=== PATIENT | female | born 1945 | race Caucasian/White ===

== ENCOUNTER → 2017-02-16 | Outpatient (CLI) | payer OTHER ==
[~2017-02-16] MED LIST: ATV5X PO; CHOL100010 PO; LEVO1TAB PO; MULT-506 PO; NAPR1TAB9 PO
[2017-02-16 12:44] LABS: ALT/SGPT 21 U/L (12-78); AST/SGOT 15 U/L (15-37); BLOOD UREA NITROGEN 9 mg/dl (7-18); BUN/CREATININE RATIO 12.8 (10-20); CALCIUM 9.3 mg/dl (8.5-10.1); CARBON DIOXIDE 29 mmol/L (21-32); CHLORIDE 106 mmol/L (98-107); CREATININE 0.67 mg/dl (0.60-1.20); GLUCOSE 114 mg/dl (70-99); POTASSIUM 4.3 mmol/L (3.5-5.1); SODIUM 139 mmol/L (136-145)
[2017-02-16 12:46] LABS: ALB/GLOB RATIO 0.9 (0.9-2); ALKALINE PHOSPHATASE 115 U/L (45-117)
== END | disposition home or self-care (01) ==
LOC: C.LABPVFM 10:17
PROVIDERS: ATTEND Family Medicine
DX: E55.9 Vitamin D deficiency, unspecified (principal); J44.9 Chronic obstructive pulmonary disease, unspecified

== ENCOUNTER → 2017-06-29 | Outpatient (CLI) | payer OTHER ==
[2017-06-29 18:17] LABS: ALT/SGPT 26 U/L (12-78); AST/SGOT 22 U/L (15-37); BLOOD UREA NITROGEN 11 mg/dl (7-18); BUN/CREATININE RATIO 14.3 (10-20); CALCIUM 9.1 mg/dl (8.5-10.1); CARBON DIOXIDE 25 mmol/L (21-32); CHLORIDE 103 mmol/L (98-107); CREATININE 0.76 mg/dl (0.60-1.20); GLUCOSE 90 mg/dl (70-99); POTASSIUM 4.2 mmol/L (3.5-5.1); SODIUM 134 mmol/L (136-145)
[2017-06-29 18:28] LABS: ALB/GLOB RATIO 0.8 (0.9-2); ALKALINE PHOSPHATASE 112 U/L (45-117); THYROID STIMULATING HORMONE 0.543 uIu/ml (0.300-4.500)
== END | disposition home or self-care (01) ==
LOC: C.LABPVFM 10:53
PROVIDERS: ATTEND Family Medicine
DX: Z00.00 Encounter for general adult medical examination without abnormal findings (principal); E03.9 Hypothyroidism, unspecified; I48.92 Unspecified atrial flutter; C85.10 Unspecified B-cell lymphoma, unspecified site; E55.9 Vitamin D deficiency, unspecified; Z11.59 Encounter for screening for other viral diseases

== ENCOUNTER → 2017-08-23 | Outpatient (CLI) | payer OTHER ==
[2017-08-23 19:18] LABS: LYME DISEASE AB IGG POS (NEG); LYME DISEASE AB IGM EQUIVOCAL (NEG)
== END | disposition home or self-care (01) ==
LOC: C.LABPVFM 13:33
PROVIDERS: ATTEND Family Medicine
DX: E03.9 Hypothyroidism, unspecified (principal); S30.861A Insect bite (nonvenomous) of abdominal wall, initial encounter; W57.XXXA Bitten or stung by nonvenomous insect and other nonvenomous arthropods, initial encounter

== ENCOUNTER 2018-03-05 12:05 | Inpatient (IN) | payer OTHER ==
[2018-03-05] VITALS (11 sets, daily range): BP systolic 91–117; BP diastolic 62–84; PULSE 133–137; TEMP 36.4–36.5; O2SAT 93–96; Ht 162.6 cm; Wt 68.1 kg
[~2018-03-05] VITALS: Ht 162.6 cm; Wt 68.1 kg
[~2018-03-05 12:05] MED LIST changes: -CHOL20007 PO; -LEVO100T7 PO; -OPTIRAY 320 IV PRN
[2018-03-05 13:08] LABS: BASO % 0.3 %; BASO ABS # 0.02 K/uL (0-0.2); EOS % 1.8 %; EOS ABS # 0.13 K/uL (0-0.5); HEMATOCRIT 33.8 % (37-47); HEMOGLOBIN 11.1 g/dL (12.0-16.0); IG# 0.03 K/uL (0.00-0.02); LYMPH % 10.5 %; LYMPH ABS # 0.76 K/uL (1.2-3.4); MEAN CELL VOLUME 87.6 fL (80-100); MEAN CORPUSCULAR HEMOGLOBIN 28.8 pg (25-34); MEAN CORPUSCULAR HGB CONC 32.8 g/dl (32-36); MEAN PLATELET VOLUME 9.1 fL (7.4-10.4); MONO % 2.3 %; MONO ABS # 0.17 K/uL (0.11-0.59); NEUT % 84.7 %; NEUT ABS # 6.16 K/uL (1.4-6.5); PLATELET COUNT 198 K/uL (130-400); RED CELL DISTRIBUTION WIDTH CV 20.5 % (11.5-14.5); RED CELL DISTRIBUTION WIDTH SD 65.5 fL (36.4-46.3); WHITE BLOOD COUNT 7.27 K/uL (4.8-10.8)
[2018-03-05] MEDS ORDERED: CHOL20007 PO (13:11)
[2018-03-05] MEDS ORDERED: LEVO100T7 PO (13:11)
[2018-03-05 13:24] LABS: INR 1.1 (0.9-1.1); PTT PATIENT 37.5 SECONDS (21.0-31.0)
--- NOTE | 2018-03-05 13:33 | DIAGNOSTIC IMAGING REPORT ---
CHEST ONE VIEW PORTABLE HISTORY: Tachycardia. Atypical CHEST PAIN COMPARISON: Chest 07/02/2014. FINDINGS: No pneumothorax. No pleural effusions. Right subclavian Port-A-Cath terminus in the SVC. The heart remains enlarged. Diffuse interstitial thickening has progressed. There are few patchy airspace opacities within the right midlung zone. IMPRESSION: Slight progression of the diffuse interstitial thickening. There are few patchy airspace opacities within the right midlung zone. The heart remains enlarged. This could represent pulmonary edema or an atypical pneumonitis. Electronically signed by: Thaddeus Miller M.D. 03/05/2018 1:32 PM Dictated Date/Time: 03/05/2018 1:28 PM
[2018-03-05 13:34] LABS: CREATININE 0.55 mg/dl (0.60-1.20)
[2018-03-05 13:35] LABS: ALBUMIN 2.2 gm/dl (3.4-5.0); CALCIUM 8.5 mg/dl (8.5-10.1); POTASSIUM 3.8 mmol/L (3.5-5.1)
[2018-03-05 13:38] LABS: CKMB 12.9 ng/ml (0.5-3.6); TOTAL PROTEIN 8.5 gm/dl (6.4-8.2)
[2018-03-05] MEDS ORDERED: METOPROLOL TARTRATE 1 MG/ML VIAL IV STA (14:21)
--- NOTE | 2018-03-05 14:58 | EMERGENCY ROOM VISIT NOTE ---
History Report prepared by Nimesh: Danilo Vidal Under the Supervision of: Dr. Osbaldo Olivas M.D. First contact with patient: 12:25 Chief Complaint: TACHYCARDIA Stated Complaint: TACHYCARDIA,THERMAL BURN TO LEFT, SWELLING,SOB, History of Present Illness The patient is a 72 year old female who presents to the Emergency Room with complaints of worsening bilateral leg swelling beginning this week. Her swelling is the worst in her knees. The patient also complains of shortness of breath, mild productive cough, and generalized weakness. She states that she has felt very anxious recently. She denies fevers, or abdominal pain. The patient was diagnosed with lymphoma four years ago and went through six series of chemotherapy (most recent treatment was four years ago). She has a history of rheumatoid arthritis. She was seen at the cancer center today for a routine follow-up CT and was referred to the ED for tachycardia. The patient has been taking all of her medications as normal. She has been drinking a lot of water. Source of History: patient Onset: This week Position: leg (bilateral) Quality: other (swelling) Timing: worsening Associated Symptoms: + cough (mild productive), + SOB, + weakness ( generalized), No fevers, No abdominal pain Review of Systems See HPI for pertinent positives & negatives. A total of 10 systems reviewed and were otherwise negative. Past Medical & Surgical Medical Problems: (1) Acute diastolic (congestive) heart failure (2) Anxiety (3) Atrial fibrillation (4) Atrial Flutter with RVR (5) COPD (chronic obstructive pulmonary disease) (6) Depressed (7) DJD (degenerative joint disease) (8) Hypothyroid Old medical records were reviewed. Nurse's notes were reviewed and I agree with. Family History No pertinent family history stated. Social History Smoking Status: Former Smoker Alcohol Use: none Drug Use: none Marital Status: Housing Status: lives with roommate Occupation Status: retired Current/Historical Medications Scheduled Cholecalciferol (Vitamin D3), 2,000-4,000 UNITS PO DAILY Levothyroxine Sodium (Levothyroxine Sodium), 100 MCG PO DAILY Multivitamin (Multivitamin), 1 TAB PO DAILY Scheduled PRN Lorazepam (Lorazepam), 0.5 MG PO BID PRN for Anxiety Naproxen (Aleve), 440 MG PO BID PRN for Pain Allergies Coded Allergies: Rofecoxib (Unverified Allergy, Unknown, CHEST PAIN, 03/05/18) Erythromycin (Verified Adverse Reaction, Unknown, SORE MOUTH, 03/05/18) Physical Exam Vital Signs Date Time Temp Pulse Resp B/P (MAP) Pulse Ox O2 Delivery O2 Flow Rate FiO2 03/05/18 14:49 132 03/05/18 14:20 135 16 139/94 97 Room Air 03/05/18 13:04 137 16 131/100 94 Room Air 03/05/18 13:00 138 03/05/18 12:30 98 Room Air 03/05/18 12:29 98 Room Air 03/05/18 12:08 36.3 137 20 122/82 94 Room Air Physical Exam General: Chronically-ill appearing older female in no acute distress. Answers questions appropriately, but poor historian. HEENT: Normal cephalic atraumatic. Pupils are equal round and reactive to light. Extraocular movements are intact. Oropharynx is pink with dry mucous membranes. No swelling of the mouth lips or tongue. Neck: Supple with a midline trachea. No meningeal signs or stiffness, no JVD or bruits. No Stridor. Chest: Crackles at the lung bases bilaterally. No increased work of breathing. Heart: Tachycardic rate with a regular rhythm. Abdomen: Soft nontender, nondistended without rebound guarding or rigidity. Extremities: No cyanosis or clubbing. No calf tenderness or assymetry. Pitting 1 + pedal edema bilaterally. Spine/Back. Non tender to palpation. No CVA tenderness Skin: Good turgor without rashes. Neurologic exam: Cranial nerves two through 12 are intact. Motor and sensation are intact and symmetrical throughout. Medical Decision & Procedures ER Provider Diagnostic Interpretation: Radiology results as stated below per my review and radiologist interpretation: CHEST ONE VIEW PORTABLE FINDINGS: No pneumothorax. No pleural effusions. Right subclavian Port-A-Cath terminus in the SVC. The heart remains enlarged. Diffuse interstitial thickening has progressed. There are few patchy airspace opacities within the right midlung zone. IMPRESSION: Slight progression of the diffuse interstitial thickening. There are few patchy airspace opacities within the right midlung zone. The heart remains enlarged. This could represent pulmonary edema or an atypical pneumonitis. Electronically signed by: Thaddeus Miller M.D. 03/05/2018 1:32 PM Laboratory Results 03/05/18 12:55 Red Blood Count 3.86, Mean Corpuscular Volume 87.6, Mean Corpuscular Hemoglobin 28.8, Mean Corpuscular Hemoglobin Concent 32.8, Mean Platelet Volume 9.1, Neutrophils (%) (Auto) 84.7, Lymphocytes (%) (Auto) 10.5, Monocytes (%) (Auto) 2.3, Eosinophils (%) (Auto) 1.8, Basophils (%) (Auto) 0.3, Neutrophils # (Auto) 6.16, Lymphocytes # (Auto) 0.76, Monocytes # (Auto) 0.17, Eosinophils # (Auto) 0.13, Basophils # (Auto) 0.02 03/05/18 12:55 Test 03/05/18 12:55 03/05/18 13:03 White Blood Count 7.27 K/uL (4.8-10.8) Red Blood Count 3.86 M/uL (4.2-5.4) Hemoglobin 11.1 g/dL (12.0-16.0) Hematocrit 33.8 % (37-47) Mean Corpuscular Volume 87.6 fL (80-100) Mean Corpuscular Hemoglobin 28.8 pg (25-34) Mean Corpuscular Hemoglobin Concent 32.8 g/dl (32-36) Platelet Count 198 K/uL (130-400) Mean Platelet Volume 9.1 fL (7.4-10.4) Neutrophils (%) (Auto) 84.7 % Lymphocytes (%) (Auto) 10.5 % Monocytes (%) (Auto) 2.3 % Eosinophils (%) (Auto) 1.8 % Basophils (%) (Auto) 0.3 % Neutrophils # (Auto) 6.16 K/uL (1.4-6.5) Lymphocytes # (Auto) 0.76 K/uL (1.2-3.4) Monocytes # (Auto) 0.17 K/uL (0.11-0.59) Eosinophils # (Auto) 0.13 K/uL (0-0.5) Basophils # (Auto) 0.02 K/uL (0-0.2) RDW Standard Deviation 65.5 fL (36.4-46.3) RDW Coefficient of Variation 20.5 % (11.5-14.5) Immature Granulocyte % (Auto) 0.4 % Immature Granulocyte # (Auto) 0.03 K/uL (0.00-0.02) Anisocytosis PRESENT Prothrombin Time 12.0 SECONDS (9.0-12.0) Prothromb Time International Ratio 1.1 (0.9-1.1) Activated Partial Thromboplast Time 37.5 SECONDS (21.0-31.0) Partial Thromboplastin Ratio 1.4 Anion Gap 1.0 mmol/L (3-11) Est Creatinine Clear Calc Drug Dose 99.8 ml/min Estimated GFR () 110.1 Estimated GFR (Non- 95.0 BUN/Creatinine Ratio 37.0 (10-20) Calcium Level 8.5 mg/dl (8.5-10.1) Total Bilirubin 0.5 mg/dl (0.2-1) Direct Bilirubin 0.2 mg/dl (0-0.2) Aspartate Amino Transf (AST/SGOT) 59 U/L (15-37) Alanine Aminotransferase (ALT/SGPT) 41 U/L (12-78) Alkaline Phosphatase 112 U/L (45-117) Total Creatine Kinase 196 U/L (26-192) Creatine Kinase MB 12.9 ng/ml (0.5-3.6) Creatine Kinase MB Ratio 6.6 (0-3.0) Pro-B-Type Natriuretic Peptide 9281 pg/ml (0-900) Total Protein 8.5 gm/dl (6.4-8.2) Albumin 2.2 gm/dl (3.4-5.0) Lipase 120 U/L (73-393) Thyroid Stimulating Hormone (TSH) 24.800 uIu/ml (0.300-4.500) Free Thyroxine 1.06 ng/dl (0.80-1.60) Bedside Troponin I 0.040 ng/ml (0-0.045) Laboratory studies as stated above per my review. Medications Administered Medications (Trade) Dose Ordered Sig/Bryanna Route Start Time Stop Time Status Last Admin Dose Admin Metoprolol Tartrate (Lopressor Iv) 2.5 mg NOW STAT IV 03/05/18 14:21 03/05/18 14:22 DC 03/05/18 14:49 2.5 MG ECG Per My Interpretation Indication: tachycardia Rate (beats per minute): 138 Rhythm: sinus tachycardia Findings: RBBB, other (Non-specific T-wave abnormalities. ) Comparison ECG Date: 04/15/2018 Change: Rate has increased, QRS has widened. Repeat ECG shows a sinus tachycardia with a rate of 136 bpm. Right Bundle Branch Block pattern noted. No significant changes from ECG 1. ED Course 1227: Past medical records reviewed. The patient was evaluated in room A3, and a complete history and physical examination were performed. 1355: Upon reevaluation, the patient is resting comfortably. I discussed the results and treatment plan with the patient. She verbalized agreement of the treatment plan. The patient will be evaluated for further management. 1421: Ordered Lopressor IV 2.5 mg IV. Medical Decision Differentials include, but are not limited to; arrhythmia, CHF, ACS, cancer complication , PE and electrolyte or metabolic abnormality.. This patient comes in as described above. She was sent over from the cancer center after being found to be fluid overloaded and tachycardic. She had a CAT scan today of her chest and abdomen prior to the ER visit which showed changes of fluid overload with some CHF small pericardial effusion and ascites. She also has pathological lymph nodes worrisome for recurrence of her lymphoma. She does tend to be very anxious. Her heart rate is in 130s. On the monitor there may be a P-wave. She is normotensive with this. Her A-Port was accessed. Chest x-ray was obtained as well as multiple blood testing. She was found to have an elevated BNP significantly. Her CK-MB is also elevated. Her TSH is also elevated some this could be hypothyroid related. She was given Lopressor 2.5 mg IV to help slow her heart rate down. It did not budge much. She does have a history of A. fib or flutter and it is possible she has 2-1 block rather than sinus tachycardia. I think is likely to slow for PSVT and there is some sort of P-wave motion. The [facility] hospitalist is in the room as the dose was given and will follow up any further medications and I do think the patient will need diuresis and further cardiac workup in the hospital. The patient and her were agree with the plan. Medication Reconcilliation Current Medication List: was personally reviewed by me Blood Pressure Screening Patient's blood pressure: Normal blood pressure Blood pressure disposition: Did not require urgent referral Consults Time Called: [id number] Consulting Physician: Dr. Dwight Mena Hospitalist Returned Call: [phone] Discussed the patient's case. The patient will be evaluated for further management. Impression Primary Impression: CHF (congestive heart failure) Additional Impressions: Tachycardia Lymphoma Scribe Attestation The scribe's documentation has been prepared under my direction and personally reviewed by me in its entirety. I confirm that the note above accurately reflects all work, treatment, procedures, and medical decision making performed by me. Departure Information Dispostion Being Evaluated By Hospitalist Referrals Ebony Palacio M.D. (PCP) Patient Instructions My [facility] Problem Qualifiers
[2018-03-05] MEDS ORDERED: FUROSEMIDE INJ 40 MG in SYRINGE 0 ML IV STA (14:59)
[2018-03-05] MEDS ORDERED: FUROSEMIDE 40 MG/4 ML VIAL IV SCH (14:59)
[2018-03-05] MEDS ORDERED: ALUMINUM/MAGNESIUM/SIMETH (MAALOX MAX) 30 ML UDC PO PRN (15:00)
[2018-03-05] MEDS ORDERED: ONDANSETRON INJ 2 MG/ML 2 ML VIAL IV PRN (15:00)
[2018-03-05] MEDS ORDERED: NAPROXEN PO PRN (15:00)
[2018-03-05] MEDS ORDERED: MAGNESIUM HYDROXIDE SUSP 30 ML UDC PO PRN (15:00)
[2018-03-05] MEDS ORDERED: POLYETHYLENE (MIRALAX) 17 GM PACK PO PRN (15:00)
--- NOTE | 2018-03-05 15:17 | History and Physical ---
History & Physical Date & Time of Service: Mar 05, 2018 at 15:09 Chief Complaint: Tachycardia,Thermal Burn To Left, Swelling,Sob, Primary Care Physician: Ebony Palacio M.D. History of Present Illness Source: patient, spouse Ms. Johns is a 72 y/o female with PMHx of B Cell Lymphoma with Parotid Neoplasm (2013), Hypothyroidism, RA, Paroxysmal Atrial Flutter, COPD, and Anxiety who presents to the ED c/o progressive edema and racing heart rate. Patient was seen on 02/28 by her PCP for this complaint and was recommended to come to the ED however patient states she didn't feel bad enough to come. She was getting F/U scans for her lymphoma and decided she couldn't take the swelling and fast heart rate any longer. She is somewhat of a limited historian and appears to have some slowing of verbal response. She states she has had progressive lower extremity edema beginning in October. She is unsure how much weight she has gained but reports that the swelling is so bad that she has difficulty walking due to pain. She states she likes to stay warm and will keep her legs and arms near a heater which produces redness and dryness to her extremities. She kept referring that she thermally burned her skin however no evidence of such. Legs have been weeping over the past couple days. She states she can tell her HR is fast but does not feel any different. She has a H/O Paroxysmal Atrial Fibrillation and was on Toprol XL and Xarelto but was D/Cd due to low BPs and "multiple pharmacists said I shouldn't be on Xarelto". She states she is okay with just a daily ASA and Naprosyn as her anticoagulation and tried to discuss the mechanism of this vs AC. This will need reinforced and she focuses on the commercials for lawsuit actions due to these drugs. She also reports some intermittent SOB with rest and activity but not constant. She has had a mild productive cough as well. She also reports ongoing anxiety and attempted to stop Ativan but had a lot of rebound effects and currently takes this BID. She follows with Dr. Garcia for her lymphoma and underwent chemotherapy x 4 years ago and was getting maintenance scanning today. In the ED, patient was tachycardic in 130-140s and reports sometimes its higher then this. She is appropriately saturating on RA but did drop to 77% with rolling in bed but unsure if this was more just poor reading vs true hypoxia. Initial EKG with significant changes however with repeat it did read as SVT but visible P waves present. Metoprolol 2.5 mg IV x 1 dose given in ED without much improvement. Will give Lasix 40 mg IV x 1 dose and assess response prior to giving more BB therapy. Once the rate improves may have better reading on underlying rhythm which could be a 2:1 flutter with some atrial ectopy. Will hold on AC given patient's reluctance at this time but will readdress and re- educate. Past Medical/Surgical History Medical Problems: (1) Acute diastolic (congestive) heart failure (2) Anxiety (3) Atrial fibrillation (4) Atrial Flutter with RVR (5) COPD (chronic obstructive pulmonary disease) (6) Depressed (7) DJD (degenerative joint disease) (8) Hypothyroid (9) Lymphoma malignant, large cell Family History COPD Diabetes mellitus Heart Disease Social History Smoking Status: Former Smoker Smokeless Tobacco Use: No Alcohol Use: none Drug Use: none Marital Status: Housing status: lives with family Occupational Status: retired Immunizations History of Influenza Vaccine: Unknown History of Tetanus Vaccine?: utd History of Pneumococcal: Unknown History of Hepatitis B Vaccine: Yes Allergies Coded Allergies: Rofecoxib (Unverified Allergy, Unknown, CHEST PAIN, 03/05/18) Erythromycin (Verified Adverse Reaction, Unknown, SORE MOUTH, 03/05/18) Home Medications Scheduled Cholecalciferol (Vitamin D3), 2,000-4,000 UNITS PO DAILY Levothyroxine Sodium (Levothyroxine Sodium), 100 MCG PO DAILY Multivitamin (Multivitamin), 1 TAB PO DAILY Scheduled PRN Lorazepam (Lorazepam), 0.5 MG PO BID PRN for Anxiety Naproxen (Aleve), 440 MG PO BID PRN for Pain Review of Systems Constitutional: + fatigue, No fever, No chills ENT: No nasal symptoms, No sore throat Respiratory: + dyspnea on exertion, + dyspnea at rest, No cough Cardiovascular: No chest pain, No palpitations Abdomen: + constipation (intermittent requiring disimpaction), No pain, No nausea, No vomiting, No diarrhea, No GI bleeding Musculoskeletal: + swelling (b/l lower extremities) Genitourinary - Female: No dysuria, No urinary frequency Psychiatric: + anxiety Hematologic / Lymphatic: No abnormal bleeding/bruising Integumentary: + problem reported (weeping b/l lower extremities; intermittent redness) Physical Exam Vital Signs Date Time Temp Pulse Resp B/P (MAP) Pulse Ox O2 Delivery O2 Flow Rate FiO2 03/05/18 14:49 132 03/05/18 14:20 135 16 139/94 97 Room Air 03/05/18 13:04 137 16 131/100 94 Room Air 03/05/18 13:00 138 03/05/18 12:30 98 Room Air 03/05/18 12:29 98 Room Air 03/05/18 12:08 36.3 137 20 122/82 94 Room Air General Appearance: WD/WN, no apparent distress, + pertinent finding (slow to respond to questioning; almost hypervigilent gaze) Head: normocephalic, atraumatic Eyes: sclerae normal ENT: hearing grossly normal Neck: supple, no JVD, trachea midline Respiratory/Chest: no respiratory distress, no accessory muscle use, + crackles (diffuse), + wheezing (expiratory) Cardiovascular: + tachycardia Abdomen/GI: normal bowel sounds, non tender, soft Extremities/Musculoskelatal: + swelling (2-3+ pitting edema b/l lower extremities with intermittent areas of clear fluid weeping; good pulses and cap refill) Neurologic/Psych: alert, oriented x 3 Skin: normal color, warm/dry Diagnostics Laboratory Results Results Past 24 Hours Test 03/05/18 12:55 03/05/18 13:03 03/05/18 15:04 Range/Units White Blood Count 7.27 4.8-10.8 K/uL Red Blood Count 3.86 4.2-5.4 M/uL Hemoglobin 11.1 12.0-16.0 g/dL Hematocrit 33.8 37-47 % Mean Corpuscular Volume 87.6 80-100 fL Mean Corpuscular Hemoglobin 28.8 25-34 pg Mean Corpuscular Hemoglobin Concent 32.8 32-36 g/dl Platelet Count 198 130-400 K/uL Mean Platelet Volume 9.1 7.4-10.4 fL Neutrophils (%) (Auto) 84.7 % Lymphocytes (%) (Auto) 10.5 % Monocytes (%) (Auto) 2.3 % Eosinophils (%) (Auto) 1.8 % Basophils (%) (Auto) 0.3 % Neutrophils # (Auto) 6.16 1.4-6.5 K/uL Lymphocytes # (Auto) 0.76 1.2-3.4 K/uL Monocytes # (Auto) 0.17 0.11-0.59 K/uL Eosinophils # (Auto) 0.13 0-0.5 K/uL Basophils # (Auto) 0.02 0-0.2 K/uL RDW Standard Deviation 65.5 36.4-46.3 fL RDW Coefficient of Variation 20.5 11.5-14.5 % Immature Granulocyte % (Auto) 0.4 % Immature Granulocyte # (Auto) 0.03 0.00-0.02 K/uL Anisocytosis PRESENT Prothrombin Time 12.0 9.0-12.0 SECONDS Prothromb Time International Ratio 1.1 0.9-1.1 Activated Partial Thromboplast Time 37.5 21.0-31.0 SECONDS Partial Thromboplastin Ratio 1.4 Sodium Level 132 136-145 mmol/L Potassium Level 3.8 3.5-5.1 mmol/L Chloride Level 100 98-107 mmol/L Carbon Dioxide Level 31 21-32 mmol/L Anion Gap 1.0 3-11 mmol/L Blood Urea Nitrogen 20 7-18 mg/dl Creatinine 0.55 0.60-1.20 mg/dl Est Creatinine Clear Calc Drug Dose 99.8 ml/min Estimated GFR () 110.1 Estimated GFR (Non- 95.0 BUN/Creatinine Ratio 37.0 10-20 Random Glucose 94 70-99 mg/dl Calcium Level 8.5 8.5-10.1 mg/dl Total Bilirubin 0.5 0.2-1 mg/dl Direct Bilirubin 0.2 0-0.2 mg/dl Aspartate Amino Transf (AST/SGOT) 59 15-37 U/L Alanine Aminotransferase (ALT/SGPT) 41 12-78 U/L Alkaline Phosphatase 112 45-117 U/L Total Creatine Kinase 196 26-192 U/L Creatine Kinase MB 12.9 0.5-3.6 ng/ml Creatine Kinase MB Ratio 6.6 0-3.0 Pro-B-Type Natriuretic Peptide 9281 0-900 pg/ml Total Protein 8.5 6.4-8.2 gm/dl Albumin 2.2 3.4-5.0 gm/dl Lipase 120 73-393 U/L Thyroid Stimulating Hormone (TSH) 24.800 0.300-4.500 uIu/ml Bedside Troponin I 0.040 0-0.045 ng/ml Diagnostic Radiology CHEST ONE VIEW PORTABLE FINDINGS: No pneumothorax. No pleural effusions. Right subclavian Port-A-Cath terminus in the SVC. The heart remains enlarged. Diffuse interstitial thickening has progressed. There are few patchy airspace opacities within the right midlung zone. IMPRESSION: Slight progression of the diffuse interstitial thickening. There are few patchy airspace opacities within the right midlung zone. The heart remains enlarged. This could represent pulmonary edema or an atypical pneumonitis. EKG Poor data quality, interpretation may be adversely affected Sinus tachycardia RSR' or QR pattern in V1 suggests right ventricular conduction delay Septal infarct , age undetermined Lateral infarct , possibly acute Inferior infarct , age undetermined ACUTE CO / STEMI Abnormal ECG When compared with ECG of 15-APR-2014 11:33, Significant changes have occurred Supraventricular tachycardia Incomplete right bundle branch block Possible Right ventricular hypertrophy Possible Lateral infarct (cited on or before 05-MAR-2018) Abnormal ECG When compared with ECG of 05-MAR-2018 12:40, (unconfirmed) Criteria for Septal infarct are no longer Present Criteria for Inferior infarct are no longer Present Serial changes of Lateral infarct Present Impression Assessment and Plan Ms. Johns is a 72 y/o female with PMHx of B Cell Lymphoma with Parotid Neoplasm (2013), Hypothyroidism, RA, Paroxysmal Atrial Flutter, COPD, and Anxiety who presents to the ED c/o progressive edema and racing heart rate. Tachycardia Possible Atrial Flutter with RVR: - Reviewed previous EKG which suggested atrial flutter vs atrial tach but not a clear cut example; Repeat EKG in ED suggesting SVT but there are visible P waves and if rate control obtained can repeat EKG for better analysis - She was previously on Toprol XL and Xarelto but has since been taken off of this - CK elevated but trops normal so far but will trend cardiac enzymes - no presentation of CP and likely would suspect some demand ischemia given rapid HR - Lopressor 2.5 mg Iv x 1 dose given in ED without response; Will give Lasix and assess tolerance before implementing further BB therapy or could consider CBB given her intolerance to Toprol previously -- Reports this was not tolerated due to blood pressure but can assess further Acute CHF: Possible Diastolic - Only echo was from 2013 with EF 60-65% and mild-moderate pulmonary HTN of 47- 52 - Will repeat echo - Daily weights and I&Os - Lasix 40 mg IV now which may help with rate control given volume overload may be the underlying etiology of the tachycardia Heme+ Stool: - This was incidentally found in ED - Reports no melena/hematochezia but states she does have hemorrhoids and intermittent constipation requiring self-disimpaction - Will trend H&H and hold Naprosyn but at this time will continue ASA Hypothyroidism: TSH 24 - Assess free T4 - this could be an inflammatory response - Unlikely to contribute to tachycardia given this suggests undertreated hypothyroidism COPD without Exacerbation: - There is exp. wheeze on examination which may be more the fluid congestion but will monitor - No indication for steroids at this time Anxiety: - This could be playing a factor in presentation and she reports long standing anxiety; she does reporting stopping this in the past which caused rebound effects - Lorazepam 0.5 mg BID PRN B Cell Lymphoma: Follows with Dr. Garcia - Had F/U imaging which possibly suggests progression of lymphoma however given the pulmonary congestion it may be hard to fully assess - did not discuss with patient the possible progression and may need F/U imaging once fluid status improved RA: - Hold Naprosyn and cover with Tylenol for now DVT Prophylaxis: SCDs Disposition: - Continue to diurese and obtain rate control Resuscitation Status VTE Prophylaxis Will order VTE Prophylaxis: Yes Reviewed: Pt Seen/Exam by Me History Pt had no appetite but did tolerate what she ate. She is very anxious about her ongoing health issues and feels this may have something to do with her HR. She does not feel palpitations. Denies chest pain, SOB. Agree with HPI/ROS as noted by PA. General Appearance: WD/WN, mild distress (somewhat anxious appearing) Eye Exam: bilateral eye normal inspection, bilateral eye other (nml sclerae) Respiratory: normal breath sounds, no respiratory distress Cardiovascular: normal peripheral pulses, irregularly irregular Gastrointestinal: non tender, soft Extremities: non-tender, swelling (b/l LE) Neurologic/Psychiatric: alert, oriented x 3, other (appears anxious however affect is flat) Skin Characteristics: normal color, warm/dry Assessment/Plan Agree with plan as outlined above Afib/flutter not responsive to multiple metoprolol doses or lasix dosing Will start cardizem drip and monitor ?? PNA vs edema on CXR No s/sx of infection, monitor off abx for now given less likely WBC WNL, afebrile Hx of lymphoma with new lymph node enlargement noted
[2018-03-05] MEDS ORDERED: METOPROLOL TARTRATE 1 MG/ML VIAL IV ONE (18:15)
[2018-03-05] MEDS ORDERED: METOPROLOL TARTRATE 1 MG/ML VIAL ONE (18:18)
[2018-03-05] MEDS ORDERED: METOPROLOL TARTRATE 1 MG/ML VIAL IV PRN (18:40)
[2018-03-05 19:06] LABS: HEMATOCRIT 35.9 % (37-47)
[2018-03-05] MEDS ORDERED: DILTIAZEM BOLUS / DRIP IV STA (20:02)
[2018-03-05] MEDS ORDERED: DILTIAZEM HCL INJ 125 MG in DEXTROSE 5% 100ML IV PRN (20:15)
[2018-03-05] MEDS ORDERED: DILTIAZEM HCL 5 MG/ML 5 ML VIAL BOLUS/OMNI IV SCH (20:15)
[2018-03-05] MEDS ORDERED: HEPARIN SOD 5000 UNIT/0.5 ML CARP SQ SCH (21:00)
[2018-03-06] VITALS (16 sets, daily range): BP systolic 82–119; BP diastolic 51–83; PULSE 97–145; TEMP 36.4–36.6; O2SAT 91–95
[2018-03-06 00:02] LABS: POTASSIUM 3.7 mmol/L (3.5-5.1)
[2018-03-06 00:04] LABS: PHOSPHORUS 2.3 mg/dl (2.5-4.9)
[2018-03-06] MEDS ORDERED: SODIUM PHOSPHATE 3 MMOL/1 ML INFUSION IV STA (00:20)
[2018-03-06] MEDS ORDERED: SODIUM PHOSPHATE INJ 15 MMOL in SODIUM CHLORIDE 0.9% 250ML 250 ML IV ONE (00:30)
[2018-03-06 00:58] LABS: HEMATOCRIT 34.4 % (37-47); HEMOGLOBIN 11.2 g/dL (12.0-16.0)
[2018-03-06] MEDS ORDERED: POTASSIUM CHLORIDE 20 MEQ TABCR PO STA (01:16)
[2018-03-06] MEDS ORDERED: METOPROLOL TARTRATE 1 MG/ML VIAL IV STA ×2 (01:18→01:42)
[2018-03-06] MEDS ORDERED: NURSING VERBAL MED ORDER ONE ×4 (02:00→11:30)
[2018-03-06] MEDS ORDERED: SODIUM CHLORIDE 0.9% 250ML 250 ML IV STA (02:04)
[2018-03-06] MEDS ORDERED: DIGOXIN IV 250 MCG in SYRINGE 9 ML IV SCH (02:30)
[2018-03-06] MEDS ORDERED: AMIODARONE IV BOLUS / DRIP IV STA (04:30)
[2018-03-06] MEDS ORDERED: 0.2 MICRON FILTER SET 1 EA IV SCH (04:45)
[2018-03-06] MEDS ORDERED: AMIODARONE / D5W 100 ML PHARMACY PREPARED IV SCH ×2 (04:45)
--- NOTE | 2018-03-06 04:57 | Progress Note ---
Progress Note Date of Service Mar 06, 2018. Progress Note I was called upon by the nurse to examine this patient due to continued elevated heart rate. She had been on a max dose of a cardizem drip which was not effecting her heart rate. I checked her K, Mag and Phos and supplemented these appropriately. We tried two 2.5mg of lopressor on two separate occasions but neither of these helped. We then gave 250mcg of digoxin IV which did not help with her heart rate either. I spoke to Dr. Walls and it was decided to start the patient on an Amiodarone drip in order to help control her rates. hroughout the night the patient complained of minimal shortness of breath. She did not have any murmurs on exam however she did have crackles in her lung temple, most prominent in the lower lobes. I decided to give her 20mg of lasix IV
[2018-03-06 04:59] LABS: CALCIUM 8.2 mg/dl (8.5-10.1); CREATININE 0.62 mg/dl (0.60-1.20); POTASSIUM 3.8 mmol/L (3.5-5.1)
[2018-03-06] MEDS ORDERED: AMIODARONE / D5W 200 ML IV SCH ×2 (05:00→11:00)
[2018-03-06] MEDS ORDERED: FUROSEMIDE INJ 20 MG in SYRINGE 0 ML IV ONE (05:00)
[2018-03-06] MEDS: LEVOTHYROXINE 100 MCG TAB PO SCH (05:06)
[2018-03-06] MEDS: FUROSEMIDE INJ 20 MG in SYRINGE 0 ML IV SCH ×2 (07:44→17:06)
[2018-03-06] MEDS: ASPIRIN 81 MG ECTAB PO SCH (07:44)
--- NOTE | 2018-03-06 08:17 | Clinical Documentation Query ---
CLINICAL DOCUMENTATION QUERY 72 year old female who presents to the Emergency Room with complaints of worsening bilateral leg swelling In your clinical opinion is this patient being managed for: ( x ) Demand ischemia in setting of Afib/flutter with RVR treated with multiple IV rate control medications. ( ) Not Agree ( ) Other explanation of clinical findings (Please Explain) ( ) Unable to determine (Please Define) ( ) Need to Discuss The medical record reflects the following clinical findings, treatment, and risk factors. Clinical Indicators: HR 120-140, Troponin's 0.070, 0.067, Treatment: telemetry, serial ECG 's, IV Lasix, IV Lopressor, IV Cardizem gtt, IV Digoxin, IV Amiodarone gtt, Risk Factors: Age, tachycardia, Please clarify and document your clinical opinion in the progress notes and discharge summary. Terms such as "probable", "suspected", "likely", "questionable", "possible", or "still to be ruled out" are acceptable. IF IN AGREEMENT, YOU MUST DOCUMENT ABOVE DIAGNOSTIC STATEMENT IN DAILY PROGRESS NOTES AND DISCHARGE SUMMARY. This document is not part of the patient's record. Thank You, Chavez Perez, RN [phone]
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
[2018-03-06] MEDS ORDERED: EUCERIN CR 120 GM JAR EXT PRN (11:30)
[2018-03-06] MEDS ORDERED: METOPROLOL TARTRATE 25 MG TAB PO ONE (11:58)
--- NOTE | 2018-03-06 12:02 | ECHOCARDIOGRAM REPORT ---
*NOTICE TO RECEIVING [employer] This information is strictly Confidential and protected under [place] law. [place] law prohibits you from making any further disclosure of this information unless further disclosure is expressly permitted by the written consent of the person to whom it pertains or is authorized by law. A general authorization for the release of medical or other information is not sufficient for this purpose. Hospital accepts no responsibility if the information is made available to any other person, INCLUDING THE PATIENT. Interpretation Summary * Name: SHIRLEY SPARROW Study Date: 03/06/2018 06:59 AM BP: 107/54 mmHg * Patient Location: [facility] HR: 115 * : 1945 (M/d/yyyy) Gender: Female Height: 64 in * Age: 72 yrs Ethnicity: [place] Weight: 185 lb * Ordering Physician: Velvet Perez * Referring Physician: Self, Referred * Performed By: Bertha Gonzalez RCS * * Reason For Study: CHF * BSA: 1.9 m2 * -- Conclusions -- * 1. Normal left ventricular size and systolic function. EF 55-60%. Basal inferior wall segment appears hypokinetic to akinetic. Septal flattening during diastole suggestive of right ventricular volume overload. No left ventricular hypertrophy. * 2. The right ventricle is moderately dilated with moderately reduced systolic function. * 3. The left atrium is moderately dilated. * 4. The right atrium is severely dilated. * 5. There is mild to moderate mitral regurgitation. * 6. There is moderate tricuspid regurgitation. * 7. Small pericardial effusion without echocardiographic evidence of tamponade physiology. * 8. Moderately elevated right ventricular systolic pressure; 51mmHg. * 9. No prior study available for comparison. Procedure Details * A complete two-dimensional transthoracic echocardiogram was performed (2D, M-mode, Doppler and color flow Doppler). Left Ventricle * Normal left ventricular size and systolic function. EF 55-60%. Basal inferior wall segment appears hypokinetic to akinetic. Septal flattening during diastole suggestive of right ventricular volume overload. No left ventricular hypertrophy. Right Ventricle * The right ventricle is moderately dilated. * The right ventricular systolic function is reduced as assessed by tricuspid annular plane systolic excursion (TAPSE) (TAPSE <1.6 cm). Atria * The left atrium is moderately dilated. * The right atrium is severely dilated. * There is no evidence of atrial septal defect, but resolution does not allow assessment for a patent foramen ovale. Mitral Valve * There is mild to moderate mitral annular calcification. * There is no mitral valve stenosis. * There is mild to moderate mitral regurgitation. Tricuspid Valve * The tricuspid valve is not well visualized, but is grossly normal. * There is no tricuspid stenosis. * There is moderate tricuspid regurgitation. Aortic Valve * The aortic valve is trileaflet. * No hemodynamically significant valvular aortic stenosis. * Trace aortic regurgitation. Pulmonic Valve * The pulmonary valve is inadequately visualized, but the Doppler data is adequate for interpretation. * There is no pulmonic valvular stenosis. * Mild pulmonic valvular regurgitation. Great Vessels * The aortic root is normal size. Pericardium/Pleural * Small pericardial effusion without echocardiographic evidence of tamponade physiology. Great Vessels * Dilated IVC with normal inspiratory collapse. MMode 2D Measurements and Calculations IVSd 1.1 cm IVSs 1.2 cm LVIDd 3.8 cm LVIDs 2.9 cm LVPWd 1.1 cm LVPWs 1.3 cm IVS/LVPW 1.1 FS 22.5 % EDV(Teich) 60.7 ml ESV(Teich) 32.8 ml EF(Teich) 46.1 % EDV(cubed) 53.5 ml ESV(cubed) 24.9 ml EF(cubed) 53.5 % % IVS thick 10.8 % % LVPW thick 19.2 % LV mass(C)d 129.6 grams LV mass(C)dI 68.5 grams/m\S\2 LV mass(C)s 111.2 grams LV mass(C)sI 58.8 grams/m\S\2 CO(Teich) 2.5 l/min CI(Teich) 1.3 l/min/m\S\2 SV(Teich) 28.0 ml SI(Teich) 14.8 ml/m\S\2 CO(cubed) 2.6 l/min CI(cubed) 1.4 l/min/m\S\2 SV(cubed) 28.6 ml SI(cubed) 15.1 ml/m\S\2 Ao root diam 3.4 cm Ao root area 9.1 cm\S\2 ACS 1.3 cm LA dimension 5.1 cm asc Aorta Diam 3.5 cm LA/Ao 1.5 LVAd ap4 22.2 cm\S\2 LVLd ap4 6.7 cm EDV(MOD-sp4) 63.5 ml EDV(sp4-el) 48.5 ml LVAs ap4 12.9 cm\S\2 LVLs ap4 5.5 cm ESV(MOD-sp4) 25.6 ml ESV(sp4-el) 17.3 ml EF(MOD-sp4) 59.7 % EF(sp4-el) 64.2 % LVAd ap2 18.7 cm\S\2 LVLd ap2 6.0 cm EDV(MOD-sp2) 48.5 ml LVAs ap2 11.7 cm\S\2 LVLs ap2 5.3 cm ESV(MOD-sp2) 23.0 ml EF(MOD-sp2) 52.6 % CO(MOD-sp4) 3.4 l/min CI(MOD-sp4) 1.8 l/min/m\S\2 SV(MOD-sp4) 37.9 ml SI(MOD-sp4) 20.0 ml/m\S\2 CO(MOD-sp2) 2.3 l/min CI(MOD-sp2) 1.2 l/min/m\S\2 SV(MOD-sp2) 25.5 ml SI(MOD-sp2) 13.5 ml/m\S\2 CO(sp4-el) 2.8 l/min CI(sp4-el) 1.5 l/min/m\S\2 SV(sp4-el) 31.1 ml SI(sp4-el) 16.4 ml/m\S\2 Doppler Measurements and Calculations MV E max marilu 93.0 cm/sec MV dec time 0.15 sec Ao V2 max 117.4 cm/sec Ao max PG 5.5 mmHg Ao max PG (full) 3.7 mmHg AI max marilu 368.9 cm/sec AI max PG 55.0 mmHg AI dec slope 341.7 cm/sec\S\2 AI P1/2t 316.2 msec LV V1 max PG 1.8 mmHg LV V1 max 67.7 cm/sec PA V2 max 76.1 cm/sec PA max PG 2.3 mmHg PI max marilu 220.1 cm/sec PI max PG 19.4 mmHg PI dec slope 251.5 cm/sec\S\2 PI P1/2t 256.3 msec TR max marilu 327.2 cm/sec RVSP(TR) 50.9 mmHg RAP systole 8.0 mmHg
[2018-03-06] MEDS ORDERED: OPTIRAY 320 IV PRN (12:15)
[2018-03-06] MEDS: DIGOXIN IV 125 MCG in SYRINGE 9.5 ML IV SCH ×2 (12:27→17:10)
--- NOTE | 2018-03-06 13:16 | CARDIOLOGY CONSULTATION ---
DATE OF CONSULTATION: 03/06/2018 TIME: 12:10 p.m. CONSULTING PHYSICIAN: Dr. Mejia. REASON FOR CONSULTATION: Atrial fibrillation/flutter. HISTORY OF PRESENT ILLNESS: Ms. 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 She has been experiencing shortness of breath, both at rest and upon exertion and a feeling of being wiped out for the past several days. An actual time frame was unable to be completely understood of how long she has not been feeling well, but she admits that she has noted swelling in her legs for several months dating back to 10/2017. She has been standing by a register at home to warm herself up and developed clark on her legs and she was attributing her swelling to the "thermal clark." She denies orthopnea or paroxysmal nocturnal dyspnea, but can feel short of breath at rest while sitting. She denies chest discomfort. She denies palpitations but was aware that her heart has been racing as she was told in her primary care office several days ago and was recommended that she come to the Emergency Department, but she declined at that time. Despite being told that her heart was racing, she did not feel palpitations. In the past, she apparently was taking metoprolol, but had hypotension according to records and it was therefore discontinued. She was on Xarelto and discontinued that secondary to concerns of bleeding and commercials seen on TV for law suits. She has been maintained on aspirin and naproxen which she refers to as her anticoagulation for her paroxysmal atrial fibrillation/flutter. She denies recent fevers, chills, melena, hematochezia, hematuria, abdominal pain, syncope, or near syncope. Her last chemotherapy was approximately 4 years ago. She continues to follow up with Dr. Garcia for surveillance purposes. While hospitalized, she was found to have tachyarrhythmia which initially was felt to be potentially atrial flutter or SVT. She now is in atrial fibrillation with rapid ventricular response. Overnight, she was placed on a diltiazem drip by the admitting service. She was also given intermittent doses of intravenous metoprolol. Her heart rate did not significantly improve. She was given 1 dose of digoxin 250 mcg IV at 3:14 a.m. When her heart rate continued to be elevated, she was placed on an amiodarone drip at 4:47 a.m. While on amiodarone, her heart rate has improved but remains tachycardic. She was also placed on intravenous diuretics in the form of Lasix 20 mg IV b.i.d. She was given 1 dose of 40 mg IV Lasix yesterday afternoon. She diuresed yesterday, but according to nursing staff is not diuresing significantly thus far today on the lower dose of Lasix. REVIEW OF SYSTEMS: As above review of systems is otherwise negative/unremarkable. PAST MEDICAL HISTORY: 1. Paroxysmal atrial flutter/fibrillation, not on anticoagulation therapy due to patient's choice. 2. B-cell lymphoma with parotid neoplasm 2013, status post chemotherapy. 3. Hypothyroidism. 4. Depression/anxiety. 5. COPD. 6. Degenerative joint disease. 7. Rheumatoid arthritis. HOME MEDICATIONS: Include levothyroxine 100 mcg daily, vitamin D3 and multivitamin. HOSPITAL MEDICATIONS: Include Lasix 20 mg IV b.i.d., amiodarone drip, levothyroxine 100 mcg daily. ALLERGIES: INCLUDE ERYTHROMYCIN AND ROFECOXIB. SOCIAL HISTORY: Quit smoking in 05/27/2017. No alcohol. No drugs. Lives with her friend, Kyle. She has been x2. She has a daughter which she describes as being not "close" and also being "incompatible." She does speak with her daughter; however. She is currently unaccompanied in her hospital room. FAMILY HISTORY: She was raised by her grandparents. Her mother when she was only 5 months old with diabetes. PHYSICAL EXAMINATION: VITAL SIGNS: Temperature 36.4 degrees, heart rate 119 beats per minute, respiration rate 20, blood pressure 105/70 mmHg, oxygen saturation 95% on room air. Weight 79.2 kg. GENERAL: No acute distress. She is alert and oriented. HEENT: Anicteric sclerae. NECK: Elevated JVD and hepatojugular reflux was noted. No bruits. Normal carotid upstrokes bilaterally. CARDIAC EXAMINATION: PMI was nonpalpable. There was no ventricular heave, irregularly irregular and tachycardic. Normal S1 and S2. There were no audible murmurs, rubs or gallops. LUNGS: Rales bilaterally base to mid lung temple. ABDOMEN: Soft, nontender, nondistended. Normoactive bowel sounds, no bruits noted. EXTREMITIES: 3+ pitting edema distal lower extremities to the knees bilaterally with weeping. There was 2+ pitting edema, bilateral lower extremity edema from the knees to the hips. No cyanosis. 2+ radial pulses bilaterally. 2+ dorsalis pedis pulses bilaterally. PSYCHIATRIC: Affect appears appropriate. ECG. 03/06/2018 at 6:30 a.m. personally reviewed. Atrial fibrillation at 112 beats per minute. Right bundle branch block. Cannot rule out anterior infarct. ECG upon presentation demonstrated possible atrial flutter versus SVT at 138 beats per minute. Right bundle-branch block. Possible septal infarct. Possible inferior infarct. Telemetry personally reviewed. Atrial fibrillation. Echocardiogram personally reviewed from this morning normal LV size and systolic function. EF 55%-60%. Basal inferior wall segment appears hypokinetic to akinetic. Septal flattening during diastole suggestive of right ventricular volume overload. No LVH. RV is moderately dilated with moderately reduced systolic function. Biatrial dilation. Mild to moderate MR. Moderate TR. Small pericardial effusion. RVSP 51 mmHg. LABORATORY DATA: White blood cell count 7.27, hemoglobin 11.1, platelets 198. Sodium 133, potassium 3.8, BUN 21, creatinine 0.62. Peak troponin was 0.07. LDL 31, HDL 33, triglycerides 89. ProBNP 9281. TSH 24.8, AST 59, ALT 41. INR 1.1. D-dimer 3780. CT of the chest for 03/05/2018 with contrast: Interval development of mediastinal lymphadenopathy per radiology. Small pericardial effusion. Small bilateral pleural effusions. Interlobular septal thickening with scattered bilateral airspace opacities most pronounced at the lung bases favoring pulmonary edema per radiology. ASSESSMENT AND PLAN: 1. Acute diastolic congestive heart failure: She is hypervolemic. She is not diuresing significantly this morning. Increase Lasix to 40 mg IV t.i.d. If she does not diurese adequately with a goal of 1-2 L negative today, would consider giving a dose of Diuril intravenously. Low sodium diet recommended. Daily weights. Strict I's and O's while hospitalized. We did discuss the importance of daily weights at home. Atrial fibrillation may be contributing to her CHF as she has been tachycardic. 2. Atrial fibrillation with rapid ventricular response: We discussed the diagnosis in detail as well as treatment strategies. She is adamantly against stroke risk reduction with anticoagulation therapy. Rationale for anticoagulation therapy was discussed with her in detail including several of the anticoagulant options. She adamantly declines and was made aware that she has increased stroke risk. Because anticoagulation is declined, would recommend that a rhythm control strategy is not employed at this time, so that we do not convert her. Amiodarone therapy will be discontinued and we will attempt the rate control strategy. Metoprolol tartrate 25 mg twice daily initiated and digoxin 125 mcg IV q. 6 hours x2 doses as she has already received 250 mcg overnight. It will take likely several hours to see if this has an adequate effect. Can titrate beta blockers if blood pressure allows. Ultimately, if heart rate cannot be adequately controlled, may have to consider amiodarone despite increased stroke risk. We discussed anticoagulation therapy even while hospitalized and she once again declines even while hospitalized such as heparin. 3. Mitral and tricuspid regurgitation: Nonsevere. These insufficiencies may improve with improvement in her volume status as she is significantly hypervolemic. 4. Pulmonary hypertension: Elevated RVSP on echo. This also could be due to her current hypervolemic state. Can consider repeating an echo at some point in the future, likely as an outpatient once she is adequately diuresed. 5. Pericardial effusion. No echocardiographic evidence of tamponade physiology. Recommend diuresis as above. The pericardial effusion is small and at this time, a pericardiocentesis is not recommended given its small size. Other etiology could include her malignancy. This could be monitored over time. 6. Disposition: Cardiology will continue to follow. The patient's care has been discussed with Dr. Mejia, the primary hospitalist. Highly complex medical issues. Thank you for allowing me to participate in the care of Ms. Johns. . JOYA
[2018-03-06] MEDS: FUROSEMIDE INJ 40 MG in SYRINGE 0 ML IV SCH ×2 (14:46→21:03)
--- NOTE | 2018-03-06 15:17 | DIAGNOSTIC IMAGING REPORT ---
CT ANGIOGRAM OF THE CHEST CLINICAL HISTORY: Acute diastolic heart failure COMPARISON STUDY: 03/05/2018 TECHNIQUE: Following the IV administration of 85 mL of Optiray-320, CT angiogram of the thorax was performed from the thoracic inlet to the lung bases utilizing the pulmonary embolus protocol. Images are reviewed in the axial, sagittal, and coronal planes. IV contrast was administered without complication. MIP imaging was performed. A dose lowering technique was utilized adhering to the principles of ALARA. CT DOSE: 535.50 mGy.cm FINDINGS: There are borderline enlarged supraclavicular lymph nodes. There is an large 33 mm right paratracheal lymph node. There is subcarinal lymphadenopathy. There is no pathologic axillary lymphadenopathy. There is no pathologic hilar lymphadenopathy. There is mild ectasia of the ascending thoracic aorta which measures 37 mm There were no pulmonary artery filling defects to indicate acute pulmonary embolism. There are small bilateral pleural effusions There are patchy bilateral groundglass opacities. There is septal thickening. Bony edema is suspected. A bilateral infectious/inflammatory process could potentially appear similar. There is a right-sided A-Port catheter present. The heart is enlarged. There are coronary artery calcifications. There is a trace pleural effusion. There is reflux of contrast into the hepatic veins consistent with a dilated right heart pressures. There is trace pneumobilia. IMPRESSION: 1. No evidence of pulmonary embolism 2. Mediastinal lymphadenopathy 3. Persistent interlobular septal thickening in bilateral airspace opacities, likely are presenting pulmonary edema. An infectious/inflammatory process could appear similar but is felt to be statistically less likely 4. Cardiomegaly, small pericardial effusion, and coronary artery calcifications 5. Reflux of contrast into the hepatic veins a finding indicating elevated right heart pressures Electronically signed by: Raul Alexandra M.D. 03/06/2018 3:16 PM Dictated Date/Time: 03/06/2018 3:08 PM
[2018-03-06] MEDS: LORAZEPAM 0.5 MG TAB PO PRN (17:10)
[2018-03-06] MEDS: METOPROLOL TARTRATE 25 MG TAB PO SCH (21:03)
[2018-03-07 03:22] VITALS: BP 90/62; PULSE 102; TEMP 36.4; O2SAT 92
[2018-03-07] MEDS: LEVOTHYROXINE 100 MCG TAB PO SCH (05:34)
[2018-03-07 06:51] LABS: CALCIUM 8.5 mg/dl (8.5-10.1); CREATININE 0.66 mg/dl (0.60-1.20); POTASSIUM 3.7 mmol/L (3.5-5.1)
[2018-03-07] MEDS: FUROSEMIDE INJ 40 MG in SYRINGE 0 ML IV SCH ×3 (07:30→20:09)
[2018-03-07] MEDS: ASPIRIN 81 MG ECTAB PO SCH (07:30)
[2018-03-07] MEDS: METOPROLOL TARTRATE 25 MG TAB PO SCH ×2 (07:31→20:11)
[2018-03-07 07:47] VITALS: BP 97/68; PULSE 113; TEMP 36.5; O2SAT 95
--- NOTE | 2018-03-07 08:27 | Hospitalist Progress Note ---
Hospitalist Progress Note Date of Service Mar 07, 2018. (Merissa Ochoa PA-C) Subjective Pt evaluation today including: conversation w/ patient, physical exam, chart review, lab review, review of studies PO Intake: Good Voiding: no voiding problems The patient was seen and examined this morning. Pt reports doing better today. She reports her breathing is improved. She is also not feeling short of breath with minimal exertional activities such as walking to the bathroom. Patient denies any chest pain, tightness, palpitations or flutter, dizziness or lightheadedness. Patient remembers being seen by Dr. Gaona earlier this morning. She is very adamant that she does not want anticoagulation so we will attempt to get adequate rate control. Patient was counseled on stopping naproxen as she has been using this for chronic pain for many years, she is a different agent for her for pain relief. 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 Patient remains in A. fib overnight on telemetry Additional Comments: Constitutional: No fever, sweats or chills Eyes: No diplopia, no worsening or blurred vision ENT: normal hearing, no trouble swallowing Respiratory: No cough, sputum, + dyspnea on exertion -slightly improved Cardiovascular: No chest pain, tightness or palpitations Abdomen: No pain, nausea, vomiting, diarrhea or constipation Musculoskeletal: No joint pain, calf pain, + swelling in BLE, no redness Neurologic: Generalized weakness slightly improved, no numbness/tingling, or balance problems Skin: No rash or itch, see HPI (Merissa Ochoa, EDIE) Objective Vital Signs Date Time Temp Pulse Resp B/P (MAP) Pulse Ox O2 Delivery O2 Flow Rate FiO2 03/07/18 07:47 36.5 113 22 97/68 (78) 95 Room Air 03/07/18 04:00 Room Air 03/07/18 03:22 36.4 102 17 90/62 (71) 92 Room Air 03/06/18 23:59 Room Air 03/06/18 23:47 36.6 113 17 106/68 (81) 95 Room Air 03/06/18 20:00 Room Air 03/06/18 19:40 36.5 97 20 112/71 (85) 92 Room Air 03/06/18 17:10 90 03/06/18 16:01 36.4 112 20 119/83 (95) 92 Room Air 03/06/18 16:00 Room Air 03/06/18 12:27 110 03/06/18 12:00 Room Air 03/06/18 11:33 36.6 119 18 110/71 (84) 94 Room Air (Merissa Ochoa PA-C) Physical Exam Notes: General Appearance: WD/WN, no apparent distress, + pertinent finding (Slow speaking) Eyes: PERRL, EOMI ENT: hearing grossly normal, pharynx normal, + pertinent finding (MM slightly dry) Respiratory/Chest: no respiratory distress, no accessory muscle use, + pertinent finding (On room air, + bibasilar crackles, no wheeze or rales) Cardiovascular: no JVD, + pertinent finding (irregularly irregular, heart rate 100s-110s, ) Abdomen: normal bowel sounds, non tender, soft Extremities: non-tender, no calf tenderness, + pedal edema (2+ pitting up to knees BLE-slightly improved) Neurologic/Psychiatric: alert, normal mood/affect, oriented x 3, + pertinent finding (Slow speaking) Skin: normal color, warm/dry, + pertinent finding (+ dry skin over BLE, 1 small fluid blister on RLE draining) (Merissa Ochoa PA-C) Laboratory Results Last 24 Hours Test 03/06/18 11:09 03/07/18 05:15 D-Dimer 3780 ug/L FEU Sodium Level 136 mmol/L Potassium Level 3.7 mmol/L Chloride Level 99 mmol/L Carbon Dioxide Level 33 mmol/L Anion Gap 4.0 mmol/L Blood Urea Nitrogen 21 mg/dl Creatinine 0.66 mg/dl Est Creatinine Clear Calc Drug Dose 80.0 ml/min Estimated GFR () 103.7 Estimated GFR (Non- 89.5 BUN/Creatinine Ratio 31.5 Random Glucose 63 mg/dl Calcium Level 8.5 mg/dl (Merissa Ochoa PA-C) Assessment and Plan 72 y/o female with PMHx of B Cell Lymphoma with Parotid Neoplasm (2013), Hypothyroidism, RA, Paroxysmal Atrial Flutter, COPD, and Anxiety who presents to the ED c/o progressive edema and racing heart rate. Atrial Fib with RVR: - Overnight events on tele: Atrial fib w/ HR in 110s-120s overnight. - Not on anticoagulation -patient is very hesitant regarding anticoagulation- continue on aspirin. - Cards on board: cont digoxin 125 mcg p.o. daily. increase metoprolol tartrate cautiously to 37.5 mg BID with borderline low BP - Troponins trended due to elevated HR - 0.07 -->0.067, no presentation of CP- secondary to demand ischemia given rapid HR - Cont diuresis - d-dimer elevated, CTPE was negative on 03/06 Acute diastolic CHF - Echo 03/06 showing LVEF = 55-60%, R ventricular volume overload, small pericardial effusion. -Likely will improve with diuresis - Continue IV diuresis which is now increased to Lasix 40 IV tid. - Daily weights and I&Os-- neg 2.5L - Will need f/u with Cards upon discharge Heme+ Stool: - This was incidentally found in ED - Reports no melena/hematochezia but states she does have hemorrhoids and intermittent constipation requiring self-disimpaction - trend H&H -remained stable with hgb=11.2. - cont ASA Hypothyroidism: TSH 24 - free T4 =1.06 - Unlikely to contribute to tachycardia given this suggests undertreated hypothyroidism COPD without Exacerbation: - No expiratory wheeze heard on examination today, likely improved with diuresis. - No indication for steroids at this time Anxiety: - Likely playing factor in presentation: CT for lymphoma follow-up reviewed with her at bedside and she reports feeling much less anxious after this discussion. - Lorazepam 0.5 mg BID PRN B Cell Lymphoma: Follows with Dr. Garcia - F/U imaging done 03/05: discussed with patient regarding need for follow up and that chest CT difficult to determine if progression of lymphadenopathy with fluid; will continue to diuresis and need follow up scans to evaluate. - CT chest: interval development of the mediastinal lymphadenopathy ( difficult to determine if part of this is fluid congestion), Cardiomegaly, small pericardial effusion, and small bilateral pleural effusions. Pulmonary edema vs atypical pneumonitis. - CT abdomen: Numerous subcentimeter retroperitoneal and bilateral common and external iliac lymph nodes are new since 2015. These are not pathologically enlarged. Gallbladder wall thickening and trace pericholecystic fluid. No definitive evidence of cholecystitis. This could be secondary to the presence of anasarca and presumed volume overload. New small bilateral pleural effusions and small pericardial effusion. RA: - Hold Naprosyn and cover with Tylenol for now - Pain not well controlled at this time- start gabapentin 100 mg BID for neuropathic pain and titrate up as tolerated DVT Prophylaxis: SCDs, pt refusing anticoagulation, ppx held due to +heme stools. Disposition: From home, lives alone, PT/OT evals, CM to assist with dc planning. Continue diuresis, possible dc in 1-2 days. (Merissa Ochoa, EDIE) PA Physician Supervision Note: I interviewed and examined the patient. Discussed with Merissa Ochoa PAC and agree with findings and plan as documented in the note. Any exceptions or clarifications are listed here: None Patient is being diuresed from her acute diastolic heart failure secondary to atrial fibrillation rapid ventricular response with some improvement in ventricular rate control cardiology is avoiding at the coagulation as patient adamantly refuses that we are escalating beta-debbie doses of metoprolol 37.5 twice daily with digoxin 0.125 daily continuing diuresis with Lasix 40 she has achieved in almost 2 kg weight loss by our scales will slowly continue to have this moved toward symptom control continue to educate her regarding the need for long-term anti-coagulation Documented By: Deepak Mejia (Deepak Mejia M.D.)
[2018-03-07 10:30] VITALS: BP 107/68; PULSE 96; TEMP 36.7; O2SAT 95
--- NOTE | 2018-03-07 10:47 | CARDIOLOGY PROGRESS NOTE ---
DATE: 03/07/2018 TIME: 9:48 a.m. SUBJECTIVE: She states that she feels slightly better. She denies chest pain. Her breathing has improved slightly. She denies palpitations, syncope, near syncope. She has not noted any significant change in her edema, but admits that she does not necessarily evaluate her legs. She did inquire about taking naproxen for her rheumatoid arthritis. She was advised that she should avoid NSAIDs going forward given her heart failure diagnosis. OBJECTIVE: VITAL SIGNS: Temperature 36.5 degrees, heart rate 113 beats per minute, respiration rate 22, blood pressure 97/68 mmHg, oxygen saturation 95% on room air. I's and O's negative 1.2 liters yesterday. Weight is 77.6 kilogram. GENERAL: In no acute distress. She is alert. NECK: Elevated JVD and hepatojugular reflux. CARDIAC EXAM: No ventricular heave, irregularly irregular, normal S1, S2. There were no audible murmurs, rubs or gallops. LUNGS: Rales base to mid lung temple bilaterally. ABDOMEN: Soft, nontender, nondistended. Normoactive bowel sounds. EXTREMITIES: 2+ bilateral lower extremity edema to the knees, right worse than left. 1+ edema from the knees to the hips bilaterally. No cyanosis. PSYCHIATRIC: Affect appears appropriate. MEDICATIONS: Include aspirin 81 mg daily, Lasix 40 mg IV t.i.d., metoprolol 25 mg twice daily. Telemetry personally reviewed. Atrial fibrillation with improved heart rate. DATA: Sodium 136, potassium 3.7, BUN 26, creatinine 0.66. ECG: Performed this morning personally reviewed demonstrating atrial fibrillation with rapid ventricular response at 114 beats per minute. Right bundle branch block. ASSESSMENT AND PLAN: 1. Acute diastolic congestive heart failure: Continues to be hypervolemic, but appears mildly improved from yesterday. She is diuresing nicely. Continue Lasix 40 mg IV t.i.d. as long as blood pressure allows. Continue low sodium diet. Continue daily weights and strict I's and O's. Avoid NSAIDs. Atrial fibrillation, likely contributing to her CHF. Hopefully, we can achieve reasonable rate control. 2. Atrial fibrillation with rapid ventricular response: Heart rate overall has improved. Continue digoxin and will start 125 mcg p.o. daily. We will increase metoprolol tartrate cautiously to 37.5 mg twice daily, as she has been intermittently and mildly hypotensive, but asymptomatic. Rate control strategy has been chosen due to her reluctance on taking anticoagulation therapy. She declines anticoagulation therapy for stroke risk reduction. 3. Mitral and tricuspid regurgitation: Nonsevere. These may actually improve with improvement of her congestive heart failure. 4. Pulmonary hypertension: Once again, this may also improve with diuresis. An echo will be repeated in the future. 5. Pericardial effusion: May be secondary to her congestive heart failure. She also has had malignancy in the past. This will be reevaluated in the future. Continue diuresis. No echocardiographic evidence of tamponade physiology. 6. Disposition: Cardiology will continue to follow. She will likely require several days of diuresis.
[2018-03-07 15:19] VITALS: BP 110/78; PULSE 109; TEMP 36.6; O2SAT 93
[2018-03-07] MEDS ORDERED: DIGOXIN 0.125 MG TAB PO SCH (16:00)
[2018-03-07 19:00] VITALS: BP 102/70; PULSE 136; TEMP 36.6; O2SAT 93
[2018-03-07] MEDS: GABAPENTIN 100 MG CAP PO SCH (20:09)
[2018-03-07] MEDS: LORAZEPAM 0.5 MG TAB PO PRN (20:18)
[2018-03-08] VITALS (10 sets, daily range): BP systolic 83–111; BP diastolic 52–76; PULSE 86–134; TEMP 36.4–36.8; O2SAT 64–96
[2018-03-08 05:31] LABS: CALCIUM 8.5 mg/dl (8.5-10.1); CREATININE 0.64 mg/dl (0.60-1.20); POTASSIUM 3.2 mmol/L (3.5-5.1)
[2018-03-08] MEDS: LEVOTHYROXINE 100 MCG TAB PO SCH (06:34)
[2018-03-08] MEDS: FUROSEMIDE INJ 40 MG in SYRINGE 0 ML IV SCH (08:23)
[2018-03-08] MEDS: ASPIRIN 81 MG ECTAB PO SCH (08:24)
[2018-03-08] MEDS: METOPROLOL TARTRATE 25 MG TAB PO SCH ×2 (08:24→20:58)
[2018-03-08] MEDS: GABAPENTIN 100 MG CAP PO SCH ×3 (08:24→20:58)
--- NOTE | 2018-03-08 08:29 | Progress Note ---
Subjective Date of Service: Mar 08, 2018. Subjective pt feels improved but admits that she has a long room to go. she has no chest pain but overall feels that she is breathing easier Problem List Medical Problems: (1) CHF (congestive heart failure) Status: Acute (2) Lymphoma Status: Acute (3) Tachycardia Status: Acute Review of Systems Constitutional: + weakness, No fever, No chills, No fatigue Respiratory: + shortness of breath, + dyspnea on exertion, No cough Cardiac: + edema, No chest pain Abdomen: No pain, No nausea, No vomiting, No diarrhea Female : + urinary frequency, No dysuria Objective Vital Signs Date Time Temp Pulse Resp B/P (MAP) Pulse Ox O2 Delivery O2 Flow Rate FiO2 03/08/18 04:00 92 Room Air 03/08/18 03:08 36.6 110 18 91/61 (71) 92 Room Air 03/08/18 00:00 94 Room Air 03/08/18 00:00 36.8 113 18 83/52 (62) 94 Room Air 111/76 (88) 03/07/18 20:00 Room Air 03/07/18 19:00 36.6 136 20 102/70 (81) 93 Room Air 03/07/18 16:07 116 03/07/18 16:00 Room Air 03/07/18 15:19 36.6 109 20 110/78 (89) 93 Room Air 03/07/18 12:00 Room Air 03/07/18 10:30 36.7 96 20 107/68 (81) 95 Room Air Physical Exam General Appearance: WD/WN, + mild distress Neck: supple, no JVD Respiratory/Chest: chest non-tender, lungs clear, no accessory muscle use Cardiovascular: regular rate, rhythm, no murmur Abdomen: normal bowel sounds, non tender, soft Extremities: + pedal edema, + swelling Neurologic/Psychiatric: alert, oriented x 3 Laboratory Results Last 24 Hours Test 03/08/18 04:45 Sodium Level 136 mmol/L Potassium Level 3.2 mmol/L Chloride Level 100 mmol/L Carbon Dioxide Level 36 mmol/L Anion Gap 0.0 mmol/L Blood Urea Nitrogen 22 mg/dl Creatinine 0.64 mg/dl Est Creatinine Clear Calc Drug Dose 82.5 ml/min Estimated GFR () 104.8 Estimated GFR (Non- 90.4 BUN/Creatinine Ratio 34.0 Random Glucose 64 mg/dl Calcium Level 8.5 mg/dl Assessment and Plan 72 y/o female presents with acute diastolic heart failure, atrial fibrillation with RVR, responding well to diuresis, PMHx of B Cell Lymphoma with Parotid Neoplasm (2013), Hypothyroidism, RA, Paroxysmal Atrial Flutter, COPD, and Anxiety Atrial Fib with RVR:reamains with improving rate control, asa, digoxin 125 mcg pending level, . increased metoprolol tartrate cautiously to 37.5 mg BID - d-dimer elevated, CTPE was negative on 03/06, pt adamantly refused anticoagulation Acute diastolic CHF - Echo 03/06 showing LVEF = 55-60%, R ventricular volume overload, Lasix 40 IV tid. good diuresis with no renal distress Heme+ Stool from ER, no melena/hematochezia but states she does have hemorrhoids and intermittent constipation requiring self-disimpaction H&H stable with hgb=11.2. Hypothyroidism: TSH 24, free T4 =1.06 seems compensated COPD without Exacerbation: Anxiety:CT for lymphoma follow-up reviewed, Lorazepam 0.5 mg BID PRN B Cell Lymphoma: Follows with Dr. Garcia - F/U imaging done 03/05: - CT chest: interval development of the mediastinal lymphadenopathy (difficult to determine if part of this is fluid congestion), - CT abdomen: Numerous subcentimeter retroperitoneal and bilateral common and external iliac lymph nodes are new since 2014. not pathologically enlarged. RA:- Hold Naprosyn and using Tylenol , started gabapentin 100 mg BID for neuropathic pain DVT Prophylaxis: SCDs, pt refusing anticoagulation, ppx held due to +heme stools.
[2018-03-08] MEDS ORDERED: POTASSIUM CHLORIDE 20 MEQ TABCR PO ONE (10:00)
--- NOTE | 2018-03-08 10:01 | CARDIOLOGY PROGRESS NOTE ---
DATE: 03/08/2018 TIME: 9:27 a.m. SUBJECTIVE: She denies shortness of breath, syncope, near syncope, palpitations, chest pain or worsening edema. She states that she feels well and is able to tolerate ambulation to the bathroom. OBJECTIVE: VITAL SIGNS: Temperature 36.6 degrees, heart rate 110 beats per minute, respiration rate 18, blood pressure 91/61 mmHg. Her blood pressure has been [id number] hypotensive at times. Oxygen saturation 92% on room air. I's and O's negative 1.7 liters yesterday. Weight is 75.3 kilograms, down from 77.6 yesterday. GENERAL: No acute distress. She is alert. NECK: Mild JVD and hepatojugular reflux. CARDIAC: No ventricular heave. Irregularly irregular and tachycardic. Normal S1, S2, no audible murmurs, rubs or gallops. LUNGS: Rales base to mid lung temple bilaterally. ABDOMEN: Soft, nontender, nondistended. Normoactive bowel sounds. EXTREMITIES: 2 to 3+ bilateral lower extremity edema to the knees and 2+ pitting edema from the knees to the hips bilaterally. No cyanosis. PSYCH: Affect appears appropriate. MEDICATIONS: Include aspirin 81 mg daily, digoxin 125 mcg daily, Lasix 40 mg IV t.i.d., metoprolol 37.5 mg p.o. b.i.d. TELEMETRY: Personally reviewed. Atrial fibrillation. LABS: Sodium 136, potassium 3.2, BUN 22, creatinine 0.64. ASSESSMENT AND PLAN: 1. Acute diastolic congestive heart failure: She is improving daily, but still hypervolemic. We will increase Lasix to 60 mg t.i.d. If she becomes hypotensive with more aggressive diuresis, would resume 40 mg t.i.d. Low sodium diet. Avoid nonsteroidal anti-inflammatory drugs. Strict I's and O's and daily weights recommended. Yesterday, she met with Dinora Pearce, physician human services assistant, so that they are familiar with each other upon heart failure followup. 2. Atrial fibrillation with rapid ventricular response: She has adamantly refused anticoagulation therapy. For this reason, a rate control strategy has been employed. We will increase digoxin to 250 mcg daily. Digoxin level ordered in three days. May attempt to increase beta debbie in the future if necessary and if blood pressure allows. We once again discussed the fact that anticoagulation therapy is recommended. If we cannot achieve reasonable rate control, would be concerned that her atrial fibrillation will worsen her heart failure as an outpatient with increased morbidity and potential mortality as she would be at risk for tachycardia-induced cardiomyopathy. We discussed the fact that we may employ amiodarone for rate control strategy if necessary, which would increase her stroke risk if she converts. She will think about this option. It was once again, however, recommended that she take anticoagulation for stroke risk reduction. 3. Mitral and tricuspid regurgitation: These valvular insufficiencies may improve with further diuresis. 4. Pulmonary hypertension: This will likely improve with diuresis. We will repeat echo in the future. 5. Pericardial effusion: We will repeat echo in the future. Hopefully, this improves with diuresis as well. 6. Disposition: Cardiology will continue to follow.
[2018-03-08] MEDS: FUROSEMIDE INJ 60 MG in SYRINGE 0 ML IV SCH ×2 (14:55→20:56)
[2018-03-08] MEDS: DIGOXIN 0.125 MG TAB PO SCH (17:09)
[2018-03-08] MEDS: LORAZEPAM 0.5 MG TAB PO PRN (19:30)
[2018-03-08] MEDS: POTASSIUM CHLORIDE 20 MEQ TABCR PO SCH (20:57)
[2018-03-09] VITALS (9 sets, daily range): BP systolic 93–113; BP diastolic 55–76; PULSE 89–134; TEMP 36.3–36.7; O2SAT 92–96
[2018-03-09] MEDS: LEVOTHYROXINE 100 MCG TAB PO SCH (06:24)
[2018-03-09] MEDS: FUROSEMIDE INJ 60 MG in SYRINGE 0 ML IV SCH ×3 (07:53→21:07)
[2018-03-09] MEDS: ASPIRIN 81 MG ECTAB PO SCH (07:56)
[2018-03-09] MEDS: METOPROLOL TARTRATE 25 MG TAB PO SCH ×2 (07:56→21:08)
[2018-03-09] MEDS: GABAPENTIN 100 MG CAP PO SCH ×2 (07:57→21:09)
[2018-03-09] MEDS: POTASSIUM CHLORIDE 20 MEQ TABCR PO SCH ×2 (07:58→21:11)
--- NOTE | 2018-03-09 12:16 | CARDIOLOGY PROGRESS NOTE ---
DATE: 03/09/2018 TIME: 11:32 a.m. SUBJECTIVE: She denies shortness of breath, palpitations, syncope, near syncope or chest pain. OBJECTIVE: VITAL SIGNS: Temperature 36.6 degrees, heart rate 89 beats per minute, respiration rate 20, blood pressure 113/76 mmHg, oxygen saturation 96% on room air. I's and O's negative 700 mL yesterday. Her net fluid balance for this hospitalization is negative 4.8 liters. Weight is 74.6 kg. GENERAL: In no acute distress. She is alert. NECK: Positive hepatojugular reflux. CARDIAC EXAM: No ventricular heave. Irregularly irregular. Normal S1, S2. There were no audible murmurs, rubs or gallops. LUNGS: Rales base to mid lung temple bilaterally. ABDOMEN: Soft, nontender, nondistended. Normoactive bowel sounds. EXTREMITIES: 2+ bilateral lower extremity edema to the knees. Trace to 1+ lower extremity edema from the knees to the hips bilaterally. No cyanosis. PSYCHIATRIC: Affect appears appropriate. MEDICATIONS: Include aspirin 81 mg daily, digoxin 250 mcg daily, Lasix 60 mg IV t.i.d., gabapentin 100 mg b.i.d., metoprolol 37.5 mg b.i.d., potassium chloride 20 mEq p.o. b.i.d. Telemetry personally reviewed. She remained tachycardic for most of yesterday; however, heart rate has improved more recently. LABORATORY DATA: Digoxin level yesterday was 0.7. ASSESSMENT AND PLAN: 1. Acute diastolic congestive heart failure: She is diuresing, but still significantly hypervolemic. We will give a dose of Diuril 250 mg IV x1 today. Monitor urine output/strict I's and O's. Daily weights. Continue low-sodium diet. She understands to avoid nonsteroidal anti-inflammatory medications. She denies any symptoms of shortness of breath at this time. 2. Atrial fibrillation with rapid ventricular response: Her heart rate has improved this morning and has been more consistently in the 80s-90s. Continue digoxin 250 mcg daily with current dose of beta debbie. She has declined anticoagulation for stroke risk reduction. 3. Mitral and tricuspid regurgitation: These findings may actually improve after diuresis. We will be followed over time. 4. Pulmonary hypertension: This will also likely improve with adequate diuresis. Echo could be repeated in the future. 5. Pericardial effusion: She is clinically not exhibiting tamponade physiology. It was a small pericardial effusion. This also may improve with diuresis. Follow over time. 6. Hypokalemia: Repeat basic metabolic panel. Potassium supplementation was initiated yesterday. Follow closely as we continue intravenous diuretics. Labs ordered. 7. Disposition: Cardiology will continue to follow. The patient's care has been communicated with Dr. Mejia and nursing staff.
[2018-03-09] MEDS ORDERED: CHLOROTHIAZIDE INJ 250 MG in DEXTROSE 5% 50ML 50 ML IV SCH (13:30)
--- NOTE | 2018-03-09 15:17 | Progress Note ---
Subjective Date of Service: Mar 09, 2018. Subjective this pt has no complaints she is having slow diuresis but daily weight reduction , no further shortness of breath or chest pain Problem List Medical Problems: (1) CHF (congestive heart failure) Status: Acute (2) Lymphoma Status: Acute (3) Tachycardia Status: Acute Review of Systems Constitutional: + weakness, + fatigue, No fever, No chills Respiratory: + dyspnea on exertion, No cough, No shortness of breath Cardiac: + edema, No chest pain, No PND Abdomen: No pain, No nausea, No vomiting Female : + urinary frequency, No dysuria, No hematuria Psychiatric: + anxiety, No depression symptoms Objective Vital Signs Date Time Temp Pulse Resp B/P (MAP) Pulse Ox O2 Delivery O2 Flow Rate FiO2 03/09/18 11:39 Room Air 03/09/18 10:35 36.6 89 20 113/76 (88) 96 Room Air 03/09/18 08:00 Room Air 03/09/18 07:25 36.6 122 20 97/65 (76) 93 Room Air 03/09/18 04:00 36.3 109 18 93/55 (68) 93 Room Air 03/09/18 04:00 Room Air 03/09/18 00:00 95 Room Air 03/08/18 23:16 36.4 98 18 93/63 (73) 92 Room Air 03/08/18 20:48 134 103/67 (79) 03/08/18 20:00 95 Room Air 03/08/18 19:03 36.8 109 18 102/62 (75) 95 Room Air 03/08/18 17:09 89 03/08/18 16:00 Room Air Physical Exam General Appearance: WD/WN, + mild distress Neck: supple, no JVD Respiratory/Chest: chest non-tender, no respiratory distress, + decreased breath sounds Cardiovascular: no murmur, + tachycardia, + irregularly irregular Abdomen: normal bowel sounds, non tender, soft Extremities: + pedal edema, + swelling (to upper thighs) Assessment and Plan 72 y/o female presents with acute diastolic heart failure, atrial fibrillation with RVR, responding well to diuresis, PMHx of B Cell Lymphoma with Parotid Neoplasm (2013), Hypothyroidism, RA, Paroxysmal Atrial Flutter, COPD, and Anxiety Atrial Fib with RVR:remains with improving rate control, asa, digoxin increased by cardiology to 25o mcg pending level, . increased metoprolol tartrate cautiously - d-dimer elevated, CTPE was negative on 03/06, pt adamantly refused anticoagulation Acute diastolic CHF peripheral edema persists, cardiology increasing dosage of diuretics - Echo 03/06 showing LVEF = 55-60%, R ventricular volume overload, Lasix 40 IV tid. good diuresis with no renal distress Heme+ Stool from ER, no melena/hematochezia but states she does have hemorrhoids and intermittent constipation requiring self-disimpaction H&H stable with hgb=11.2. Hypothyroidism: TSH 24, free T4 =1.06 seems compensated COPD without Exacerbation:remains stable Anxiety: resolved, Lorazepam 0.5 mg BID PRN B Cell Lymphoma: Follows with Dr. Garcia - F/U imaging done 03/05: - CT chest: interval development of the mediastinal lymphadenopathy (difficult to determine if part of this is fluid congestion), - CT abdomen: Numerous subcentimeter retroperitoneal and bilateral common and external iliac lymph nodes are new since 2014. not pathologically enlarged. RA:- Holding Naprosyn and using Tylenol , started gabapentin 100 mg BID for neuropathic pain DVT Prophylaxis: SCDs, pt refusing anticoagulation, ppx held due to +heme stools.
[2018-03-09] MEDS: DIGOXIN 0.125 MG TAB PO SCH (16:44)
[2018-03-09 18:30] LABS: CALCIUM 8.5 mg/dl (8.5-10.1); CREATININE 0.74 mg/dl (0.60-1.20); POTASSIUM 3.3 mmol/L (3.5-5.1)
[2018-03-09] MEDS: LORAZEPAM 0.5 MG TAB PO PRN (21:07)
[2018-03-10] VITALS (8 sets, daily range): BP systolic 94–106; BP diastolic 61–70; PULSE 69–128; TEMP 36.6–36.8; O2SAT 91–93
[2018-03-10] MEDS: LEVOTHYROXINE 100 MCG TAB PO SCH (06:21)
[2018-03-10] MEDS: LORAZEPAM 0.5 MG TAB PO PRN ×2 (07:50→17:50)
[2018-03-10] MEDS: POTASSIUM CHLORIDE 20 MEQ TABCR PO SCH ×2 (07:51→21:17)
[2018-03-10] MEDS: ASPIRIN 81 MG ECTAB PO SCH (07:52)
[2018-03-10] MEDS: METOPROLOL TARTRATE 25 MG TAB PO SCH (07:52)
[2018-03-10] MEDS: GABAPENTIN 100 MG CAP PO SCH ×2 (07:52→21:17)
[2018-03-10] MEDS: FUROSEMIDE INJ 60 MG in SYRINGE 0 ML IV SCH ×3 (07:54→21:18)
[2018-03-10] MEDS ORDERED: METOPROLOL TARTRATE 25 MG TAB PO STA (08:24)
[2018-03-10 08:59] LABS: HEMATOCRIT 35.8 % (37-47); HEMOGLOBIN 11.3 g/dL (12.0-16.0); MEAN CELL VOLUME 89.3 fL (80-100); MEAN CORPUSCULAR HEMOGLOBIN 28.2 pg (25-34); PLATELET COUNT 254 K/uL (130-400); RED CELL DISTRIBUTION WIDTH CV 20.1 % (11.5-14.5); RED CELL DISTRIBUTION WIDTH SD 65.4 fL (36.4-46.3); WHITE BLOOD COUNT 8.09 K/uL (4.8-10.8)
[2018-03-10 09:08] LABS: CALCIUM 8.8 mg/dl (8.5-10.1); CREATININE 0.77 mg/dl (0.60-1.20); POTASSIUM 3.8 mmol/L (3.5-5.1)
[2018-03-10 09:08] LABS: INR 1.1 (0.9-1.1); PTT PATIENT 26.6 SECONDS (21.0-31.0)
[2018-03-10 09:32] LABS: MEAN CORPUSCULAR HGB CONC 31.6 g/dl (32-36)
[2018-03-10] MEDS: HEPARIN 25,000 UNIT/500ML D5W 500 ML IV SCH (09:43)
--- NOTE | 2018-03-10 10:21 | CARDIOLOGY PROGRESS NOTE ---
DATE: 03/10/2018 TIME: 9:24 a.m. SUBJECTIVE: Ms. Johns denies chest pain, shortness of breath, palpitations, syncope, near syncope. She requested another dose of Diuril with the aggressive diuresis. She tolerated it well. She also states that she has had a change of heart. She is willing to be initiated on anticoagulation therapy. She requests that heparin be started; however, without a bolus which would help alleviate some of her fears of being more aggressive. She is also agreeable to long-term anticoagulation therapy upon discharge. She still declines transesophageal echo which has been discussed if we were going to pursue cardioversion. OBJECTIVE: VITAL SIGNS: Temperature 36.6 degrees, heart rate 116 beats per minute, respiration rate 20, blood pressure 103/66 mmHg, oxygen saturation 93% on room air. I's and O's negative 3.95 L yesterday. Her weight is 71.4 kg. Her cumulative fluid balance for the hospitalization thus far is negative 9.3 L. GENERAL: No acute distress. She is alert and oriented. NECK: Hepatojugular reflux noted. CARDIAC EXAM: No ventricular heave, irregularly irregular. Normal S1 and S2. No audible murmurs, rubs or gallops. LUNGS: Improved rales but still has rales in the base to mid lung temple bilaterally. ABDOMEN: Soft, nontender, nondistended. Normoactive bowel sounds. EXTREMITIES: Trace to 1+ pitting edema in the proximal lower extremities to the hips. 1+ to 2+ bilateral lower extremity below the knees. Her edema has improved since yesterday. No cyanosis. PSYCHIATRIC: Affect appears appropriate. MEDICATIONS: Include aspirin 81 mg daily, digoxin 0.25 mg daily, Lasix 60 mg IV t.i.d., levofloxacin 100 mcg daily, metoprolol tartrate 37.5 mg twice daily, potassium chloride 20 mEq twice daily. LABORATORY DATA: Sodium 136, potassium 3.8, BUN 21, creatinine 0.77. WBC 8.09, hemoglobin 11.3, platelets 254. Telemetry personally reviewed. Although she was better heart rate controlled yesterday for several hours, her heart rate has once again become more tachycardic. She remains in atrial fibrillation. Chart reviewed. ASSESSMENT AND PLAN: 1. Acute diastolic congestive heart failure: She continues to be significantly hypervolemic, but is improving with diuresis. We will give another dose of Diuril 250 mg IV x1 today. Continue I's and O's, strict daily weights and low sodium diet. We have discussed discontinuation of NSAIDs on discharge as she has been using it chronically. 2. Atrial fibrillation with rapid ventricular response: Her blood pressure has improved and therefore will titrate metoprolol to 50 mg twice daily with an additional 25 mg now. Continue digoxin. Digoxin level tomorrow. If we get to a point where we cannot further titrate beta debbie due to blood pressure, would then consider amiodarone; however, that would increase her stroke risk if she converts to sinus. She is not agreeable; however, to anticoagulation. Heparin drip initiated. Please have care coordinators check with insurance company to see which novel agent is covered on discharge. If heart rate can be reasonably controlled, could always start amiodarone as an outpatient after she is anticoagulated for 4 weeks. Would potentially start amiodarone sooner if no other reasonable options are available and her heart rate is not adequately controlled. Continue with current rate control strategy for now. 3. Pulmonary hypertension: This will be reevaluated in the future and hopefully will improve after diuresis. 4. Mitral and tricuspid regurgitation: Repeat echo in the future and this will be coordinated through the cardiology office. This should improve as well with diuresis. 5. Pericardial effusion: This will be monitored in the future as well, likely as an outpatient. 6. Hypokalemia: Continue supplementation, especially while aggressively diuresing. Potassium level this morning is normal. 7. Disposition: Plan of care has been communicated with Dr. Mejia, the primary hospitalist service. Cardiology will continue to follow.
[2018-03-10] MEDS ORDERED: CHLOROTHIAZIDE INJ 250 MG in DEXTROSE 5% 50ML 50 ML IV SCH (13:30)
[2018-03-10 14:08] LABS: PTT PATIENT 58.6 SECONDS (21.0-31.0)
--- NOTE | 2018-03-10 14:40 | Progress Note ---
Subjective Date of Service: Mar 10, 2018. Subjective this pt has not had issues with diuresis but continues to provide good diuresis , she has now agreed to use anticoagulation and this opens the door to amiodarone if she would convert with its us. Cardiology is continuing to monitor for rate control and we will need case management to help define cost of outpt anticoagulation Problem List Medical Problems: (1) CHF (congestive heart failure) Status: Acute (2) Lymphoma Status: Acute (3) Tachycardia Status: Acute Review of Systems Constitutional: No fever, No chills, No weakness Respiratory: No cough, No shortness of breath Cardiac: + edema, No chest pain Abdomen: No pain, No nausea, No vomiting, No diarrhea Female : No dysuria, No urinary frequency, No hematuria Neurologic: No memory loss, No paralysis Psychiatric: No depression symptoms, No anhedonism, No anxiety Objective Vital Signs Date Time Temp Pulse Resp B/P (MAP) Pulse Ox O2 Delivery O2 Flow Rate FiO2 03/10/18 12:00 Room Air 03/10/18 11:53 36.8 82 18 96/61 (73) 92 Room Air 03/10/18 08:00 Room Air 03/10/18 07:05 36.6 116 20 103/66 (78) 93 Room Air 03/10/18 04:00 Room Air 03/10/18 03:28 36.6 110 20 106/70 (82) 91 Room Air 03/10/18 00:00 92 Room Air 03/09/18 22:28 36.4 117 20 101/58 (72) 92 Room Air 03/09/18 21:03 134 103/69 (80) 03/09/18 20:00 94 Room Air 03/09/18 19:09 36.7 117 20 94/62 (73) 94 Room Air 03/09/18 16:44 76 03/09/18 15:45 Room Air 03/09/18 15:39 36.4 117 16 110/67 (81) 93 Room Air Physical Exam General Appearance: WD/WN, + mild distress Eyes: normal inspection, sclerae normal Neck: supple, thyroid normal Respiratory/Chest: chest non-tender, lungs clear, + decreased breath sounds, + rales (bases) Cardiovascular: + tachycardia, + irregularly irregular Abdomen: normal bowel sounds, non tender, soft Extremities: + pedal edema, + swelling Neurologic/Psychiatric: alert, oriented x 3 Laboratory Results Last 24 Hours Test 03/09/18 17:43 03/10/18 08:02 03/10/18 08:45 03/10/18 08:49 Sodium Level 135 mmol/L 136 mmol/L Potassium Level 3.3 mmol/L 3.8 mmol/L Chloride Level 96 mmol/L 96 mmol/L Carbon Dioxide Level 36 mmol/L 35 mmol/L Anion Gap 3.0 mmol/L 5.0 mmol/L Blood Urea Nitrogen 21 mg/dl 21 mg/dl Creatinine 0.74 mg/dl 0.77 mg/dl Est Creatinine Clear Calc Drug Dose 70.0 ml/min 65.9 ml/min Estimated GFR () 95.1 90.7 Estimated GFR (Non- 82.1 78.2 BUN/Creatinine Ratio 28.7 26.9 Random Glucose 119 mg/dl 130 mg/dl Calcium Level 8.5 mg/dl 8.8 mg/dl Prothrombin Time 11.6 SECONDS Prothromb Time International Ratio 1.1 Activated Partial Thromboplast Time 26.6 SECONDS Partial Thromboplastin Ratio 1.0 White Blood Count 8.09 K/uL Red Blood Count 4.01 M/uL Hemoglobin 11.3 g/dL Hematocrit 35.8 % Mean Corpuscular Volume 89.3 fL Mean Corpuscular Hemoglobin 28.2 pg Mean Corpuscular Hemoglobin Concent 31.6 g/dl RDW Standard Deviation 65.4 fL RDW Coefficient of Variation 20.1 % Platelet Count 254 K/uL Mean Platelet Volume 9.0 fL Test 03/10/18 13:36 Activated Partial Thromboplast Time 58.6 SECONDS Partial Thromboplastin Ratio 2.3 Assessment and Plan 72 y/o female presents with acute diastolic heart failure, atrial fibrillation with RVR, responding well to diuresis, PMHx of B Cell Lymphoma with Parotid Neoplasm (2013), Hypothyroidism, RA, Paroxysmal Atrial Flutter, COPD, and Anxiety Atrial Fib with RVR:remains with variable rate control, asa, digoxin increased by cardiology to 25o mcg 03/09. metoprolol tartrate, initial concern that pt did not want anticoagulation made use of amiodarone in question in case she would convert; and place her at increased risk of embolic issues, now she is in agreement ot AC and will be on iv heparin to further explore cose of outpt AC - d-dimer elevated, CTPE was negative on 03/06 Acute diastolic CHF peripheral edema persists, cardiology increasing dosage of diuretics - Echo 03/06 showing LVEF = 55-60%, R ventricular volume overload, Lasix 40 IV tid. occasional use of IV diuril, pt has 8.5 kg loss thus far with preserved renal function Heme+ Stool from ER, continues with no melena/hematochezia intermittent constipation has been an issue at times requiring self-disimpaction H&H stable with hgb=11.2. Hypothyroidism: TSH 24, free T4 =1.06 COPD currently no treatment needed and Exacerbation:remains stable Anxiety: resolved, Lorazepam 0.5 mg BID PRN B Cell Lymphoma: Follows with Dr. Garcia - F/U imaging done 03/05: - CT chest: interval development of the mediastinal lymphadenopathy (difficult to determine if part of this is fluid congestion), - CT abdomen: Numerous subcentimeter retroperitoneal and bilateral common and external iliac lymph nodes are new since 2015. not pathologically enlarged. RA:- Holding Naprosyn and using Tylenol , pain is improved after started gabapentin 100 mg BID for neuropathic pain DVT Prophylaxis: SCDs,full AC, ppx held due to +heme stools.
[2018-03-10] MEDS: DIGOXIN 0.125 MG TAB PO SCH (16:40)
[2018-03-10] MEDS: ACETAMINOPHEN 325 MG TAB PO PRN (17:50)
[2018-03-10] MEDS: METOPROLOL TARTRATE 50 MG TAB PO SCH (21:18)
[2018-03-11] VITALS (8 sets, daily range): BP systolic 79–99; BP diastolic 45–63; PULSE 55–96; TEMP 36.5–37.1; O2SAT 91–95
[2018-03-11 04:52] LABS: CALCIUM 8.5 mg/dl (8.5-10.1); CREATININE 0.76 mg/dl (0.60-1.20); POTASSIUM 3.6 mmol/L (3.5-5.1)
[2018-03-11] MEDS: LEVOTHYROXINE 100 MCG TAB PO SCH (06:38)
[2018-03-11] MEDS: HEPARIN 25,000 UNIT/500ML D5W 500 ML IV SCH ×2 (06:39→19:32)
[2018-03-11 06:53] LABS: PTT PATIENT 80.8 SECONDS (21.0-31.0)
[2018-03-11] MEDS: ASPIRIN 81 MG ECTAB PO SCH (07:54)
[2018-03-11] MEDS: GABAPENTIN 100 MG CAP PO SCH ×2 (07:54→19:39)
[2018-03-11] MEDS: POTASSIUM CHLORIDE 20 MEQ TABCR PO SCH ×2 (07:55→19:39)
[2018-03-11] MEDS: METOPROLOL TARTRATE 50 MG TAB PO SCH ×2 (07:55→19:40)
[2018-03-11] MEDS: FUROSEMIDE INJ 60 MG in SYRINGE 0 ML IV SCH ×3 (07:56→19:38)
[2018-03-11] MEDS ORDERED: CHLOROTHIAZIDE INJ 250 MG in DEXTROSE 5% 50ML 50 ML IV ONE (08:00)
[2018-03-11] MEDS: LORAZEPAM 0.5 MG TAB PO PRN ×2 (08:03→19:43)
--- NOTE | 2018-03-11 08:35 | CARDIOLOGY PROGRESS NOTE ---
DATE: 03/11/2018 TIME: 7:35 a.m. SUBJECTIVE: She denies chest pain, shortness of breath, syncope, near syncope, palpitations. She did have some knee pain yesterday but feels better now. She tolerated Diuril yesterday and is requesting further aggressive diuretics today. OBJECTIVE: VITAL SIGNS: Temperature 36.6 degrees, heart rate 96 beats per minute, respiration rate 17, blood pressure 88/51 mmHg, oxygen saturation 94% on room air. Her blood pressure has mostly been normotensive to mildly hypotensive, and the most recent blood pressure at 3:11 a.m. is the lowest that she has had, otherwise her systolic has mostly been in the mid to upper 90s to low 100s. I's & O's negative 1.6 L yesterday. Her cumulative fluid balance for this hospitalization is negative 10.2 L. Her weight today is pending. GENERAL: In no acute distress. She is alert. NECK: Mild JVD. CARDIAC: No ventricular heave. Irregularly irregular. Normal S1 and S2. There were no audible murmurs, rubs, or gallops. LUNGS: Rales, bibasilar, somewhat improved. ABDOMEN: Soft, nontender, nondistended. Normoactive bowel sounds. EXTREMITIES: 1 to 2+ bilateral lower extremity edema to two-thirds of the way to the knees (improved). Trace edema above the knees. Overall continues to improve. No cyanosis. PSYCHIATRIC: Affect appears appropriate. MEDICATIONS: Include aspirin 81 mg daily, digoxin 25 mcg daily, Lasix 60 mg IV t.i.d., heparin drip per protocol, levothyroxine 100 mcg daily, metoprolol tartrate 50 mg p.o. b.i.d., potassium chloride 20 mEq p.o. b.i.d. Telemetry personally reviewed. Her heart rate in the past 24 hours has been much better controlled. LABORATORY DATA: Sodium 133, potassium 3.6, BUN 22, creatinine 0.76. ASSESSMENT AND PLAN: 1. Acute diastolic congestive heart failure: She is diuresing well. We will give an additional dose of Diuril today. Monitor sodium. If she becomes more hyponatremic tomorrow, would give her a day off from Diuril and continue only with Lasix. She is still hypervolemic but improving on a daily basis. Low sodium diet, strict I's and O's. Avoid NSAIDs upon discharge. 2. Atrial fibrillation: Her heart rate has improved more consistently within the last 24 hours. Continue metoprolol 50 mg twice daily with digoxin. Digoxin level pending later today. Can discontinue aspirin now that she is taking heparin to reduce her risk of bleeding. Please evaluate for cost of the novel agent on discharge for anticoagulation for stroke risk reduction. 3. Heme positive stool: She had this in the ER and had admitted to hemorrhoids but also constipation and sometimes performing self disimpaction, which she believes is the cause of her heme positive stools. She has denied melena or hematochezia. 4. Pericardial effusion: This will be reevaluated in the future, likely as an outpatient. 5. Mitral and tricuspid regurgitation: This will likely improve after she is euvolemic. We will repeat echo as an outpatient. 6. Pulmonary hypertension: Right ventricular systolic pressure will likely improve after she reaches euvolemic state. This will be followed as an outpatient. 7. Hypokalemia: Continue supplementation. Her potassium level is normal. 8. Disposition: Cardiology will continue to follow.
[2018-03-11 16:15] LABS: PTT PATIENT > 300.0 SECONDS (21.0-31.0)
[2018-03-11] MEDS: DIGOXIN 0.125 MG TAB PO SCH (16:28)
[2018-03-11 18:44] LABS: PTT PATIENT > 300.0 SECONDS (21.0-31.0)
--- NOTE | 2018-03-11 22:30 | Progress Note ---
Subjective Date of Service: Mar 11, 2018. Subjective Pt evaluation today including: conversation w/ patient, conversation w/ family , physical exam 73 yo female reports feeling slightly better. She denies any dyspnea, however she reports not being too active today. She has mainly been in bed. She states that her mouth is dry and this is chronic. Patient however compains of pain in her bilateral knees and feet. Problem List Medical Problems: (1) CHF (congestive heart failure) Status: Acute (2) Lymphoma Status: Acute (3) Tachycardia Status: Acute Review of Systems Constitutional: No fever, No chills Eyes: No worsening of vision ENT: + problem reported (dry mouth), No hearing loss Respiratory: No shortness of breath Cardiac: No chest pain Abdomen: No pain Musculoskeletal: No joint pain Neurologic: No memory loss Psychiatric: No depression symptoms Endo: No fatigue Skin: No rash All Other Systems: Reviewed and Negative Medications Current Inpatient Medications Medications (Trade) Dose Ordered Sig/Bryanna Route Start Time Stop Time Status Last Admin Dose Admin Acetaminophen (Tylenol Tab) 650 mg Q4H PRN PO 03/05/18 15:00 04/04/18 14:59 03/10/18 17:50 650 MG Al Hydrox/Mg Hydrox/Simethicone (Maalox Max Susp) 15 ml Q4H PRN PO 03/05/18 15:00 04/04/18 14:59 Magnesium Hydroxide (Milk Of Magnesia Susp) 30 ml Q12H PRN PO 03/05/18 15:00 04/04/18 14:59 Ondansetron HCl (Zofran Inj) 4 mg Q6H PRN IV 03/05/18 15:00 04/04/18 14:59 Aspirin (Ecotrin Tab) 81 mg QAM PO 03/06/18 09:00 04/05/18 08:59 Future Hold 03/11/18 07:54 81 MG Polyethylene (Miralax Powder Packet) 17 gm DAILY PRN PO 03/05/18 15:00 04/04/18 14:59 Levothyroxine Sodium (Synthroid Tab) 100 mcg DAILYBB PO 03/06/18 06:00 04/05/18 06:59 03/12/18 05:22 100 MCG Lorazepam (Ativan Tab) 0.5 mg BID PRN PO 03/05/18 15:00 04/04/18 14:59 03/11/18 19:43 0.5 MG Heparin Sodium (Porcine) (Heparin 100 Unit/ml 5ml Flush) 5 ml PRN PRN IV 03/05/18 23:45 04/04/18 23:44 Multi-Ingredient Ointment (Eucerin Unscented Cr) 1 appln UD PRN EXT 03/06/18 11:30 04/05/18 11:29 03/06/18 14:46 1 APPLN Gabapentin (Neurontin Cap) 100 mg BID PO 03/07/18 21:00 04/06/18 20:59 03/11/18 19:39 100 MG Furosemide 60 mg/ Syringe 6 ml @ 4 mls/min TID IV 03/08/18 14:00 04/05/18 08:59 03/11/18 19:38 4 MLS/MIN Potassium Chloride (Klor-Con Tab) 20 meq BID PO 03/08/18 21:00 04/07/18 20:59 03/11/18 19:39 20 MEQ Metoprolol Tartrate (Lopressor Tab) 50 mg BID PO 03/10/18 21:00 04/05/18 20:59 03/11/18 19:40 50 MG Heparin Sodium/ Dextrose 500 ml @ 18 mls/hr Q24H IV 03/10/18 09:30 04/09/18 09:29 03/12/18 05:21 18 MLS/HR Digoxin (Lanoxin Tab) 0.25 mg MoWeFr@1600 PO 03/13/18 16:00 04/12/18 15:59 Digoxin (Lanoxin Tab) 0.125 mg SuTuThSa@1600 PO 03/12/18 16:00 04/11/18 15:59 Objective Vital Signs Date Time Temp Pulse Resp B/P (MAP) Pulse Ox O2 Delivery O2 Flow Rate FiO2 03/11/18 20:00 Room Air 03/11/18 19:26 37.1 81 16 96/61 (73) 94 Room Air 03/11/18 16:28 72 03/11/18 16:00 Room Air 03/11/18 16:00 36.8 74 18 99/63 (75) 03/11/18 12:45 36.8 55 16 89/45 (60) 95 03/11/18 12:00 Room Air 4/23/18 08:00 Room Air 03/11/18 07:35 36.5 72 18 90/56 (67) 94 03/11/18 04:00 94 Room Air 03/11/18 03:11 36.6 96 17 88/51 (63) 94 Room Air 03/11/18 00:00 91 Room Air 03/10/18 23:33 36.7 84 18 95/61 (72) 91 Room Air Physical Exam Comments: General Appearance: WD/WN, no distress Eyes: normal inspection, sclerae normal Neck: supple, thyroid normal Respiratory/Chest: chest non-tender, lungs clear, + decreased breath sounds, + rales (bases) Cardiovascular: normal rate + irregularly irregular Abdomen: normal bowel sounds, non tender, soft Extremities: + pedal edema, + swelling Neurologic/Psychiatric: alert, oriented x 3 Lymphadenopathy: no adenopathy Musculoskeletal: Both knee and feet were non tender. Some arthritic changes are noted. Laboratory Results Last 24 Hours Test 03/11/18 04:10 03/11/18 06:08 03/11/18 15:07 03/11/18 15:09 Sodium Level 133 mmol/L Potassium Level 3.6 mmol/L Chloride Level 95 mmol/L Carbon Dioxide Level 36 mmol/L Anion Gap 2.0 mmol/L Blood Urea Nitrogen 22 mg/dl Creatinine 0.76 mg/dl Est Creatinine Clear Calc Drug Dose 65.8 ml/min Estimated GFR () 91.5 Estimated GFR (Non- 78.9 BUN/Creatinine Ratio 29.3 Random Glucose 115 mg/dl Calcium Level 8.5 mg/dl Activated Partial Thromboplast Time 80.8 SECONDS > 300.0 SECONDS Partial Thromboplastin Ratio 3.1 > 11.0 Digoxin Level 1.3 ng/ml Test 03/11/18 17:35 03/11/18 18:48 Activated Partial Thromboplast Time > 300.0 SECONDS 32.0 SECONDS Partial Thromboplastin Ratio > 11.0 1.2 Assessment and Plan 72 y/o female presents with acute diastolic heart failure, atrial fibrillation with RVR, responding well to diuresis, PMHx of B Cell Lymphoma with Parotid Neoplasm (2013), Hypothyroidism, RA, Paroxysmal Atrial Flutter, COPD, and Anxiety Atrial Fib with RVR:remains with variable rate control, asa, digoxin increased by cardiology to 25o mcg 03/09. metoprolol tartrate, initial concern that pt did not want anticoagulation made use of amiodarone in question in case she would convert; and place her at increased risk of embolic issues, now she is in agreement ot AC and will be on iv heparin to further explore cose of outpt AC - d-dimer elevated, CTPE was negative on 03/06 -Heart rate today is better controlled. Acute diastolic CHF peripheral edema persists, cardiology increasing dosage of diuretics - Echo 03/06 showing LVEF = 55-60%, R ventricular volume overload, Lasix 40 IV tid. occasional use of IV diuril, pt has 8.5 kg loss thus far with preserved renal function -Patient remains hypervolemic. Negative about 93380 ml. -Will continue to diurese. Heme+ Stool from ER, continues with no melena/hematochezia intermittent constipation has been an issue at times requiring self-disimpaction H&H stable with hgb today will monitor. Hypothyroidism: TSH 24, free T4 =1.06 COPD currently no treatment needed and Exacerbation:remains stable Anxiety: resolved, Lorazepam 0.5 mg BID PRN B Cell Lymphoma: Follows with Dr. Garcia - F/U imaging done 03/05: - CT chest: interval development of the mediastinal lymphadenopathy (difficult to determine if part of this is fluid congestion), - CT abdomen: Numerous subcentimeter retroperitoneal and bilateral common and external iliac lymph nodes are new since 2015. not pathologically enlarged. RA:- Holding Naprosyn and using Tylenol , pain is improved after started gabapentin 100 mg BID for neuropathic pain. Patient continues to have pain however in her bilateral joints. will monitor. DVT Prophylaxis: SCDs,full AC, ppx held due to +heme stools. Spent 45 minutes in the management of this case. Continued [facility] stay due to: other (requires more diuresing.) Discharge planning: uncertain
[2018-03-12 03:09] VITALS: BP 84/51; PULSE 72; TEMP 37.3; O2SAT 92
[2018-03-12 03:30] LABS: PTT PATIENT 43.2 SECONDS (21.0-31.0)
[2018-03-12] MEDS ORDERED: HEPARIN IV BOLUS 2,000 UNIT in SYRINGE 0 ML IV ONE (05:15)
[2018-03-12] MEDS: HEPARIN 25,000 UNIT/500ML D5W 500 ML IV SCH ×2 (05:21→14:44)
[2018-03-12] MEDS: LEVOTHYROXINE 100 MCG TAB PO SCH (05:22)
[2018-03-12 05:58] LABS: HEMATOCRIT 32.6 % (37-47); HEMOGLOBIN 10.2 g/dL (12.0-16.0); MEAN CELL VOLUME 88.6 fL (80-100); MEAN CORPUSCULAR HEMOGLOBIN 27.7 pg (25-34); MEAN CORPUSCULAR HGB CONC 31.3 g/dl (32-36); PLATELET COUNT 278 K/uL (130-400); RED CELL DISTRIBUTION WIDTH CV 19.9 % (11.5-14.5); RED CELL DISTRIBUTION WIDTH SD 63.6 fL (36.4-46.3); WHITE BLOOD COUNT 9.41 K/uL (4.8-10.8)
[2018-03-12 06:27] LABS: CALCIUM 8.5 mg/dl (8.5-10.1); CREATININE 0.69 mg/dl (0.60-1.20)
[2018-03-12 07:56] VITALS: BP 92/57; PULSE 91; TEMP 36.4; O2SAT 93
--- NOTE | 2018-03-12 08:31 | CARDIOLOGY PROGRESS NOTE ---
DATE: 03/12/2018 TIME: 7:32 a.m. SUBJECTIVE: She denies shortness of breath, syncope, near syncope, chest pain, lightheadedness, palpitations. She has not been significantly active according to nursing staff. She typically either sits in her chair or in her bed and spent most of her day yesterday in her bed. She is able to ambulate to the restroom, however. OBJECTIVE: VITAL SIGNS: Temperature is 37.3 degrees, heart rate 72 beats per minute, respiration rate 18, blood pressure 84/51 mmHg. She has been more consistently hypotensive in the past 24 hours. I's and O's negative 1.5 liters yesterday. Her cumulative fluid balance is negative 11.4 liters, this hospitalization. Her weight is 70.41 kilograms. Her initial weight while on the floor was 79.9 kg. GENERAL: No acute distress. She is alert. NECK: No significant JVD noted. CARDIAC EXAM: No ventricular heave. Irregularly irregular, normal S1, S2. No audible murmurs, rubs or gallops. LUNGS: Bibasilar rales. ABDOMEN: Soft, nontender, nondistended. Normoactive bowel sounds. EXTREMITIES: 1+ edema, distal left lower extremity. 1-2+ lower extremity edema, right lower extremity. Edema continues to improve daily. No cyanosis. PSYCHIATRIC: Affect appears appropriate. MEDICATIONS: Include digoxin 25 mcg Sunday, Sunday and Sunday, 125 mcg all other days; Lasix 60 mg IV t.i.d.; heparin drip per protocol; levothyroxine 100 mcg daily; metoprolol tartrate 50 mg p.o. b.i.d.; potassium chloride 20 mEq p.o. b.i.d. LABORATORY DATA: White blood cell count 9.41, hemoglobin 10.2, platelets 278. Sodium 134, potassium 4, BUN 22, creatinine 0.69. Digoxin level yesterday afternoon was 1.3. Telemetry personally reviewed. Her heart rate has improved and is acceptable. Chart reviewed. ASSESSMENT AND PLAN: 1. Acute diastolic congestive heart failure: She still appears hypervolemic, and despite aggressive diuresis, her renal function remains stable. Because she has been running more hypotensive for the past 24 hours, will back off on diuresis somewhat. Will not give a dose of Diuril today but rather continue just with Lasix 60 mg IV t.i.d. Low sodium diet, strict I's and O's and daily weights still recommended. Avoid NSAIDs. 2. Atrial fibrillation: Heart rate much improved. Continue metoprolol 50 mg twice daily as tolerated. Digoxin has been decreased somewhat due to the fact that her trough level was 1.3, higher than the goal. Would like to keep the digoxin level less than 1. Continue anticoagulation for stroke risk reduction. Recommend one of the novel agents upon discharge. Please have care coordination help decide the most affordable option for her. 3. Pericardial effusion: Repeat echo as an outpatient. 4. Mitral and tricuspid regurgitation: Repeat echo as an outpatient as these will likely improve after her significant diuresis. 5. Pulmonary hypertension: Likely secondary to her left heart failure. This can be reestimated on repeat echo in the future. 6. Hypokalemia: Continue supplementation. 7. Disposition: Cardiology will continue to follow. Recommend physical therapy.
[2018-03-12] MEDS: METOPROLOL TARTRATE 50 MG TAB PO SCH ×2 (09:52→20:13)
[2018-03-12] MEDS: FUROSEMIDE INJ 60 MG in SYRINGE 0 ML IV SCH ×3 (09:52→20:12)
[2018-03-12] MEDS: POTASSIUM CHLORIDE 20 MEQ TABCR PO SCH ×2 (09:52→20:13)
[2018-03-12] MEDS: GABAPENTIN 100 MG CAP PO SCH ×2 (09:53→20:13)
[2018-03-12] MEDS: LORAZEPAM 0.5 MG TAB PO PRN ×2 (10:54→20:12)
[2018-03-12] MEDS: ACETAMINOPHEN 325 MG TAB PO PRN (10:55)
[2018-03-12 11:49] VITALS: BP 99/67; PULSE 72; TEMP 36.6; O2SAT 94
[2018-03-12 12:09] LABS: PTT PATIENT 57.3 SECONDS (21.0-31.0)
[2018-03-12] MEDS ORDERED: NAPROXEN 250 MG TAB PO ONE (14:34)
--- NOTE | 2018-03-12 15:13 | Progress Note ---
Subjective Date of Service: Mar 12, 2018. Subjective Patient is 73 yo reports having significant pain in her bilateral knees and bilateral ankles. She reports that she does not have SOB, nausea, vomiting. Problem List Medical Problems: (1) CHF (congestive heart failure) Status: Acute (2) Lymphoma Status: Acute (3) Tachycardia Status: Acute Review of Systems Constitutional: No fever, No chills Eyes: No worsening of vision ENT: + problem reported (dry mouth), No hearing loss Respiratory: No shortness of breath Cardiac: No chest pain Abdomen: No pain Musculoskeletal: No joint pain Neurologic: No memory loss Psychiatric: No depression symptoms Endo: No fatigue Skin: No rash All Other Systems: Reviewed and Negative All Other Systems: Reviewed and Negative Objective Vital Signs Date Time Temp Pulse Resp B/P (MAP) Pulse Ox O2 Delivery O2 Flow Rate FiO2 03/12/18 12:00 Room Air 03/12/18 11:49 36.6 72 18 99/67 (78) 94 Room Air 03/12/18 08:00 Room Air 03/12/18 07:56 36.4 91 18 92/57 (69) 93 Room Air 03/12/18 04:00 Room Air 03/12/18 03:09 37.3 72 18 84/51 (62) 92 Room Air 03/11/18 23:59 Room Air 03/11/18 23:45 36.8 79 18 79/46 (57) 95 Room Air 03/11/18 20:00 Room Air 03/11/18 19:26 37.1 81 16 96/61 (73) 94 Room Air 03/11/18 16:28 72 03/11/18 16:00 Room Air 03/11/18 16:00 36.8 74 18 99/63 (75) Physical Exam Comments: General Appearance: WD/WN, no distress Eyes: normal inspection, sclerae normal Neck: supple, thyroid normal Respiratory/Chest: chest non-tender, lungs clear, + decreased breath sounds, + rales (bases) Cardiovascular: normal rate + irregularly irregular Abdomen: normal bowel sounds, non tender, soft Extremities: + pedal edema, + swelling Neurologic/Psychiatric: alert, oriented x 3 Lymphadenopathy: no adenopathy Musculoskeletal: Both knee and feet were non tender. Some arthritic changes are noted. Laboratory Results Last 24 Hours Test 03/11/18 17:35 03/11/18 18:48 4/24/18 03:03 03/12/18 05:21 Activated Partial Thromboplast Time > 300.0 SECONDS 32.0 SECONDS 43.2 SECONDS Partial Thromboplastin Ratio > 11.0 1.2 1.7 White Blood Count 9.41 K/uL Red Blood Count 3.68 M/uL Hemoglobin 10.2 g/dL Hematocrit 32.6 % Mean Corpuscular Volume 88.6 fL Mean Corpuscular Hemoglobin 27.7 pg Mean Corpuscular Hemoglobin Concent 31.3 g/dl RDW Standard Deviation 63.6 fL RDW Coefficient of Variation 19.9 % Platelet Count 278 K/uL Mean Platelet Volume 10.0 fL Sodium Level 134 mmol/L Potassium Level 4.0 mmol/L Chloride Level 95 mmol/L Carbon Dioxide Level 36 mmol/L Anion Gap 3.0 mmol/L Blood Urea Nitrogen 22 mg/dl Creatinine 0.69 mg/dl Est Creatinine Clear Calc Drug Dose 72.5 ml/min Estimated GFR () 101.5 Estimated GFR (Non- 87.6 BUN/Creatinine Ratio 31.9 Random Glucose 93 mg/dl Calcium Level 8.5 mg/dl Test 03/12/18 11:17 Activated Partial Thromboplast Time 57.3 SECONDS Partial Thromboplastin Ratio 2.2 Assessment and Plan 72 y/o female presents with acute diastolic heart failure, atrial fibrillation with RVR, responding well to diuresis, PMHx of B Cell Lymphoma with Parotid Neoplasm (2013), Hypothyroidism, RA, Paroxysmal Atrial Flutter, COPD, and Anxiety Atrial Fib with RVR:remains with variable rate control, asa, digoxin increased by cardiology to 25o mcg 03/09. metoprolol tartrate, initial concern that pt did not want anticoagulation made use of amiodarone in question in case she would convert; and place her at increased risk of embolic issues, now she is in agreement ot AC and will be on iv heparin to further explore cose of outpt AC - d-dimer elevated, CTPE was negative on 03/06 -Heart rate today is better controlled. Acute diastolic CHF peripheral edema persists, cardiology increasing dosage of diuretics - Echo 03/06 showing LVEF = 55-60%, R ventricular volume overload, Lasix 40 IV tid. occasional use of IV diuril, pt has 8.5 kg loss thus far with preserved renal function -Patient remains hypervolemic. Negative about 34769 ml. -Will continue to diurese. Heme+ Stool from ER, continues with no melena/hematochezia intermittent constipation has been an issue at times requiring self-disimpaction H&H decreased to the 10s. will monitor. Hypothyroidism: TSH 24, free T4 =1.06 COPD currently no treatment needed and Exacerbation:remains stable Anxiety: resolved, Lorazepam 0.5 mg BID PRN B Cell Lymphoma: Follows with Dr. Garcia - F/U imaging done 03/05: - CT chest: interval development of the mediastinal lymphadenopathy (difficult to determine if part of this is fluid congestion), - CT abdomen: Numerous subcentimeter retroperitoneal and bilateral common and external iliac lymph nodes are new since 2015. not pathologically enlarged. RA:- Holding Naprosyn and using Tylenol , PER PATIENT SHE DOES NOT BELIEVE GABAPENTIN IS HELPING. I offered perhaps to switch to cymbalta. Patient however refused after giving her a discussion on risks and benefits. Patient also was offered prednisone as she can not take NSAIDs. Patient refused , patient also refused stronger meds like opiates or tramadol. Patient states that even though her pain is worse, she feels she can control it with tylenol. DVT Prophylaxis: SCDs,full AC, ppx held due to +heme stools. Spent 65 minutes in the management of this case discussing options for her pain and managing her case. Continued [facility] stay due to: other (requires more diuresing.) Discharge planning: uncertain
[2018-03-12 15:32] VITALS: BP 90/57; PULSE 71; TEMP 36.6; O2SAT 95
[2018-03-12] MEDS ORDERED: DIGOXIN 0.125 MG TAB PO SCH (16:00)
[2018-03-12 19:24] VITALS: BP 97/59; PULSE 110; TEMP 37.2; O2SAT 92
[2018-03-12 23:41] VITALS: BP 91/52; PULSE 60; TEMP 36.8; O2SAT 90
[2018-03-13 03:20] VITALS: BP 89/50; PULSE 74; TEMP 36.9; O2SAT 91
[2018-03-13 06:22] LABS: CREATININE 0.75 mg/dl (0.60-1.20); POTASSIUM 4.3 mmol/L (3.5-5.1)
[2018-03-13 06:25] LABS: PTT PATIENT 50.5 SECONDS (21.0-31.0)
[2018-03-13] MEDS: LEVOTHYROXINE 100 MCG TAB PO SCH (06:28)
[2018-03-13 07:34] VITALS: BP 94/56; PULSE 67; TEMP 36.8; O2SAT 96
[2018-03-13] MEDS: POTASSIUM CHLORIDE 20 MEQ TABCR PO SCH ×2 (07:38→21:24)
[2018-03-13] MEDS: ACETAMINOPHEN 325 MG TAB PO PRN (07:39)
[2018-03-13] MEDS: LORAZEPAM 0.5 MG TAB PO PRN ×2 (07:39→21:23)
[2018-03-13] MEDS: GABAPENTIN 100 MG CAP PO SCH ×2 (07:39→21:00)
[2018-03-13] MEDS: METOPROLOL TARTRATE 50 MG TAB PO SCH ×2 (07:40→21:24)
[2018-03-13] MEDS: FUROSEMIDE INJ 60 MG in SYRINGE 0 ML IV SCH ×3 (07:42→21:24)
[2018-03-13] MEDS ORDERED: DULOXETINE (CYMBALTA) 30 MG CAP PO SCH (09:00)
[2018-03-13] MEDS ORDERED: NAPROXEN 250 MG TAB PO SCH (09:00)
--- NOTE | 2018-03-13 09:34 | CARDIOLOGY PROGRESS NOTE ---
DATE: 03/13/2018 TIME: 8:47 a.m. SUBJECTIVE: She does not feel well this morning. She states that her knees and ankles hurt. She stated that she hurt it when raining outside. She denies chest pain, shortness of breath, syncope, near syncope, or palpitations. Nursing staff says that she has not been very active and prefers to remain at rest. OBJECTIVE: VITAL SIGNS: Temperature 36.8 degrees, heart rate 67 beats per minute, respiration rate 18, blood pressure 94/56 mmHg, oxygen saturation 96% on room air. I's and O's negative 572 mL, yesterday weight is 70.4 kilogram. GENERAL: No acute distress. NECK: Mild JVD. CARDIAC EXAM: No ventricular heave, irregularly irregular, but well rate controlled. No audible murmurs, rubs or gallops. LUNGS: Rales/crackles at the bases, right greater than left. ABDOMEN: Soft, nontender, nondistended. Normoactive bowel sounds. EXTREMITIES: 1-2+ pitting edema, right lower extremity; 1+ left lower extremity edema. Her edema continues to improve on a daily basis. No cyanosis. PSYCHIATRIC: Affect appears appropriate. LABORATORY DATA: Sodium 134, potassium 4.3, BUN 25, creatinine 0.75. MEDICATIONS: Include digoxin 125 mcg, Sunday, , Sunday, Sunday; 250 mcg Sunday, Sunday, Sunday; Lasix 60 mg IV t.i.d.; heparin drip per protocol; metoprolol tartrate 50 mg p.o. b.i.d.; potassium chloride 20 mEq p.o. b.i.d. Telemetry personally reviewed. Atrial fibrillation with adequate rate control. ASSESSMENT AND PLAN: 1. Acute diastolic congestive heart failure: She continues to improve. Her diuresis does appear to be slowing down. We will give an additional dose of Diuril today 250 mg IV. Continue low sodium diet. Strict I's and O's. Avoid NSAIDs. 2. Atrial fibrillation: Heart rate much improved. Continue current regimen of metoprolol 50 mg twice daily and digoxin 125 alternating with 250 mcg. Repeat digoxin level in the next few days. Continue anticoagulation for stroke risk reduction. 3. Pericardial effusion: Repeat echo as an outpatient. 4. Mitral and tricuspid regurgitation: Repeat as an outpatient. Hopefully, these values improve with her significant diuresis. 5. Pulmonary hypertension: We will likely improve following improvement of her volume status. 6. Hypokalemia: Potassium remains normal on supplementation. 7. Disposition: Continue plan as above. Will check chest x-rays, as her lung exam has not changed over the last few days despite diuresis. There may be some chronic findings responsible for her lung exam.
--- NOTE | 2018-03-13 11:24 | DIAGNOSTIC IMAGING REPORT ---
CHEST 2 VIEWS ROUTINE HISTORY: crackles COMPARISON: Chest CTA 03/06/18.. FINDINGS: No pneumothorax. No pleural effusions. The heart remains mildly enlarged. Right Port-A-Cath terminates at the SVC. Diffuse interstitial thickening and scattered patchy airspace opacities persist. Bibasilar interstitial thickening remains unchanged. IMPRESSION: No change compared to the prior study. Diffuse interstitial thickening, cardiomegaly, and patchy airspace opacities are again noted. This may represent pulmonary edema or an atypical pneumonitis. Electronically signed by: Thaddeus Miller M.D. 03/13/2018 11:23 AM Dictated Date/Time: 03/13/2018 11:21 AM
[2018-03-13 11:54] VITALS: BP 90/46; PULSE 68; TEMP 36.7; O2SAT 97
[2018-03-13] MEDS ORDERED: CHLOROTHIAZIDE INJ 250 MG in DEXTROSE 5% 50ML 50 ML IV SCH (13:30)
[2018-03-13 15:55] VITALS: BP 113/66; PULSE 74; TEMP 36.8; O2SAT 92
[2018-03-13] MEDS ORDERED: DIGOXIN 0.125 MG TAB PO SCH (16:00)
[2018-03-13] MEDS: HEPARIN 25,000 UNIT/500ML D5W 500 ML IV SCH (18:44)
[2018-03-13 19:44] VITALS: BP 96/59; PULSE 85; TEMP 36.2; O2SAT 93
--- NOTE | 2018-03-13 22:52 | Progress Note ---
Subjective Date of Service: Mar 13, 2018. Subjective Pt evaluation today including: conversation w/ patient, physical exam Pain appears to be controlled. Patient reports no new complaints today. Problem List Medical Problems: (1) CHF (congestive heart failure) Status: Acute (2) Lymphoma Status: Acute (3) Tachycardia Status: Acute Review of Systems Constitutional: No fever, No chills Eyes: No worsening of vision ENT: + problem reported (dry mouth), No hearing loss Respiratory: No shortness of breath Cardiac: No chest pain Abdomen: No pain Musculoskeletal: No joint pain Neurologic: No memory loss Psychiatric: No depression symptoms Endo: No fatigue Skin: No rash All Other Systems: Reviewed and Negative All Other Systems: Reviewed and Negative Objective Vital Signs Date Time Temp Pulse Resp B/P (MAP) Pulse Ox O2 Delivery O2 Flow Rate FiO2 03/13/18 19:44 36.2 85 16 96/59 (71) 93 Room Air 03/13/18 16:47 72 03/13/18 16:00 Room Air 03/13/18 15:55 36.8 74 18 113/66 (82) 92 Room Air 03/13/18 12:00 Room Air 03/13/18 11:54 36.7 68 18 90/46 (61) 97 03/13/18 08:00 Room Air 03/13/18 07:34 36.8 67 18 94/56 (69) 96 03/13/18 04:00 Room Air 03/13/18 03:20 36.9 74 18 89/50 (63) 91 Room Air 03/12/18 23:59 Room Air 03/12/18 23:41 36.8 60 18 91/52 (65) 90 Room Air Physical Exam Comments: General Appearance: WD/WN, no distress Eyes: normal inspection, sclerae normal Neck: supple, thyroid normal Respiratory/Chest: chest non-tender, lungs clear, + decreased breath sounds, + rales (bases) Cardiovascular: normal rate + irregularly irregular Abdomen: normal bowel sounds, non tender, soft Extremities: + pedal edema, + swelling Neurologic/Psychiatric: alert, oriented x 3 Lymphadenopathy: no adenopathy Musculoskeletal: Both knee and feet were non tender. Some arthritic changes are noted. Laboratory Results Last 24 Hours Test 03/13/18 05:21 Activated Partial Thromboplast Time 50.5 SECONDS Partial Thromboplastin Ratio 1.9 Sodium Level 134 mmol/L Potassium Level 4.3 mmol/L Chloride Level 96 mmol/L Carbon Dioxide Level 37 mmol/L Anion Gap 1.0 mmol/L Blood Urea Nitrogen 25 mg/dl Creatinine 0.75 mg/dl Est Creatinine Clear Calc Drug Dose 66.2 ml/min Estimated GFR () 92.9 Estimated GFR (Non- 80.2 BUN/Creatinine Ratio 33.1 Random Glucose 81 mg/dl Calcium Level 9.0 mg/dl Assessment and Plan Disccussed antiicoag. 72 y/o female presents with acute diastolic heart failure, atrial fibrillation with RVR, responding well to diuresis, PMHx of B Cell Lymphoma with Parotid Neoplasm (2013), Hypothyroidism, RA, Paroxysmal Atrial Flutter, COPD, and Anxiety Atrial Fib with RVR:remains with variable rate control, asa, digoxin increased by cardiology to 25o mcg 03/09. metoprolol tartrate, initial concern that pt did not want anticoagulation made use of amiodarone in question in case she would convert; and place her at increased risk of embolic issues, now she is in agreement ot AC and will be on iv heparin to further explore cose of outpt AC - d-dimer elevated, CTPE was negative on 03/06 -Heart rate today is better controlled. Discussed multiple options of anticoagulation with patient. Patient reports that she is still undecided. Also discussed pricing of her anticoag. Will leelee with field nurse case manager in AM. Acute diastolic CHF peripheral edema persists, cardiology increasing dosage of diuretics - Echo 03/06 showing LVEF = 55-60%, R ventricular volume overload, Lasix 40 IV tid. occasional use of IV diuril, pt has 8.5 kg loss thus far with preserved renal function -Patient remains hypervolemic. Negative about 41915 ml. -Will continue to diurese. Heme+ Stool from ER, continues with no melena/hematochezia intermittent constipation has been an issue at times requiring self-disimpaction H&H decreased to the 10s. will monitor. Hypothyroidism: TSH 24, free T4 =1.06 COPD currently no treatment needed and Exacerbation:remains stable Anxiety: resolved, Lorazepam 0.5 mg BID PRN B Cell Lymphoma: Follows with Dr. Garcia - F/U imaging done 03/05: - CT chest: interval development of the mediastinal lymphadenopathy (difficult to determine if part of this is fluid congestion), - CT abdomen: Numerous subcentimeter retroperitoneal and bilateral common and external iliac lymph nodes are new since 2015. not pathologically enlarged. RA:- Holding Naprosyn and using Tylenol , PER PATIENT SHE DOES NOT BELIEVE GABAPENTIN IS HELPING. I had offered perhaps to switch to cymbalta. Patient however refused after giving her a discussion on risks and benefits. Patient also was offered prednisone as she can not take NSAIDs. Patient refused , patient also refused stronger meds like opiates or tramadol. Patient states that even though her pain is worse, she feels she can control it with tylenol. DVT Prophylaxis: SCDs,full AC, ppx held due to +heme stools. Spent 55 minutes in the management of this case Continued [facility] stay due to: other (requires more diuresing.) Discharge planning: uncertain
[2018-03-13 23:08] VITALS: BP 95/59; PULSE 64; TEMP 36.8; O2SAT 92
[2018-03-14 04:31] VITALS: BP 92/53; PULSE 70; TEMP 36.6; O2SAT 90
[2018-03-14] MEDS: LEVOTHYROXINE 100 MCG TAB PO SCH (06:11)
[2018-03-14 06:38] LABS: HEMATOCRIT 32.3 % (37-47); HEMOGLOBIN 10.4 g/dL (12.0-16.0); MEAN CELL VOLUME 88.5 fL (80-100); MEAN CORPUSCULAR HEMOGLOBIN 28.5 pg (25-34); MEAN CORPUSCULAR HGB CONC 32.2 g/dl (32-36); MEAN PLATELET VOLUME 9.4 fL (7.4-10.4); PLATELET COUNT 272 K/uL (130-400); RED CELL DISTRIBUTION WIDTH CV 20.1 % (11.5-14.5); RED CELL DISTRIBUTION WIDTH SD 64.7 fL (36.4-46.3); WHITE BLOOD COUNT 9.71 K/uL (4.8-10.8)
[2018-03-14 07:13] LABS: CREATININE 0.7 mg/dl (0.60-1.20); POTASSIUM 4.1 mmol/L (3.5-5.1)
[2018-03-14 07:38] LABS: PTT PATIENT 46.6 SECONDS (21.0-31.0)
[2018-03-14 07:47] VITALS: BP 90/56; PULSE 56; TEMP 36.6; O2SAT 96
[2018-03-14] MEDS: POTASSIUM CHLORIDE 20 MEQ TABCR PO SCH ×2 (07:55→21:31)
[2018-03-14] MEDS: GABAPENTIN 100 MG CAP PO SCH ×2 (07:55→21:31)
[2018-03-14] MEDS: METOPROLOL TARTRATE 50 MG TAB PO SCH ×2 (07:55→21:31)
[2018-03-14] MEDS: LORAZEPAM 0.5 MG TAB PO PRN ×2 (07:55→21:30)
[2018-03-14] MEDS: FUROSEMIDE INJ 60 MG in SYRINGE 0 ML IV SCH ×3 (07:57→21:30)
[2018-03-14] MEDS: ACETAMINOPHEN 325 MG TAB PO PRN (08:00)
[2018-03-14] MEDS ORDERED: HEPARIN IV BOLUS 2,000 UNIT in SYRINGE 0 ML IV ONE (08:00)
[2018-03-14] MEDS: HEPARIN 25,000 UNIT/500ML D5W 500 ML IV SCH ×2 (08:12→19:43)
--- NOTE | 2018-03-14 10:17 | Cardiology Follow-Up ---
Subjective Date of Service: Mar 14, 2018. Pt evaluation today including: conversation w/ patient, physical exam, chart review, lab review, review of studies, review of inpatient medication list, conversation w/ attending History of Present Illness Patient is currently resting comfortably in bed. She reports that the floors are hard on her feet, and she notes discomfort when she is up ambulating on them. She denies chest discomfort or shortness of breath. She denies orthopnea, and her edema continues to improve. She notes mild lightheadedness when first getting up, but she denies syncope or presyncope. She denies palpitations. She thought she may have seen a "pink tint" to her urine last evening, but the color has now normalized. She denies melena or hematochezia. Social History Smoking Status: Former Smoker History of Alcohol Use: No Objective Vital Signs Past 12 Hours Date Time Temp Pulse Resp B/P (MAP) Pulse Ox O2 Delivery O2 Flow Rate FiO2 03/14/18 08:00 Room Air 03/14/18 07:47 36.6 56 18 90/56 (67) 96 03/14/18 04:31 36.6 70 18 92/53 (66) 90 Room Air 03/14/18 04:00 Room Air 03/13/18 23:59 Room Air 03/13/18 23:08 36.8 64 18 95/59 (71) 92 Room Air Last Recorded Weight-Kilograms: 68.300 Physical Exam Constitutional: Alert, oriented, in no acute distress HEENT: Head is atraumatic and normocephalic. EOMs intact. Sclera anicteric. Face is symmetric. No perioral cyanosis. Mucous membranes moist. Neck: Supple, mildly elevated JVP Pulmonary: Normal respiratory effort, bibasilar crackles Cardiac: Irregularly irregular, normal S1 and S2, no gallops, no rubs, no murmurs Extremities: 1+ edema 1/2 way to the knees bilaterally. No cyanosis. Pulses intact Abdomen: Normal bowel sounds, soft, non-tender, no abdominal mass palpated Skin: Normal skin color, turgor, and pigmentation, no rash, no skin lesions Neurological: Oriented to person, place, and time Data Laboratory Results: Last 24 Hours Test 03/14/18 05:56 White Blood Count 9.71 K/uL Red Blood Count 3.65 M/uL Hemoglobin 10.4 g/dL Hematocrit 32.3 % Mean Corpuscular Volume 88.5 fL Mean Corpuscular Hemoglobin 28.5 pg Mean Corpuscular Hemoglobin Concent 32.2 g/dl RDW Standard Deviation 64.7 fL RDW Coefficient of Variation 20.1 % Platelet Count 272 K/uL Mean Platelet Volume 9.4 fL Activated Partial Thromboplast Time 46.6 SECONDS Partial Thromboplastin Ratio 1.8 Sodium Level 133 mmol/L Potassium Level 4.1 mmol/L Chloride Level 94 mmol/L Carbon Dioxide Level 35 mmol/L Anion Gap 4.0 mmol/L Blood Urea Nitrogen 25 mg/dl Creatinine 0.70 mg/dl Est Creatinine Clear Calc Drug Dose 70.0 ml/min Estimated GFR () 101.0 Estimated GFR (Non- 87.2 BUN/Creatinine Ratio 35.0 Random Glucose 82 mg/dl Calcium Level 9.0 mg/dl CXR: No change compared to the prior study. Diffuse interstitial thickening, cardiomegaly, and patchy airspace opacities are again noted. This may represent pulmonary edema or an atypical pneumonitis. Telemetry reviewed: Atrial fibrillation with well controlled rate. Assessment and Plan ASSESSMENT/PLAN: 1. Acute diastolic CHF: She continues to improve. Creatinine has remained stable. Continue IV Lasix 60 mg TID, and will give an additional dose of Diuril today 250 mg IV for further diuresis. Continue low sodium diet. Continue to monitor PRP closely. Strict I's and O's. 2. Atrial fibrillation: Her rate is adequately controlled. Continue rate control strategy with metoprolol 50 mg BID and digoxin 125 mcg alternating with 250 mcg. Repeat digoxin level has been ordered. Continue anticoagulation for thromboembolic prophylaxis. 3. Pericardial effusion: Will repeat an echo as an outpatient for monitoring. 4. Mitral and tricuspid regurgitation: Hopefully, this will improve with diuresis. Will repeat an echo in the outpatient setting for reevaluation. 5. Pulmonary hypertension: Hopefully, this will also improve with diuresis. 6. Hypokalemia: Continue potassium supplementation. 7. Disposition: Will continue to follow along during patient's hospitalization.
[2018-03-14 11:22] VITALS: BP 90/55; PULSE 58; TEMP 36.8; O2SAT 96
[2018-03-14] MEDS ORDERED: NURSING VERBAL MED ORDER ONE ×2 (11:30→12:00)
[2018-03-14] MEDS ORDERED: CHLOROTHIAZIDE INJ 250 MG in DEXTROSE 5% 50ML 50 ML IV SCH (13:30)
[2018-03-14 15:48] VITALS: BP 92/55; PULSE 66; TEMP 36.4; O2SAT 97
[2018-03-14 16:48] LABS: PTT PATIENT 71.3 SECONDS (21.0-31.0)
[2018-03-14 20:04] VITALS: BP 90/63; PULSE 74; TEMP 36.7; O2SAT 94
--- NOTE | 2018-03-14 22:51 | Progress Note ---
Subjective Date of Service: Mar 14, 2018. Subjective Pt evaluation today including: conversation w/ patient, physical exam 73 yo female reports having pain in her knees and ankles. Again though she states that she would rather be on the Tylenol. Problem List Medical Problems: (1) CHF (congestive heart failure) Status: Acute (2) Lymphoma Status: Acute (3) Tachycardia Status: Acute Review of Systems Constitutional: No fever, No chills Eyes: No worsening of vision ENT: + problem reported (dry mouth), No hearing loss Respiratory: No shortness of breath Cardiac: No chest pain Abdomen: No pain Musculoskeletal: No joint pain Neurologic: No memory loss Psychiatric: No depression symptoms Endo: No fatigue Skin: No rash All Other Systems: Reviewed and Negative All Other Systems: Reviewed and Negative Medications Current Inpatient Medications Medications (Trade) Dose Ordered Sig/Bryanna Route Start Time Stop Time Status Last Admin Dose Admin Acetaminophen (Tylenol Tab) 650 mg Q4H PRN PO 03/05/18 15:00 04/04/18 14:59 03/14/18 08:00 650 MG Al Hydrox/Mg Hydrox/Simethicone (Maalox Max Susp) 15 ml Q4H PRN PO 03/05/18 15:00 04/04/18 14:59 Magnesium Hydroxide (Milk Of Magnesia Susp) 30 ml Q12H PRN PO 03/05/18 15:00 04/04/18 14:59 Ondansetron HCl (Zofran Inj) 4 mg Q6H PRN IV 03/05/18 15:00 04/04/18 14:59 Aspirin (Ecotrin Tab) 81 mg QAM PO 03/06/18 09:00 04/05/18 08:59 Future Hold 03/11/18 07:54 81 MG Polyethylene (Miralax Powder Packet) 17 gm DAILY PRN PO 03/05/18 15:00 04/04/18 14:59 Levothyroxine Sodium (Synthroid Tab) 100 mcg DAILYBB PO 03/06/18 06:00 04/05/18 06:59 03/15/18 06:12 100 MCG Lorazepam (Ativan Tab) 0.5 mg BID PRN PO 03/05/18 15:00 04/04/18 14:59 03/14/18 21:30 0.5 MG Heparin Sodium (Porcine) (Heparin 100 Unit/ml 5ml Flush) 5 ml PRN PRN IV 03/05/18 23:45 04/04/18 23:44 Multi-Ingredient Ointment (Eucerin Unscented Cr) 1 appln UD PRN EXT 03/06/18 11:30 04/05/18 11:29 03/06/18 14:46 1 APPLN Gabapentin (Neurontin Cap) 100 mg BID PO 03/07/18 21:00 04/06/18 20:59 03/12/18 09:53 100 MG Furosemide 60 mg/ Syringe 6 ml @ 4 mls/min TID IV 03/08/18 14:00 04/05/18 08:59 03/14/18 21:30 4 MLS/MIN Potassium Chloride (Klor-Con Tab) 20 meq BID PO 03/08/18 21:00 04/07/18 20:59 03/14/18 21:31 20 MEQ Metoprolol Tartrate (Lopressor Tab) 50 mg BID PO 03/10/18 21:00 04/05/18 20:59 03/14/18 21:31 50 MG Heparin Sodium/ Dextrose 500 ml @ 19 mls/hr Q24H IV 03/10/18 09:30 04/09/18 09:29 03/14/18 19:43 19 MLS/HR Digoxin (Lanoxin Tab) 0.25 mg MoWeFr@1600 PO 03/13/18 16:00 04/12/18 15:59 Future Hold 03/13/18 16:47 0.25 MG Digoxin (Lanoxin Tab) 0.125 mg SuTuThSa@1600 PO 03/12/18 16:00 04/11/18 15:59 Future Hold 03/12/18 17:27 0.125 MG Objective Vital Signs Date Time Temp Pulse Resp B/P (MAP) Pulse Ox O2 Delivery O2 Flow Rate FiO2 03/14/18 20:04 36.7 74 16 90/63 (72) 94 Room Air 03/14/18 20:00 Room Air 03/14/18 16:00 Room Air 03/14/18 15:48 36.4 66 16 92/55 (67) 97 Room Air 03/14/18 12:00 Room Air 03/14/18 11:22 36.8 58 18 90/55 (67) 96 03/14/18 08:00 Room Air 03/14/18 07:47 36.6 56 18 90/56 (67) 96 03/14/18 04:31 36.6 70 18 92/53 (66) 90 Room Air 03/14/18 04:00 Room Air 03/13/18 23:59 Room Air 03/13/18 23:08 36.8 64 18 95/59 (71) 92 Room Air Physical Exam Comments: General Appearance: WD/WN, no distress Eyes: normal inspection, sclerae normal Neck: supple, thyroid normal Respiratory/Chest: chest non-tender, lungs clear, Cardiovascular: normal rate + irregularly irregular Abdomen: normal bowel sounds, non tender, soft Extremities: + pedal edema, + swelling Neurologic/Psychiatric: alert, oriented x 3 Lymphadenopathy: no adenopathy Musculoskeletal: Both knee and feet were non tender. Some arthritic changes are noted. Laboratory Results Last 24 Hours Test 03/14/18 05:56 03/14/18 11:31 03/14/18 14:23 White Blood Count 9.71 K/uL Red Blood Count 3.65 M/uL Hemoglobin 10.4 g/dL Hematocrit 32.3 % Mean Corpuscular Volume 88.5 fL Mean Corpuscular Hemoglobin 28.5 pg Mean Corpuscular Hemoglobin Concent 32.2 g/dl RDW Standard Deviation 64.7 fL RDW Coefficient of Variation 20.1 % Platelet Count 272 K/uL Mean Platelet Volume 9.4 fL Activated Partial Thromboplast Time 46.6 SECONDS 71.3 SECONDS Partial Thromboplastin Ratio 1.8 2.7 Sodium Level 133 mmol/L Potassium Level 4.1 mmol/L Chloride Level 94 mmol/L Carbon Dioxide Level 35 mmol/L Anion Gap 4.0 mmol/L Blood Urea Nitrogen 25 mg/dl Creatinine 0.70 mg/dl Est Creatinine Clear Calc Drug Dose 70.0 ml/min Estimated GFR () 101.0 Estimated GFR (Non- 87.2 BUN/Creatinine Ratio 35.0 Random Glucose 82 mg/dl Calcium Level 9.0 mg/dl Digoxin Level 1.6 ng/ml Assessment and Plan 72 y/o female presents with acute diastolic heart failure, atrial fibrillation with RVR, responding well to diuresis, PMHx of B Cell Lymphoma with Parotid Neoplasm (2013), Hypothyroidism, RA, Paroxysmal Atrial Flutter, COPD, and Anxiety Atrial Fib with RVR:remains with variable rate control, asa, digoxin increased by cardiology to 25o mcg 03/09. metoprolol tartrate, initial concern that pt did not want anticoagulation made use of amiodarone in question in case she would convert; and place her at increased risk of embolic issues, now she is in agreement ot AC and will be on iv heparin to further explore cose of outpt AC - d-dimer elevated, CTPE was negative on 03/06 -Heart rate today is better controlled. Discussed multiple options of anticoagulation with patient. Patient reports that she is still undecided. Patient remains undecided on anticoagulation but is leaning towards the NOAC. Acute diastolic CHF peripheral edema persists, cardiology increasing dosage of diuretics - Echo 03/06 showing LVEF = 55-60%, R ventricular volume overload, Lasix 40 IV tid. occasional use of IV diuril, pt has 8.5 kg loss thus far with preserved renal function -Patient remains hypervolemic. Negative about [address]84 ml. -Will continue to diurese. Heme+ Stool from ER, continues with no melena/hematochezia intermittent constipation has been an issue at times requiring self-disimpaction H&H decreased to the 10s but has remained stable the past few days. Hypothyroidism: TSH 24, free T4 =1.06 COPD currently no treatment needed and Exacerbation:remains stable Anxiety: resolved, Lorazepam 0.5 mg BID PRN B Cell Lymphoma: Follows with Dr. Garcia - F/U imaging done 03/05: - CT chest: interval development of the mediastinal lymphadenopathy (difficult to determine if part of this is fluid congestion), - CT abdomen: Numerous subcentimeter retroperitoneal and bilateral common and external iliac lymph nodes are new since 2014. not pathologically enlarged. RA:- Holding Naprosyn and using Tylenol , PER PATIENT SHE DOES NOT BELIEVE GABAPENTIN IS HELPING. I had offered perhaps to switch to cymbalta. Patient however refused after giving her a discussion on risks and benefits. Patient also was offered prednisone as she can not take NSAIDs. Patient refused , patient also refused stronger meds like opiates or tramadol. Patient states that even though her pain is worse, she feels she can control it with tylenol. DVT Prophylaxis: SCDs,full AC, ppx held due to +heme stools. Continued [facility] stay due to: other (requires more diuresing.) Discharge planning: uncertain
[2018-03-14 23:30] VITALS: BP 94/66; PULSE 85; TEMP 36.7; O2SAT 93
[2018-03-14 23:58] LABS: PTT PATIENT 57.4 SECONDS (21.0-31.0)
[2018-03-15 04:21] VITALS: BP 91/56; PULSE 81; TEMP 36.5; O2SAT 94
[2018-03-15] MEDS: LEVOTHYROXINE 100 MCG TAB PO SCH (06:12)
[2018-03-15 06:32] LABS: PTT PATIENT 54.6 SECONDS (21.0-31.0)
[2018-03-15 07:57] VITALS: BP 93/56; PULSE 80; TEMP 36.6; O2SAT 94
[2018-03-15] MEDS: GABAPENTIN 100 MG CAP PO SCH ×3 (08:52→21:00)
[2018-03-15] MEDS: FUROSEMIDE INJ 60 MG in SYRINGE 0 ML IV SCH ×3 (08:52→21:18)
[2018-03-15] MEDS: POTASSIUM CHLORIDE 20 MEQ TABCR PO SCH ×2 (08:53→21:18)
[2018-03-15] MEDS: METOPROLOL TARTRATE 50 MG TAB PO SCH ×2 (08:53→21:19)
[2018-03-15] MEDS: LORAZEPAM 0.5 MG TAB PO PRN ×2 (09:01→21:18)
[2018-03-15 11:24] VITALS: BP 91/60; PULSE 74; TEMP 36.5; O2SAT 94
[2018-03-15] MEDS: ACETAMINOPHEN 325 MG TAB PO PRN (12:53)
[2018-03-15 16:11] VITALS: BP 98/61; PULSE 87; TEMP 36.4; O2SAT 91
[2018-03-15 20:23] VITALS: BP 94/58; PULSE 103; TEMP 36.7; O2SAT 94
[2018-03-15] MEDS: HEPARIN 25,000 UNIT/500ML D5W 500 ML IV SCH (21:25)
--- NOTE | 2018-03-15 22:10 | Progress Note ---
Subjective Date of Service: Mar 15, 2018. Subjective Pt evaluation today including: conversation w/ patient Patient reports no new complaints today. She continues to have intermittent bilateral joint pain, but reports that her pain is controlled Problem List Medical Problems: (1) CHF (congestive heart failure) Status: Acute (2) Lymphoma Status: Acute (3) Tachycardia Status: Acute Review of Systems Constitutional: No fever, No chills Eyes: No worsening of vision ENT: + problem reported (dry mouth), No hearing loss Respiratory: No shortness of breath Cardiac: No chest pain Abdomen: No pain Musculoskeletal: No joint pain Neurologic: No memory loss Psychiatric: No depression symptoms Endo: No fatigue Skin: No rash All Other Systems: Reviewed and Negative Medications Current Inpatient Medications Medications (Trade) Dose Ordered Sig/Bryanna Route Start Time Stop Time Status Last Admin Dose Admin Acetaminophen (Tylenol Tab) 650 mg Q4H PRN PO 03/05/18 15:00 04/04/18 14:59 03/15/18 12:53 650 MG Al Hydrox/Mg Hydrox/Simethicone (Maalox Max Susp) 15 ml Q4H PRN PO 03/05/18 15:00 04/04/18 14:59 Magnesium Hydroxide (Milk Of Magnesia Susp) 30 ml Q12H PRN PO 03/05/18 15:00 04/04/18 14:59 Ondansetron HCl (Zofran Inj) 4 mg Q6H PRN IV 03/05/18 15:00 04/04/18 14:59 Aspirin (Ecotrin Tab) 81 mg QAM PO 03/06/18 09:00 04/05/18 08:59 Future Hold 03/11/18 07:54 81 MG Polyethylene (Miralax Powder Packet) 17 gm DAILY PRN PO 03/05/18 15:00 04/04/18 14:59 Levothyroxine Sodium (Synthroid Tab) 100 mcg DAILYBB PO 03/06/18 06:00 04/05/18 06:59 03/15/18 06:12 100 MCG Lorazepam (Ativan Tab) 0.5 mg BID PRN PO 03/05/18 15:00 04/04/18 14:59 03/15/18 21:18 0.5 MG Heparin Sodium (Porcine) (Heparin 100 Unit/ml 5ml Flush) 5 ml PRN PRN IV 03/05/18 23:45 04/04/18 23:44 Multi-Ingredient Ointment (Eucerin Unscented Cr) 1 appln UD PRN EXT 03/06/18 11:30 04/05/18 11:29 03/06/18 14:46 1 APPLN Gabapentin (Neurontin Cap) 100 mg BID PO 03/07/18 21:00 04/06/18 20:59 03/12/18 09:53 100 MG Furosemide 60 mg/ Syringe 6 ml @ 4 mls/min TID IV 03/08/18 14:00 04/05/18 08:59 03/15/18 21:18 4 MLS/MIN Potassium Chloride (Klor-Con Tab) 20 meq BID PO 03/08/18 21:00 04/07/18 20:59 03/15/18 21:18 20 MEQ Metoprolol Tartrate (Lopressor Tab) 50 mg BID PO 03/10/18 21:00 04/05/18 20:59 03/15/18 21:19 50 MG Heparin Sodium/ Dextrose 500 ml @ 19 mls/hr Q24H IV 03/10/18 09:30 04/09/18 09:29 03/15/18 21:25 19 MLS/HR Digoxin (Lanoxin Tab) 0.25 mg MoWeFr@1600 PO 03/13/18 16:00 04/12/18 15:59 Future Hold 03/13/18 16:47 0.25 MG Digoxin (Lanoxin Tab) 0.125 mg SuTuThSa@1600 PO 03/12/18 16:00 04/11/18 15:59 Future Hold 03/12/18 17:27 0.125 MG Objective Vital Signs Date Time Temp Pulse Resp B/P (MAP) Pulse Ox O2 Delivery O2 Flow Rate FiO2 03/15/18 20:23 36.7 103 16 94/58 (70) 94 Room Air 03/15/18 20:00 Room Air 03/15/18 16:11 36.4 87 16 98/61 (73) 91 Room Air 03/15/18 16:00 Room Air 03/15/18 12:00 Room Air 03/15/18 11:24 36.5 74 18 91/60 (70) 94 03/15/18 08:00 Room Air 03/15/18 07:57 36.6 80 18 93/56 (68) 94 03/15/18 04:21 36.5 81 20 91/56 (68) 94 Room Air 03/15/18 04:06 Room Air 03/15/18 00:00 Room Air 03/14/18 23:30 36.7 85 20 94/66 (75) 93 Room Air Physical Exam Comments: General Appearance: WD/WN, no distress Eyes: normal inspection, sclerae normal Neck: supple, thyroid normal Respiratory/Chest: chest non-tender, lungs clear, Cardiovascular: normal rate + irregularly irregular Abdomen: normal bowel sounds, non tender, soft Extremities: + pedal edema, + swelling Neurologic/Psychiatric: alert, oriented x 3 Lymphadenopathy: no adenopathy Musculoskeletal: Both knee and feet were non tender. Some arthritic changes are noted. Laboratory Results Last 24 Hours Test 03/14/18 23:15 03/15/18 05:27 Activated Partial Thromboplast Time 57.4 SECONDS 54.6 SECONDS Partial Thromboplastin Ratio 2.2 2.1 Assessment and Plan 72 y/o female presents with acute diastolic heart failure, atrial fibrillation with RVR, responding well to diuresis, PMHx of B Cell Lymphoma with Parotid Neoplasm (2013), Hypothyroidism, RA, Paroxysmal Atrial Flutter, COPD, and Anxiety Atrial Fib with RVR:remains with variable rate control, asa, digoxin increased by cardiology to 25o mcg 03/09. metoprolol tartrate, initial concern that pt did not want anticoagulation made use of amiodarone in question in case she would convert; and place her at increased risk of embolic issues, now she is in agreement ot AC and will be on iv heparin to further explore cose of outpt AC - d-dimer elevated, CTPE was negative on 03/06 -Heart rate today is better controlled. Discussed multiple options of anticoagulation with patient. Patient reports that she is still undecided. Patient remains undecided on anticoagulation but is leaning towards the NOAC. Acute diastolic with R heart failure CHF peripheral edema persists, cardiology increasing dosage of diuretics - Echo 03/06 showing LVEF = 55-60%, R ventricular volume overload, Lasix 40 IV tid. occasional use of IV diuril, pt has 8.5 kg loss thus far with preserved renal function -Patient remains hypervolemic. Negative about 90830 ml. -Will continue to diurese. Today she did not urine a large amount of fluid. will monitor, will continue to current dose, may consider decreasing tomorrow. Heme+ Stool from ER, continues with no melena/hematochezia intermittent constipation has been an issue at times requiring self-disimpaction H&H decreased to the 10s but has remained stable the past few days. Hypothyroidism: TSH 24, free T4 =1.06 COPD currently no treatment needed and Exacerbation:remains stable Anxiety: resolved, Lorazepam 0.5 mg BID PRN B Cell Lymphoma: Follows with Dr. Garcia - F/U imaging done 03/05: - CT chest: interval development of the mediastinal lymphadenopathy (difficult to determine if part of this is fluid congestion), - CT abdomen: Numerous subcentimeter retroperitoneal and bilateral common and external iliac lymph nodes are new since 2015. not pathologically enlarged. RA:- Holding Naprosyn and using Tylenol , PER PATIENT SHE DOES NOT BELIEVE GABAPENTIN IS HELPING. I had offered perhaps to switch to cymbalta. Patient however refused after giving her a discussion on risks and benefits. Patient also was offered prednisone as she can not take NSAIDs. Patient refused , patient also refused stronger meds like opiates or tramadol. Patient states that even though her pain is worse, she feels she can control it with tylenol. DVT Prophylaxis: SCDs,full AC, ppx held due to +heme stools. Spent 35 minutes in management of this case. Continued [facility] stay due to: other (requires more diuresing.) Discharge planning: uncertain
[2018-03-16] VITALS (8 sets, daily range): BP systolic 84–114; BP diastolic 51–73; PULSE 75–127; TEMP 36.6–37.1; O2SAT 91–96
[2018-03-16 05:41] LABS: HEMATOCRIT 31.1 % (37-47); MEAN CELL VOLUME 88.1 fL (80-100); MEAN CORPUSCULAR HEMOGLOBIN 28.3 pg (25-34); MEAN CORPUSCULAR HGB CONC 32.2 g/dl (32-36); MEAN PLATELET VOLUME 8.8 fL (7.4-10.4); PLATELET COUNT 223 K/uL (130-400); RED CELL DISTRIBUTION WIDTH CV 20.3 % (11.5-14.5); WHITE BLOOD COUNT 4.71 K/uL (4.8-10.8)
[2018-03-16] MEDS: LEVOTHYROXINE 100 MCG TAB PO SCH (05:48)
[2018-03-16 06:17] LABS: PTT PATIENT 51.2 SECONDS (21.0-31.0)
[2018-03-16 06:19] LABS: CALCIUM 8.8 mg/dl (8.5-10.1); CREATININE 0.75 mg/dl (0.60-1.20); POTASSIUM 4.1 mmol/L (3.5-5.1)
[2018-03-16] MEDS: FUROSEMIDE INJ 60 MG in SYRINGE 0 ML IV SCH ×3 (08:14→21:01)
[2018-03-16] MEDS: LORAZEPAM 0.5 MG TAB PO PRN ×2 (08:14→21:05)
[2018-03-16] MEDS: METOPROLOL TARTRATE 50 MG TAB PO SCH ×3 (08:14→21:00)
[2018-03-16] MEDS: GABAPENTIN 100 MG CAP PO SCH ×2 (08:15→21:00)
[2018-03-16] MEDS: POTASSIUM CHLORIDE 20 MEQ TABCR PO SCH ×2 (08:15→21:00)
[2018-03-16] MEDS: ACETAMINOPHEN 325 MG TAB PO PRN (11:10)
[2018-03-16] MEDS: RIVAROXABAN 20 MG TAB PO SCH (17:57)
--- NOTE | 2018-03-16 23:21 | Progress Note ---
Subjective Date of Service: Mar 16, 2018. Subjective No new complaints today.] Problem List Medical Problems: (1) CHF (congestive heart failure) Status: Acute (2) Lymphoma Status: Acute (3) Tachycardia Status: Acute Review of Systems Constitutional: No fever, No chills Eyes: No worsening of vision ENT: + problem reported (dry mouth), No hearing loss Respiratory: No shortness of breath Cardiac: No chest pain Abdomen: No pain Musculoskeletal: No joint pain Neurologic: No memory loss Psychiatric: No depression symptoms Endo: No fatigue Skin: No rash All Other Systems: Reviewed and Negative Objective Vital Signs Date Time Temp Pulse Resp B/P (MAP) Pulse Ox O2 Delivery O2 Flow Rate FiO2 03/16/18 20:00 93 Room Air 03/16/18 19:00 37.0 108 16 91/58 (69) 93 Room Air 03/16/18 16:00 Room Air 03/16/18 15:00 36.7 116 16 99/63 (75) 95 Room Air 03/16/18 12:00 Room Air 03/16/18 11:38 36.6 127 18 104/69 (81) 93 Room Air 03/16/18 08:00 Room Air 03/16/18 06:52 36.7 82 19 93/59 (70) 92 Room Air 03/16/18 04:00 Room Air 03/16/18 03:30 36.6 77 18 84/53 (63) 96 03/16/18 03:30 36.6 03/16/18 00:02 37.1 78 18 87/51 (63) 94 03/16/18 00:00 Room Air Physical Exam Comments: General Appearance: WD/WN, no distress Eyes: normal inspection, sclerae normal Neck: supple, thyroid normal Respiratory/Chest: chest non-tender, lungs clear, Cardiovascular: normal rate + irregularly irregular Abdomen: normal bowel sounds, non tender, soft Extremities: + pedal edema, + swelling Neurologic/Psychiatric: alert, oriented x 3 Lymphadenopathy: no adenopathy Musculoskeletal: Both knee and feet were non tender. Some arthritic changes are noted Laboratory Results Last 24 Hours Test 03/16/18 05:11 White Blood Count 4.71 K/uL Red Blood Count 3.53 M/uL Hemoglobin 10.0 g/dL Hematocrit 31.1 % Mean Corpuscular Volume 88.1 fL Mean Corpuscular Hemoglobin 28.3 pg Mean Corpuscular Hemoglobin Concent 32.2 g/dl RDW Standard Deviation 65.0 fL RDW Coefficient of Variation 20.3 % Platelet Count 223 K/uL Mean Platelet Volume 8.8 fL Activated Partial Thromboplast Time 51.2 SECONDS Partial Thromboplastin Ratio 2.0 Sodium Level 131 mmol/L Potassium Level 4.1 mmol/L Chloride Level 94 mmol/L Carbon Dioxide Level 34 mmol/L Anion Gap 3.0 mmol/L Blood Urea Nitrogen 25 mg/dl Creatinine 0.75 mg/dl Est Creatinine Clear Calc Drug Dose 64.9 ml/min Estimated GFR () 92.9 Estimated GFR (Non- 80.2 BUN/Creatinine Ratio 34.1 Random Glucose 85 mg/dl Calcium Level 8.8 mg/dl Assessment and Plan 72 y/o female presents with acute diastolic heart failure, atrial fibrillation with RVR, responding well to diuresis, PMHx of B Cell Lymphoma with Parotid Neoplasm (2013), Hypothyroidism, RA, Paroxysmal Atrial Flutter, COPD, and Anxiety Atrial Fib with RVR:remains with variable rate control, asa, digoxin increased by cardiology to 25o mcg 03/09. metoprolol tartrate, initial concern that pt did not want anticoagulation made use of amiodarone in question in case she would convert; and place her at increased risk of embolic issues, now she is in agreement ot AC and will be on iv heparin to further explore cose of outpt AC - d-dimer elevated, CTPE was negative on 03/06 -Heart rate today is better controlled. Discussed multiple options of anticoagulation with patient. Patient reports that she is still undecided. Will stop heparin and start xarelto. Acute Right systolic CHF - peripheral edema persists, cardiology increasing dosage of diuretics - Echo 03/06 showing LVEF = 55-60%, R ventricular volume overload, Lasix 40 IV tid. occasional use of IV diuril, pt has 8.5 kg loss thus far with preserved renal function -Patient remains [place]volemic. [place] about [address] ml. -Will continue to diurese. Today patient had an output of over 1 liter. continues to have edema. will continue to diurese Heme+ Stool from ER, continues with no melena/hematochezia intermittent constipation has been an issue at times requiring self-disimpaction H&H decreased to the 10s but has remained stable the past few days. Hypothyroidism: TSH 24, free T4 =1.06 COPD currently no treatment needed and Exacerbation:remains stable Anxiety: resolved, Lorazepam 0.5 mg BID PRN B Cell Lymphoma: Follows with Dr. Garcia - F/U imaging done 03/05: - CT chest: interval development of the mediastinal lymphadenopathy (difficult to determine if part of this is fluid congestion), - CT abdomen: Numerous subcentimeter retroperitoneal and bilateral common and external iliac lymph nodes are new since 2015. not pathologically enlarged. RA:- Holding Naprosyn and using Tylenol , PER PATIENT SHE DOES NOT BELIEVE GABAPENTIN IS HELPING. I had offered perhaps to switch to cymbalta. Patient however refused after giving her a discussion on risks and benefits. Patient also was offered prednisone as she can not take NSAIDs. Patient refused , patient also refused stronger meds like opiates or tramadol. Patient states that even though her pain is worse, she feels she can control it with tylenol. DVT Prophylaxis: SCDs,full AC, ppx held due to +heme stools. Continued [facility] stay due to: other (requires more diuresing.) Discharge planning: uncertain
[2018-03-17] VITALS (11 sets, daily range): BP systolic 89–130; BP diastolic 53–80; PULSE 66–104; TEMP 36.4–37; O2SAT 93–96
[2018-03-17] MEDS: LEVOTHYROXINE 100 MCG TAB PO SCH (06:04)
[2018-03-17 06:57] LABS: PTT PATIENT 29.4 SECONDS (21.0-31.0)
[2018-03-17 07:30] LABS: CALCIUM 8.8 mg/dl (8.5-10.1); CREATININE 0.64 mg/dl (0.60-1.20); POTASSIUM 3.9 mmol/L (3.5-5.1)
[2018-03-17] MEDS: FUROSEMIDE INJ 60 MG in SYRINGE 0 ML IV SCH ×3 (08:48→21:00)
[2018-03-17] MEDS: METOPROLOL TARTRATE 50 MG TAB PO SCH ×2 (08:48→21:57)
[2018-03-17] MEDS: GABAPENTIN 100 MG CAP PO SCH ×2 (08:49→21:58)
[2018-03-17] MEDS: POTASSIUM CHLORIDE 20 MEQ TABCR PO SCH ×2 (08:49→21:57)
[2018-03-17] MEDS: LORAZEPAM 0.5 MG TAB PO PRN ×2 (08:54→22:01)
[2018-03-17] MEDS: ACETAMINOPHEN 325 MG TAB PO PRN (12:38)
[2018-03-17] MEDS: RIVAROXABAN 20 MG TAB PO SCH (21:59)
--- NOTE | 2018-03-17 23:53 | Progress Note ---
Subjective Date of Service: Mar 17, 2018. Subjective Pt evaluation today including: conversation w/ patient, physical exam Voiding: no incontinence Patient continues to complain of bilateral knee pain, but reports that it is adequately controlled. She does not want any new meds at this time. Problem List Medical Problems: (1) CHF (congestive heart failure) Status: Acute (2) Lymphoma Status: Acute (3) Tachycardia Status: Acute Review of Systems Constitutional: No fever, No chills Eyes: No worsening of vision ENT: + problem reported (dry mouth), No hearing loss Respiratory: No shortness of breath Cardiac: No chest pain Abdomen: No pain Musculoskeletal: Bilateral knee pain Neurologic: No memory loss Psychiatric: No depression symptoms Endo: No fatigue Skin: No rash All Other Systems: Reviewed and Negative Medications Current Inpatient Medications Medications (Trade) Dose Ordered Sig/Bryanna Route Start Time Stop Time Status Last Admin Dose Admin Acetaminophen (Tylenol Tab) 650 mg Q4H PRN PO 03/05/18 15:00 04/04/18 14:59 03/17/18 12:38 650 MG Al Hydrox/Mg Hydrox/Simethicone (Maalox Max Susp) 15 ml Q4H PRN PO 03/05/18 15:00 04/04/18 14:59 Magnesium Hydroxide (Milk Of Magnesia Susp) 30 ml Q12H PRN PO 03/05/18 15:00 04/04/18 14:59 Ondansetron HCl (Zofran Inj) 4 mg Q6H PRN IV 03/05/18 15:00 04/04/18 14:59 Polyethylene (Miralax Powder Packet) 17 gm DAILY PRN PO 03/05/18 15:00 04/04/18 14:59 Levothyroxine Sodium (Synthroid Tab) 100 mcg DAILYBB PO 03/06/18 06:00 04/05/18 06:59 03/17/18 06:04 100 MCG Lorazepam (Ativan Tab) 0.5 mg BID PRN PO 03/05/18 15:00 04/04/18 14:59 03/17/18 22:01 0.5 MG Heparin Sodium (Porcine) (Heparin 100 Unit/ml 5ml Flush) 5 ml PRN PRN IV 03/05/18 23:45 04/04/18 23:44 Multi-Ingredient Ointment (Eucerin Unscented Cr) 1 appln UD PRN EXT 03/06/18 11:30 04/05/18 11:29 03/06/18 14:46 1 APPLN Gabapentin (Neurontin Cap) 100 mg BID PO 03/07/18 21:00 04/06/18 20:59 03/12/18 09:53 100 MG Furosemide 60 mg/ Syringe 6 ml @ 4 mls/min TID IV 03/08/18 14:00 04/05/18 08:59 03/17/18 15:22 4 MLS/MIN Potassium Chloride (Klor-Con Tab) 20 meq BID PO 03/08/18 21:00 04/07/18 20:59 03/17/18 21:57 20 MEQ Metoprolol Tartrate (Lopressor Tab) 50 mg BID PO 03/10/18 21:00 04/05/18 20:59 03/17/18 08:48 50 MG Rivaroxaban (Xarelto Tab) 20 mg PM PO 03/16/18 18:00 04/15/18 17:59 03/17/18 21:59 20 MG Objective Vital Signs Date Time Temp Pulse Resp B/P (MAP) Pulse Ox O2 Delivery O2 Flow Rate FiO2 03/17/18 23:31 36.8 101 20 94/63 (73) 95 Room Air 03/17/18 21:44 71 94/59 (71) 03/17/18 16:00 96 Room Air 03/17/18 14:54 36.5 104 16 102/68 (79) 96 Room Air 03/17/18 11:01 36.4 66 16 106/60 (75) 94 Room Air 03/17/18 10:36 36.6 97 19 93 03/17/18 08:00 Room Air 03/17/18 06:46 36.6 97 19 90/57 (68) 93 Room Air 03/17/18 04:18 37.0 87 16 89/53 (65) 94 03/17/18 04:00 94 Room Air 03/17/18 00:04 37.0 80 16 130/80 (97) 93 03/17/18 00:00 93 Room Air Physical Exam Comments: General Appearance: WD/WN, no distress Eyes: normal inspection, sclerae normal Neck: supple, thyroid normal Respiratory/Chest: chest non-tender, lungs clear, Cardiovascular: normal rate + irregularly irregular Abdomen: normal bowel sounds, non tender, soft Extremities: + pedal edema, + swelling Neurologic/Psychiatric: alert, oriented x 3 Lymphadenopathy: no adenopathy Musculoskeletal: Both knee and feet were non tender. Some arthritic changes are noted. Laboratory Results Last 24 Hours Test 03/17/18 06:27 Activated Partial Thromboplast Time 29.4 SECONDS Partial Thromboplastin Ratio 1.1 Sodium Level 133 mmol/L Potassium Level 3.9 mmol/L Chloride Level 94 mmol/L Carbon Dioxide Level 36 mmol/L Anion Gap 3.0 mmol/L Blood Urea Nitrogen 23 mg/dl Creatinine 0.64 mg/dl Est Creatinine Clear Calc Drug Dose 69.6 ml/min Estimated GFR () 104.1 Estimated GFR (Non- 89.8 BUN/Creatinine Ratio 36.6 Random Glucose 83 mg/dl Calcium Level 8.8 mg/dl Assessment and Plan 72 y/o female presents with acute diastolic heart failure, atrial fibrillation with RVR, responding well to diuresis, PMHx of B Cell Lymphoma with Parotid Neoplasm (2013), Hypothyroidism, RA, Paroxysmal Atrial Flutter, COPD, and Anxiety Atrial Fib with RVR:remains with variable rate control, asa, digoxin increased by cardiology to 25o mcg 03/09. metoprolol tartrate, initial concern that pt did not want anticoagulation made use of amiodarone in question in case she would convert; and place her at increased risk of embolic issues, now she is in agreement ot AC and will be on iv heparin to further explore cose of outpt AC - d-dimer elevated, CTPE was negative on 03/06 -Heart rate today is better controlled. Discussed multiple options of anticoagulation with patient. Patient reports that she is still undecided. Will stop heparin and start xarelto yesterday will downgrade patient to med/surg today Acute Right systolic CHF - peripheral edema persists, cardiology increasing dosage of diuretics - Echo 03/06 showing LVEF = 55-60%, R ventricular volume overload, Lasix 40 IV tid. occasional use of IV diuril, pt has 8.5 kg loss thus far with preserved renal function -Patient remains hypervolemic. Negative about [address]891 ml. -Will continue to diurese. Patient continues to have large output. Heme+ Stool from ER, continues with no melena/hematochezia intermittent constipation has been an issue at times requiring self-disimpaction H&H decreased to the 10s but has remained stable the past few days. Hypothyroidism: TSH 24, free T4 =1.06 COPD currently no treatment needed and Exacerbation:remains stable Anxiety: resolved, Lorazepam 0.5 mg BID PRN B Cell Lymphoma: Follows with Dr. Garcia - F/U imaging done 03/05: - CT chest: interval development of the mediastinal lymphadenopathy (difficult to determine if part of this is fluid congestion), - CT abdomen: Numerous subcentimeter retroperitoneal and bilateral common and external iliac lymph nodes are new since 2015. not pathologically enlarged. RA:- Holding Naprosyn and using Tylenol , PER PATIENT SHE DOES NOT BELIEVE GABAPENTIN IS HELPING. I had offered perhaps to switch to cymbalta. Patient however refused after giving her a discussion on risks and benefits. Patient also was offered prednisone as she can not take NSAIDs. Patient refused , patient also refused stronger meds like opiates or tramadol. Patient states that even though her pain is worse, she feels she can control it with tylenol. DVT Prophylaxis: SCDs,full AC, on xarelto Continued [facility] stay due to: other (requires more diuresing.) Discharge planning: uncertain
[2018-03-18] MEDS: LEVOTHYROXINE 100 MCG TAB PO SCH (06:31)
[2018-03-18 06:33] LABS: HEMATOCRIT 32.4 % (37-47); HEMOGLOBIN 10.4 g/dL (12.0-16.0); MEAN CELL VOLUME 88.8 fL (80-100); MEAN CORPUSCULAR HEMOGLOBIN 28.5 pg (25-34); MEAN CORPUSCULAR HGB CONC 32.1 g/dl (32-36); MEAN PLATELET VOLUME 8.6 fL (7.4-10.4); PLATELET COUNT 198 K/uL (130-400); RED CELL DISTRIBUTION WIDTH CV 20.5 % (11.5-14.5); RED CELL DISTRIBUTION WIDTH SD 66.3 fL (36.4-46.3); WHITE BLOOD COUNT 4.22 K/uL (4.8-10.8)
[2018-03-18 06:43] LABS: PTT PATIENT 34.4 SECONDS (21.0-31.0)
[2018-03-18 07:10] LABS: CALCIUM 8.8 mg/dl (8.5-10.1); CREATININE 0.63 mg/dl (0.60-1.20); POTASSIUM 4.2 mmol/L (3.5-5.1)
[2018-03-18 07:16] VITALS: BP 100/63; PULSE 105; TEMP 36.7; O2SAT 91
[2018-03-18] MEDS: GABAPENTIN 100 MG CAP PO SCH (08:03)
[2018-03-18] MEDS: METOPROLOL TARTRATE 50 MG TAB PO SCH (08:05)
[2018-03-18] MEDS: POTASSIUM CHLORIDE 20 MEQ TABCR PO SCH (08:05)
[2018-03-18] MEDS: FUROSEMIDE INJ 60 MG in SYRINGE 0 ML IV SCH (08:06)
[2018-03-18] MEDS ORDERED: LSX40 PO (10:37)
[2018-03-18] MEDS ORDERED: MCRK20 PO (10:37)
[2018-03-18] MEDS ORDERED: XRL20 PO (10:37)
[2018-03-18] MEDS ORDERED: LNX125 PO (10:37)
[2018-03-18] MEDS ORDERED: METO50TA16 PO (10:37)
--- NOTE | 2018-03-18 10:45 | Discharge Instructions ---
Discharge Instructions Date of Service Mar 18, 2018. Admission Reason for Admission: Acute Diastolic Heart Failure,Atrial Flutter W/Rvr Discharge Discharge Diagnosis / Problem: Acute diastolic heart failure, atrial flutter with RVR Discharge Goals Goal(s): Improve function, Improve disease control Activity Recommendations Activity Limitations: resume your previous activity . Instructions / Follow-Up Instructions / Follow-Up Medications: - LASIX: 40mg twice a day to help maintain normal volume status - POTASSIUM: twice a day, helps keep potassium normal since Lasix decreases potassium - LOPRESSOR: 50mg twice a day to help keep heart rate normal - DIGOXIN: 125mcg Sunday and Sunday - XARELTO: 20mg daily for anticoagulation with atrial flutter Atrial flutter and acute diastolic heart failure heart rate controlled on Lopressor and Digoxin volume status is normal on Lasix please follow a low sodium diet (less than 2gm a day) and follow a 2 liter a day fluid restriction please weigh yourself every day, if you gain 2-3 pounds from baseline weight , please call your fire extinguisher sprinkler inspector FOLLOW UP - please call for appointment with Dr. Palacio in one week for hospital follow up - Dr. Gaona will have his office call to schedule heart failure clinic follow up Call your Primary Care doctor if any of the following symptoms or problems start or get worse: * Shortness of breath or difficulty breathing * Wake up at night short of breath * Chest pain * Cough * Swelling of your hands, feet, or legs * More fatigued or tired with your normal activity * Palpitations - sudden fast heart beats WEIGHT * Weigh yourself every morning after using the bathroom. * Use the same scale. * Wear the same amount of clothing. * Write your weight down on a chart. * Call your Primary Care doctor if you gain more than 2-3 pounds in 1-2 days. MEDICATIONS * Use this discharge instruction sheet for medication instructions. * Take your medications at the time your doctor ordered. * Do not skip a dose of your medicines. * If you miss a dose of medicine, take it as soon as possible, but DO NOT DOUBLE A DOSE. * Read your medicine information when you get home. * Know all of the side effects of your medicine. If in doubt, ask your pharmacist * Call your Primary Care doctor's office if you have any side effects. * Be sure all of your doctors know what medicine and herbs you take (including cold, flu, and herbal medicine). Take the following with you to your follow-up doctor appointments: * Weight Chart * Medication List * List of questions Do not drink excessive alcohol, beer or wine. Current Hospital Diet Patient's current hospital diet: AHA Diet (Heart Healthy) Discharge Diet Recommended Diet: AHA Diet (Heart Healthy) Fluid Restriction: 2000 ml (8 cups) Pending Studies Studies pending at discharge: no Laboratory Results Lipid Panel Test 03/06/18 04:13 Range/Units Triglycerides Level 89 0-150 mg/dl Cholesterol Level 82 0-200 mg/dl HDL Cholesterol 33 mg/dl Cholesterol/HDL Ratio 2.5 LDL Cholesterol, Calculated 31 mg/dl Medical Emergencies . Who to Call and When: Call 911 or go to the Emergency Room if: * If at any time you feel your situation is an emergency * You have tightness or pain in your chest that does not go away with rest or Nitroglycerin * You are very short of breath even with rest . Non-Emergent Contact Non-Emergency issues call your: Primary Care Provider, [employer] Spreader Machine Operator Call Non-Emergent contact if: you have any medication questions if you gain 2-3 pounds from base weight . . "Provider Documentation" section prepared by Tobi Sotelo. . [place] Drug Monitoring Program Search Results: no issues identified
[2018-03-18 11:26] VITALS: BP 100/63; PULSE 105; TEMP 36.7; O2SAT 91
--- NOTE | 2018-03-18 13:11 | CARDIOLOGY PROGRESS NOTE ---
DATE: 03/18/2018 TIME: 12:33 p.m. SUBJECTIVE: She was seen earlier this morning. She denies shortness of breath, chest pain, syncope, near syncope, palpitations, or bleeding. Her digoxin has been on hold for the last 4 days due to elevated digoxin level and intermittent bradycardia into the 40s. OBJECTIVE: VITAL SIGNS: Temperature 36.7 degrees, heart rate 105 beats per minute, respiration rate 16, blood pressure 100/53 mmHg, oxygen saturation 91% on room air. I's and O's do not appear to be accurate as there is not significant urine output despite the fact that she states she has been urinating. Her weight yesterday was 65.6 kg. GENERAL: In no acute distress. She was alert. NECK: No JVD. CARDIAC EXAMINATION: No ventricular heave, irregularly irregular, normal S1, S2. There were no audible murmurs, rubs, or gallops. LUNGS: Crackles in bilateral bases which have been present throughout her hospitalization. ABDOMEN: Soft, nontender, nondistended. Normoactive bowel sounds. EXTREMITIES: No cyanosis. No significant pitting edema. PSYCHIATRIC: Affect appears appropriate. MEDICATIONS: Include: 1. Lasix 60 mg IV t.i.d. 2. Metoprolol 50 mg p.o. b.i.d. with a dose being held last evening. 3. Potassium chloride 20 mEq p.o. b.i.d. 4. Xarelto 20 mg daily. LABORATORY DATA: White blood cell count 4.22, hemoglobin 10.4, platelets 198. Sodium 134, potassium 4.2, BUN 21, creatinine 0.63. Chart reviewed. ASSESSMENT AND PLAN: 1. Acute diastolic congestive heart failure: She appears euvolemic. She does have crackles in her basilar lung temple which have been present throughout without significant improvement recently despite aggressive diuretics. She has had CT imaging of her chest. Recommend continuation of diuretics, but can change to Lasix 40 mg twice daily. Discontinue intravenous diuretic. Low sodium diet. Strict I's and O's while hospitalized. Check daily weights. Avoid NSAIDs. 2. Atrial fibrillation: Her heart rate was initially difficult to control, especially due to limitations with blood pressure. She then had an elevated digoxin level while on 250 mcg of digoxin. Digoxin was eventually held and for the past 4 days, her digoxin level has trended down to 0.7. Her heart rate is mildly tachycardic at times at currently. We will resume digoxin 125 mcg every Sunday, Sunday, Sunday. Can repeat digoxin level as an outpatient. Can further adjust as necessary. We did discuss this together during our meeting today. After she is anticoagulated for 4 weeks, could also consider starting amiodarone if rate control strategy is ineffective. Continue anticoagulation for stroke risk reduction. 3. Pericardial effusion: Repeat echocardiogram as an outpatient. 4. Mitral and tricuspid regurgitation: These valvular insufficiencies may improve after her significant diuresis of greater than 15 L negative fluid balance. 5. Pulmonary hypertension: This likely has improved as well. We will repeat echo. 6. Hypokalemia: Continue supplementation while on diuretics. 7. Disposition: From a cardiac standpoint, can be discharged today. Plan of care has been discussed with Dr. Sotelo, the primary hospitalist. Heart failure followup is being arranged for her through the cardiology office.
[2018-03-18] MEDS ORDERED: DIGOXIN 0.125 MG TAB PO SCH ×2 (16:00)
[2018-03-18] MEDS ORDERED: FUROSEMIDE 40 MG TAB PO SCH (17:00)
== END 2018-03-18 14:26 | disposition home or self-care (01) | DRG 308 ==
LOC: C.EDB 12:07 → C.2T 14:57 → ENRESERV 15:27 → CANRESERV 03-17 09:55 → ENRESERV 03-17 09:55 → CANRESERV 03-17 09:59 → ENRESERV 03-17 09:59 → C.MS2W 03-17 11:00
PROVIDERS: ADMIT Family Medicine; ATTEND Internal Medicine
DX: I48.92 Unspecified atrial flutter (principal); I50.31 Acute diastolic (congestive) heart failure; C85.10 Unspecified B-cell lymphoma, unspecified site; I24.8 Other forms of acute ischemic heart disease; I31.3 Pericardial effusion (noninflammatory); E87.6 Hypokalemia; J44.9 Chronic obstructive pulmonary disease, unspecified; I48.91 Unspecified atrial fibrillation; E03.9 Hypothyroidism, unspecified; F41.9 Anxiety disorder, unspecified; M06.9 Rheumatoid arthritis, unspecified; I45.10 Unspecified right bundle-branch block; F32.9 Major depressive disorder, single episode, unspecified; Z87.891 Personal history of nicotine dependence; Z83.3 Family history of diabetes mellitus; Z82.49 Family history of ischemic heart disease and other diseases of the circulatory system

== ENCOUNTER → 2018-03-05 | Outpatient (CLI) | payer OTHER ==
[~2018-03-05] MED LIST changes: +CHOL20007 PO; +LEVO100T7 PO; +OPTIRAY 320 IV PRN
--- NOTE | 2018-03-05 11:41 | DIAGNOSTIC IMAGING REPORT ---
CHEST CT WITH CONTRAST CT DOSE: 1946.60 mGy.cm HISTORY: Lymphoma. TECHNIQUE: Multiaxial CT images of the chest were performed following the intravenous administration of contrast. A dose lowering technique was utilized adhering to the principles of ALARA. COMPARISON: PET CT 07/14/2015. FINDINGS: The central airways are patent. No pneumothorax. Interval development of interlobular septal thickening and scattered bilateral groundglass and consolidative airspace opacities most pronounced at the lung bases. No suspicious lytic or blastic osseous lesions. Right subclavian Port-A-Cath terminates in the SVC. Interval involvement of mediastinal lymphadenopathy. Dominant right peritracheal lymph node measures 3.0 x 2.5 cm. No significant axillary or hilar lymphadenopathy. Small bilateral pleural effusions and a small pericardial effusion. The heart is enlarged. There are coronary artery calcifications. Normal caliber thoracic aorta. The main pulmonary arteries are patent. Mild body wall edema. IMPRESSION: 1. Interval development of the mediastinal lymphadenopathy. Given the patient's history of lymphoma, this concerning for recurrent/progressive disease. There are 2. Cardiomegaly, small pericardial effusion, and small bilateral pleural effusions. 3. Interlobular septal thickening with scattered bilateral airspace opacities most pronounced at the lung bases. This is nonspecific but favors pulmonary edema. An atypical pneumonitis could also have a similar appearance. Electronically signed by: Thaddeus Miller M.D. 03/05/2018 11:40 AM Dictated Date/Time: 03/05/2018 11:21 AM
--- NOTE | 2018-03-05 11:45 | DIAGNOSTIC IMAGING REPORT ---
ABD/PELVIS IV AND ORAL CONT CLINICAL HISTORY: 72 years-old Female presenting with lymphoma. TECHNIQUE: Multidetector CT of the abdomen and pelvis was performed after the administration of oral and intravenous contrast. IV contrast: 93 mL of Optiray 320. A dose lowering technique was used consistent with the principles of ALARA (as low as reasonably achievable). COMPARISON: PET/CT from 07/14/2015. CT DOSE (mGy.cm): The estimated cumulative dose is 1946.60. FINDINGS: Spoke Maker topogram: Cardiomegaly. Lung bases: Significant interval progression of diffuse reticular opacities with bronchiectasis and honeycombing. Multichamber enlargement of the heart. Coronary artery calcification. Small bilateral pleural effusions. Small pericardial effusion. Liver: Normal morphology. Heterogeneous enhancement pattern possibly due to the phase of contrast. Suggestion of mild periportal edema. Biliary: No intrahepatic or extrahepatic biliary ductal dilatation. Gallbladder wall thickening and trace pericholecystic fluid through the gallbladder is mildly distended though within physiologic range. Pancreas: Normal. Spleen: Normal. Adrenal glands: Normal. Kidneys and ureters: Few hypodensities noted in the kidneys, likely cysts. No nephrolithiasis. No hydronephrosis. Ureters normal. A phlebolith is noted in the right gonadal vein along the course of the right ureter (series 7 image 297). Bladder: Incompletely evaluated secondary to underdistention. Pelvic organs: Uterus and ovaries normal. Bowel: Normal. No bowel obstruction. Peritoneal cavity: Small free fluid in the pelvis. Trace peritoneal thickening may be noted diffusely. No free intraperitoneal gas. Lymph nodes: Numerous in the retroperitoneum and bilateral common and external iliac lymph node regions. These measure up to 6 mm in the short axis. These are new from the prior exam in 2015. No pathologically enlarged lymph nodes in abdomen or pelvis. Vasculature: Atherosclerosis of the normal caliber abdominal aorta. IVC patent. Abdominal wall: Anasarca. Musculoskeletal: Degenerative changes of the spine. IMPRESSION: 1. Numerous subcentimeter retroperitoneal and bilateral common and external iliac lymph nodes are new since 2015. These are not pathologically enlarged. Attention on follow-up. 2. Gallbladder wall thickening and trace pericholecystic fluid. No definitive evidence of cholecystitis. This could be secondary to the presence of anasarca and presumed volume overload. Correlate for symptomatology suggesting cholecystitis. If there is clinical concern, nuclear medicine HIDA scan could be obtained. 3. Significant interval progression of fibrotic changes at the lung bases, which could suggest a usual interstitial pneumonia pattern. Please see separately dictated CT chest. 4. New small bilateral pleural effusions and small pericardial effusion. Electronically signed by: Carlos Loera M.D. 03/05/2018 11:44 AM Dictated Date/Time: 03/05/2018 11:36 AM
== END | disposition home or self-care (01) ==
LOC: C.CTS 08:41
PROVIDERS: ATTEND Internal Medicine Hematology & Oncology
DX: C83.31 Diffuse large B-cell lymphoma, lymph nodes of head, face, and neck (principal)

== ENCOUNTER → 2018-03-25 | Outpatient (CLI) | payer OTHER ==
[~2018-03-25] MED LIST changes: -CHOL100010 PO; +CHOL20007 PO; +LEVO100T7 PO; -LEVO1TAB PO; +LNX125 PO; +LSX40 PO; +MCRK20 PO; +METO50TA16 PO; +XRL20 PO
[2018-03-25 13:48] LABS: GLUCOSE 106 mg/dl (70-99)
[2018-03-25 13:49] LABS: ALBUMIN 2.3 gm/dl (3.4-5.0); ALT/SGPT 47 U/L (12-78); AST/SGOT 61 U/L (15-37); BLOOD UREA NITROGEN 20 mg/dl (7-18); CALCIUM 8.6 mg/dl (8.5-10.1); CARBON DIOXIDE 30 mmol/L (21-32); CREATININE 0.77 mg/dl (0.60-1.20); POTASSIUM 4.4 mmol/L (3.5-5.1); SODIUM 132 mmol/L (136-145)
[2018-03-25 14:02] LABS: ALKALINE PHOSPHATASE 108 U/L (45-117); TOTAL PROTEIN 8.2 gm/dl (6.4-8.2)
== END | disposition home or self-care (01) ==
LOC: C.LABPVFM 09:13
PROVIDERS: ATTEND Family Medicine
DX: E03.9 Hypothyroidism, unspecified (principal); F41.9 Anxiety disorder, unspecified; S30.861A Insect bite (nonvenomous) of abdominal wall, initial encounter; W57.XXXA Bitten or stung by nonvenomous insect and other nonvenomous arthropods, initial encounter; R53.83 Other fatigue; J44.9 Chronic obstructive pulmonary disease, unspecified; I50.9 Heart failure, unspecified

== ENCOUNTER → 2018-03-27 | Outpatient (CLI) | payer OTHER | END | disposition home or self-care (01) | LOC: C.LAB1850 12:51 | PROVIDERS: ATTEND Physician Assistant | DX: I50.9 Heart failure, unspecified (principal) ==

== ENCOUNTER 2018-06-12 16:23 | Inpatient (IN) | payer OTHER ==
[~2018-06-12] VITALS: Ht 162.6 cm; Wt 65.6 kg
[~2018-06-12 16:23] MED LIST changes: +CRD200 PO; -LNX125 PO; -METO50TA16 PO; -NAPR1TAB9 PO; +SENNTAB23; +TRIA120A
[2018-06-12] MEDS ORDERED: OPTIRAY 320 IV PRN (16:45)
--- NOTE | 2018-06-12 16:52 | EMERGENCY ROOM VISIT NOTE ---
History Report prepared by Nimesh: Nate Schreiber Under the Supervision of: Dr. Nikunj Elder First contact with patient: 16:28 Chief Complaint: FACIAL PAIN/INJURY Stated Complaint: SWOLLEN R LOWER JAW History of Present Illness The patient is a 73 year old female who presents to the Emergency Room after referral from Dr. Donaldson's dental office with complaints of worsening/ increasing swelling to the right side of her jaw/neck that began "a couple of days ago." The patient states that the area of swelling is not particularly painful, and she has not dental pain. She is able to eat and drink normally. The patient denies any falls or bumps to the area. She is not having any shortness of breath. She does note that there has been some drainage from the area. The drainage is on the inside of her mouth. She is on Xarelto and Amiodarone daily. 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 Source of History: patient Onset: Past couple of days Position: jaw (right side), neck (right side) Quality: other (not much pain, just swelling) Timing: worsening Associated Symptoms: No SOB Review of Systems See HPI for pertinent positives and negatives. A total of ten systems were reviewed and were otherwise negative. Past Medical & Surgical Medical Problems: (1) Acute diastolic (congestive) heart failure (2) Anemia (3) Anxiety (4) Atrial fibrillation (5) Atrial Flutter with RVR (6) COPD (chronic obstructive pulmonary disease) (7) Depressed (8) DJD (degenerative joint disease) (9) Hypothyroid (10) Periapical abscess with facial involvement Family History COPD Diabetes mellitus Heart Disease Social History Smoking Status: Never Smoker Alcohol Use: none Drug Use: none Marital Status: Housing Status: lives with roommate Occupation Status: retired Current/Historical Medications Scheduled Amiodarone HCl (Amiodarone HCl), 200 MG PO DAILY Cholecalciferol (Vitamin D3), 2,000-4,000 INTER.UNIT PO DAILY Furosemide (Lasix), 40 MG PO BID Levothyroxine Sodium (Levothyroxine Sodium), 100 MCG PO DAILY Potassium Chloride (Potassium Chloride Er), 10 MEQ PO TID Rivaroxaban (Xarelto), 20 MG PO DAILY Scheduled PRN Docusate Sodium (Stool Softener), 100 MG PO DAILY PRN for Consult Lorazepam (Lorazepam), 0.5 MG PO BID PRN for Anxiety Naproxen (Aleve), 220 MG PO UD PRN for Pain Allergies Coded Allergies: Rofecoxib (Unverified Allergy, Unknown, CHEST PAIN, 03/05/18) Erythromycin (Verified Adverse Reaction, Unknown, SORE MOUTH, 03/05/18) Physical Exam Vital Signs Date Time Temp Pulse Resp B/P (MAP) Pulse Ox O2 Delivery O2 Flow Rate FiO2 06/12/18 18:26 93 20 107/77 95 06/12/18 18:25 95 18 107/77 99 Room Air 06/12/18 16:24 36.6 85 18 107/69 100 Room Air Physical Exam GENERAL: Awake, alert, well-appearing, in no distress HENT: Normocephalic, atraumatic. Oropharynx unremarkable. EYES: Normal conjunctiva. Sclera non-icteric. NECK: There is a 3 cm right submandibular mass with tenderness, no overlying drainage or ecchymosis. No other cervical lymphadenopathy. No intraoral lesions acutely noted but some questionable lower dentition without acute dental fractures.. RESPIRATORY: Clear to auscultation. No wheezes. Normal respiratory effort. CARDIAC: Normal rate. Normal rhythm. Extremities warm and well perfused. GI: Soft, non-distended. No tenderness to palpation. No rebound or guarding. No masses. RECTAL: Deferred. MUSCULOSKELETAL: Atraumatic. Chest examination reveals no tenderness.There is no CVA tenderness to palpation. LOWER EXTREMITIES: Calves are equal size bilaterally and non-tender. No edema NEURO: Normal sensorium. No sensory or motor deficits noted. SKIN: Warm and dry. No rash or jaundice noted. Medical Decision & Procedures ER Provider Diagnostic Interpretation: Radiology results as stated below per my review and radiologist interpretation: SOFT TISSUE NECK WITH HISTORY: 73 years-old Female Right under jaw swelling, ?cellulitis, hx L partoid cancer acute right submandibular pain and swelling. COMPARISON: CT soft tissue neck 04/08/2014 TECHNIQUE: Multiple axial CT images of the soft tissues of the neck were obtained following the intravenous administration of 115 mL Optiray 320 IV contrast. A dose lowering technique was used consistent with the principals of ALARA. FINDINGS: Imaged intracranial structures demonstrate no acute abnormality. The nasopharynx, oral pharynx and hypopharynx are patent. No peritonsillar or retropharyngeal fluid collection. Mildly prominent right paratracheal lymph nodes measure up to 6 mm in short axis. Ill-defined fluid collection without well-defined glass involves the right sublingual and submandibular space, 3.7 x 2.6 x 2.7 cm in AP, transverse and craniocaudal dimension. Moderate associated subcutaneous stranding within this distribution. Just posterior to the ill-defined fluid collection is a 7 x 10 mm centrally hypodense and peripherally enhancing structure suggesting a centrally necrotic lymph node, image 163 series 3. Ill-defined fluid collection appears to extend from several right mandibular periapical lucencies with dental caries. The largest periapical lucency involves the right first bicuspid with associated cortical dehiscence, lucency and irregularity on image 122 series 3. Mastoid air cells on the left are clear. Small right mastoid effusion. Multilevel degenerative changes about the spine. Emphysematous changes about the imaged lung apices with pleural parenchymal scarring. Partially imaged catheter is seen within the right internal jugular vein. IMPRESSION: 1. Ill-defined fluid collection of the right sublingual and submandibular space measures up to 3.7 cm suggesting phlegmon or developing abscess without well-defined glass identified. This fluid collection appears to be associated with periodontal disease of the right mandible including a large periapical cyst of the right mandibular first bicuspid with associated cortical dehiscence and erosion. 2. There is a suggested necrotic lymph node just posterior to the aforementioned fluid collection measuring up to 10 mm. 3. Emphysema. The above report was generated using voice recognition software. It may contain grammatical, syntax or spelling errors. Electronically signed by: Vinayak Gar M.D. 06/12/2018 6:27 PM Dictated Date/Time: 06/12/2018 6:19 PM Laboratory Results 06/12/18 17:05 Red Blood Count 2.63, Mean Corpuscular Volume 98.5, Mean Corpuscular Hemoglobin 30.4, Mean Corpuscular Hemoglobin Concent 30.9, Mean Platelet Volume 8.7, Neutrophils (%) (Auto) 86.2, Lymphocytes (%) (Auto) 9.2, Monocytes (%) (Auto) 3.1, Eosinophils (%) (Auto) 0.7, Basophils (%) (Auto) 0.1, Neutrophils # (Auto) 6.05, Lymphocytes # (Auto) 0.65, Monocytes # (Auto) 0.22, Eosinophils # (Auto) 0.05, Basophils # (Auto) 0.01 06/12/18 17:05 Test 06/12/18 17:05 White Blood Count 7.03 K/uL (4.8-10.8) Red Blood Count 2.63 M/uL (4.2-5.4) Hemoglobin 8.0 g/dL (12.0-16.0) Hematocrit 25.9 % (37-47) Mean Corpuscular Volume 98.5 fL (80-100) Mean Corpuscular Hemoglobin 30.4 pg (25-34) Mean Corpuscular Hemoglobin Concent 30.9 g/dl (32-36) Platelet Count 243 K/uL (130-400) Mean Platelet Volume 8.7 fL (7.4-10.4) Neutrophils (%) (Auto) 86.2 % Lymphocytes (%) (Auto) 9.2 % Monocytes (%) (Auto) 3.1 % Eosinophils (%) (Auto) 0.7 % Basophils (%) (Auto) 0.1 % Neutrophils # (Auto) 6.05 K/uL (1.4-6.5) Lymphocytes # (Auto) 0.65 K/uL (1.2-3.4) Monocytes # (Auto) 0.22 K/uL (0.11-0.59) Eosinophils # (Auto) 0.05 K/uL (0-0.5) Basophils # (Auto) 0.01 K/uL (0-0.2) RDW Standard Deviation 75.7 fL (36.4-46.3) RDW Coefficient of Variation 21.0 % (11.5-14.5) Immature Granulocyte % (Auto) 0.7 % Immature Granulocyte # (Auto) 0.05 K/uL (0.00-0.02) Hypochromasia PRESENT Anisocytosis PRESENT Erythrocyte Sedimentation Rate 56 mm/hr (0-21) Anion Gap 3.0 mmol/L (3-11) Est Creatinine Clear Calc Drug Dose 65.4 ml/min Estimated GFR () 99.3 Estimated GFR (Non- 85.7 BUN/Creatinine Ratio 36.3 (10-20) Calcium Level 8.7 mg/dl (8.5-10.1) Total Bilirubin 0.4 mg/dl (0.2-1) Direct Bilirubin 0.2 mg/dl (0-0.2) Aspartate Amino Transf (AST/SGOT) 27 U/L (15-37) Alanine Aminotransferase (ALT/SGPT) 20 U/L (12-78) Alkaline Phosphatase 123 U/L (45-117) Total Protein 7.3 gm/dl (6.4-8.2) Albumin 2.1 gm/dl (3.4-5.0) Laboratory results reviewed by me Medications Administered Medications (Trade) Dose Ordered Sig/Bryanna Route Start Time Stop Time Status Last Admin Dose Admin Ampicillin Sodium/ Sulbactam Sodium 3000 mg/Sodium Chloride 108 ml @ 200 mls/hr NOW STAT IV 06/12/18 18:52 06/12/18 19:24 DC 06/12/18 20:31 200 MLS/HR ED Course 1630: The patient was evaluated in room B4B. A complete history and physical exam was performed. 1850: I discussed the case with Dr. Prieto - Oral Surgery. He suggests admitting the patient for IV antibiotics. No drainage needed. 1906: I discussed the case with Dr. Bain - [facility] He will evaluate for further treatment. Medical Decision Differential diagnosis: Etiologies such as cellulitis, abscess, MRSA infection, [facility] angina, [facility] angina, dermatitis, oncological recurrence, as well as others were entertained. Patient presents with proximate to 3 days of swelling of the right lower aspect of her anterior jaw. No trauma history. Denies difficulty swallowing or breathing. No significant subungual swelling on exam and no acute evidence of airway compromise. Some fluctuance and concern for possible infectious cellulitis here. Patient does have significant history of left parotid lymphoma and as such CT of the area was completed to confirm localized abscess here on the right versus recurrence. Patient currently approximately 24 hours out from last dose of Xarelto. Basic lab work was completed as well. She is well-appearing but with large area of swelling under the neck. Discussed CT findings with the oral surgeon labor economics professor Dr. Prieto. He did not recommend acute drainage. Ill-defined area of phlegmon and fluid collection with necrotic lymph node noted on CT in this area likely infectious. We will start IV antibiotics believe admission for this overnight is prudent to monitor for improvement with oral surgery eval in the morning. Does not appear septic. Hospitalist group contacted. Medication Reconcilliation Current Medication List: was personally reviewed by me Blood Pressure Screening Patient's blood pressure: Normal blood pressure Consults Time Called: 1844 Consulting Physician: Dr. Prieto - Oral Surgery Returned Call: 1850 I discussed the case with Dr. Prieto - [facility]icks[facility]. He suggests admitting the patient for IV antibiotics. No drainage needed. Additional Consults: Time Called: 1899 Consulted Physician: Dr. Odell YOUNG Hospitalist Returned Call: 1906 Additional Comments: I discussed the case with Dr. Odell YOUNG Hospitalist. He will evaluate for further treatment. Impression Primary Impression: Sublingual infection Scribe Attestation The scribe's documentation has been prepared under my direction and personally reviewed by me in its entirety. I confirm that the note above accurately reflects all work, treatment, procedures, and medical decision making performed by me. Departure Information Dispostion Being Evaluated By Hospitalist Referrals No Doctor, Assigned (PCP) Patient Instructions My [facility]
[2018-06-12 17:16] LABS: BASO % 0.1 %; BASO ABS # 0.01 K/uL (0-0.2); EOS % 0.7 %; EOS ABS # 0.05 K/uL (0-0.5); HEMATOCRIT 25.9 % (37-47); IG# 0.05 K/uL (0.00-0.02); LYMPH % 9.2 %; LYMPH ABS # 0.65 K/uL (1.2-3.4); MEAN CELL VOLUME 98.5 fL (80-100); MEAN CORPUSCULAR HEMOGLOBIN 30.4 pg (25-34); MEAN CORPUSCULAR HGB CONC 30.9 g/dl (32-36); MEAN PLATELET VOLUME 8.7 fL (7.4-10.4); MONO % 3.1 %; MONO ABS # 0.22 K/uL (0.11-0.59); NEUT % 86.2 %; NEUT ABS # 6.05 K/uL (1.4-6.5); PLATELET COUNT 243 K/uL (130-400); RED CELL DISTRIBUTION WIDTH SD 75.7 fL (36.4-46.3); WHITE BLOOD COUNT 7.03 K/uL (4.8-10.8)
[2018-06-12 17:32] LABS: CALCIUM 8.7 mg/dl (8.5-10.1); CREATININE 0.71 mg/dl (0.60-1.20); POTASSIUM 4.1 mmol/L (3.5-5.1)
[2018-06-12] MEDS ORDERED: DOCU100C PO (17:37)
[2018-06-12] MEDS ORDERED: POTA-74 PO (17:37)
[2018-06-12] MEDS ORDERED: FRS/40 PO (17:37)
[2018-06-12] MEDS ORDERED: RIVA1TAB4 PO (17:37)
[2018-06-12] MEDS ORDERED: NAPR1TAB9 PO (17:37)
--- NOTE | 2018-06-12 18:38 | DIAGNOSTIC IMAGING REPORT ---
SOFT TISSUE NECK WITH HISTORY: 73 years-old Female Right under jaw swelling, ?cellulitis, hx L partoid cancer acute right submandibular pain and swelling. COMPARISON: CT soft tissue neck 04/08/2014 TECHNIQUE: Multiple axial CT images of the soft tissues of the neck were obtained following the intravenous administration of 115 mL Optiray 320 IV contrast. A dose lowering technique was used consistent with the principals of DEMETRIA. FINDINGS: Imaged intracranial structures demonstrate no acute abnormality. The nasopharynx, oral pharynx and hypopharynx are patent. No peritonsillar or retropharyngeal fluid collection. Mildly prominent right paratracheal lymph nodes measure up to 6 mm in short axis. Ill-defined fluid collection without well-defined glass involves the right sublingual and submandibular space, 3.7 x 2.6 x 2.7 cm in AP, transverse and craniocaudal dimension. Moderate associated subcutaneous stranding within this distribution. Just posterior to the ill-defined fluid collection is a 7 x 10 mm centrally hypodense and peripherally enhancing structure suggesting a centrally necrotic lymph node, image 163 series 3. Ill-defined fluid collection appears to extend from several right mandibular periapical lucencies with dental caries. The largest periapical lucency involves the right first bicuspid with associated cortical dehiscence, lucency and irregularity on image 122 series 3. Mastoid air cells on the left are clear. Small right mastoid effusion. Multilevel degenerative changes about the spine. Emphysematous changes about the imaged lung apices with pleural parenchymal scarring. Partially imaged catheter is seen within the right internal jugular vein. IMPRESSION: 1. Ill-defined fluid collection of the right sublingual and submandibular space measures up to 3.7 cm suggesting phlegmon or developing abscess without well-defined glass identified. This fluid collection appears to be associated with periodontal disease of the right mandible including a large periapical cyst of the right mandibular first bicuspid with associated cortical dehiscence and erosion. 2. There is a suggested necrotic lymph node just posterior to the aforementioned fluid collection measuring up to 10 mm. 3. Emphysema. The above report was generated using voice recognition software. It may contain grammatical, syntax or spelling errors. Electronically signed by: Vinayak Gar M.D. 06/12/2018 6:27 PM Dictated Date/Time: 06/12/2018 6:19 PM
[2018-06-12] MEDS ORDERED: AMPICILLIN/SULBACTAM SOD INJ 3,000 MG in SODIUM CHLORIDE 0.9% 100ML 100 ML IV STA (18:52)
[2018-06-12] MEDS ORDERED: LORAZEPAM 0.5 MG TAB PO PRN (19:15)
[2018-06-12] MEDS ORDERED: VANCOMYCIN CONSULT ACTIVE PRN (19:15)
[2018-06-12] MEDS ORDERED: ACETAMINOPHEN 325 MG TAB PO PRN (19:30)
[2018-06-12] MEDS ORDERED: VANCOMYCIN IV 1,500 MG in SODIUM CHLORIDE 0.9% 500ML 500 ML IV ONE (19:45)
[2018-06-12 20:10] LABS: HEMATOCRIT 26.2 % (37-47)
[2018-06-12 20:11] LABS: ALBUMIN 2.1 gm/dl (3.4-5.0); TOTAL PROTEIN 7.3 gm/dl (6.4-8.2)
[2018-06-12 20:45] VITALS: BP 103/69; PULSE 85; TEMP 36; O2SAT 90; BMI 23.0
[2018-06-12] MEDS ORDERED: POTASSIUM CHLORIDE 20 MEQ TABCR PO SCH (21:00)
[2018-06-12] MEDS ORDERED: D5W AND 1/2NSS + 20MEQ KCL 1,000 ML IV SCH (21:00)
[2018-06-12] MEDS: PANTOprazole INJ 40 MG in SYRINGE 0 ML IV SCH (21:52)
[2018-06-12 23:48] VITALS: BP 106/69; PULSE 90; TEMP 36.4; O2SAT 89
[2018-06-13] VITALS (9 sets, daily range): BP systolic 89–113; BP diastolic 58–74; PULSE 72–93; TEMP 36.3–36.5; O2SAT 63–98; Ht 162.6 cm; Wt 65.6 kg
[2018-06-13] MEDS: AMPICILLIN/SULBACTAM SOD INJ 3,000 MG in SODIUM CHLORIDE 0.9% 100ML 100 ML IV SCH ×4 (03:16→21:34)
[2018-06-13 03:32] LABS: HEMATOCRIT 25.1 % (37-47); HEMOGLOBIN 7.9 g/dL (12.0-16.0)
--- NOTE | 2018-06-13 04:36 | Pharmacy Progress Note ---
Pharmacy Antibiotic Consult Date of Service: Jun 13, 2018. Pharmacy Dosing Scope Pharmacy is consulted to initiate VANCOMYCIN IV dosing therapy, order appropriate labs and adjust drug dose/frequency. Subjective The patient is a 73 year old female admitted on Jun 12, 2018 at 19:27. Objective Height (Feet): 5 Height (Inches): 4.00 Weight (Kilograms): 60.800 Lab Results (24hrs): Test 06/12/18 17:05 06/12/18 19:57 06/13/18 03:21 White Blood Count 7.03 K/uL (4.8-10.8) Red Blood Count 2.63 M/uL (4.2-5.4) Hemoglobin 8.0 g/dL (12.0-16.0) 8.0 g/dL (12.0-16.0) 7.9 g/dL (12.0-16.0) Hematocrit 25.9 % (37-47) 26.2 % (37-47) 25.1 % (37-47) Mean Corpuscular Volume 98.5 fL (80-100) Mean Corpuscular Hemoglobin 30.4 pg (25-34) Mean Corpuscular Hemoglobin Concent 30.9 g/dl (32-36) Platelet Count 243 K/uL (130-400) Mean Platelet Volume 8.7 fL (7.4-10.4) Neutrophils (%) (Auto) 86.2 % Lymphocytes (%) (Auto) 9.2 % Monocytes (%) (Auto) 3.1 % Eosinophils (%) (Auto) 0.7 % Basophils (%) (Auto) 0.1 % Neutrophils # (Auto) 6.05 K/uL (1.4-6.5) Lymphocytes # (Auto) 0.65 K/uL (1.2-3.4) Monocytes # (Auto) 0.22 K/uL (0.11-0.59) Eosinophils # (Auto) 0.05 K/uL (0-0.5) Basophils # (Auto) 0.01 K/uL (0-0.2) RDW Standard Deviation 75.7 fL (36.4-46.3) RDW Coefficient of Variation 21.0 % (11.5-14.5) Immature Granulocyte % (Auto) 0.7 % Immature Granulocyte # (Auto) 0.05 K/uL (0.00-0.02) Hypochromasia PRESENT Anisocytosis PRESENT Erythrocyte Sedimentation Rate 56 mm/hr (0-21) Sodium Level 136 mmol/L (136-145) Potassium Level 4.1 mmol/L (3.5-5.1) Chloride Level 100 mmol/L (98-107) Carbon Dioxide Level 34 mmol/L (21-32) Anion Gap 3.0 mmol/L (3-11) Blood Urea Nitrogen 26 mg/dl (7-18) Creatinine 0.71 mg/dl (0.60-1.20) Est Creatinine Clear Calc Drug Dose 65.4 ml/min Estimated GFR () 99.3 Estimated GFR (Non- 85.7 BUN/Creatinine Ratio 36.3 (10-20) Random Glucose 69 mg/dl (70-99) Calcium Level 8.7 mg/dl (8.5-10.1) Total Bilirubin 0.4 mg/dl (0.2-1) Direct Bilirubin 0.2 mg/dl (0-0.2) Aspartate Amino Transf (AST/SGOT) 27 U/L (15-37) Alanine Aminotransferase (ALT/SGPT) 20 U/L (12-78) Alkaline Phosphatase 123 U/L (45-117) Total Protein 7.3 gm/dl (6.4-8.2) Albumin 2.1 gm/dl (3.4-5.0) Troponin I 0.016 ng/ml (0-0.045) < 0.015 ng/ml (0-0.045) Vitamin B12 Level 1362 pg/mL (211-911) Folate 13.39 ng/mL (>5.38) Recent Pertinent Medications Item Value Date Time Ampicillin Sodium/ 108 ml @ 200 mls/hr 06/13/18 0400 Sulbactam Sodium Q6H/IV 06/13/18 0316 3000 mg/Sodium Chloride Assessment & Plan 73yo female admitted with oral cellulitis. Ordered VANC / UNASYN. Renal function is good. VANCOMYCIN: * Loading dose: VANCOMYCIN 1500mg (~25mg/kg) IV X 1 dose then VANCOMYCIN 1000mg (~16mg/kg) IV every 16 hours. * Estimated Pk parameters: Vd ~0.7 L/kg ke ~0.058 t1/2 ~12 hours * Goal trough level estimate: between 15 - 20 mcg/mL. * Trough level has been ordered for: @ 1999. Pharmacy will continue to follow and will adjust dose/frequency as necessary. Thank you
[2018-06-13] MEDS: LEVOTHYROXINE 100 MCG TAB PO SCH (05:23)
[2018-06-13 08:11] LABS: HEMATOCRIT 25.8 % (37-47)
[2018-06-13] MEDS ORDERED: CHOLECALCIFEROL 1000 INTER.UNIT TAB PO SCH (09:00)
[2018-06-13] MEDS ORDERED: NURSING VERBAL MED ORDER ONE (09:15)
[2018-06-13] MEDS: AMIODARONE 200 MG TAB PO SCH (09:18)
[2018-06-13] MEDS: PANTOprazole INJ 40 MG in SYRINGE 0 ML IV SCH (09:19)
[2018-06-13] MEDS ORDERED: FUROSEMIDE 40 MG TAB PO ONE (10:15)
--- NOTE | 2018-06-13 11:24 | DIAGNOSTIC IMAGING REPORT ---
CHEST ONE VIEW PORTABLE CLINICAL HISTORY: Pre-Operative; Volume Overload. COMPARISON STUDY: Chest CT March 06, 2018 and chest radiograph March 13, 2018. FINDINGS: A right subclavian [id number] is in place. Moderate cardiomegaly is unchanged. There is no pneumothorax. Trace bilateral pleural effusions are noted. There is pulmonary vascular congestion with interstitial thickening. This is similar to exam of March 13, 2018. IMPRESSION: No significant change in interstitial thickening and patchy bilateral opacities. The findings favor pulmonary edema, possibly superimposed upon interstitial lung disease. Pneumonia could appear similar although is considered less likely. Electronically signed by: Jesse Chan M.D. 06/13/2018 11:22 AM Dictated Date/Time: 06/13/2018 11:20 AM
[2018-06-13] MEDS: VANCOMYCIN IV 1,000 MG in SODIUM CHLORIDE 0.9% 250ML 250 ML IV SCH (12:51)
[2018-06-13 13:21] LABS: HEMATOCRIT 25.9 % (37-47); HEMOGLOBIN 7.9 g/dL (12.0-16.0)
--- NOTE | 2018-06-13 14:28 | Hospitalist Progress Note ---
Hospitalist Progress Note Date of Service Jun 13, 2018. Subjective Pt evaluation today including: conversation w/ patient, physical exam, chart review, lab review, review of studies, conversation w/ [facility] consultant (Dr. Prieto), review of inpatient medication list Patient seen and evaluated. Admitted overnight for progressive R sublingual abscess with necrotic lymph node Discussed with Dr. Prieto this AM with plans to medically optimize and likely I& D on Sunday. Patient reports minimal to no tenderness of the neck but has intermittent drainage into her mouth. She states she hasn't felt fevered or chilled. She denies CP or SOB. She does have intermittent desaturations. Constitutional: No fever, No chills ENT: + problem reported (neck tenderness), No unusual epistaxis, No nasal symptoms, No sore throat, No trouble swallowing Respiratory: No cough, No shortness of breath Cardiovascular: No chest pain, No palpitations Abdomen: No pain, No nausea, No vomiting, No diarrhea, No constipation, No GI bleeding Musculoskeletal: No calf pain Female : No dysuria Heme: No abnormal bleeding/bruising Medications Current Inpatient Medications Medications (Trade) Dose Ordered Sig/Bryanna Route Start Time Stop Time Status Last Admin Dose Admin Ioversol (Optiray 320) 100 ml UD PRN IV 06/12/18 16:45 06/16/18 16:44 Vancomycin HCl (Consult) 1 ea UD PRN N/A 06/12/18 19:15 07/12/18 19:14 Amiodarone HCl (Cordarone Tab) 200 mg DAILY PO 06/13/18 09:00 07/13/18 08:59 06/13/18 09:18 200 MG Levothyroxine Sodium (Synthroid Tab) 100 mcg DAILYBB PO 06/13/18 06:00 07/13/18 06:59 06/13/18 05:23 100 MCG Acetaminophen (Tylenol Tab) 650 mg Q4H PRN PO 06/12/18 19:30 07/12/18 19:29 Pantoprazole Sodium 40 mg/ Syringe 10 ml @ 5 mls/min DAILY@11 IV 06/12/18 21:00 07/12/18 20:59 06/13/18 09:19 5 MLS/MIN Ondansetron HCl (Zofran Inj) 4 mg Q6H PRN IV 06/12/18 19:30 07/12/18 19:29 Ampicillin Sodium/ Sulbactam Sodium 3000 mg/Sodium Chloride 108 ml @ 200 mls/hr Q6H IV 06/13/18 04:00 06/22/18 19:59 06/13/18 10:19 200 MLS/HR Heparin Sodium (Porcine) (Heparin 100 Unit/ml 5ml Flush) 5 ml PRN PRN IV 06/13/18 00:45 07/13/18 00:44 Vancomycin HCl 1000 mg/Sodium Chloride 270 ml @ 125 mls/hr Q16H IV 06/13/18 12:00 06/23/18 11:59 06/13/18 12:51 125 MLS/HR Furosemide (Lasix Tab) 40 mg QAM PO 06/14/18 09:00 07/14/18 08:59 Objective Vital Signs Date Time Temp Pulse Resp B/P (MAP) Pulse Ox O2 Delivery O2 Flow Rate FiO2 06/13/18 12:23 36.3 72 20 92/58 (69) 98 Nasal Cannula 2.0 06/13/18 08:00 93 Nasal Cannula 2.0 06/13/18 06:54 36.5 78 20 113/74 (87) 93 Nasal Cannula 2.0 06/13/18 03:12 36.5 90 18 89/58 (68) 63 Room Air 06/13/18 03:12 95 Nasal Cannula 2.0 06/13/18 00:00 90 Room Air 06/12/18 23:48 36.4 90 18 106/69 (81) 89 Room Air 06/12/18 20:45 36.0 85 18 103/69 90 Room Air 06/12/18 20:29 89 20 96/57 91 06/12/18 20:23 89 20 96/57 91 Room Air 06/12/18 18:26 93 20 107/77 95 06/12/18 18:25 95 18 107/77 99 Room Air 06/12/18 16:24 36.6 85 18 107/69 100 Room Air Physical Exam General Appearance: no apparent distress Eyes: sclerae normal ENT: hearing grossly normal, + pertinent finding (small opening to R of tongue frenulum) Neck: supple, no JVD, trachea midline, + pertinent finding (large golf-ball sized edema to R submandibular region; mildly erythematous with no openings in the skin or external drainage; mild fluctulance ) Respiratory/Chest: no respiratory distress, no accessory muscle use, + crackles Cardiovascular: + irregularly irregular Abdomen: normal bowel sounds, non tender, soft Extremities: + swelling (1+ pitting edema b/l lower extremities) Neurologic/Psychiatric: alert, oriented x 3 Skin: normal color, warm/dry Laboratory Results Last 24 Hours Test 06/12/18 17:05 06/12/18 19:57 06/13/18 03:21 06/13/18 07:45 White Blood Count 7.03 K/uL Red Blood Count 2.63 M/uL Hemoglobin 8.0 g/dL 8.0 g/dL 7.9 g/dL 8.0 g/dL Hematocrit 25.9 % 26.2 % 25.1 % 25.8 % Mean Corpuscular Volume 98.5 fL Mean Corpuscular Hemoglobin 30.4 pg Mean Corpuscular Hemoglobin Concent 30.9 g/dl Platelet Count 243 K/uL Mean Platelet Volume 8.7 fL Neutrophils (%) (Auto) 86.2 % Lymphocytes (%) (Auto) 9.2 % Monocytes (%) (Auto) 3.1 % Eosinophils (%) (Auto) 0.7 % Basophils (%) (Auto) 0.1 % Neutrophils # (Auto) 6.05 K/uL Lymphocytes # (Auto) 0.65 K/uL Monocytes # (Auto) 0.22 K/uL Eosinophils # (Auto) 0.05 K/uL Basophils # (Auto) 0.01 K/uL RDW Standard Deviation 75.7 fL RDW Coefficient of Variation 21.0 % Immature Granulocyte % (Auto) 0.7 % Immature Granulocyte # (Auto) 0.05 K/uL Hypochromasia PRESENT Anisocytosis PRESENT Erythrocyte Sedimentation Rate 56 mm/hr Sodium Level 136 mmol/L Potassium Level 4.1 mmol/L Chloride Level 100 mmol/L Carbon Dioxide Level 34 mmol/L Anion Gap 3.0 mmol/L Blood Urea Nitrogen 26 mg/dl Creatinine 0.71 mg/dl Est Creatinine Clear Calc Drug Dose 65.4 ml/min Estimated GFR () 99.3 Estimated GFR (Non- 85.7 BUN/Creatinine Ratio 36.3 Random Glucose 69 mg/dl Calcium Level 8.7 mg/dl Total Bilirubin 0.4 mg/dl Direct Bilirubin 0.2 mg/dl Aspartate Amino Transf (AST/SGOT) 27 U/L Alanine Aminotransferase (ALT/SGPT) 20 U/L Alkaline Phosphatase 123 U/L Total Protein 7.3 gm/dl Albumin 2.1 gm/dl Troponin I 0.016 ng/ml < 0.015 ng/ml < 0.015 ng/ml Vitamin B12 Level 1362 pg/mL Folate 13.39 ng/mL Test 06/13/18 13:12 Hemoglobin 7.9 g/dL Hematocrit 25.9 % Assessment and Plan Ms. Johns was admitted for submandibular abscess R Sublingual/Submandibular Abscess/Phlegmon and Necrotic Lymph Node: - Unasyn 3 g IV Q6H and Vancomycin - There is a small opening to the R of the frenulum which likely correlates to patient's report of drainage into her mouth - Oral Maxillofacial Surgery following - discussed with Dr. Prieto this AM - plan to medically optimize and tentatively plan for I&D on Sunday Pre-Operative Clearance: - Calculated risk is 0.9% for cardiac issues on the revised scale - Patient ambulates with limitations and needs assistance with stairs - she denies exertional CP but does get winded occ. with ambulation which is likely multifactorial but heavily effected possibly by her pulmonary HTN - Will monitor Hgb - no signs of active bleeding but has decreased from her previous baseline but is asymptomatic - May need to consider pre-operative transfusion but will monitor Hgb - EKG largely unchanged - no ischemic findings - Echo reviewed - 03/06 - EF 55-60% with basal inferior wall segment appearing hypokinetic to akinetic; findings suggesting R ventricular volume overload; small pericardial effusion without tamponade; elevated R ventricular systolic pressures at 51 mmHg - will repeat echo for stabilization - Will try and continue to diurese her and monitor Hgb - if stable tomorrow would be optimal for surgical intervention but will give more input tomorrow after assessment Paroxysmal Atrial Fibrillation/Flutter: Rate Controlled - Hold Xarelto - last dose on 06/11 - Will initiate heparin gtt tomorrow morning for stroke prevention given her underlying A Fib. Will stop this the tomorrow night prior to surgerical intervention - Patient underwent successful cardioversion on 05/03 but ultimately went back to A Fib - has been intolerant to digoxin and BB therapy due to toxicity and hypotension - Amiodarone 200 mg daily Anemia: - Hemeoccult pending - patient does report chronic constipation with hemorrhoids. Has small intermittent BRBPR but nothing significant - no melena - Hemoglobin baseline appears to be around 10-10.4 and currently stable at 8 - will monitor and may need to consider pre-operative transfusion to better optimize but currently no signs of acute coronary syndrome and is asymptomatic from an anemia standpoint - will assess Hgb in AM and consider transfusion pending results Acute on Chronic Diastolic CHF/Right Sided HF: - CXR with pulmonary congestion however largely unchanged from February 2018 - Patient normally takes Lasix 40 mg BID - will stop fluids and give Lasix 40 mg daily at this time and assess - does have low BPs which is normal for her and appears asymptomatic from this but will continue to monitor diuresis COPD/Pulmonary HTN without Exacerbation: STABLE - Continue to monitor Hypothyroidism: - Synthroid 100 mcg daily Rheumatoid Arthritis: NOTED/STABLE 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 Garcia - she reports she is due to have a PET scan for ongoing monitoring DVT Prophylaxis: SCDs Disposition: Surgical intervention on Sunday most likely Continued [facility] stay due to: multiple IV medications needed Discharge planning: home with home health
[2018-06-13] MEDS: DOCUSATE SODIUM 100 MG CAP PO SCH (21:33)
[2018-06-14] VITALS (7 sets, daily range): BP systolic 87–107; BP diastolic 61–68; PULSE 75–84; TEMP 36.3–36.4; O2SAT 90–98
[2018-06-14] MEDS: AMPICILLIN/SULBACTAM SOD INJ 3,000 MG in SODIUM CHLORIDE 0.9% 100ML 100 ML IV SCH ×4 (04:01→22:22)
[2018-06-14] MEDS: VANCOMYCIN IV 1,000 MG in SODIUM CHLORIDE 0.9% 250ML 250 ML IV SCH ×2 (04:31→19:57)
[2018-06-14] MEDS: LEVOTHYROXINE 100 MCG TAB PO SCH (06:16)
--- NOTE | 2018-06-14 06:55 | History and Physical ---
History & Physical Date & Time of Service: Jun 14, 2018 at 06:47. The patient was seen on June 12, 2018. Chief Complaint: Anemia,Periapical Abscess With Facial Involvement Primary Care Physician: Ebony Palacio M.D. History of Present Illness Source: patient, hospital records The patient is a 73-year-old female who presents to emergency department after being referred by dental office of Dr. Donaldson due to increased swelling, redness and pain on the right side of her jaw and neck that began several days prior to arrival. The patient reports that the swelling does not appear with her eating and drinking to some extent, though she typically does not have much of an appetite anyway. She has no difficulty with swallowing foods or drink. And she is able to swallow her secretions okay as well. 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, large cell (13) Periapical abscess with facial involvement (14) Tachycardia Family History COPD Diabetes mellitus Heart Disease Social History Smoking Status: Never Smoker Smokeless Tobacco Use: No Alcohol Use: none Drug Use: none Marital Status: Housing status: lives with family Occupational Status: retired Immunizations History of Influenza Vaccine: Unknown History of Tetanus Vaccine?: utd History of Pneumococcal: Unknown History of Hepatitis B Vaccine: Yes Allergies Coded Allergies: Rofecoxib (Unverified Allergy, Unknown, CHEST PAIN, 03/05/18) Erythromycin (Verified Adverse Reaction, Unknown, SORE MOUTH, 03/05/18) Home Medications Scheduled Amiodarone HCl (Amiodarone HCl), 200 MG PO DAILY Cholecalciferol (Vitamin D3), 2,000-4,000 INTER.UNIT PO DAILY Furosemide (Lasix), 40 MG PO BID Levothyroxine Sodium (Levothyroxine Sodium), 100 MCG PO DAILY Potassium Chloride (Potassium Chloride Er), 10 MEQ PO TID Rivaroxaban (Xarelto), 20 MG PO DAILY Scheduled PRN Docusate Sodium (Stool Softener), 100 MG PO DAILY PRN for Consult Lorazepam (Lorazepam), 0.5 MG PO BID PRN for Anxiety Naproxen (Aleve), 220 MG PO UD PRN for Pain Review of Systems The patient denies chest pain, palpitations, shortness of breath, dyspnea on exertion, cough, lower extremity swelling, sweats, nausea, vomiting, diarrhea , constipation, abdominal pain, pelvic pain , blood in urine or stool, dysuria, urinary frequency or urgency, lightheadedness , dizziness, headache, memory loss, loss of consciousness,abnormal bruising or bleeding, imbalance, focal weakness, numbness or tingling in arms or legs, generalized arthralgias or myalgias, back or neck pain, or night sweats. The review of systems is otherwise negative other than for that already noted above, and at least 10 systems have been reviewed. Physical Exam Vital Signs Date Time Temp Pulse Resp B/P (MAP) Pulse Ox O2 Delivery O2 Flow Rate FiO2 06/14/18 03:33 36.3 84 20 103/64 (77) 90 Nasal Cannula 2.0 06/14/18 00:00 Nasal Cannula 1.0 06/13/18 23:45 36.4 93 16 102/62 (75) 92 Nasal Cannula 1.0 06/13/18 20:03 36.5 82 19 95/66 (76) 90 Nasal Cannula 1.0 06/13/18 16:05 36.4 74 18 92/66 (75) 92 Nasal Cannula 2.0 06/13/18 16:00 98 Nasal Cannula 2.0 06/13/18 12:23 36.3 72 20 92/58 (69) 98 Nasal Cannula 2.0 06/13/18 08:00 93 Nasal Cannula 2.0 06/13/18 06:54 36.5 78 20 113/74 (87) 93 Nasal Cannula 2.0 The patient is awake, alert and oriented 3, significant swelling, erythema of right mandibular and submandibular areas, lying in bed and in no acute distress. HEENT--PERRL, EOMI, mucous membranes and oropharynx dry. Neck--supple. No JVD. No bruits. Tender, fluctuant area of erythema, induration and warmth right submandibular mandibular toward parotid areas. Heart--normal S1 and S2. No murmurs, rubs or gallops. Lungs--clear bilaterally, no respiratory distress, no accessory muscle use. Abdomen--normal bowel sounds and soft. Nontender. Nondistended, no hernias or masses, no organomegaly. Extremities--no cyanosis or clubbing. No edema. There are good distal pulses b/ l. Dermatologic--normal skin turgor, normal color, no abnormal lymph nodes, no rash. Neurologic--cranial nerves II through XII grossly intact. Rheumatologic--normal range of motion. Psychiatric--normal affect. Diagnostics Laboratory Results Results Past 24 Hours Test 06/13/18 07:45 06/13/18 13:12 06/14/18 04:44 Range/Units Hemoglobin 8.0 7.9 12.0-16.0 g/dL Hematocrit 25.8 25.9 37-47 % Troponin I < 0.015 0-0.045 ng/ml Diagnostic Radiology Patient Name: SHIRLEY SPARROW Unit Number: [id number] Dictated: 06/12/181818 Transcribed: 06/12/181818 JRB Printed Date/Time: [~ rep prt dt]/[~ rep prt tm] [~ rep ct labl] - [~ rep ct ivnm] [facility] [place] [address] Dictated: 06/12/181818 Transcribed: 06/12/181818 JRB Printed Date/Time: [~ rep prt dt]/[~ rep prt tm] [~ rep ct labl] - [~ rep ct ivnm] [~ rep ct add3]] SOFT TISSUE NECK WITH HISTORY: 73 years-old Female Right under jaw swelling, ?cellulitis, hx L partoid cancer acute right submandibular pain and swelling. COMPARISON: CT soft tissue neck 04/08/2014 TECHNIQUE: Multiple axial CT images of the soft tissues of the neck were obtained following the intravenous administration of 115 mL Optiray 320 IV contrast. A dose lowering technique was used consistent with the principals of DEMETRIA. FINDINGS: Imaged intracranial structures demonstrate no acute abnormality. The nasopharynx, oral pharynx and hypopharynx are patent. No peritonsillar or retropharyngeal fluid collection. Mildly prominent right paratracheal lymph nodes measure up to 6 mm in short axis. Ill-defined fluid collection without well-defined glass involves the right sublingual and submandibular space, 3.7 x 2.6 x 2.7 cm in AP, transverse and craniocaudal dimension. Moderate associated subcutaneous stranding within this distribution. Just posterior to the ill-defined fluid collection is a 7 x 10 mm centrally hypodense and peripherally enhancing structure suggesting a centrally necrotic lymph node, image 163 series 3. Ill-defined fluid collection appears to extend from several right mandibular periapical lucencies with dental caries. The largest periapical lucency involves the right first bicuspid with associated cortical dehiscence, lucency and irregularity on image 122 series 3. Mastoid air cells on the left are clear. Small right mastoid effusion. Multilevel degenerative changes about the spine. Emphysematous changes about the imaged lung apices with pleural parenchymal scarring. Partially imaged catheter is seen within the right internal jugular vein. IMPRESSION: 1. Ill-defined fluid collection of the right sublingual and submandibular space measures up to 3.7 cm suggesting phlegmon or developing abscess without well-defined glass identified. This fluid collection appears to be associated with periodontal disease of the right mandible including a large periapical cyst of the right mandibular first bicuspid with associated cortical dehiscence and erosion. 2. There is a suggested necrotic lymph node just posterior to the aforementioned fluid collection measuring up to 10 mm. 3. Emphysema. The above report was generated using voice recognition software. It may contain grammatical, syntax or spelling errors. Electronically signed by: Vinayak Gar M.D. 06/12/2018 6:27 PM Dictated Date/Time: 06/12/2018 6:19 PM The status of this report is Signed. Draft = Not yet reviewed or approved by Radiologist. Signed = Reviewed and approved by Radiologist. <AttendingPhy></AttendingPhy> <FamilyPhy>Ebony Palacio M.D.</FamilyPhy > <PrimaryPhy>Ebony Palacio M.D.</PrimaryPhy> <UnitNumber>[id number]</ UnitNumber> <VisitNumber>[id number]</VisitNumber> <PatientName>SHIRLEY SPARROW Aristeo</PatientName> <DateOfBirth>1945</DateOfBirth> <Location>C.EDB</Location > <ServiceDate>06/12/18</ServiceDate> <MNE>ESINDI</MNE> <OrderingPhy>Nikunj Elder M.D.</OrderingPhy> <OrderingPhyMNE>f rep ord dr jalloh</OrderingPhyMNE> < DictatingPhyMNE>f rep dict dr jalloh</DictatingPhyMNE> <CCListMNE>f rep ct shaheene</ CCListMNE> <AdmittingPhyMNE>f pt admit dr jalloh</AdmittingPhyMNE> <AttendingPhyMNE >f pt attend dr jalloh</AttendingPhyMNE> <ConsultingPhyMNE>f pt consult dr jalloh</ConsultingPhyMNE> <FamilyPhyMNE>f pt fam dr jalloh</FamilyPhyMNE> <OtherPhyMNE>f pt other dr jalloh</OtherPhyMNE> < PrimaryPhyMNE>f pt prim care dr jalloh</PrimaryPhyMNE> <ReferringPhyMNE>f pt referring dr jalloh</ReferringPhyMNE> EKG SIHRLEY SPARROW ID:[id number] 12-JUN-2018 20:20:31 [facility] Atrial fibrillation Indeterminate axis Right bundle branch block Nonspecific T wave abnormality Abnormal ECG When compared with ECG of 03-MAY-2018 09:31, Atrial fibrillation has replaced Sinus rhythm Vent. rate has increased BY 37 BPM Confirmed by EAMON IGNACIO ([id number]) on 06/13/2018 8:20:39 AM 25mm/s 10mm/mV 150Hz 8.0 SP2 12SL 241 HD MIGDALIA: 12 Referred by: Referred Self Confirmed By: EAMON IGNACIO Vent. rate 93 BPM MS interval * ms QRS duration 128 ms QT/QTc 320/397 ms P-R-T axes * 220 246 1945 (73 yr) Female 64in Room:[facility] Loc:15 Drum Sander:THOMPSON OLIVAREZ Impression Assessment and Plan Phlegmon/developing abscess without well-defined glass 3.7 cm right sublingual and submandibular space/periodontal disease right mandible/large periapical cyst right mandibular first bicuspid/necrotic lymph node posteriorly-- Admit to monitored bed. Place on vancomycin IV and Unasyn IV. Consult ENT/maxillofacial surgery. Atrial fibrillation-- Continue amiodarone 20 mg p.o. daily. Hold Xarelto and event of possible procedure. Hold furosemide 40 mg p.o. twice daily and potassium chloride ER 10 mg p.o. 3 times daily. Hypothyroidism-- Continue levothyroxine sodium 100 mcg p.o. daily. Advanced Directives Existing Advance Directive: No Existing Living Will: No Existing Power of Defect Cutter: No Resuscitation Status VTE Prophylaxis Will order VTE Prophylaxis: Yes
[2018-06-14] MEDS ORDERED: HEPARIN 25,000 UNIT/500ML D5W 500 ML IV SCH (08:00)
[2018-06-14 08:55] LABS: HEMATOCRIT 26.7 % (37-47); HEMOGLOBIN 7.9 g/dL (12.0-16.0); MEAN CORPUSCULAR HEMOGLOBIN 29.6 pg (25-34); MEAN CORPUSCULAR HGB CONC 29.6 g/dl (32-36); MEAN PLATELET VOLUME 8.8 fL (7.4-10.4); PLATELET COUNT 213 K/uL (130-400); RED CELL DISTRIBUTION WIDTH CV 20.7 % (11.5-14.5); RED CELL DISTRIBUTION WIDTH SD 75.2 fL (36.4-46.3); WHITE BLOOD COUNT 7.92 K/uL (4.8-10.8)
[2018-06-14] MEDS ORDERED: FUROSEMIDE 40 MG TAB PO SCH (09:00)
[2018-06-14 09:01] LABS: INR 1.1 (0.9-1.1); PTT PATIENT 28.6 SECONDS (21.0-31.0)
[2018-06-14] MEDS: DOCUSATE SODIUM 100 MG CAP PO SCH (09:06)
[2018-06-14] MEDS: AMIODARONE 200 MG TAB PO SCH (09:06)
[2018-06-14] MEDS: PANTOprazole INJ 40 MG in SYRINGE 0 ML IV SCH (09:09)
--- NOTE | 2018-06-14 09:09 | PROGRESS NOTE ---
DATE: 06/12/2018 Selena was admitted to the hospital on the hospitalist service due to a large swelling in the right submental area. We surmised that this is related to a chronic ranula that has been developing over the last few months. This is based on history. The CT scan was reviewed with the radiologist and this confirms my initial opinion of an infected ranula causing this acute infection. The patient continues to do well in the hospital. She is being optimized for the surgical procedure tomorrow morning. I have reviewed with Ms. Johns the fact that we will be taking her to the operating room and depending on the anesthesiologist recommendation either doing an deep IV sedation or a general anesthesia, drain the abscess and do a through and through drainage into the floor of the mouth. We will also culture the bacteria to make sure that we are giving her the appropriate antibiotics to cover the bacterial infection. If there is any tissue for biopsy, we will do that as well. After the procedure, the patient will be recovered and then return back to the second floor. If she continues to do well, I would leave it up to the hospitalist to plan discharge either Sunday afternoon or Sunday. We will arrange for home healthcare to evaluate the patient while she is at home and also to consider either oral or IV antibiotics while she is at home. I will make arrangements for her general dentist to evaluate her teeth and decide if the lower teeth in the right side need to be removed or to be restored depending on his findings. I reviewed with her the fact that she needs to be n.p.o. after midnight tonight. I reviewed with her the anesthesia and the complications associated with the procedure, which include pain, swelling, infection, bleeding, need for further drainage, and also the need for further evaluation of the necrotic lymph node in her neck with most likely a repeat CT scan in 6-8 months. The consent form will be signed. I will review the case with the hospitalist to make sure that she is optimized for the surgical procedure tomorrow. I will follow Ms. Johns while she is in the hospital and arrange for postoperative followup with me. At this time, I find the patient to be in stable health to undergo the much needed procedure to drain the abscess. Surprisingly, the patient is not in pain. She is eating well and I have not seen an increase in the swelling, but again this needs to be drained as soon as possible tomorrow morning. MTDD
--- NOTE | 2018-06-14 09:15 | CONSULTATION REPORT ---
DATE OF CONSULTATION: 06/13/2018 REASON FOR VISIT: Patient was admitted to the hospital after being evaluated in the Emergency Room for a rather extensive swelling of the submental-submandibular area, right side. REASON FOR CONSULT: Evaluation of the submandibular-submental swelling. CONSULTATION REPORT: I had the opportunity to evaluate Selena on morning, 06/13/2018 in room 243 of the [facility]. Selena was in good spirits. She was awake and alert and was not complaining of any pain. She related to me a story that over approximately 4-5 days, she developed a rather acute swelling in the submental-submandibular area. She did not complain of any kind of dental pain at all. She has no fever, she has no chills, and except for the facial swelling, she really does not have any other dental issues. Her teeth are not in the best repair, but I do not see any localized abscess formation around the teeth of the gum structure. Of interest is the fact that there is a drainage port in the area of the floor of the mouth. 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 In essence, the sublingual gland most likely got infected causing a swelling that comes and goes in the floor of the mouth. Because the mucosal tissue is so thin, the lesion will collect with saliva and then break. This would repeat itself numerous times. In questioning Selena, this is what I think has been going on, but she related to me the fact that she indeed had a swelling under the right side of her tongue, which would last for a few days and then go. Based on the patient's clinical history, this is what I suspect is the cause of her problem. It is my opinion that she indeed had this plunging ranula that has become infected causing the swelling in the specific area of her face. I did have the opportunity to review the CT scan with the radiologist, and we both agree that this entity is not coming from the submandibular gland. 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 Nevertheless, this area needs to be addressed. My plan would be to optimize Selena's medical history, especially her history of atrial fibrillation and the fact that she is on Xarelto, this needs to be adjusted in order to optimize her for an incision and drainage. 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 Again, I reviewed with the radiologist the fact to make sure that we were not dealing with any type of recurrence of a lymphoma, which there was none. The submandibular gland looks very atrophic and has been pushed back from the lesion rather than being the cause of the lesion. Of interest is an almost 1 cm necrotic node in the lower right neck area, which again could be related to the chronicity of this problem. I had the opportunity to review the case with the physician's automobile mechanic assistant, Ms. Perez, and she is in line with my plan of optimizing Mrs. Johns to enable her to have a general versus deep IV sedation due to the drainage of this lesion on Sunday. I did have the opportunity to review the CT scan again with the radiologist. I did have the opportunity to review all of the past medical history with the physician's automobile mechanic assistant, and I feel comfortable in offering the procedure as recommended above. I had the opportunity to review with Selena the fact that this procedure will be done in the operating room, we will need followup by me to remove the drain and to ensure that the swelling has completely resolved, she will need to be on postoperative antibiotics and pain medication, and I will arrange for her general dentist, Dr. Donaldson in [facility] to take some x-rays of the teeth to determine if these teeth will need to be removed or restored in the future. At this time, my plan is to take her to the operating room on Sunday to do the incision and drainage, and if she does well, most likely discharge her either later Sunday or Sunday. We will need to arrange for home health for possible IV antibiotic therapy or for just followup in her house to ensure that the infection is resolving, and then, I will make arrangements for her to return to the hospital for me to follow her to ensure that the infection is under control. Future evaluation by her dentist will be established after we are certain that the swelling has completely gone down. Of interest is the fact that this necrotic node would need to be evaluated, and in discussing this with the radiologist, most likely we will consider doing a repeat CT scan in about 6 months to ensure that the node is either stable or may need further followup. Thank you very much for the opportunity to be part of your treatment team. I look forward to working with you in the future. BEVD
[2018-06-14 09:30] LABS: BASO % 0.1 %; BASO ABS # 0.01 K/uL (0-0.2); EOS % 0.5 %; EOS ABS # 0.04 K/uL (0-0.5); IG# 0.05 K/uL (0.00-0.02); LYMPH % 8.1 %; LYMPH ABS # 0.64 K/uL (1.2-3.4); MONO % 2.3 %; MONO ABS # 0.18 K/uL (0.11-0.59); NEUT % 88.4 %
[2018-06-14 09:31] LABS: CALCIUM 8.3 mg/dl (8.5-10.1); CREATININE 0.94 mg/dl (0.60-1.20); POTASSIUM 4.2 mmol/L (3.5-5.1)
[2018-06-14] MEDS ORDERED: SENNA 8.6 MG TAB PO ONE (10:52)
[2018-06-14] MEDS ORDERED: BISACODYL 5 MG TABEC PO ONE (11:00)
[2018-06-14] MEDS ORDERED: BISACODYL 5 MG TABEC PO PRN (11:00)
[2018-06-14] MEDS ORDERED: POLYETHYLENE (MIRALAX) 17 GM PACK PO PRN (11:00)
--- NOTE | 2018-06-14 14:55 | Hospitalist Progress Note ---
Hospitalist Progress Note Date of Service Jun 14, 2018. Subjective Pt evaluation today including: conversation w/ patient, physical exam, chart review, lab review, review of studies, conversation w/ outside solar sales consultant (Dr. Prieto), review of inpatient medication list Patient seen and evaluated. No acute events overnight. Remains in A Fib with rate control on monitor Pt remains at +1.7 L will give her normal dosing of Lasix 40 mg BID today. She denies SOB but some exertional which is chronic. Hgb is stable at 7.9 and will need to monitor post-operative. Will hold on transfusion at this time as she is asymptomatic. She has ongoing issues with constipation. Will switch to Senna and give Dulcolax today and will leave Dulcolax/Miralax on PRN Constitutional: No fever, No chills Respiratory: + dyspnea on exertion, No cough, No dyspnea at rest Cardiovascular: No chest pain Abdomen: No pain, No nausea, No vomiting Female : No dysuria Heme: No abnormal bleeding/bruising Skin: No rash, No bleeding Medications Current Inpatient Medications Medications (Trade) Dose Ordered Sig/Bryanna Route Start Time Stop Time Status Last Admin Dose Admin Ioversol (Optiray 320) 100 ml UD PRN IV 06/12/18 16:45 06/16/18 16:44 Vancomycin HCl (Consult) 1 ea UD PRN N/A 06/12/18 19:15 07/12/18 19:14 Amiodarone HCl (Cordarone Tab) 200 mg DAILY PO 06/13/18 09:00 07/13/18 08:59 06/14/18 09:06 200 MG Levothyroxine Sodium (Synthroid Tab) 100 mcg DAILYBB PO 06/13/18 06:00 07/13/18 06:59 06/14/18 06:16 100 MCG Acetaminophen (Tylenol Tab) 650 mg Q4H PRN PO 06/12/18 19:30 07/12/18 19:29 Pantoprazole Sodium 40 mg/ Syringe 10 ml @ 5 mls/min DAILY@11 IV 06/12/18 21:00 07/12/18 20:59 06/14/18 09:09 5 MLS/MIN Ondansetron HCl (Zofran Inj) 4 mg Q6H PRN IV 06/12/18 19:30 07/12/18 19:29 Ampicillin Sodium/ Sulbactam Sodium 3000 mg/Sodium Chloride 108 ml @ 200 mls/hr Q6H IV 06/13/18 04:00 06/22/18 19:59 06/14/18 09:09 200 MLS/HR Heparin Sodium (Porcine) (Heparin 100 Unit/ml 5ml Flush) 5 ml PRN PRN IV 06/13/18 00:45 07/13/18 00:44 Vancomycin HCl 1000 mg/Sodium Chloride 270 ml @ 125 mls/hr Q16H IV 06/13/18 12:00 06/23/18 11:59 06/14/18 04:31 125 MLS/HR Furosemide (Lasix Tab) 40 mg QAM PO 06/14/18 09:00 07/14/18 08:59 06/14/18 09:06 40 MG Heparin Sodium/ Dextrose 500 ml @ 20 mls/hr Q24H IV 06/14/18 08:00 07/14/18 07:59 06/14/18 09:08 20 MLS/HR Senna (Senokot Tab) 17.2 mg QAM PO 06/15/18 09:00 07/15/18 08:59 Bisacodyl (Dulcolax Tab) 5 mg DAILY PRN PO 06/14/18 11:00 07/14/18 10:59 Polyethylene (Miralax Powder Packet) 17 gm DAILY PRN PO 06/14/18 11:00 07/14/18 10:59 Furosemide (Lasix Tab) 40 mg ONE ONCE PO 06/14/18 17:00 06/14/18 17:01 Objective Vital Signs Date Time Temp Pulse Resp B/P (MAP) Pulse Ox O2 Delivery O2 Flow Rate FiO2 06/14/18 12:14 36.4 83 18 96/66 (76) 98 Nasal Cannula 2.0 06/14/18 08:30 Nasal Cannula 2.0 06/14/18 07:56 36.4 84 19 98/65 (76) 93 Nasal Cannula 2.0 06/14/18 03:33 36.3 84 20 103/64 (77) 90 Nasal Cannula 2.0 06/14/18 00:00 Nasal Cannula 1.0 06/13/18 23:45 36.4 93 16 102/62 (75) 92 Nasal Cannula 1.0 7/26/18 20:03 36.5 82 19 95/66 (76) 90 Nasal Cannula 1.0 06/13/18 16:05 36.4 74 18 92/66 (75) 92 Nasal Cannula 2.0 06/13/18 16:00 98 Nasal Cannula 2.0 Physical Exam General Appearance: no apparent distress, + thin Eyes: sclerae normal ENT: hearing grossly normal, + pertinent finding (golf-ball sized mass mildly erythematous and just minimally tender to palpation; small opening to the R of the frenulum) Neck: no JVD, trachea midline Respiratory/Chest: no respiratory distress, no accessory muscle use, + crackles , + pertinent finding (improved aeration in comparison to yesterdays exam) Cardiovascular: + irregularly irregular Abdomen: normal bowel sounds, non tender, soft Extremities: + swelling (1+ pitting edema) Neurologic/Psychiatric: alert, oriented x 3 Skin: normal color, warm/dry Laboratory Results Last 24 Hours Test 06/14/18 08:37 White Blood Count 7.92 K/uL Red Blood Count 2.67 M/uL Hemoglobin 7.9 g/dL Hematocrit 26.7 % Mean Corpuscular Volume 100.0 fL Mean Corpuscular Hemoglobin 29.6 pg Mean Corpuscular Hemoglobin Concent 29.6 g/dl Platelet Count 213 K/uL Mean Platelet Volume 8.8 fL Neutrophils (%) (Auto) 88.4 % Lymphocytes (%) (Auto) 8.1 % Monocytes (%) (Auto) 2.3 % Eosinophils (%) (Auto) 0.5 % Basophils (%) (Auto) 0.1 % Neutrophils # (Auto) 7.00 K/uL Lymphocytes # (Auto) 0.64 K/uL Monocytes # (Auto) 0.18 K/uL Eosinophils # (Auto) 0.04 K/uL Basophils # (Auto) 0.01 K/uL RDW Standard Deviation 75.2 fL RDW Coefficient of Variation 20.7 % Immature Granulocyte % (Auto) 0.6 % Immature Granulocyte # (Auto) 0.05 K/uL Anisocytosis PRESENT Spherocytes 1+ Prothrombin Time 12.0 SECONDS Prothromb Time International Ratio 1.1 Activated Partial Thromboplast Time 28.6 SECONDS Partial Thromboplastin Ratio 1.1 Sodium Level 139 mmol/L Potassium Level 4.2 mmol/L Chloride Level 103 mmol/L Carbon Dioxide Level 31 mmol/L Anion Gap 4.0 mmol/L Blood Urea Nitrogen 22 mg/dl Creatinine 0.94 mg/dl Est Creatinine Clear Calc Drug Dose 52.7 ml/min Estimated GFR () 70.7 Estimated GFR (Non- 61.0 BUN/Creatinine Ratio 23.2 Random Glucose 119 mg/dl Calcium Level 8.3 mg/dl Magnesium Level 2.2 mg/dl Assessment and Plan Ms. Johns was admitted for submandibular abscess R Sublingual/Submandibular Abscess/Phlegmon/Ranula and Necrotic Lymph Node: STABLE - Unasyn 3 g IV Q6H and Vancomycin - There is a small opening to the R of the frenulum which likely correlates to patient's report of drainage into her mouth - NPO at midnight; heparin gtt will be stopped at midnight - Oral Maxillofacial Surgery following - discussed with Dr. Prieto this AM - planning on I&D and culture/biopsy obtainment if necessary, planning on OR tomorrow Pre-Operative Clearance: - Calculated risk is 0.9% for cardiac issues on the revised scale - Patient ambulates with limitations and needs assistance with stairs - she denies exertional CP but does get winded occ. with ambulation which is likely multifactorial but heavily effected possibly by her pulmonary HTN - she reports this is ongoing and not acutely worsened prior to admission - she states she is hoping she doesn't need oxygen long-term - Will monitor Hgb - no signs of active bleeding but has decreased from her previous baseline but is asymptomatic - will continue to monitor - EKG largely unchanged - no ischemic findings - Updated echo shows EF 65-70% without wall motional abnormalities which is improved from previous; continues to have R ventricular volume overload and severe pulmonary HTN; pericardial effusion stable without evidence of tamponade - Patient does have significant co-morbidities however is rather stable in regards to these. It will be important to keep close monitoring of pulmonary status and cardiovascular status post-operatively - he baseline BP is rather low in the 90s/60s and will need close monitoring pending anesthesia utilized - no acute ischemic issues at present - patient would be optimal for surgical intervention in AM Paroxysmal Atrial Fibrillation/Flutter: Rate Controlled - Hold Xarelto - last dose on 06/11 - Heparin gtt for stroke prevention given her underlying A Fib. Will stop at midnight in anticipation of surgery - Patient underwent successful cardioversion on 05/03 but ultimately went back to A Fib - has been intolerant to digoxin and BB therapy due to toxicity and hypotension - Amiodarone 200 mg daily Anemia: STABLE - Hemoccult pending - patient does report chronic constipation with hemorrhoids. Has small intermittent BRBPR but nothing significant - no melena - Hemoglobin baseline appears to be around 10-10.4 and currently stable at 8 - currently no signs of acute coronary syndrome and is asymptomatic from an anemia standpoint - will assess Hgb in AM Acute on Chronic Diastolic CHF/Right Sided HF: - CXR with pulmonary congestion however largely unchanged from February 2018 - Lasix 40 mg BID - will hold Lasix morning of surgery - currently at +1.7 L COPD/Pulmonary HTN without Exacerbation: STABLE - Continue to monitor Hypothyroidism: - Synthroid 100 mcg daily Rheumatoid Arthritis: NOTED/STABLE 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 Garcia - she reports she is due to have a PET scan for ongoing monitoring DVT Prophylaxis: SCDs Disposition: Surgical intervention on Sunday most likely discharge Sunday pending on tolerance of procedure and cx Continued [facility] stay due to: multiple IV medications needed Discharge planning: home with home health
[2018-06-14 16:04] LABS: PTT PATIENT 74.5 SECONDS (21.0-31.0)
[2018-06-14] MEDS ORDERED: FUROSEMIDE 40 MG TAB PO ONE (17:00)
[2018-06-14] MEDS ORDERED: VANCOMYCIN TROUGH ONE (19:30)
[2018-06-14 19:59] LABS: HEMATOCRIT 25.4 % (37-47); HEMOGLOBIN 7.8 g/dL (12.0-16.0)
[2018-06-15] VITALS (10 sets, daily range): BP systolic 87–108; BP diastolic 51–63; PULSE 60–82; TEMP 36.2–36.8; O2SAT 89–100
[2018-06-15] MEDS: AMPICILLIN/SULBACTAM SOD INJ 3,000 MG in SODIUM CHLORIDE 0.9% 100ML 100 ML IV SCH ×4 (04:01→22:32)
[2018-06-15] MEDS: LEVOTHYROXINE 100 MCG TAB PO SCH ×2 (06:00→11:45)
[2018-06-15] MEDS ORDERED: LIDO 2%/EPINEPHRINE 1:100000 20 ML VIAL ONE (07:30)
[2018-06-15] MEDS ORDERED: FENTANYL CITRATE INJ 50 MCG/1 ML 2 ML VIAL ONE ×2 (07:34→07:35)
[2018-06-15 07:54] LABS: HEMATOCRIT 27.3 % (37-47); HEMOGLOBIN 8.1 g/dL (12.0-16.0); MEAN CELL VOLUME 101.1 fL (80-100); MEAN CORPUSCULAR HGB CONC 29.7 g/dl (32-36); PLATELET COUNT 214 K/uL (130-400); RED CELL DISTRIBUTION WIDTH CV 20.4 % (11.5-14.5); RED CELL DISTRIBUTION WIDTH SD 74.8 fL (36.4-46.3); WHITE BLOOD COUNT 7.49 K/uL (4.8-10.8)
[2018-06-15 08:07] LABS: PTT PATIENT 28.7 SECONDS (21.0-31.0)
[2018-06-15 08:19] LABS: CALCIUM 8.4 mg/dl (8.5-10.1); CREATININE 1.02 mg/dl (0.60-1.20); POTASSIUM 4.2 mmol/L (3.5-5.1)
[2018-06-15 08:23] LABS: EOS % 0.8 %; EOS ABS # 0.06 K/uL (0-0.5); IG# 0.04 K/uL (0.00-0.02); LYMPH % 9.5 %; LYMPH ABS # 0.71 K/uL (1.2-3.4); MONO % 2.4 %; MONO ABS # 0.18 K/uL (0.11-0.59); NEUT % 86.8 %
[2018-06-15] MEDS ORDERED: PROPOFOL IV EMULSION 10 MG/ML 20 ML VIAL ONE (08:33)
[2018-06-15] MEDS ORDERED: DEXAMETHASONE SOD INJ 4 MG/ML VIAL ONE (08:33)
[2018-06-15] MEDS ORDERED: ONDANSETRON INJ 2 MG/ML 2 ML VIAL ONE (08:34)
--- NOTE | 2018-06-15 08:50 | [facility] Post Operative Brief Note ---
Immediate Operative Summary Operative Date Jun 15, 2018. Pre-Operative Diagnosis Submandibular abscess, right side Post-Operative Diagnosis Same as preoperative diagnosis Procedure(s) Performed Drainage of facial infection, right side Surgeon Dr. Prieto Photo Offset Printer Surgeon(s) None Estimated Blood Loss None Findings Consistent with Post-Op Diagnosis Specimens #1 and #2: Routine culture & sensitivity, anerobic culture of right submandibular abscess Drains 1/4 pen shadi drain into site sutured x 2 3-0 nylone Anesthesia Type General Complication(s) none Disposition Accompanied Pt To Recover: yes Disposition: Recovery Room / PACU Overlapping Procedure I was immediately available: during the entire case (patient did very well, I will remove drain in 3-5 days )
[2018-06-15] MEDS ORDERED: FENTANYL CITRATE INJ 50 MCG/1 ML 2 ML VIAL IV PRN (09:45)
[2018-06-15] MEDS ORDERED: EpHEDrine SULFATE INJ 50 MG/ML AMP IV PRN (09:45)
[2018-06-15] MEDS ORDERED: ATROPINE SULFATE 0.1 MG/ML 5ML SYR IV PRN (09:45)
[2018-06-15] MEDS ORDERED: ONDANSETRON INJ 2 MG/ML 2 ML VIAL IV PRN (09:45)
--- NOTE | 2018-06-15 09:54 | OPERATIVE REPORT ---
DATE OF OPERATION: 06/15/2018 PREOPERATIVE DIAGNOSIS: Preoperative history is that of rather large acute submental, submandibular swelling, right side of face, present for approximately 1 week. POSTOPERATIVE DIAGNOSIS: Rather large acute submental, submandibular swelling, right side of face, present for approximately 1 week. OPERATION: Incision and drainage and placement of Aye drain into large submental, submandibular swelling right side of face under general anesthesia. DETAILS OF PROCEDURE: After this patient was medically cleared to undergo the general anesthesia, she was brought down to the operating room and placed on the operating room table. At this time, the anesthesiologist evaluated the patient and decided that an orotracheal intubation with general anesthesia would be the most preferred route of anesthesia. He also suggested that an arterial line be placed. After the appropriate monitors and lines were placed, the patient was then anesthetized via the general anesthesia as discussed above. After adequate level of anesthesia was obtained, the patient was prepped and draped in the usual manner for incision and drainage of a large acute infection of the right side of the face. Please note prior to doing this, a time-out was taken to ensure that we had the appropriate equipment for the case and that all of the parameters for a time-out were met. Once this was done, the operation then continued. Prior to placing the sterile dressings around the facial area, the facial area was prepped with Betadine and Betadine scrub. After it was washed off, we then placed sterile dressings around the facial area and we then isolated the right portion of the face. At this time, local anesthesia was infiltrated into the inferior alveolar nerve via inferior alveolar nerve block. 2% lidocaine with epinephrine was used. Approximately 2 mL were placed in this area. At this time, I then infiltrated around the periphery of this large lesion a few pinpoint spots of local anesthesia to ensure good postoperative pain control. At this time with the use of 15 blade, a small incision was made in the most pointed area of the abscess, as expected a lot of purulent material was expressed. We cultured both anaerobically and aerobically to ensure that we are giving the appropriate antibiotic for the infection. At this time, I was able to use both intraoral and extraoral pressure to evacuate the contents of the abscess. The abscess contained a lot of purulent material and I then used a small hemostat to make sure that I was able to open up all of the areas where pus formation could be found. After I was satisfied that I evacuated the infected area, I then explored the area to make sure that there was no communication into the mouth. Being that there was none, I then irrigated the area with normal saline and made sure that the drainage was clear. Once I was certain that the drainage was clear, I then placed a 1/4 inch [place] drain into the area to help with the drainage of this abscess. My plan would be to most likely remove the drain anywhere between the next 24-72 hours depending on the drainage. At this time, the area was then cleaned, the Betadine was washed off the face. Benzoin was applied to the periphery. I then placed a gauze pressure dressing over the drainage area and then took the gauze in place. I then used an elastic headband dressing to maintain further pressure on the area. At this time, the patient was allowed to recover in the normal manner. Once she was fully recovered, the anesthesiologist removed the orotracheal tube. The patient was alert and responding well. The patient was then transferred to the intensive care unit for postoperative recovery. Upon satisfactory recovery in the ICU, the patient would be transferred back to the second floor for continuation of her monitoring and postoperative care. My plan is to see Ms. Johns tomorrow morning and I will make a decision if the drain should be removed then or if we should keep it in for a few more days. At this time the patient satisfactorily underwent an incision and drainage of a large acute facial abscess. Followup will be monitored by me and the patient was then ordered to go back to the telemetry unit of [facility] second floor. I did notify her physician's assistant family teacher Ms. Velvet Perez for continuation of care. I attest to the content of the Intraoperative Record and any orders documented therein. Any exceptions are noted below. JOYA
--- NOTE | 2018-06-15 11:05 | Anesthesiology Progress Note ---
Anesthesia Post Op Note Date & Time Jun 15, 2018 at 11:03 Vital Signs Pain Intensity: 0 Vital Signs Past 12 Hours Date Time Temp Pulse Resp B/P (MAP) Pulse Ox O2 Delivery O2 Flow Rate FiO2 06/15/18 11:00 81 20 84/56 (66) 93 Oxymask 4 06/15/18 10:45 36.7 80 17 84/59 (69) 93 Oxymask 5 Arterial Line 06/15/18 10:35 88 18 89/50 (59) 94 Oxymask 5 96/52 (67) 06/15/18 10:25 80 12 86/56 (65) 92 Oxymask 5 91/48 (64) 06/15/18 10:15 78 12 84/55 (66) 93 Oxymask 5 90/49 (64) 06/15/18 10:05 86 12 83/55 (64) 94 Oxymask 6 92/51 (64) 06/15/18 09:55 82 15 84/55 (63) 91 Oxymask 5 95/51 (66) 06/15/18 09:45 82 15 84/56 (59) 95 Oxymask 6 06/15/18 09:35 89 13 85/58 (67) 97 Oxymask 10 06/15/18 09:25 82 12 91/57 (66) 94 Oxymask 10 06/15/18 09:19 36.1 95 16 89/60 (66) 92 Oxymask 10 06/15/18 08:32 36.4 79 20 92/60 (71) 100 Nasal Cannula 2.0 06/15/18 03:33 36.3 82 16 95/62 (73) 96 Nasal Cannula 2.0 06/14/18 23:48 36.3 84 16 98/64 (75) 96 Nasal Cannula 2.0 Notes Mental Status: alert / awake / arousable, participated in evaluation Pt Amnestic to Procedure: Yes Nausea / Vomiting: adequately controlled Pain: adequately controlled Airway Patency, RR, SpO2: stable & adequate BP & HR: stable & adequate Hydration State: stable & adequate Anesthetic Complications: no major complications apparent Ms. Johns did very well during the procedure and was stable in recovery. She did require supplemental oxygen postoperatively (as she did before surgery) and her blood pressures were very similar to those in the floor prior to surgery. I did contact and have her primary service see her in recovery to ensure they were comfortable with taking her back to telemetry on the second floor, which they were. Patient had all questions answered and was stable for discharge from PACU.
[2018-06-15] MEDS: PANTOprazole INJ 40 MG in SYRINGE 0 ML IV SCH (11:47)
[2018-06-15] MEDS: SENNA 8.6 MG TAB PO SCH (11:47)
[2018-06-15] MEDS: AMIODARONE 200 MG TAB PO SCH (11:47)
--- NOTE | 2018-06-15 13:44 | Hospitalist Progress Note ---
Hospitalist Progress Note Date of Service Jun 15, 2018. Subjective Pt evaluation today including: conversation w/ patient, physical exam, chart review, lab review, review of studies, conversation w/ merchandising consultant ( Anesthesiology), review of inpatient medication list Patient seen and evaluated. Heme + stool overnight which was present on previous admission as well and which Hgb stayed stable then. Is lower then last admission but again is staying stable. She does have hemorrhoids. Will hold on AC at this time. May need GI evaluation? She was seen in recovery. Did well surgically. Was hypotensive but not far from baseline. Mentation was baseline during evaluation. BP is improving. She is on supplemental O2 and she does have crackles on assessment which isn't unusual for her. She denies SOB and no respiratory distress/labored breathing. Will monitor. Constitutional: No fever, No chills ENT: No nasal symptoms, No sore throat, No dental problems, No trouble swallowing Respiratory: No cough, No shortness of breath Cardiovascular: No chest pain Abdomen: No pain, No nausea, No vomiting, No diarrhea, No constipation Female : No dysuria Heme: No abnormal bleeding/bruising Medications Current Inpatient Medications Medications (Trade) Dose Ordered Sig/Bryanna Route Start Time Stop Time Status Last Admin Dose Admin Ioversol (Optiray 320) 100 ml UD PRN IV 06/12/18 16:45 06/16/18 16:44 Vancomycin HCl (Consult) 1 ea UD PRN N/A 06/12/18 19:15 07/12/18 19:14 Amiodarone HCl (Cordarone Tab) 200 mg DAILY PO 06/13/18 09:00 07/13/18 08:59 06/15/18 11:47 200 MG Levothyroxine Sodium (Synthroid Tab) 100 mcg DAILYBB PO 06/13/18 06:00 07/13/18 06:59 06/15/18 11:45 100 MCG Acetaminophen (Tylenol Tab) 650 mg Q4H PRN PO 06/12/18 19:30 07/12/18 19:29 Pantoprazole Sodium 40 mg/ Syringe 10 ml @ 5 mls/min DAILY@11 IV 06/12/18 21:00 07/12/18 20:59 06/15/18 11:47 5 MLS/MIN Ondansetron HCl (Zofran Inj) 4 mg Q6H PRN IV 06/12/18 19:30 07/12/18 19:29 Ampicillin Sodium/ Sulbactam Sodium 3000 mg/Sodium Chloride 108 ml @ 200 mls/hr Q6H IV 06/13/18 04:00 06/22/18 19:59 06/15/18 11:45 200 MLS/HR Heparin Sodium (Porcine) (Heparin 100 Unit/ml 5ml Flush) 5 ml PRN PRN IV 06/13/18 00:45 07/13/18 00:44 06/15/18 04:43 5 ML Furosemide (Lasix Tab) 40 mg QAM PO 06/14/18 09:00 07/14/18 08:59 Future Hold 06/14/18 09:06 40 MG Senna (Senokot Tab) 17.2 mg QAM PO 06/15/18 09:00 07/15/18 08:59 Bisacodyl (Dulcolax Tab) 5 mg DAILY PRN PO 06/14/18 11:00 07/14/18 10:59 Polyethylene (Miralax Powder Packet) 17 gm DAILY PRN PO 06/14/18 11:00 07/14/18 10:59 Vancomycin HCl 1000 mg/Sodium Chloride 270 ml @ 125 mls/hr Q20H IV 06/15/18 16:00 06/22/18 20:00 Fentanyl Citrate (Fentanyl Inj) 25 mcg Q5M PRN IV 06/15/18 09:45 06/15/18 14:45 Ondansetron HCl (Zofran Inj) 4 mg ONE PRN IV 06/15/18 09:45 06/15/18 14:45 Ephedrine Sulfate (EpHEDrine SULFATE INJ) 5 mg Q5M PRN IV 06/15/18 09:45 06/15/18 14:45 Atropine Sulfate (Atropine Sulfate 0.1mg/ml Inj) 0.5 mg Q1M PRN IV 06/15/18 09:45 06/15/18 14:45 Objective Vital Signs Date Time Temp Pulse Resp B/P (MAP) Pulse Ox O2 Delivery O2 Flow Rate FiO2 06/15/18 12:46 36.4 60 16 87/57 (67) 92 Oxymask 6.0 06/15/18 11:58 36.3 79 18 95/60 (72) 97 Nasal Cannula 5.0 06/15/18 11:22 36.8 80 16 90/58 (69) 92 Oxymask 4.0 06/15/18 11:20 Oxymask 5.0 06/15/18 11:00 81 20 84/56 (66) 93 Oxymask 4 06/15/18 10:45 36.7 80 17 84/59 (69) 93 Oxymask 5 Arterial Line 06/15/18 10:35 88 18 89/50 (59) 94 Oxymask 5 96/52 (67) 06/15/18 10:25 80 12 86/56 (65) 92 Oxymask 5 91/48 (64) 06/15/18 10:15 78 12 84/55 (66) 93 Oxymask 5 90/49 (64) 06/15/18 10:05 86 12 83/55 (64) 94 Oxymask 6 92/51 (64) 06/15/18 09:55 82 15 84/55 (63) 91 Oxymask 5 95/51 (66) 06/15/18 09:45 82 15 84/56 (59) 95 Oxymask 6 06/15/18 09:35 89 13 85/58 (67) 97 Oxymask 10 06/15/18 09:25 82 12 91/57 (66) 94 Oxymask 10 06/15/18 09:19 36.1 95 16 89/60 (66) 92 Oxymask 10 06/15/18 08:32 36.4 79 20 92/60 (71) 100 Nasal Cannula 2.0 06/15/18 03:33 36.3 82 16 95/62 (73) 96 Nasal Cannula 2.0 06/14/18 23:48 36.3 84 16 98/64 (75) 96 Nasal Cannula 2.0 06/14/18 20:00 Nasal Cannula 2.0 06/14/18 19:53 36.3 80 20 93/62 (72) 90 Nasal Cannula 2.0 06/14/18 16:52 107/68 (81) 06/14/18 16:18 36.4 75 20 87/61 (70) 94 Nasal Cannula 1.0 Physical Exam General Appearance: no apparent distress Eyes: sclerae normal, + pertinent finding (small bruising upper eyelids) ENT: hearing grossly normal Neck: supple, no JVD, trachea midline, + pertinent finding (bandage applied C/D /I) Respiratory/Chest: no respiratory distress, no accessory muscle use, + crackles Cardiovascular: + JVD, + irregularly irregular Abdomen: normal bowel sounds, non tender, soft Extremities: + swelling (b/l lower extremities 1+) Neurologic/Psychiatric: alert Skin: normal color, warm/dry Laboratory Results Last 24 Hours Test 06/14/18 15:24 06/14/18 18:38 06/14/18 19:49 06/15/18 07:38 Activated Partial Thromboplast Time 74.5 SECONDS 28.7 SECONDS Partial Thromboplastin Ratio 2.9 1.1 Stool Occult Blood POSITIVE Hemoglobin 7.8 g/dL 8.1 g/dL Hematocrit 25.4 % 27.3 % Vancomycin Level Trough 22.6 mcg/ml White Blood Count 7.49 K/uL Red Blood Count 2.70 M/uL Mean Corpuscular Volume 101.1 fL Mean Corpuscular Hemoglobin 30.0 pg Mean Corpuscular Hemoglobin Concent 29.7 g/dl Platelet Count 214 K/uL Mean Platelet Volume 9.0 fL Neutrophils (%) (Auto) 86.8 % Lymphocytes (%) (Auto) 9.5 % Monocytes (%) (Auto) 2.4 % Eosinophils (%) (Auto) 0.8 % Basophils (%) (Auto) 0.0 % Neutrophils # (Auto) 6.50 K/uL Lymphocytes # (Auto) 0.71 K/uL Monocytes # (Auto) 0.18 K/uL Eosinophils # (Auto) 0.06 K/uL Basophils # (Auto) 0.00 K/uL RDW Standard Deviation 74.8 fL RDW Coefficient of Variation 20.4 % Immature Granulocyte % (Auto) 0.5 % Immature Granulocyte # (Auto) 0.04 K/uL Anisocytosis PRESENT Macrocytosis PRESENT Sodium Level 140 mmol/L Potassium Level 4.2 mmol/L Chloride Level 104 mmol/L Carbon Dioxide Level 34 mmol/L Anion Gap 2.0 mmol/L Blood Urea Nitrogen 24 mg/dl Creatinine 1.02 mg/dl Est Creatinine Clear Calc Drug Dose 47.6 ml/min Estimated GFR () 64.1 Estimated GFR (Non- 55.3 BUN/Creatinine Ratio 23.4 Random Glucose 63 mg/dl Calcium Level 8.4 mg/dl Magnesium Level 2.3 mg/dl Assessment and Plan Ms. Johns was admitted for submandibular abscess R Sublingual/Submandibular Abscess/Phlegmon/Ranula and Necrotic Lymph Node S/P I &D: STABLE - Unasyn 3 g IV Q6H and Vancomycin - There is a small opening to the R of the frenulum which likely correlates to patient's report of drainage into her mouth - Oral Maxillofacial Surgery following - performed I&D on 06/15 with Cx pending Paroxysmal Atrial Fibrillation/Flutter: Rate Controlled - Heme+ stool which was present on last admission too but Hgb remaining stable. Will monitor H&H off AC at this time - Patient underwent successful cardioversion on 05/03 but ultimately went back to A Fib - has been intolerant to digoxin and BB therapy due to toxicity and hypotension - Amiodarone 200 mg daily Anemia: STABLE - Patient does report chronic constipation with hemorrhoids. Heme+ on this admission as well - Hemoglobin baseline appears to be around 10-10.4 and currently stable at 8 - currently no signs of acute coronary syndrome and is asymptomatic from an anemia standpoint - will assess Hgb in AM Acute on Chronic Diastolic CHF/Right Sided HF: - Given her low normal BPs and currently she is slightly lower then her baseline however is tolerating this well. She still needs diuresed - Will give Midodrine x 1 dose now then schedule TID while utilizing IV Lasix to promote diuresis while maintaining BP - if she would decompensate from a respiratory standpoint may need to get more aggressive with pressor support to allow for more aggressive diuresis. 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 Garcia - she reports she is due to have a PET scan for ongoing monitoring DVT Prophylaxis: SCDs Disposition: Await surgical recovery Continued [facility] stay due to: abnormal vital signs, multiple IV medications needed Discharge planning: home
[2018-06-15] MEDS ORDERED: MIDODRINE 10 MG TAB PO ONE (13:45)
[2018-06-15] MEDS ORDERED: HYDROCODONE/ACETAMIN 5/325MG TAB PO PRN (14:15)
[2018-06-15] MEDS ORDERED: FUROSEMIDE INJ 20 MG in SYRINGE 0 ML IV ONE (15:30)
--- NOTE | 2018-06-15 15:33 | Pharmacy Progress Note ---
Pharmacy Antibiotic Prog Note Date of Service Jun 15, 2018. Subjective The patient is currently receiving VANCOMYCIN 1000mg IV every 16 hours. The patient is currently on day # 4 of VANCOMYCIN / UNASYN IV therapy. Objective Height (Feet): 5 Height (Inches): 4.00 Weight (Kilograms): 67.000 Levels: Item Value Date Time Vancomycin Level Trough 22.6 mcg/ml 06/14/181948 Lab Results (24hrs): Test 06/14/18 18:38 06/14/18 19:49 06/15/18 07:38 Stool Occult Blood POSITIVE (NEGATIVE) Hemoglobin 7.8 g/dL (12.0-16.0) 8.1 g/dL (12.0-16.0) Hematocrit 25.4 % (37-47) 27.3 % (37-47) Vancomycin Level Trough 22.6 mcg/ml (SEE COMMENT) White Blood Count 7.49 K/uL (4.8-10.8) Red Blood Count 2.70 M/uL (4.2-5.4) Mean Corpuscular Volume 101.1 fL (80-100) Mean Corpuscular Hemoglobin 30.0 pg (25-34) Mean Corpuscular Hemoglobin Concent 29.7 g/dl (32-36) Platelet Count 214 K/uL (130-400) Mean Platelet Volume 9.0 fL (7.4-10.4) Neutrophils (%) (Auto) 86.8 % Lymphocytes (%) (Auto) 9.5 % Monocytes (%) (Auto) 2.4 % Eosinophils (%) (Auto) 0.8 % Basophils (%) (Auto) 0.0 % Neutrophils # (Auto) 6.50 K/uL (1.4-6.5) Lymphocytes # (Auto) 0.71 K/uL (1.2-3.4) Monocytes # (Auto) 0.18 K/uL (0.11-0.59) Eosinophils # (Auto) 0.06 K/uL (0-0.5) Basophils # (Auto) 0.00 K/uL (0-0.2) RDW Standard Deviation 74.8 fL (36.4-46.3) RDW Coefficient of Variation 20.4 % (11.5-14.5) Immature Granulocyte % (Auto) 0.5 % Immature Granulocyte # (Auto) 0.04 K/uL (0.00-0.02) Anisocytosis PRESENT Macrocytosis PRESENT Activated Partial Thromboplast Time 28.7 SECONDS (21.0-31.0) Partial Thromboplastin Ratio 1.1 Sodium Level 140 mmol/L (136-145) Potassium Level 4.2 mmol/L (3.5-5.1) Chloride Level 104 mmol/L (98-107) Carbon Dioxide Level 34 mmol/L (21-32) Anion Gap 2.0 mmol/L (3-11) Blood Urea Nitrogen 24 mg/dl (7-18) Creatinine 1.02 mg/dl (0.60-1.20) Est Creatinine Clear Calc Drug Dose 47.6 ml/min Estimated GFR () 64.1 Estimated GFR (Non- 55.3 BUN/Creatinine Ratio 23.4 (10-20) Random Glucose 63 mg/dl (70-99) Calcium Level 8.4 mg/dl (8.5-10.1) Magnesium Level 2.3 mg/dl (1.8-2.4) Assessment & Plan 73yo female receiving VANCOMYCIN / UNASYN for facial cellulitis. SCr has been slowly increasing (0.71 -> 1.02). VANCOMYCIN: * Patient has been receiving VANCOMYCIN 1000mg IV q16h. * Trough level drawn prior to 2000 dose on 06/14 = 22.6 mcg/mL. * This drug level is Supratherapeutic. * Will change to VANCOMYCIN 1000mg IV every 20 hours. * Goal trough level estimate: between 15 - 20 mcg/mL. * Repeat trough level has been ordered for: @ 0800. Pharmacy will continue to follow and will adjust dose/frequency as necessary. Thank you
[2018-06-15] MEDS ORDERED: VANCOMYCIN IV 1,000 MG in SODIUM CHLORIDE 0.9% 250ML 250 ML IV SCH (16:00)
[2018-06-15] MEDS: ONDANSETRON INJ 2 MG/ML 2 ML VIAL IV PRN (16:59)
[2018-06-15] MEDS: MIDODRINE 10 MG TAB PO SCH (17:32)
[2018-06-15] MEDS ORDERED: PROCHLORPERAZINE INJ 5 MG in SYRINGE 4 ML IV ONE (20:15)
[2018-06-16] VITALS (7 sets, daily range): BP systolic 91–114; BP diastolic 54–75; PULSE 61–86; TEMP 36.2–36.7; O2SAT 91–100
[2018-06-16] MEDS: AMPICILLIN/SULBACTAM SOD INJ 3,000 MG in SODIUM CHLORIDE 0.9% 100ML 100 ML IV SCH ×2 (03:21→09:52)
[2018-06-16] MEDS: LEVOTHYROXINE 100 MCG TAB PO SCH (06:05)
[2018-06-16 07:05] LABS: PTT PATIENT 54.6 SECONDS (21.0-31.0)
[2018-06-16 07:08] LABS: CALCIUM 8.3 mg/dl (8.5-10.1); CREATININE 1.66 mg/dl (0.60-1.20)
[2018-06-16 07:16] LABS: HEMATOCRIT 26.8 % (37-47); HEMOGLOBIN 7.8 g/dL (12.0-16.0); MEAN CELL VOLUME 101.5 fL (80-100); MEAN CORPUSCULAR HEMOGLOBIN 29.5 pg (25-34); MEAN CORPUSCULAR HGB CONC 29.1 g/dl (32-36); MEAN PLATELET VOLUME 9.5 fL (7.4-10.4); PLATELET COUNT 275 K/uL (130-400); RED CELL DISTRIBUTION WIDTH CV 20.7 % (11.5-14.5); RED CELL DISTRIBUTION WIDTH SD 76.2 fL (36.4-46.3); WHITE BLOOD COUNT 10.15 K/uL (4.8-10.8)
[2018-06-16 07:42] LABS: BASO % 0.1 %; BASO ABS # 0.01 K/uL (0-0.2); IG# 0.14 K/uL (0.00-0.02); LYMPH % 9.3 %; LYMPH ABS # 0.94 K/uL (1.2-3.4); MONO % 4.5 %; MONO ABS # 0.46 K/uL (0.11-0.59); NEUT % 84.7 %
[2018-06-16] MEDS: MIDODRINE 10 MG TAB PO SCH (08:07)
[2018-06-16] MEDS: PANTOprazole INJ 40 MG in SYRINGE 0 ML IV SCH (08:07)
[2018-06-16] MEDS: SENNA 8.6 MG TAB PO SCH (08:08)
[2018-06-16] MEDS: AMIODARONE 200 MG TAB PO SCH (08:08)
[2018-06-16 11:21] LABS: INR 1.1 (0.9-1.1)
[2018-06-16 11:26] LABS: CALCIUM 8.2 mg/dl (8.5-10.1); CREATININE 1.9 mg/dl (0.60-1.20); POTASSIUM 5.4 mmol/L (3.5-5.1)
--- NOTE | 2018-06-16 12:31 | Discharge Instructions ---
Discharge Instructions Date of Service Jun 16, 2018. Admission Reason for Admission: Anemia,Periapical Abscess With Facial Involvement Discharge Discharge Diagnosis / Problem: Facial Abscess/Infection; Acute Kidney Injury Discharge Goals Goal(s): Improve disease control, Learn about illness, Therapeutic intervention Activity Recommendations Activity Limitations: resume your previous activity . Instructions / Follow-Up Instructions / Follow-Up Neck Abscess/Infection: - You had drainage of an infection in your neck. A culture was taken of this area and the final results are still pending. So far there is at least 3 bacteria growing which is to be expected given the location. - You will continue on Antibiotics at this time to treat the common infections in this area. When the culture is final the antibiotics can be changed if needed and will need to follow-up with your family doctor. - Recommend to follow instructions given by Dr. Prieto and have home health assist with dressing changes and monitoring. - You may use Tylenol as needed for pain. Would avoid using medication such as aspirin, ibuprofen, naproxyn, motrin, or advil as these pain medications can be harsh on the kidneys as well. Acute Kidney Injury: - After your surgery your kidney number increased. It is currently 1.9 and your normal is usually 0.7-0.9 and we would like to see your kidney number go back down to your normal or at least less than 1.2. - Your potassium level in your blood is 5.4 which we like to see that between 3.5 and 5. Potassium can affect the electrical current in the heart that allows it to pump. When this level gets too high you can have bad heart rhythms that can lead to . We would like to get this number corrected. - Your kidney number is likely higher today because of the low blood pressures you had yesterday during and after surgery which can cause an acute kidney injury. Normally some intravenous fluids can improve this number but giving you fluids can cause your to hold on to more fluid into your lungs which can make breathing worse. We would like to involve a kidney doctor in your care because treating the kidneys could makes the breathing worse. But your water pill (Lasix ) which will help you from holding on to fluids can make your kidney function worse as this medication is highly processed through the kidney. Reducing your oral intake of fluids may not be enough to fix this problem right now. - We would like you to stay in the hospital to monitor your kidney function so it does not worsen. We also want to make sure your fluid in your lungs and legs do not get worse. - Will give you a prescription to have your kidney function and electrolytes checked in the next couple days and these results will go to the family doctor - You will need to hold your Lasix (water pill) until you get follow-up lab work and can discuss with your family doctor the results and if you can resume this at that time. Blood in Stool: - This may be related to hemorrhoids and constipation but may need further work- up as an outpatient. Your hemoglobin (blood counts) have remained stable but are lower then your normal. This may be from your Xarelto that can make bleeding worse. You can continue your blood thinner but will give you a prescription to have your blood counts checked in the next couple days to make sure it stays stable. These results will go to your family doctor. REMAINING IN THE HOSPITAL TO MONITOR YOUR KIDNEY FUNCTION, ELECTROLYTES, HEART FUNCTION, FLUID IN YOUR LUNGS WOULD BE MY RECOMMENDATION. YOU WOULD NEED TO HOLD YOUR LASIX UNTIL YOU HAVE FOLLOW-UP BLOOD WORK IN THE NEXT COUPLE DAYS. HOLDING YOUR WATER PILL (LASIX) CAN CAUSE THE FLUID IN THE LUNGS TO FILL UP MORE MAKING BREATHING AND GOOD OXYGENATION MORE DIFFICULT. LEAVING NOW WOULD BE AGAINST MEDICAL ADVICE. Please follow-up with your family doctor in the next 7-10 days. Will have our case monitor try and set you up with a follow-up appointment as soon as available. Our case management team may call you tomorrow to try and arrange this. REASONS TO RETURN TO THE HOSPITAL. - Increased shortness of breath or increasing weight gain overnight. Feelings of lightheadedness/dizziness or feeling very drowsy as this could be related to low oxygen levels or too much fluid on the lungs - Please return if you develop any feelings of chest pain. - Please return if your urine becomes darker in color or you are urinating very little as this could be a sign that the kidney function is worsening. Current Hospital Diet Patient's current hospital diet: Regular Diet Discharge Diet Recommended Diet: Regular Diet Procedures Procedures Performed: Drainage of facial infection, right side Pending Studies Studies pending at discharge: yes List of pending studies: Cultures from your neck abscess/infection Medical Emergencies . Who to Call and When: Medical Emergencies: If at any time you feel your situation is an emergency, please call 911 immediately. . Non-Emergent Contact Non-Emergency issues call your: Primary Care Provider Call Non-Emergent contact if: you have a fever, your pain is concerning you, you have any medication questions . . "Provider Documentation" section prepared by Velvet Perez. .
--- NOTE | 2018-06-16 13:37 | SURGERY PROGRESS NOTE ---
DATE: 06/16/2018 Mrs. Johns underwent a general anesthesia yesterday to drain a rather large submental-submandibular abscess of her neck. The patient tolerated the surgical procedure extremely well but is having some decrease in her kidney function. The medical staff is requesting that the patient remain in the hospital, but the patient is insistent on being discharged. I reviewed with Mrs. Johns the importance of keeping the area clean, and I also made arrangements with home health to follow up on the status of the drainage site. Today, I removed the 2 sutures that held the drain in, and there was no further drainage. As a matter of fact, the area looks fantastic. I did have a chance to review the initial Gram stain and noted the bacteria that is being cultured out. We are still awaiting the culture and sensitivity to make sure that we prescribe the appropriate antibiotic. In discussing the case with a physician's administrative services assistant, Ms. Perez, most likely she will be discharged on Augmentin. So at this time, I feel that Mrs. Johns is okay to go from an oral surgical point of view. Followup instructions were given on her discharge instruction sheet so that the home health people can follow them. They also have my phone number if any problems arise so that I may be able to area counselor them on the appropriate course of action. In summary, Mrs. Johns did very well from the general anesthesia and the incision and drainage of the large facial abscess. We are still pending C and S results to ensure that we have placed her on the appropriate antibiotic. Home health has been notified, and they will follow her. The drain has been removed, and I instructed the patient on followup care as needed. JOYA
[2018-06-16] MEDS ORDERED: AMOX500T PO (13:40)
[2018-06-16] MEDS: SODIUM POLYST. SULF SUSP 15G/60ML PO STA ×2 (14:32→16:15)
[2018-06-16] MEDS ORDERED: AMOXICILLIN/CLAVULANATE TAB 500 MG TAB PO SCH (16:45)
--- NOTE | 2018-06-16 16:57 | Hospitalist Progress Note ---
Hospitalist Progress Note Date of Service Jun 16, 2018. Subjective Pt evaluation today including: conversation w/ patient, conversation w/ family , physical exam, chart review, lab review, conversation w/ telesales consultant (Dr. Prieto and Dr. Gonzalez), review of inpatient medication list Patient seen and evaluated. Cr increased on morning labs and continuing to increase. Currently at 1.9 K is elevated at 5.4. Had multiple visits with patient today as she wanted to go home. Did discuss that it would be AMA and after multiple discussions she did agree to stay. She is chronically volume overloaded but rather asymptomatic surprisingly. Suspect some ATN given low BPs yesterday during and after surgery. Patient states she only urinated a small amount after talking with her this afternoon. Discussed with Dr. Prieto and she is stable from a surgical prospective. Discussed with Dr. Gonzalez with recommendations given. Will trend Cr. Will continue Lasix home dose tomorrow BID and monitor urine output Constitutional: No fever, No chills ENT: + problem reported (currently no pain at surgical site), No trouble swallowing Respiratory: No cough, No shortness of breath Cardiovascular: No chest pain Abdomen: No pain, No nausea, No vomiting, No diarrhea, No constipation Musculoskeletal: No calf pain Female : No dysuria Medications Current Inpatient Medications Medications (Trade) Dose Ordered Sig/Bryanna Route Start Time Stop Time Status Last Admin Dose Admin Ioversol (Optiray 320) 100 ml UD PRN IV 06/12/18 16:45 06/16/18 16:44 Amiodarone HCl (Cordarone Tab) 200 mg DAILY PO 06/13/18 09:00 07/13/18 08:59 06/16/18 08:08 200 MG Levothyroxine Sodium (Synthroid Tab) 100 mcg DAILYBB PO 06/13/18 06:00 07/13/18 06:59 06/16/18 06:05 100 MCG Acetaminophen (Tylenol Tab) 650 mg Q4H PRN PO 06/12/18 19:30 07/12/18 19:29 Ondansetron HCl (Zofran Inj) 4 mg Q6H PRN IV 06/12/18 19:30 07/12/18 19:29 06/15/18 16:59 4 MG Heparin Sodium (Porcine) (Heparin 100 Unit/ml 5ml Flush) 5 ml PRN PRN IV 06/13/18 00:45 07/13/18 00:44 06/15/18 04:43 5 ML Senna (Senokot Tab) 17.2 mg QAM PO 06/15/18 09:00 07/15/18 08:59 06/16/18 08:08 17.2 MG Bisacodyl (Dulcolax Tab) 5 mg DAILY PRN PO 06/14/18 11:00 07/14/18 10:59 Polyethylene (Miralax Powder Packet) 17 gm DAILY PRN PO 06/14/18 11:00 07/14/18 10:59 Midodrine (Proamatine Tab) 10 mg TID@08,12,17 PO 06/15/18 17:00 07/15/18 16:59 Future Hold 06/16/18 08:07 10 MG Acetaminophen/ Hydrocodone Bitart ([place] 5/325 Tab) 1 tab for pain level 1-5 2 t... Q4H PRN PO 06/15/18 14:15 06/29/18 14:14 06/15/18 14:42 1 TAB Pantoprazole Sodium (Protonix Tab) 40 mg QAM PO 06/17/18 09:00 06/20/18 09:01 Amoxicillin/ Clavulanate Potassium (Augmentin Tab) 500 mg BIDM PO 06/16/18 16:45 06/22/18 16:44 06/16/18 16:15 500 MG Furosemide (Lasix Tab) 40 mg BID17 PO 06/17/18 09:00 07/17/18 08:59 Objective Vital Signs Date Time Temp Pulse Resp B/P (MAP) Pulse Ox O2 Delivery O2 Flow Rate FiO2 06/16/18 15:31 36.2 74 18 95/60 (72) 91 Nasal Cannula 3.0 06/16/18 12:40 36.7 61 20 101/61 (74) 06/16/18 08:00 Room Air 06/16/18 06:50 36.4 68 15 91/56 (68) 98 Nasal Cannula 3.0 06/16/18 06:06 100 Nasal Cannula 3.0 06/16/18 03:41 36.3 69 15 92/54 (67) 100 Nasal Cannula 5.0 06/15/18 23:00 36.3 70 16 92/51 (65) 99 Nasal Cannula 5.0 06/15/18 20:13 36.4 67 21 108/60 (76) 91 Nasal Cannula 6.0 Oxymask 06/15/18 20:00 Nasal Cannula 5.0 Oxymask Physical Exam General Appearance: no apparent distress Eyes: sclerae normal ENT: hearing grossly normal Neck: supple, trachea midline, + pertinent finding (dressing C/D/I) Respiratory/Chest: no respiratory distress, no accessory muscle use, + crackles Cardiovascular: + JVD, + irregularly irregular Abdomen: normal bowel sounds, non tender, soft Extremities: + swelling (1+ pitting edema b/l lower extremities) Neurologic/Psychiatric: alert, oriented x 3 Skin: normal color, warm/dry, + pertinent finding (some eyelid ecchymosis/ nasal ecchymosis) Laboratory Results Last 24 Hours Test 06/16/18 06:19 06/16/18 10:57 06/16/18 10:58 White Blood Count 10.15 K/uL Red Blood Count 2.64 M/uL Hemoglobin 7.8 g/dL Hematocrit 26.8 % Mean Corpuscular Volume 101.5 fL Mean Corpuscular Hemoglobin 29.5 pg Mean Corpuscular Hemoglobin Concent 29.1 g/dl Platelet Count 275 K/uL Mean Platelet Volume 9.5 fL Neutrophils (%) (Auto) 84.7 % Lymphocytes (%) (Auto) 9.3 % Monocytes (%) (Auto) 4.5 % Eosinophils (%) (Auto) 0.0 % Basophils (%) (Auto) 0.1 % Neutrophils # (Auto) 8.60 K/uL Lymphocytes # (Auto) 0.94 K/uL Monocytes # (Auto) 0.46 K/uL Eosinophils # (Auto) 0.00 K/uL Basophils # (Auto) 0.01 K/uL RDW Standard Deviation 76.2 fL RDW Coefficient of Variation 20.7 % Immature Granulocyte % (Auto) 1.4 % Immature Granulocyte # (Auto) 0.14 K/uL Basophilic Stippling OCCASIONAL Anisocytosis PRESENT Activated Partial Thromboplast Time 54.6 SECONDS Partial Thromboplastin Ratio 2.1 Sodium Level 137 mmol/L 135 mmol/L Potassium Level 5.0 mmol/L 5.4 mmol/L Chloride Level 99 mmol/L 99 mmol/L Carbon Dioxide Level 32 mmol/L 29 mmol/L Anion Gap 6.0 mmol/L 7.0 mmol/L Blood Urea Nitrogen 31 mg/dl 32 mg/dl Creatinine 1.66 mg/dl 1.90 mg/dl Est Creatinine Clear Calc Drug Dose 29.3 ml/min 25.6 ml/min Estimated GFR () 35.6 30.2 Estimated GFR (Non- 30.7 26.1 BUN/Creatinine Ratio 18.4 17.0 Random Glucose 79 mg/dl 94 mg/dl Calcium Level 8.3 mg/dl 8.2 mg/dl Magnesium Level 2.4 mg/dl Prothrombin Time 12.0 SECONDS Prothromb Time International Ratio 1.1 Random Vancomycin Level 33.6 mcg/ml Assessment and Plan Ms. Johns was admitted for submandibular abscess R Sublingual/Submandibular Abscess/Phlegmon/Ranula and Necrotic Lymph Node S/P I &D: STABLE - Will convert to Augmentin 500 mg BID for renal dosing - Cx with gram + cocci/ bacilli and gram - bacilli - showing alpha strep so far - There is a small opening to the R of the frenulum which likely correlates to patient's report of drainage into her mouth - Oral Maxillofacial Surgery following - discussed with Dr. Prieto - performed I& D on 06/15 and clear from surgical perspective Acute Kidney Injury - Suspect ATN 2/2 Hypotension Intra/Post-Operatively: - She is chronically volume overloaded but had lower then her normal BPs yesterday with her Cr increasing to 1.9 and K at 5.4 - Kayexalate x 1 dose now and reassess labs in AM - no changes on monitor - Hold diuretic therapy today given rather stable even though she is volume overloaded - again this is rather a chronic thing for her and rather compensates for this - Patient still with good output but reported this afternoon she only urinated a small amount - will bladder scan PRN as she has retained on previous days - Consult nephrology - discussed with Dr. Gonzalez - agree this is likely ATN and can continue Lasix and monitor labs Paroxysmal Atrial Fibrillation/Flutter: Rate Controlled - Heme+ stool which was present on last admission too but Hgb remaining stable. Will monitor H&H off AC at this time - Patient underwent successful cardioversion on 05/03 but ultimately went back to A Fib - has been intolerant to digoxin and BB therapy due to toxicity and hypotension - Amiodarone 200 mg daily Anemia: STABLE - Patient does report chronic constipation with hemorrhoids. Heme+ on this admission as well - Hemoglobin baseline appears to be around 10-10.4 and currently stable at 8 - currently no signs of acute coronary syndrome and is asymptomatic from an anemia standpoint - will assess Hgb in AM Acute on Chronic Diastolic CHF/Right Sided HF: - Chronically rather overloaded - surprisingly no respiratory distress but lungs with a lot of crackles - she does desat but waveform is very poor with finger and forehead probe and likely inaccurate - she does have Pulm HTN/CHF/ Emphysema and likely can expect O2 sats to be 88-92% - patient states she doesn' t want to have O2 - Lasix 40 mg BID can resume tomorrow COPD/Pulmonary HTN without Exacerbation: STABLE - Continue to monitor Hypothyroidism: - Synthroid 100 mcg daily Rheumatoid Arthritis: NOTED/STABLE 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 Garcia - she reports she is due to have a PET scan for ongoing monitoring DVT Prophylaxis: SCDs Disposition: Will monitor kidney function at this time - trying to optimize her kidney function but maintaining stability of her chronic conditions - Patient initially wanted to leave AMA if not D/Cd today but after multiple discussions about medical concerns she is agreeing to stay - not sure how willing she is to stay but hopefully Cr with improve rapidly and UO remains stable - If she would want to leave - recommend Augmentin unless cx reveals better option, outpatient CBC/BMP, and close F/U with PCP Prolonged time of 90 minutes. This includes chart review, patient assessment, discussion with specialists, multiple visits with patient/family to discuss current findings and recommendations. Continued [facility] stay due to: multiple IV medications needed Discharge planning: home with home health
[2018-06-16] MEDS ORDERED: NURSING VERBAL MED ORDER ONE (18:15)
[2018-06-17 04:01] VITALS: BP 114/73; TEMP 36.4
[2018-06-17 04:20] VITALS: PULSE 68; O2SAT 95
[2018-06-17] MEDS: ONDANSETRON INJ 2 MG/ML 2 ML VIAL IV PRN ×2 (04:40→11:16)
[2018-06-17 04:56] LABS: BASO % 0.1 %; BASO ABS # 0.01 K/uL (0-0.2); EOS % 0.1 %; EOS ABS # 0.01 K/uL (0-0.5); HEMATOCRIT 26.8 % (37-47); HEMOGLOBIN 8.1 g/dL (12.0-16.0); IG# 0.19 K/uL (0.00-0.02); LYMPH % 8.6 %; LYMPH ABS # 0.89 K/uL (1.2-3.4); MEAN CELL VOLUME 99.3 fL (80-100); MEAN CORPUSCULAR HGB CONC 30.2 g/dl (32-36); MEAN PLATELET VOLUME 9.2 fL (7.4-10.4); MONO % 6.5 %; MONO ABS # 0.67 K/uL (0.11-0.59); NEUT % 82.9 %; NEUT ABS # 8.54 K/uL (1.4-6.5); NUCLEATED RED BLOOD CELL ABS 0.02 K/uL (0-0); PLATELET COUNT 257 K/uL (130-400); RED CELL DISTRIBUTION WIDTH CV 20.2 % (11.5-14.5); RED CELL DISTRIBUTION WIDTH SD 73.8 fL (36.4-46.3); WHITE BLOOD COUNT 10.31 K/uL (4.8-10.8)
[2018-06-17 05:10] LABS: PTT PATIENT 27.5 SECONDS (21.0-31.0)
[2018-06-17 05:23] LABS: CREATININE 2.35 mg/dl (0.60-1.20)
[2018-06-17] MEDS: LEVOTHYROXINE 100 MCG TAB PO SCH (06:02)
[2018-06-17 07:22] VITALS: BP 109/61; PULSE 7; PULSE 71; TEMP 36.4; O2SAT 98
[2018-06-17] MEDS ORDERED: VANCOMYCIN TROUGH ONE (07:30)
[2018-06-17] MEDS: SENNA 8.6 MG TAB PO SCH (08:17)
[2018-06-17] MEDS: PANTOprazole SOD 40 MG TAB PO SCH (08:17)
[2018-06-17] MEDS: AMIODARONE 200 MG TAB PO SCH (08:18)
[2018-06-17] MEDS: FUROSEMIDE 40 MG TAB PO SCH ×2 (08:18→15:47)
[2018-06-17] MEDS: AMOXICILLIN/CLAVULANATE SUSP 400 MG/5 ML PO SCH ×2 (08:21→16:42)
[2018-06-17] MEDS ORDERED: NURSING VERBAL MED ORDER ONE (09:00)
[2018-06-17] MEDS ORDERED: PROCHLORPERAZINE INJ 5 MG in SYRINGE 4 ML IV ONE (09:15)
[2018-06-17] MEDS ORDERED: SODIUM CHLORIDE 0.9% 1000ML 1,000 ML IV SCH (10:30)
[2018-06-17 10:56] VITALS: BP 120/79; PULSE 73; TEMP 36.4; O2SAT 100
--- NOTE | 2018-06-17 10:59 | DIAGNOSTIC IMAGING REPORT ---
CHEST ONE VIEW PORTABLE CLINICAL HISTORY: crackles dyspnea COMPARISON STUDY: 06/13/2018 FINDINGS: Slightly progressive density left base compared to the prior exam. Chronic interstitial change as well as pulmonary vascular prominence from both hemithoraces remain similar. Heart is enlarged. From catheter is in the superior vena cava. IMPRESSION: Infiltrate left base superimposed upon chronic interstitial and bronchovascular prominence. The above report was generated using voice recognition software. It may contain grammatical, syntax or spelling errors. Electronically signed by: Michael Costello M.D. 06/17/2018 10:58 AM Dictated Date/Time: 06/17/2018 10:50 AM
--- NOTE | 2018-06-17 11:18 | Nephrology Consultation ---
Nephrology Consultation Date & Providers Date of Consultation: Jun 17, 2018. Primary Care Provider: Ebony Palacio M.D. Referring Provider: Reason for Consultation Rising Cr and BUN History of Present Illness 73y/oF with hx of B cell lymphoma (parotid neoplasm 2013) s/p CHOP, Afib/ flutter s/p unsuccessful cardioversion, Interstitial lung disease with severe pulmonary hypertension, hypothyroidism, and acute anemia admitted for R submental/submandibular abscess s/p I&D day 2 with now worsening renal function. This AM pt reports significant nausea and lack of appetite/desire to drink as a result from being on multiple antibiotics. She reports having only one can of angel terrence yesterday and having an 8oz glass of water since being NPO for surgery on Sunday. Otherwise pt is asymptomatic. Selena has no known history of disease baseline creatinine has been 0.5-0.7. No prior urinalysis available prior imaging with CT abdomen pelvis in 2013 showed otherwise normal size kidney multiple simple cyst hydronephrosis. She did multiple retroperitoneal lymphadenopathy on CT scan. On admission her creatinine was at baseline 0.7 on 06/12/18. She had CT scan of neck on admission with IV contrast. Over the hospital course blood pressure has been quite variable and mostly she was hypotensive. She has been on vancomycin and trough level over last 2 days was significantly elevated around 30-32. Creatinine slowly started to worsen from 06/14/2018 and has been rapidly worsening over last 2 days, creatinine 2.4 this morning. She was hyperkalemic yesterday which currently improved. Denies taking NSAIDs home or over last few days, was not on ALEX-inhibitor ARB. Currently she is overall upset and just wants to go and feels she is dry and she was not getting enough fluid. Denies shortness of breath. Past Medical/Surgical History Medical: B cell lymphoma (parotid neoplasm 2013) s/p completing CHOP Afib/flutter s/p unsuccessful cardioversion Interstitial lung disease with severe pulmonary hypertension Hypothyroidism Acute anemia Surgical: I & D submental/submandibular abscess 06/15/18 Allergies Coded Allergies: Rofecoxib (Unverified Allergy, Unknown, CHEST PAIN, 03/05/18) Erythromycin (Verified Adverse Reaction, Unknown, SORE MOUTH, 03/05/18) Inpatient Medications Current Inpatient Medications Medications (Trade) Dose Ordered Sig/Bryanna Route Start Time Stop Time Status Last Admin Dose Admin Amiodarone HCl (Cordarone Tab) 200 mg DAILY PO 06/13/18 09:00 07/13/18 08:59 06/17/18 08:18 200 MG Levothyroxine Sodium (Synthroid Tab) 100 mcg DAILYBB PO 06/13/18 06:00 07/13/18 06:59 06/17/18 06:02 100 MCG Acetaminophen (Tylenol Tab) 650 mg Q4H PRN PO 06/12/18 19:30 07/12/18 19:29 Ondansetron HCl (Zofran Inj) 4 mg Q6H PRN IV 06/12/18 19:30 07/12/18 19:29 06/17/18 04:40 4 MG Heparin Sodium (Porcine) (Heparin 100 Unit/ml 5ml Flush) 5 ml PRN PRN IV 06/13/18 00:45 07/13/18 00:44 06/15/18 04:43 5 ML Senna (Senokot Tab) 17.2 mg QAM PO 06/15/18 09:00 07/15/18 08:59 06/17/18 08:17 17.2 MG Bisacodyl (Dulcolax Tab) 5 mg DAILY PRN PO 06/14/18 11:00 07/14/18 10:59 Polyethylene (Miralax Powder Packet) 17 gm DAILY PRN PO 06/14/18 11:00 07/14/18 10:59 Midodrine (Proamatine Tab) 10 mg TID@08,12,17 PO 06/15/18 17:00 07/15/18 16:59 Future Hold 06/16/18 08:07 10 MG Acetaminophen/ Hydrocodone Bitart ([place] 5/325 Tab) 1 tab for pain level 1-5 2 t... Q4H PRN PO 06/15/18 14:15 06/29/18 14:14 06/15/18 14:42 1 TAB Pantoprazole Sodium (Protonix Tab) 40 mg QAM PO 06/17/18 09:00 06/20/18 09:01 06/17/18 08:17 40 MG Furosemide (Lasix Tab) 40 mg BID17 PO 06/17/18 09:00 07/17/18 08:59 06/17/18 08:18 40 MG Amoxicillin/ Clavulanate Potassium (Augmentin Susp) 6.25 ml BIDM PO 06/17/18 07:30 8 07:29 06/17/18 08:21 6.25 ML Family History COPD Diabetes mellitus Heart Disease Social History Smoking Status: Former Smoker (reports smoking for multiple years) Smokeless Tobacco Use: No Alcohol Use: none Drug Use: none Marital Status: Housing Status: lives with family Occupation: retired Review of Systems Constitutional: No fever, No chills Respiratory: No shortness of breath Cardiovascular: No chest pain Abdomen: + pain (stomach pain), + nausea, No vomiting, No diarrhea, No constipation Genitourinary - Female: + problem reported (decreased urination/dribbling ), No dysuria A complete review of systems was performed. Pertinent positives are noted above. All other systems are negative. Physical Exam Date Time Temp Pulse Resp B/P (MAP) Pulse Ox O2 Delivery O2 Flow Rate FiO2 06/17/18 07:22 36.4 71 18 109/61 (77) 98 Room Air 06/17/18 04:20 68 18 95 2.0 06/17/18 04:01 36.4 114/73 (87) 06/16/18 23:37 36.4 76 18 105/68 (80) 98 2.0 06/16/18 20:00 Nasal Cannula 3.0 Oxymask 06/16/18 19:54 36.5 86 19 114/75 (88) 100 Nasal Cannula 3.0 06/16/18 15:31 36.2 74 18 95/60 (72) 91 Nasal Cannula 3.0 06/16/18 12:40 36.7 61 20 101/61 (74) General Appearance: + mild distress, + thin Head: normocephalic, atraumatic Eyes: normal inspection ENT: hearing grossly normal, + pertinent finding (moist mucous membranes) Neck: no JVD, + pertinent finding (R sided neck (submandibular/submental region ) I&D dressing C/D/I) Respiratory/Chest: normal breath sounds, + crackles (B/l Lung Bases) Cardiovascular: no murmur, + abnormal rhythm (irregular rhythm) Abdomen/GI: normal bowel sounds, non tender, soft Extremities/Musculoskelatal: no calf tenderness, + swelling (pretibial RLE 1+ and LLE trace) Neurologic/Psych: alert, oriented x 3 Skin: warm/dry, + pallor Laboratory Results Last 24 Hours Test 06/16/18 10:57 06/16/18 10:58 06/17/18 04:30 Prothrombin Time 12.0 SECONDS Prothromb Time International Ratio 1.1 Sodium Level 135 mmol/L 133 mmol/L Potassium Level 5.4 mmol/L 5.0 mmol/L Chloride Level 99 mmol/L 99 mmol/L Carbon Dioxide Level 29 mmol/L 29 mmol/L Anion Gap 7.0 mmol/L 5.0 mmol/L Blood Urea Nitrogen 32 mg/dl 37 mg/dl Creatinine 1.90 mg/dl 2.35 mg/dl Est Creatinine Clear Calc Drug Dose 25.6 ml/min 20.7 ml/min Estimated GFR () 30.2 23.4 Estimated GFR (Non- 26.1 20.2 BUN/Creatinine Ratio 17.0 15.7 Random Glucose 94 mg/dl 84 mg/dl Calcium Level 8.2 mg/dl 8.0 mg/dl Random Vancomycin Level 33.6 mcg/ml 32.9 mcg/ml White Blood Count 10.31 K/uL Red Blood Count 2.70 M/uL Hemoglobin 8.1 g/dL Hematocrit 26.8 % Mean Corpuscular Volume 99.3 fL Mean Corpuscular Hemoglobin 30.0 pg Mean Corpuscular Hemoglobin Concent 30.2 g/dl Platelet Count 257 K/uL Mean Platelet Volume 9.2 fL Neutrophils (%) (Auto) 82.9 % Lymphocytes (%) (Auto) 8.6 % Monocytes (%) (Auto) 6.5 % Eosinophils (%) (Auto) 0.1 % Basophils (%) (Auto) 0.1 % Neutrophils # (Auto) 8.54 K/uL Lymphocytes # (Auto) 0.89 K/uL Monocytes # (Auto) 0.67 K/uL Eosinophils # (Auto) 0.01 K/uL Basophils # (Auto) 0.01 K/uL RDW Standard Deviation 73.8 fL RDW Coefficient of Variation 20.2 % Immature Granulocyte % (Auto) 1.8 % Immature Granulocyte # (Auto) 0.19 K/uL Nucleated RBC Absolute Count (auto) 0.02 K/uL Nucleated Red Blood Cells % 0.2 % Basophilic Stippling 1+ Anisocytosis PRESENT Activated Partial Thromboplast Time 27.5 SECONDS Partial Thromboplastin Ratio 1.1 Magnesium Level 2.5 mg/dl Impression 73y/oF with hx of progressing B cell lymphoma (parotid neoplasm 2013) s/p CHOP, Afib/flutter s/p unsuccessful cardioversion, Interstitial lung disease with severe pulmonary hypertension, hypothyroidism, and acute anemia admitted for R submental/submandibular abscess s/p I&D day 2. NOW with progressively worsening BUN/Cr and diminished UOP concerning for HEMANT ( prerenal vs. ATN) given hypotension, concern for sepsis, acute anemia and use of nephrotoxic antibiotic. Pt likely hypovolemic despite crackles appreciated and mild edema in lower extremities given no JVD and hx of interstitial lung disease with severe pulmonary hypertension. ECHO this hospitalization, EF 65-70 % with normal LV size/function, moderately dilated RV with decreased function, severe R atrial dilation and tricuspid regurg, and severe pulmonary hypertension RVSP 60mmHg. Crackles likely underlying pulmonary etiology vs. volume overload status. Recommendations -Ordered urine analysis to further differentiate between prerenal vs. ATN etiologies -Ordered CXR -Ordered fluid trial (1L NS 125mls/hr) which should improve UOP if prerenal -Will monitor UOP and repeat BMP this PM post IVF -If continues to have decreased UOP and/or shortness of breath will consider trial of Lasix 120mg IV x 1 (Of note: pt received 40mg of PO Lasix this AM) -If despite above interventions pt continues to have worsening BUN/Cr tomorrow morning will discuss dialysis with pt -Anemia, appears to be acute Hgb 11.1 in february 2018 and this admission around 8.1 with positive hemeoccult (per records pt has had chronic constipation and hx of hemorrhoids with occasional BRBPR). Will order iron panel and consider iron infusion. Will defer to primary team for further work up and consideration of EGD/Colonoscopy. --vancomycin management per pharmacy suggest giving trough level less than 20 --avoid nephrotoxic medications, dose medications for GFR less than 30 Thank you for allowing me to participate in your patient's care. It was a pleasure to see Selena anything.
[2018-06-17 15:36] VITALS: BP 106/70; PULSE 77; TEMP 36.5; O2SAT 90
[2018-06-17 16:02] LABS: CALCIUM 8.1 mg/dl (8.5-10.1); CREATININE 2.6 mg/dl (0.60-1.20); POTASSIUM 5.1 mmol/L (3.5-5.1)
[2018-06-17] MEDS ORDERED: FUROSEMIDE INJ 120 MG in SYRINGE 0 ML IV ONE (16:30)
[2018-06-17 20:30] VITALS: BP 106/71; PULSE 76; TEMP 36.4; O2SAT 90
--- NOTE | 2018-06-17 22:33 | Progress Note ---
Subjective Date of Service: Jun 17, 2018. Subjective Pt evaluation today including: conversation w/ patient, physical exam 73 yo female reports no significant changes from yesterday. Patient reports that she continues to not have urine output today. She refused urinary catheter today. Problem List Medical Problems: (1) CHF (congestive heart failure) Status: Acute (2) Lymphoma Status: Acute (3) Sublingual infection Status: Acute (4) Tachycardia Status: Acute Review of Systems Constitutional: No fever, No chills ENT: + problem reported (currently no pain at surgical site), No trouble swallowing Respiratory: No cough, No shortness of breath Cardiovascular: No chest pain Abdomen: No pain, No nausea, No vomiting, No diarrhea, No constipation Musculoskeletal: No calf pain Female : No dysuria All Other Systems: Reviewed and Negative Objective Vital Signs Date Time Temp Pulse Resp B/P (MAP) Pulse Ox O2 Delivery O2 Flow Rate FiO2 06/17/18 20:30 36.4 76 21 106/71 (83) 90 Nasal Cannula 2.0 06/17/18 15:36 36.5 77 21 106/70 (82) 90 Nasal Cannula 2.0 06/17/18 10:56 36.4 73 20 120/79 (93) 100 Nasal Cannula 2.0 06/17/18 08:00 Nasal Cannula 3.0 06/17/18 07:22 36.4 71 18 109/61 (77) 98 Room Air 06/17/18 04:20 68 18 95 2.0 06/17/18 04:01 36.4 114/73 (87) 06/16/18 23:37 36.4 76 18 105/68 (80) 98 2.0 Physical Exam Comments: General Appearance: no apparent distress Eyes: sclerae normal ENT: hearing grossly normal Neck: supple, trachea midline, + pertinent finding (dressing C/D/I) Respiratory/Chest: no respiratory distress, no accessory muscle use, + crackles Cardiovascular: + JVD, + irregularly irregular Abdomen: normal bowel sounds, non tender, soft Extremities: + swelling (1+ pitting edema b/l lower extremities) Neurologic/Psychiatric: alert, oriented x 3 Skin: normal color, warm/dry, Laboratory Results Last 24 Hours Test 06/17/18 04:30 06/17/18 15:24 White Blood Count 10.31 K/uL Red Blood Count 2.70 M/uL Hemoglobin 8.1 g/dL Hematocrit 26.8 % Mean Corpuscular Volume 99.3 fL Mean Corpuscular Hemoglobin 30.0 pg Mean Corpuscular Hemoglobin Concent 30.2 g/dl Platelet Count 257 K/uL Mean Platelet Volume 9.2 fL Neutrophils (%) (Auto) 82.9 % Lymphocytes (%) (Auto) 8.6 % Monocytes (%) (Auto) 6.5 % Eosinophils (%) (Auto) 0.1 % Basophils (%) (Auto) 0.1 % Neutrophils # (Auto) 8.54 K/uL Lymphocytes # (Auto) 0.89 K/uL Monocytes # (Auto) 0.67 K/uL Eosinophils # (Auto) 0.01 K/uL Basophils # (Auto) 0.01 K/uL RDW Standard Deviation 73.8 fL RDW Coefficient of Variation 20.2 % Immature Granulocyte % (Auto) 1.8 % Immature Granulocyte # (Auto) 0.19 K/uL Nucleated RBC Absolute Count (auto) 0.02 K/uL Nucleated Red Blood Cells % 0.2 % Basophilic Stippling 1+ Anisocytosis PRESENT Activated Partial Thromboplast Time 27.5 SECONDS Partial Thromboplastin Ratio 1.1 Sodium Level 133 mmol/L 134 mmol/L Potassium Level 5.0 mmol/L 5.1 mmol/L Chloride Level 99 mmol/L 98 mmol/L Carbon Dioxide Level 29 mmol/L 28 mmol/L Anion Gap 5.0 mmol/L 8.0 mmol/L Blood Urea Nitrogen 37 mg/dl 40 mg/dl Creatinine 2.35 mg/dl 2.60 mg/dl Est Creatinine Clear Calc Drug Dose 20.7 ml/min 18.9 ml/min Estimated GFR () 23.4 20.7 Estimated GFR (Non- 20.2 17.8 BUN/Creatinine Ratio 15.7 15.5 Random Glucose 84 mg/dl 67 mg/dl Calcium Level 8.0 mg/dl 8.1 mg/dl Magnesium Level 2.5 mg/dl Random Vancomycin Level 32.9 mcg/ml Assessment and Plan Ms. Johns was admitted for submandibular abscess R Sublingual/Submandibular Abscess/Phlegmon/Ranula and Necrotic Lymph Node S/P I &D: STABLE - Will convert to Augmentin 500 mg BID for renal dosing - Cx with gram + cocci/ bacilli and gram - bacilli - showing alpha strep so far - There is a small opening to the R of the frenulum which likely correlates to patient's report of drainage into her mouth - Oral Maxillofacial Surgery following - discussed with Dr. Prieto - performed I& D on 06/15 and clear from surgical perspective Acute Kidney Injury - Suspect ATN 2/2 Hypotension Intra/Post-Operatively: - She is chronically volume overloaded but had lower then her normal BPs yesterday with her Cr increasing to 2.6 and K at 5.1 - Kayexalate x 1 was given yesterday - no changes on monitor -patient today has no urine output. -Likely ATN possibly from vancomycin. - Consult nephrology - discussed with Dr. Gonzalez - agree this is likely ATN -Nephro ordered a trial of a diuretic. If this does not help, patient will likely need dialysis. Paroxysmal Atrial Fibrillation/Flutter: Rate Controlled - Heme+ stool which was present on last admission too but Hgb remaining stable. Will monitor H&H off AC at this time - Patient underwent successful cardioversion on 05/03 but ultimately went back to A Fib - has been intolerant to digoxin and BB therapy due to toxicity and hypotension - Amiodarone 200 mg daily Anemia: STABLE - Patient does report chronic constipation with hemorrhoids. Heme+ on this admission as well - Hemoglobin baseline appears to be around 10-10.4 and currently stable at 8 - currently no signs of acute coronary syndrome and is asymptomatic from an anemia standpoint - will assess Hgb in AM Acute on Chronic Diastolic CHF/Right Sided HF: - Chronically rather overloaded - surprisingly no respiratory distress but lungs with a lot of crackles - she does desat but waveform is very poor with finger and forehead probe and likely inaccurate - she does have Pulm HTN/CHF/ Emphysema and likely can expect O2 sats to be 88-92% - patient states she doesn' t want to have O2 -on lasix, but not making urine. 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 Garcia - she reports she is due to have a PET scan for ongoing monitoring DVT Prophylaxis: SCDs Disposition: Will monitor kidney function at this time - trying to optimize her kidney function but maintaining stability of her chronic conditions -Patient will likely require dialysis. Continued [facility] stay due to: multiple IV medications needed Discharge planning: home with home health
[2018-06-18] VITALS (7 sets, daily range): BP systolic 97–121; BP diastolic 65–82; PULSE 62–93; TEMP 36.3–36.9; O2SAT 92–100
[2018-06-18 04:38] LABS: EOS % 0.1 %; EOS ABS # 0.01 K/uL (0-0.5); IG# 0.09 K/uL (0.00-0.02); LYMPH % 6.1 %; LYMPH ABS # 0.77 K/uL (1.2-3.4); MEAN CELL VOLUME 98.5 fL (80-100); MEAN CORPUSCULAR HEMOGLOBIN 30.3 pg (25-34); MEAN CORPUSCULAR HGB CONC 30.8 g/dl (32-36); MEAN PLATELET VOLUME 9.3 fL (7.4-10.4); MONO % 4.8 %; MONO ABS # 0.61 K/uL (0.11-0.59); NEUT % 88.3 %; NEUT ABS # 11.11 K/uL (1.4-6.5); PLATELET COUNT 172 K/uL (130-400); RED CELL DISTRIBUTION WIDTH CV 20.1 % (11.5-14.5); RED CELL DISTRIBUTION WIDTH SD 73.6 fL (36.4-46.3); WHITE BLOOD COUNT 12.59 K/uL (4.8-10.8)
[2018-06-18 04:46] LABS: PTT PATIENT 28.9 SECONDS (21.0-31.0)
[2018-06-18 05:11] LABS: CALCIUM 7.9 mg/dl (8.5-10.1); CREATININE 2.92 mg/dl (0.60-1.20); POTASSIUM 4.9 mmol/L (3.5-5.1)
[2018-06-18] MEDS ORDERED: DEXTROSE 50% 50 ML SYR ONE (05:12)
[2018-06-18] MEDS ORDERED: DEXTROSE 50% 50 ML SYR IV ONE (05:30)
[2018-06-18] MEDS: LEVOTHYROXINE 100 MCG TAB PO SCH (05:44)
[2018-06-18] MEDS: AMIODARONE 200 MG TAB PO SCH (08:35)
[2018-06-18] MEDS: PANTOprazole SOD 40 MG TAB PO SCH (08:35)
[2018-06-18] MEDS: SENNA 8.6 MG TAB PO SCH (08:35)
[2018-06-18] MEDS: FUROSEMIDE 40 MG TAB PO SCH ×2 (08:35→16:44)
[2018-06-18] MEDS: AMOXICILLIN/CLAVULANATE SUSP 400 MG/5 ML PO SCH ×2 (08:36→16:44)
--- NOTE | 2018-06-18 10:27 | Nephrology Progress Note ---
Nephrology Progress Note Date of Service Jun 18, 2018. Chief Complaint Follow-up for acute kidney injury. Ja Walters was seen and examined in her room this morning. She is overall not feeling well but denies any specific symptom, her main concern was just to get discharged and go home. She remained anuric over last 24 hours however, denies any significant shortness of breath. Renal function continues to worsen creatinine was 2.9 this morning. Potassium normal. Blood pressure stable Review of Systems A complete review of systems was performed. Pertinent positives are noted above. All other systems are negative. Vital Signs Last 8 Hrs Date Time Temp Pulse Resp B/P (MAP) Pulse Ox O2 Delivery O2 Flow Rate FiO2 06/18/18 08:20 Nasal Cannula 2.0 06/18/18 07:02 36.9 84 18 116/82 (93) 100 2.0 06/18/18 03:15 36.3 83 16 114/66 (82) 92 Last Recorded Weight Weight (Kilograms): 68.900 Physical Exam GENERAL: Elderly female, AAA x 3, anxious, ill-appearing, not in any distress. NECK: Supple, no JVD. RESPIRATORY: Normal breathing efforts, no accessory muscle use, coarse crackles bilaterally at bases CARDIOVASCULAR: S1, S2 normal, rate rhythm regular. EXTREMITY: No lower extremity edema NEURO: speech fluent. PSYCHIATRY: Normal mood and judgment Family History COPD Diabetes mellitus Heart Disease Social History Smoking Status: Current some day smoker Smokeless Tobacco Use: No Alcohol Use: none Drug Use: none Marital Status: Housing Status: lives with family Occupation: retired Laboratory Results Past 24 Hours 06/18/18 04:22 Red Blood Count 2.64, Mean Corpuscular Volume 98.5, Mean Corpuscular Hemoglobin 30.3, Mean Corpuscular Hemoglobin Concent 30.8, Mean Platelet Volume 9.3, Neutrophils (%) (Auto) 88.3, Lymphocytes (%) (Auto) 6.1, Monocytes (%) (Auto) 4.8, Eosinophils (%) (Auto) 0.1, Basophils (%) (Auto) 0.0, Neutrophils # (Auto) 11.11, Lymphocytes # (Auto) 0.77, Monocytes # (Auto) 0.61, Eosinophils # (Auto) 0.01, Basophils # (Auto) 0.00 06/17/18 15:24 06/18/18 04:22 Test 06/17/18 15:24 06/18/18 04:22 06/18/18 05:42 Anion Gap 8.0 mmol/L (3-11) 8.0 mmol/L (3-11) Est Creatinine Clear Calc Drug Dose 18.9 ml/min 16.8 ml/min Estimated GFR () 20.7 18.0 Estimated GFR (Non- 17.8 15.5 BUN/Creatinine Ratio 15.5 (10-20) 15.2 (10-20) Calcium Level 8.1 mg/dl (8.5-10.1) 7.9 mg/dl (8.5-10.1) White Blood Count 12.59 K/uL (4.8-10.8) Red Blood Count 2.64 M/uL (4.2-5.4) Hemoglobin 8.0 g/dL (12.0-16.0) Hematocrit 26.0 % (37-47) Mean Corpuscular Volume 98.5 fL (80-100) Mean Corpuscular Hemoglobin 30.3 pg (25-34) Mean Corpuscular Hemoglobin Concent 30.8 g/dl (32-36) Platelet Count 172 K/uL (130-400) Mean Platelet Volume 9.3 fL (7.4-10.4) Neutrophils (%) (Auto) 88.3 % Lymphocytes (%) (Auto) 6.1 % Monocytes (%) (Auto) 4.8 % Eosinophils (%) (Auto) 0.1 % Basophils (%) (Auto) 0.0 % Neutrophils # (Auto) 11.11 K/uL (1.4-6.5) Lymphocytes # (Auto) 0.77 K/uL (1.2-3.4) Monocytes # (Auto) 0.61 K/uL (0.11-0.59) Eosinophils # (Auto) 0.01 K/uL (0-0.5) Basophils # (Auto) 0.00 K/uL (0-0.2) RDW Standard Deviation 73.6 fL (36.4-46.3) RDW Coefficient of Variation 20.1 % (11.5-14.5) Immature Granulocyte % (Auto) 0.7 % Immature Granulocyte # (Auto) 0.09 K/uL (0.00-0.02) Basophilic Stippling 1+ Anisocytosis PRESENT Activated Partial Thromboplast Time 28.9 SECONDS (21.0-31.0) Partial Thromboplastin Ratio 1.1 Magnesium Level 2.6 mg/dl (1.8-2.4) Bedside Glucose 159 mg/dl (70-90) Allergies Coded Allergies: Rofecoxib (Unverified Allergy, Unknown, CHEST PAIN, 03/05/18) Erythromycin (Verified Adverse Reaction, Unknown, SORE MOUTH, 03/05/18) Medications Current Inpatient Medications Medications (Trade) Dose Ordered Sig/Bryanna Route Start Time Stop Time Status Last Admin Dose Admin Amiodarone HCl (Cordarone Tab) 200 mg DAILY PO 06/13/18 09:00 07/13/18 08:59 06/18/18 08:35 200 MG Levothyroxine Sodium (Synthroid Tab) 100 mcg DAILYBB PO 06/13/18 06:00 07/13/18 06:59 06/18/18 05:44 100 MCG Acetaminophen (Tylenol Tab) 650 mg Q4H PRN PO 06/12/18 19:30 07/12/18 19:29 Ondansetron HCl (Zofran Inj) 4 mg Q6H PRN IV 06/12/18 19:30 07/12/18 19:29 06/17/18 11:16 4 MG Heparin Sodium (Porcine) (Heparin 100 Unit/ml 5ml Flush) 5 ml PRN PRN IV 06/13/18 00:45 07/13/18 00:44 06/15/18 04:43 5 ML Senna (Senokot Tab) 17.2 mg QAM PO 06/15/18 09:00 07/15/18 08:59 06/18/18 08:35 17.2 MG Bisacodyl (Dulcolax Tab) 5 mg DAILY PRN PO 06/14/18 11:00 07/14/18 10:59 Polyethylene (Miralax Powder Packet) 17 gm DAILY PRN PO 06/14/18 11:00 07/14/18 10:59 Midodrine (Proamatine Tab) 10 mg TID@08,12,17 PO 06/15/18 17:00 07/15/18 16:59 Future Hold 06/16/18 08:07 10 MG Acetaminophen/ Hydrocodone Bitart ([place] 5/325 Tab) 1 tab for pain level 1-5 2 t... Q4H PRN PO 06/15/18 14:15 06/29/18 14:14 06/15/18 14:42 1 TAB Pantoprazole Sodium (Protonix Tab) 40 mg QAM PO 06/17/18 09:00 06/20/18 09:01 06/18/18 08:35 40 MG Furosemide (Lasix Tab) 40 mg BID17 PO 06/17/18 09:00 07/17/18 08:59 06/18/18 08:35 40 MG Amoxicillin/ Clavulanate Potassium (Augmentin Susp) 6.25 ml BIDM PO 06/17/18 07:30 06/27/18 07:29 06/18/18 08:36 6.25 ML Impression 73y/oF with hx of progressing B cell lymphoma (parotid neoplasm 2013) s/p CHOP, Afib/flutter s/p unsuccessful cardioversion, Interstitial lung disease with severe pulmonary hypertension, hypothyroidism, and acute anemia admitted for R submental/submandibular abscess s/p I&D. HEMANT with progressive worsening of renal function over last few days. (prerenal vs. ATN) given hypotension, concern for sepsis, acute anemia and use of nephrotoxic antibiotic and IV contrast exposure. Patient still did not have any UA as she was unable to urinate and refused Mccormick catheter.. Vanc trough level was elevated which could be causing acute tubular interstitial nephritis as well. Pt likely hypovolemic despite crackles appreciated and mild edema in lower extremities given no JVD and hx of interstitial lung disease with severe pulmonary hypertension. ECHO this hospitalization, EF 65-70% with normal LV size /function, moderately dilated RV with decreased function, severe R atrial dilation and tricuspid regurg, and severe pulmonary hypertension RVSP 60mmHg. Crackles likely underlying pulmonary etiology vs. volume overload status. Recommendations --patient is agreeable to have Mccormick catheter insertion for urine sample --patient remained anuric with progressive worsening of renal function explained in detail dated would be dangerous for her to go home at this point as she is at risk for significant volume overload and electrolyte abnormality. No acute indication for renal replacement therapy at this point however if renal function continues to worsen and specially if she remained anuric may need to consider dialysis in next 24-48 hours. Overall prognosis remains poor considering under station interstitial lung disease and severe pulmonary hypertension. --avoid nephrotoxic medications, dose medications for GFR less than 30 will follow
--- NOTE | 2018-06-18 12:42 | Progress Note ---
Subjective Date of Service: Jun 18, 2018. Subjective 73 yo female whos is here with acute kidney failure. Patient is not having urinary out put today. Patient wants to sign out against medical advice. Patient however after a discussion with her about her medical problems is asking to go home. But when asking her to repeat the reason why she should stay, she is unable to eventhough I had just explained it to her. Her boyfriend who has been with her since the 1970s is at the bedside and he is able to understand the severity of the situation. He states that he will not take her home today. At this time, I do not believe patient has capacity to sign out AMA. Will obtain psych consult to confirm this. Update: patient states she will stay and will not sign out AMA. Problem List Medical Problems: (1) CHF (congestive heart failure) Status: Acute (2) Lymphoma Status: Acute (3) Sublingual infection Status: Acute (4) Tachycardia Status: Acute Review of Systems Constitutional: No fever, No chills ENT: + problem reported (currently no pain at surgical site), No trouble swallowing Respiratory: No cough, No shortness of breath Cardiovascular: No chest pain Abdomen: No pain, No nausea, No vomiting, No diarrhea, No constipation Musculoskeletal: No calf pain Female : No dysuria All Other Systems: Reviewed and Negative Objective Vital Signs Date Time Temp Pulse Resp B/P (MAP) Pulse Ox O2 Delivery O2 Flow Rate FiO2 06/18/18 08:20 Nasal Cannula 2.0 06/18/18 07:02 36.9 84 18 116/82 (93) 100 2.0 06/18/18 03:15 36.3 83 16 114/66 (82) 92 06/18/18 00:01 36.5 81 18 121/75 (90) 92 2.0 06/17/18 20:30 36.4 76 21 106/71 (83) 90 Nasal Cannula 2.0 06/17/18 20:00 Nasal Cannula 2.0 Oxymask 06/17/18 15:36 36.5 77 21 106/70 (82) 90 Nasal Cannula 2.0 Physical Exam Comments: General Appearance: no apparent distress Eyes: sclerae normal ENT: hearing grossly normal Neck: supple, trachea midline, + pertinent finding (dressing C/D/I) Respiratory/Chest: no respiratory distress, no accessory muscle use, + crackles Cardiovascular: + JVD, + irregularly irregular Abdomen: normal bowel sounds, non tender, soft Extremities: + swelling (1+ pitting edema b/l lower extremities) Neurologic/Psychiatric: alert, oriented x 3 Skin: normal color, warm/dry, Laboratory Results Last 24 Hours Test 06/17/18 15:24 06/18/18 04:22 06/18/18 05:42 Sodium Level 134 mmol/L 132 mmol/L Potassium Level 5.1 mmol/L 4.9 mmol/L Chloride Level 98 mmol/L 98 mmol/L Carbon Dioxide Level 28 mmol/L 26 mmol/L Anion Gap 8.0 mmol/L 8.0 mmol/L Blood Urea Nitrogen 40 mg/dl 45 mg/dl Creatinine 2.60 mg/dl 2.92 mg/dl Est Creatinine Clear Calc Drug Dose 18.9 ml/min 16.8 ml/min Estimated GFR () 20.7 18.0 Estimated GFR (Non- 17.8 15.5 BUN/Creatinine Ratio 15.5 15.2 Random Glucose 67 mg/dl 50 mg/dl Calcium Level 8.1 mg/dl 7.9 mg/dl White Blood Count 12.59 K/uL Red Blood Count 2.64 M/uL Hemoglobin 8.0 g/dL Hematocrit 26.0 % Mean Corpuscular Volume 98.5 fL Mean Corpuscular Hemoglobin 30.3 pg Mean Corpuscular Hemoglobin Concent 30.8 g/dl Platelet Count 172 K/uL Mean Platelet Volume 9.3 fL Neutrophils (%) (Auto) 88.3 % Lymphocytes (%) (Auto) 6.1 % Monocytes (%) (Auto) 4.8 % Eosinophils (%) (Auto) 0.1 % Basophils (%) (Auto) 0.0 % Neutrophils # (Auto) 11.11 K/uL Lymphocytes # (Auto) 0.77 K/uL Monocytes # (Auto) 0.61 K/uL Eosinophils # (Auto) 0.01 K/uL Basophils # (Auto) 0.00 K/uL RDW Standard Deviation 73.6 fL RDW Coefficient of Variation 20.1 % Immature Granulocyte % (Auto) 0.7 % Immature Granulocyte # (Auto) 0.09 K/uL Basophilic Stippling 1+ Anisocytosis PRESENT Activated Partial Thromboplast Time 28.9 SECONDS Partial Thromboplastin Ratio 1.1 Magnesium Level 2.6 mg/dl Bedside Glucose 159 mg/dl Assessment and Plan Ms. Johns was admitted for submandibular abscess R Sublingual/Submandibular Abscess/Phlegmon/Ranula and Necrotic Lymph Node S/P I &D: STABLE - Will convert to Augmentin 500 mg BID for renal dosing - Cx with gram + cocci/ bacilli and gram - bacilli - showing alpha strep so far - There is a small opening to the R of the frenulum which likely correlates to patient's report of drainage into her mouth - Oral Maxillofacial Surgery following - discussed with Dr. Prieto - performed I& D on 06/15 and clear from surgical perspective Acute Kidney Injury - Suspect ATN 2/2 Hypotension Intra/Post-Operatively: - She is chronically volume overloaded but had lower then her normal BPs yesterday with her Cr increasing to 2.9 - Kayexalate x 1 was given yesterday - no changes on monitor -patient today has no urine output. -Likely ATN possibly from vancomycin. - Consult nephrology - discussed with Dr. Gonzalez - agree this is likely ATN -Nephro ordered a trial of a diuretic. If this does not help, patient will likely need dialysis. -This however did not appear to help as she continues to not make urine. Her creatinine continues to rise. Paroxysmal Atrial Fibrillation/Flutter: Rate Controlled - Heme+ stool which was present on last admission too but Hgb remaining stable. Will monitor H&H off AC at this time - Patient underwent successful cardioversion on 05/03 but ultimately went back to A Fib - has been intolerant to digoxin and BB therapy due to toxicity and hypotension - Amiodarone 200 mg daily Anemia: STABLE - Patient does report chronic constipation with hemorrhoids. Heme+ on this admission as well - Hemoglobin baseline appears to be around 10-10.4 and currently stable at 8 - currently no signs of acute coronary syndrome and is asymptomatic from an anemia standpoint - will assess Hgb in AM Acute on Chronic Diastolic CHF/Right Sided HF: - Chronically rather overloaded - surprisingly no respiratory distress but lungs with a lot of crackles - she does desat but waveform is very poor with finger and forehead probe and likely inaccurate - she does have Pulm HTN/CHF/ Emphysema and likely can expect O2 sats to be 88-92% - patient states she doesn' t want to have O2 -on lasix, but not making urine. 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 Garcia - she reports she is due to have a PET scan for ongoing monitoring DVT Prophylaxis: SCDs Disposition: Will monitor kidney function at this time - trying to optimize her kidney function but maintaining stability of her chronic conditions -Patient will likely require dialysis. Spent 65 minutes in management of patient as patient wanted to sign out AMA. And had to have an extensive discussion with patient on why she should stay. It was difficult to convince her and required additional time discussing with psych and her significant other. Continued [facility] stay due to: multiple IV medications needed Discharge planning: home with home health
--- NOTE | 2018-06-18 14:14 | Psychiatric Consultation ---
Consultation Date of Consultation Jun 18, 2018. Identifying Data 73-year-old woman initially admitted because of a possible right submandibular abscess. The patient was taken to the OR by Dr. Prieto, cleared medically but the patient developed acute kidney injury. We are consulted at this time for capacity to make decisions regarding discharge. Information is gathered from the electronic medical record as well as the patient and considered to be reliable. Chief Complaint "I just want to see my home. ". History of Present Illness Patient is a 73-year-old woman with past medical history significant for COPD, diabetes, heart disease and history of parotid neoplasm in 2013, who was initially sent to our hospital due to concerns for submandibular abscess on the right. Consult was obtained with Dr. Prieto who took her to the OR for an incision and drainage of that abscess. She did well from a surgical point of view but medically developed renal impairment which has been progressive since that time. She is being seen by Dr. Gonzalez from nephrology who has been following since that time. They are most recent recommendation is that because she has been an uric for the last 24 hours, that they consider hemodialysis if her kidneys do not begin to produce within the next 24-48 hours. For at least the second time during the stay, the patient had been telling them that she wanted to be discharged to go home. At the time I see the patient she is seated in the bedside chair. I introduced myself, she is pleasant in the interaction. She is cooperative with questioning. She understands that they are recommending hemodialysis I do not want her to go home. It is clearly documented by Dr. Kay that he has told her that without remaining in the hospital to manage the renal failure, that it would be dangerous for her to go home because of fluid overload and electrolyte abnormalities. It is difficult at first to get the patient to focus on these questions. She focuses on the fact that she has been in the hospital for a while and misses being at her home and wants to be able to go home. She agrees that she would come back in for lab studies or other requested procedures. As we proceeded to the discussion, her personal background reveals that she is an [employer]. With this in mind I revisit some of these questions and asked her to look at this from a medical point of view. She agrees that it could be dangerous, to go home at this point, but she is hopeful that her kidneys will start to work and that she will not need the hemodialysis. She indicates to me that she is able to walk around with the assist of physical therapy, and has the assistance of her long-term male partner at home for all of her other needs. She says that she has a large walk- in shower at home in which she can take care of her ADLs. She is completely oriented. She admits that at times she has been anxious about "what I am going through" and at times admit that she is depressed but does not have suicidal thinking. She denies auditory or visual hallucinations. She denies any history of eating disorder behaviors. She denies any symptoms that would be congruent with a bipolar disorder. Past Psychiatric History Current OP Treatment: no current treatment Prior OP Treatment: no prior treatment Prior Psych Hospitalizations: other (1 prior inpatient stay after an accidental overdose of cough syrup with codeine) Access to a Gun: No Suicide Attempts: No Past Medical/Surgical History (1) Acute diastolic (congestive) heart failure (2) Periapical abscess with facial involvement (3) Atrial flutter with rapid ventricular response (4) DJD (degenerative joint disease) (5) COPD (chronic obstructive pulmonary disease) (6) Hypothyroid Allergies Allergies: Coded Allergies: Rofecoxib (Unverified Allergy, Unknown, CHEST PAIN, 03/05/18) Erythromycin (Verified Adverse Reaction, Unknown, SORE MOUTH, 03/05/18) Home Medications Scheduled Amiodarone HCl (Amiodarone HCl), 200 MG PO DAILY Amoxicillin & Pot Clavulanate (Augmentin 500MG), 500 MG PO BID Cholecalciferol (Vitamin D3), 2,000-4,000 INTER.UNIT PO DAILY Furosemide (Lasix), 40 MG PO BID Levothyroxine Sodium (Levothyroxine Sodium), 100 MCG PO DAILY Potassium Chloride (Potassium Chloride Er), 10 MEQ PO TID Rivaroxaban (Xarelto), 20 MG PO DAILY Scheduled PRN Docusate Sodium (Stool Softener), 100 MG PO DAILY PRN for Consult Lorazepam (Lorazepam), 0.5 MG PO BID PRN for Anxiety Naproxen (Aleve), 220 MG PO UD PRN for Pain Family History COPD Diabetes mellitus Heart Disease History of Suicide: No History of Substance Abuse: Yes (Daughter- drugs and alcohol) Psychiatric History: No Noncontributory Alcohol Use Alcohol Use In Past 12 Months: No Smoking Use Smoking Status: Former Smoker (reports smoking for multiple years) Substance History Denies Personal History Lives in: [place], with partner of over 40 years Education: graduated from high school, graduated college ([employer]) Work History: Employed at [employer] as an [employer] until 2000 Relationship History: Children: daughter Legal History: none Review of Systems Constitutional: weakness Eyes: denies: no symptoms, as stated in HPI, eye pain, tearing, itching, redness, discharge, double vision, visual changes, blurred vision, photophobia, other ENT: reports: other (s/p I&D rt submandibular abscess, currently dressed) Cardiovascular: denies: no symptoms reported, see HPI, chest pain, chest tightness, chest pressure, diaphoresis, palpitations, syncope, other Respiratory: denies: no symptoms reported, see HPI, cough, orthopnea, short of breath, stridor, wheezing, sputum production, cyanosis, ELLISON, PND, other Gastrointestinal: denies no symptoms reported, denies see HPI, denies abdominal pain, denies constipation, denies diarrhea, denies nausea, denies vomiting, denies other Genitourinary - Female: reports: other (No urine output for >24 hrs) Musculoskeletal: muscle stiffness Integumentary: other (bruising over chest, visible rt [place]) Neurologic: denies: no symptoms, see HPI, headache, numbness, paresthesias, pre -existing deficit, seizure, tingling, tremors, general weakness, tics, focal weakness, vertigo, lethargy, memory loss, dizziness, other Endocrine: denies: no symptoms, as stated in HPI, cold intolerance, heat intolerance, hair changes, goiter, polydipsia, polyuria, skin changes, other Hematologic / Lymphatic: denies: no symptoms, as stated in HPI, abnormal clotting, adenopathy, anemia, easy bleeding, easy bruising, gums bleeding, petechiae, other Examination Vital Signs Vital Signs Past 12 Hours Date Time Temp Pulse Resp B/P (MAP) Pulse Ox O2 Delivery O2 Flow Rate FiO2 06/18/18 08:20 Nasal Cannula 2.0 06/18/18 07:02 36.9 84 18 116/82 (93) 100 2.0 06/18/18 03:15 36.3 83 16 114/66 82 92 Laboratory Results Last 24 Hours Test 06/17/18 15:24 06/18/18 04:22 06/18/18 05:42 Sodium Level 134 mmol/L 132 mmol/L Potassium Level 5.1 mmol/L 4.9 mmol/L Chloride Level 98 mmol/L 98 mmol/L Carbon Dioxide Level 28 mmol/L 26 mmol/L Anion Gap 8.0 mmol/L 8.0 mmol/L Blood Urea Nitrogen 40 mg/dl 45 mg/dl Creatinine 2.60 mg/dl 2.92 mg/dl Est Creatinine Clear Calc Drug Dose 18.9 ml/min 16.8 ml/min Estimated GFR () 20.7 18.0 Estimated GFR (Non- 17.8 15.5 BUN/Creatinine Ratio 15.5 15.2 Random Glucose 67 mg/dl 50 mg/dl Calcium Level 8.1 mg/dl 7.9 mg/dl White Blood Count 12.59 K/uL Red Blood Count 2.64 M/uL Hemoglobin 8.0 g/dL Hematocrit 26.0 % Mean Corpuscular Volume 98.5 fL Mean Corpuscular Hemoglobin 30.3 pg Mean Corpuscular Hemoglobin Concent 30.8 g/dl Platelet Count 172 K/uL Mean Platelet Volume 9.3 fL Neutrophils (%) (Auto) 88.3 % Lymphocytes (%) (Auto) 6.1 % Monocytes (%) (Auto) 4.8 % Eosinophils (%) (Auto) 0.1 % Basophils (%) (Auto) 0.0 % Neutrophils # (Auto) 11.11 K/uL Lymphocytes # (Auto) 0.77 K/uL Monocytes # (Auto) 0.61 K/uL Eosinophils # (Auto) 0.01 K/uL Basophils # (Auto) 0.00 K/uL RDW Standard Deviation 73.6 fL RDW Coefficient of Variation 20.1 % Immature Granulocyte % (Auto) 0.7 % Immature Granulocyte # (Auto) 0.09 K/uL Basophilic Stippling 1+ Anisocytosis PRESENT Activated Partial Thromboplast Time 28.9 SECONDS Partial Thromboplastin Ratio 1.1 Magnesium Level 2.6 mg/dl Bedside Glucose 159 mg/dl Mental Examination During interview pt is: alert and oriented Appearance: other (cachectic in appearance) Eye contact is: good Motor behavior is: no abnormal motor movements Speech: other (mildly garbled, dysarthric) Affect: blunted Mood is: depressed ("a little depressed, but not sincerely") Thought process: goal directed Thought content: reality based without delusions Suicidal thought are: denied Homicidal thoughts are: denied Hallucinations: denies auditory, denies visual Cognition: memory grossly intact, attention grossly intact, language grossly intact Intelligence estimated to be: average Insight: impaired Judgement: impaired Impression / Recommendations Impression 73-year-old woman admitted with a right submandibular abscess, now in renal failure. The recommendation is if she remains anuric for the next 24-48 hours that hemodialysis will be necessary. We are consulted because the patient was asking to leave the hospital and go home against medical recommendations. At the time I see the patient she is alert oriented, denies suicidality. She is aware of the recommendations although is so severely homesick to be home in her own surroundings with her partner that she is allowing it to blur her vision of what is necessary. I spent an extended period of time with her reviewing the records and recommendations. She is eventually able to be reasonable and says that she will remain in the hospital for further evaluation of her renal failure , thus alleviating the need to make a decision about whether she has capacity to make such a decision at this time. If however, moving forward, she continues to demand to go home in the face of recommendations to the contrary and with a possible consequence of , I would then see that she likely does not have the ability to make reasonable decisions and an alternate decision- maker should be appointed. Risk Factors Assessment : Yes /single/: No Higher / Fall in social status: No Access to guns: No Health problems: Yes Mental Health Diagnoses: No Substance use disorders: No Previous attempt: No Previous psychiatric stay: Yes Hopelessness: No Smoker: No Protective Factors Assessment : No Responsible for young children: No Employed: No Stable relationships: Yes Recommendations (1) [facility] evaluation 06/18 - The patient has changed her mind and is now willing to stay in the hospital for further treatment thus alleviating the decision for a capacity decision at this time - Moving forward, if the patient repeatedly asks to leave the hospital given the possible consequences, I would suggest that she lacks capacity to make reasonable decisions regarding disposition. Dr. Migdalia Charles has personally been involved in the review of this case and development of these recommendations.
--- NOTE | 2018-06-18 15:03 | ECHOCARDIOGRAM REPORT ---
*NOTICE TO RECEIVING REPUBLICAN AGENCY This information is strictly Confidential and protected under [place] law. [place] law prohibits you from making any further disclosure of this information unless further disclosure is expressly permitted by the written consent of the person to whom it pertains or is authorized by law. A general authorization for the release of medical or other information is not sufficient for this purpose. Hospital accepts no responsibility if the information is made available to any other person, INCLUDING THE PATIENT. Interpretation Summary * Name: SHIRLEY SPARROW Study Date: 06/13/2018 03:25 PM BP: 92/58 mmHg * Patient Location: .2T\S\S243\S\1 HR: 72 * : 1945 (M/d/yyy) Gender: Female Height: 64 in * Age: 73 yrs Ethnicity: CA Weight: 134 lb * Ordering Physician: Velvet Perez * Performed By: Cathy Downs RDCS * * Reason For Study: A-FIB, PRE-OP * BSA: 1.6 m2 * -- Conclusions -- * 1. Normal left ventricular size and systolic function. EF 65-70%. No regional wall motion abnormalities. No left ventricular hypertrophy. Septal flattening during diastole suggests right ventricular volume overload. Tissue Doppler suggests normal left atrial filling pressure. * 2. Moderately dilated right ventricle with moderately reduced systolic function. * 3. Severe right atrial dilation. Mild left atrial dilation. * 4. Mild mitral regurgitation. * 5. Moderate to severe tricuspid regurgitation. * 6. Small pericardial effusion without echocardiographic evidence of tamponade physiology. * 7. Severe pulmonary hypertension suggested with estimated RVSP 60mmHg. * 8. Compared to prior study on 03/06/2018, RVSP has mildly increased. Procedure Details * A complete two-dimensional transthoracic echocardiogram was performed (2D, M-mode, Doppler and color flow Doppler). * There were technical limitations due to patient'spoor positioning Left Ventricle * Normal left ventricular size and systolic function. EF 65-70%. No regional wall motion abnormalities. No left ventricular hypertrophy. Septal flattening during diastole suggests right ventricular volume overload. Right Ventricle * The right ventricle is moderately dilated. * The right ventricular systolic function is reduced as assessed by tricuspid annular plane systolic excursion (TAPSE) (TAPSE <1.6 cm). Atria * The left atrium is mildly dilated. * The right atrium is severely dilated. * There is no evidence of atrial septal defect, but resolution does not allow assessment for a patent foramen ovale. Mitral Valve * There is mild to moderate mitral annular calcification. * There is no mitral valve stenosis. * There is mild mitral regurgitation. Tricuspid Valve * There is no tricuspid stenosis. * There is moderate to severe tricuspid regurgitation. Aortic Valve * The aortic valve is trileaflet. * Aortic valve sclerosis mild, without significant aortic valvular stenosis. * Trace aortic regurgitation. Pulmonic Valve * The pulmonary valve is inadequately visualized, but the Doppler data is adequate for interpretation. * There is no pulmonic valvular stenosis. * Mild pulmonic valvular regurgitation. Great Vessels * The aortic root is normal size. * Minimally dilated ascending aorta. Pericardium/Pleural * Small pericardial effusion without echocardiographic evidence of tamponade physiology. Great Vessels * Dilated IVC with reduced inspiratory collapse. MMode 2D Measurements and Calculations IVSd 1.1 cm IVSs 1.5 cm LVIDd 4.5 cm LVIDs 2.7 cm LVPWd 1.1 cm LVPWs 1.7 cm IVS/LVPW 1.0 FS 39.2 % EDV(Teich) 91.0 ml ESV(Teich) 27.5 ml EF(Teich) 69.8 % EDV(cubed) 89.3 ml ESV(cubed) 20.1 ml EF(cubed) 77.5 % % IVS thick 32.7 % % LVPW thick 52.2 % LV mass(C)d 176.4 grams LV mass(C)dI 106.9 grams/m\S\2 LV mass(C)s 154.1 grams LV mass(C)sI 93.4 grams/m\S\2 SV(Teich) 63.5 ml SI(Teich) 38.5 ml/m\S\2 SV(cubed) 69.2 ml SI(cubed) 41.9 ml/m\S\2 Ao root diam 3.1 cm Ao root area 7.8 cm\S\2 ACS 0.97 cm LA dimension 4.1 cm asc Aorta Diam 3.5 cm LA/Ao 1.3 LVOT diam 2.2 cm LVOT area 3.9 cm\S\2 LVAd ap4 17.7 cm\S\2 LVLd ap4 6.3 cm EDV(MOD-sp4) 42.9 ml EDV(sp4-el) 42.4 ml LVAs ap4 9.4 cm\S\2 LVLs ap4 5.5 cm ESV(MOD-sp4) 14.0 ml ESV(sp4-el) 13.6 ml EF(MOD-sp4) 67.3 % EF(sp4-el) 67.8 % SV(MOD-sp4) 28.9 ml SI(MOD-sp4) 17.5 ml/m\S\2 SV(sp4-el) 28.7 ml SI(sp4-el) 17.4 ml/m\S\2 Doppler Measurements and Calculations MV E max marilu 93.2 cm/sec MV dec time 0.14 sec Ao V2 max 97.6 cm/sec Ao max PG 3.8 mmHg Ao max PG (full) 2.1 mmHg ANIKA(V,A) 2.6 cm\S\2 ANIKA(V,D) 2.6 cm\S\2 LV V1 max PG 1.7 mmHg LV V1 max 64.9 cm/sec MR max marilu 375.6 cm/sec MR max PG 56.4 mmHg PA V2 max 52.5 cm/sec PA max PG 1.1 mmHg PI end-d marilu 114.3 cm/sec TR max marilu 331.5 cm/sec RVSP(TR) 60.1 mmHg RAP systole 15.0 mmHg
--- NOTE | 2018-06-18 17:07 | DIAGNOSTIC IMAGING REPORT ---
RENAL ULTRASOUND HISTORY: Acute kidney injury. COMPARISON: Abdomen and pelvis CT 03/05/2018. FINDINGS: Right kidney: 10.8 cm. There is a 9 mm cyst. No hydronephrosis. Normal corticomedullary differentiation and cortical thickness. Left kidney: 11.2 cm. No hydronephrosis. Normal corticomedullary differentiation and cortical thickness. Bladder: Under distended and therefore not well visualized. Miscellaneous: Cholelithiasis. Trace ascites. Small left pleural effusion. IMPRESSION: 1. No hydronephrosis. 2. The bladder was underdistended and not well visualized. 3. Cholelithiasis. 4. Trace ascites, unchanged. 5. Small left pleural effusion. Electronically signed by: Thaddeus Miller M.D. 06/18/2018 5:06 PM Dictated Date/Time: 06/18/2018 5:04 PM
[2018-06-19] VITALS (8 sets, daily range): BP systolic 96–119; BP diastolic 62–76; PULSE 85–108; TEMP 36.3–37; O2SAT 90–99
[2018-06-19 04:49] LABS: BASO % 0.1 %; BASO ABS # 0.01 K/uL (0-0.2); EOS % 0.1 %; EOS ABS # 0.02 K/uL (0-0.5); HEMATOCRIT 25.2 % (37-47); IG# 0.07 K/uL (0.00-0.02); LYMPH % 5.1 %; LYMPH ABS # 0.74 K/uL (1.2-3.4); MEAN CELL VOLUME 96.6 fL (80-100); MEAN CORPUSCULAR HEMOGLOBIN 30.7 pg (25-34); MEAN CORPUSCULAR HGB CONC 31.7 g/dl (32-36); MEAN PLATELET VOLUME 9.5 fL (7.4-10.4); MONO % 3.3 %; MONO ABS # 0.48 K/uL (0.11-0.59); NEUT % 90.9 %; NEUT ABS # 13.29 K/uL (1.4-6.5); PLATELET COUNT 170 K/uL (130-400); RED CELL DISTRIBUTION WIDTH SD 70.3 fL (36.4-46.3); WHITE BLOOD COUNT 14.61 K/uL (4.8-10.8)
[2018-06-19 04:58] LABS: PTT PATIENT 30.7 SECONDS (21.0-31.0)
[2018-06-19 05:11] LABS: CALCIUM 7.8 mg/dl (8.5-10.1); CREATININE 3.52 mg/dl (0.60-1.20)
[2018-06-19] MEDS ORDERED: DEXTROSE 50% 50 ML SYR ONE (05:20)
[2018-06-19] MEDS: LEVOTHYROXINE 100 MCG TAB PO SCH (05:26)
[2018-06-19] MEDS ORDERED: DEXTROSE 50% 50 ML SYR IV ONE (05:30)
[2018-06-19] MEDS: AMOXICILLIN/CLAVULANATE SUSP 400 MG/5 ML PO SCH ×2 (07:40→16:27)
[2018-06-19] MEDS: SENNA 8.6 MG TAB PO SCH (07:40)
[2018-06-19] MEDS: AMIODARONE 200 MG TAB PO SCH (07:40)
[2018-06-19] MEDS: PANTOprazole SOD 40 MG TAB PO SCH (07:40)
[2018-06-19] MEDS: FUROSEMIDE 40 MG TAB PO SCH (07:41)
--- NOTE | 2018-06-19 10:08 | Nephrology Progress Note ---
Nephrology Progress Note Date of Service: Jun 19, 2018. Ja Walters reported feeling ok this AM and denied any sob or any other symptoms. She was not pushing to go home today and more cooperative. She remains anuric over last 24 hours. She had another 50ml via straight cath today (per nursing it was orange juice like and foul smelling). Renal function continues to worsen creatinine was 3.5 this morning. Na 131. Potassium normal. Blood pressure stable Objective Date Time Temp Pulse Resp B/P (MAP) Pulse Ox O2 Delivery O2 Flow Rate FiO2 06/19/18 08:27 Nasal Cannula 2.0 06/19/18 06:57 36.5 108 18 113/76 (88) 96 2.0 06/19/18 03:16 36.5 86 18 105/64 (78) 96 2.0 06/18/18 23:53 36.5 87 18 97/65 (76) 94 06/18/18 20:00 Nasal Cannula 2.0 06/18/18 19:11 36.4 62 18 109/70 (83) 92 06/18/18 16:00 Nasal Cannula 2.0 Oxymask 06/18/18 15:32 36.5 82 18 102/69 (80) 99 06/18/18 13:51 36.6 93 18 100/67 (78) 93 Nasal Cannula 2.0 Physical Exam: GENERAL: Elderly female, AAA x 3, ill and pale appearing, not in any distress. NECK: Supple, no JVD RESPIRATORY: Normal breathing efforts, no accessory muscle use, coarse crackles bilaterally at bases CARDIOVASCULAR: S1, S2 normal, rate rhythm regular. EXTREMITY: 1+ lower extremity edema NEURO: speech fluent PSYCHIATRY: Normal mood and judgment Current Inpatient Medications Medications (Trade) Dose Ordered Sig/Bryanna Route Start Time Stop Time Status Last Admin Dose Admin Amiodarone HCl (Cordarone Tab) 200 mg DAILY PO 06/13/18 09:00 07/13/18 08:59 06/19/18 07:40 200 MG Levothyroxine Sodium (Synthroid Tab) 100 mcg DAILYBB PO 06/13/18 06:00 07/13/18 06:59 06/19/18 05:26 100 MCG Acetaminophen (Tylenol Tab) 650 mg Q4H PRN PO 06/12/18 19:30 07/12/18 19:29 Ondansetron HCl (Zofran Inj) 4 mg Q6H PRN IV 06/12/18 19:30 07/12/18 19:29 06/17/18 11:16 4 MG Heparin Sodium (Porcine) (Heparin 100 Unit/ml 5ml Flush) 5 ml PRN PRN IV 06/13/18 00:45 07/13/18 00:44 06/15/18 04:43 5 ML Senna (Senokot Tab) 17.2 mg QAM PO 06/15/18 09:00 07/15/18 08:59 06/19/18 07:40 17.2 MG Bisacodyl (Dulcolax Tab) 5 mg DAILY PRN PO 06/14/18 11:00 07/14/18 10:59 06/18/18 19:33 5 MG Polyethylene (Miralax Powder Packet) 17 gm DAILY PRN PO 06/14/18 11:00 07/14/18 10:59 Midodrine (Proamatine Tab) 10 mg TID@08,12,17 PO 06/15/18 17:00 07/15/18 16:59 Future Hold 06/16/18 08:07 10 MG Acetaminophen/ Hydrocodone Bitart ([place] 5/325 Tab) 1 tab for pain level 1-5 2 t... Q4H PRN PO 06/15/18 14:15 06/29/18 14:14 06/15/18 14:42 1 TAB Pantoprazole Sodium (Protonix Tab) 40 mg QAM PO 06/17/18 09:00 06/20/18 09:01 06/19/18 07:40 40 MG Furosemide (Lasix Tab) 40 mg BID17 PO 06/17/18 09:00 07/17/18 08:59 06/19/18 07:41 40 MG Amoxicillin/ Clavulanate Potassium (Augmentin Susp) 6.25 ml BIDM PO 06/17/18 07:30 06/27/18 07:29 06/19/18 07:40 6.25 ML Last 24 Hours Test 06/18/18 15:49 06/19/18 04:31 06/19/18 05:00 06/19/18 05:41 White Blood Count 14.61 K/uL Red Blood Count 2.61 M/uL Hemoglobin 8.0 g/dL Hematocrit 25.2 % Mean Corpuscular Volume 96.6 fL Mean Corpuscular Hemoglobin 30.7 pg Mean Corpuscular Hemoglobin Concent 31.7 g/dl Platelet Count 170 K/uL Mean Platelet Volume 9.5 fL Neutrophils (%) (Auto) 90.9 % Lymphocytes (%) (Auto) 5.1 % Monocytes (%) (Auto) 3.3 % Eosinophils (%) (Auto) 0.1 % Basophils (%) (Auto) 0.1 % Neutrophils # (Auto) 13.29 K/uL Lymphocytes # (Auto) 0.74 K/uL Monocytes # (Auto) 0.48 K/uL Eosinophils # (Auto) 0.02 K/uL Basophils # (Auto) 0.01 K/uL RDW Standard Deviation 70.3 fL RDW Coefficient of Variation 20.0 % Immature Granulocyte % (Auto) 0.5 % Immature Granulocyte # (Auto) 0.07 K/uL Basophilic Stippling 1+ Anisocytosis PRESENT Activated Partial Thromboplast Time 30.7 SECONDS Partial Thromboplastin Ratio 1.2 Sodium Level 131 mmol/L Potassium Level 5.0 mmol/L Chloride Level 97 mmol/L Carbon Dioxide Level 26 mmol/L Anion Gap 8.0 mmol/L Blood Urea Nitrogen 50 mg/dl Creatinine 3.52 mg/dl Est Creatinine Clear Calc Drug Dose 14.0 ml/min Estimated GFR () 14.3 Estimated GFR (Non- 12.4 BUN/Creatinine Ratio 14.2 Random Glucose 58 mg/dl Calcium Level 7.8 mg/dl Magnesium Level 2.5 mg/dl Bedside Glucose 227 mg/dl Other Studies: RENAL ULTRASOUND HISTORY: Acute kidney injury. COMPARISON: Abdomen and pelvis CT 03/05/2018. FINDINGS: Right kidney: 10.8 cm. There is a 9 mm cyst. No hydronephrosis. Normal corticomedullary differentiation and cortical thickness. Left kidney: 11.2 cm. No hydronephrosis. Normal corticomedullary differentiation and cortical thickness. Bladder: Under distended and therefore not well visualized. Miscellaneous: Cholelithiasis. Trace ascites. Small left pleural effusion. IMPRESSION: 1. No hydronephrosis. 2. The bladder was underdistended and not well visualized. 3. Cholelithiasis. 4. Trace ascites, unchanged. 5. Small left pleural effusion. 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 HEMANT with progressive worsening of renal function over last few days. (prerenal vs. ATN) given hypotension, concern for sepsis, acute anemia and use of nephrotoxic antibiotic and IV contrast exposure. UA with 3+ protein, >30 WBC, > 30 epithelial cells and 1-5 granular casts. Vanc trough level was elevated which could be causing acute tubular interstitial nephritis as well. Pt likely hypovolemic despite crackles appreciated and mild edema in lower extremities given no JVD and hx of interstitial lung disease with severe pulmonary hypertension. ECHO this hospitalization, EF 65-70% with normal LV size/function , moderately dilated RV with decreased function, severe R atrial dilation and tricuspid regurg, and severe pulmonary hypertension RVSP 60mmHg. Crackles likely underlying pulmonary etiology vs. volume overload status. TODAY pt remains anuric (only 50mls of concentrated urine via straight cath) with worsening BUN/Cr and mild hyponatremia corrected Na of 133. Recommendations --patient is agreeable to tunnelled catheter insertion for potential dialysis if needed in next 24 to 48 h --Will recheck BMP this PM if continues to worsen and pt remains anuric will make NPO over night for catheter insertion tomorrow in preparation for potential dialysis --No acute indication for renal replacement therapy at this point however if renal function continues to worsen and specially if she remained anuric may need to consider dialysis in next 24-48 hours if pt becomes symptomatic from volume overload. Overall prognosis remains poor considering under station interstitial lung disease and severe pulmonary hypertension. --avoid nephrotoxic medications, dose medications for GFR less than 30 will follow
[2018-06-19 14:36] LABS: CALCIUM 8.2 mg/dl (8.5-10.1); CREATININE 3.58 mg/dl (0.60-1.20)
[2018-06-19] MEDS ORDERED: FUROSEMIDE INJ 120 MG in SYRINGE 0 ML IV ONE (15:30)
--- NOTE | 2018-06-19 23:00 | Progress Note ---
Subjective Date of Service: Jun 19, 2018. Subjective Pt evaluation today including: conversation w/ patient, physical exam 73 yo female has no new complaints today. She states that she is behaving today. Problem List Medical Problems: (1) CHF (congestive heart failure) Status: Acute (2) Lymphoma Status: Acute (3) Sublingual infection Status: Acute (4) Tachycardia Status: Acute Review of Systems Constitutional: No fever, No chills ENT: + problem reported (currently no pain at surgical site), No trouble swallowing Respiratory: No cough, No shortness of breath Cardiovascular: No chest pain Abdomen: No pain, No nausea, No vomiting, No diarrhea, No constipation Musculoskeletal: No calf pain Female : No dysuria All Other Systems: Reviewed and Negative Objective Vital Signs Date Time Temp Pulse Resp B/P (MAP) Pulse Ox O2 Delivery O2 Flow Rate FiO2 06/19/18 20:40 36.4 85 16 104/69 (81) 98 2.0 06/19/18 19:53 37.0 95 20 90 2.0 06/19/18 19:36 37.0 95 20 96/62 (73) 90 Nasal Cannula 2.0 06/19/18 15:36 Nasal Cannula 2.0 06/19/18 15:32 36.4 99 20 104/70 (81) 93 Nasal Cannula 06/19/18 11:04 36.7 88 19 106/71 (83) 99 Nasal Cannula 2.0 06/19/18 08:27 Nasal Cannula 2.0 06/19/18 06:57 36.5 108 18 113/76 (88) 96 2.0 06/19/18 03:16 36.5 86 18 105/64 (78) 96 2.0 06/18/18 23:53 36.5 87 18 97/65 (76) 94 Physical Exam Comments: General Appearance: no apparent distress Eyes: sclerae normal ENT: hearing grossly normal Neck: supple, trachea midline, + pertinent finding (dressing C/D/I) Respiratory/Chest: no respiratory distress, no accessory muscle use, + crackles Cardiovascular: + JVD, + irregularly irregular Abdomen: normal bowel sounds, non tender, soft Extremities: + swelling (1+ pitting edema b/l lower extremities) Neurologic/Psychiatric: alert, oriented x 3 Skin: normal color, warm/dry, Laboratory Results Last 24 Hours Test 06/19/18 04:31 06/19/18 05:00 06/19/18 05:41 06/19/18 14:07 White Blood Count 14.61 K/uL Red Blood Count 2.61 M/uL Hemoglobin 8.0 g/dL Hematocrit 25.2 % Mean Corpuscular Volume 96.6 fL Mean Corpuscular Hemoglobin 30.7 pg Mean Corpuscular Hemoglobin Concent 31.7 g/dl Platelet Count 170 K/uL Mean Platelet Volume 9.5 fL Neutrophils (%) (Auto) 90.9 % Lymphocytes (%) (Auto) 5.1 % Monocytes (%) (Auto) 3.3 % Eosinophils (%) (Auto) 0.1 % Basophils (%) (Auto) 0.1 % Neutrophils # (Auto) 13.29 K/uL Lymphocytes # (Auto) 0.74 K/uL Monocytes # (Auto) 0.48 K/uL Eosinophils # (Auto) 0.02 K/uL Basophils # (Auto) 0.01 K/uL RDW Standard Deviation 70.3 fL RDW Coefficient of Variation 20.0 % Immature Granulocyte % (Auto) 0.5 % Immature Granulocyte # (Auto) 0.07 K/uL Basophilic Stippling 1+ Anisocytosis PRESENT Activated Partial Thromboplast Time 30.7 SECONDS Partial Thromboplastin Ratio 1.2 Sodium Level 131 mmol/L 132 mmol/L Potassium Level 5.0 mmol/L 5.0 mmol/L Chloride Level 97 mmol/L 97 mmol/L Carbon Dioxide Level 26 mmol/L 27 mmol/L Anion Gap 8.0 mmol/L 8.0 mmol/L Blood Urea Nitrogen 50 mg/dl 50 mg/dl Creatinine 3.52 mg/dl 3.58 mg/dl Est Creatinine Clear Calc Drug Dose 14.0 ml/min 13.7 ml/min Estimated GFR () 14.3 14.0 Estimated GFR (Non- 12.4 12.1 BUN/Creatinine Ratio 14.2 13.9 Random Glucose 58 mg/dl 88 mg/dl Calcium Level 7.8 mg/dl 8.2 mg/dl Magnesium Level 2.5 mg/dl Bedside Glucose 227 mg/dl Hepatitis B Surface Antigen NEG Hepatitis B Surface Antibody NEG Assessment and Plan Ms. Johns was admitted for submandibular abscess R Sublingual/Submandibular Abscess/Phlegmon/Ranula and Necrotic Lymph Node S/P I &D: STABLE - Will convert to Augmentin 500 mg BID for renal dosing - Cx with gram + cocci/ bacilli and gram - bacilli - showing alpha strep so far - There is a small opening to the R of the frenulum which likely correlates to patient's report of drainage into her mouth - Oral Maxillofacial Surgery following - discussed with Dr. Prieto - performed I& D on 06/15 and clear from surgical perspective Acute Kidney Injury - Suspect ATN 2/2 Hypotension Intra/Post-Operatively: - She is chronically volume overloaded but had lower then her normal BPs r -patient today has no urine output. -Likely ATN possibly from vancomycin. - Consult nephrology - discussed with Dr. Gonzalez - agree this is likely ATN -Patient did not respond to diuretic trial. Creatinine appears to have plateaued at 3.5 -Patient has continued to not diurese today. Will monitor. Paroxysmal Atrial Fibrillation/Flutter: Rate Controlled - Heme+ stool which was present on last admission too but Hgb remaining stable. Will monitor H&H off AC at this time - Patient underwent successful cardioversion on 05/03 but ultimately went back to A Fib - has been intolerant to digoxin and BB therapy due to toxicity and hypotension - Amiodarone 200 mg daily Anemia: STABLE - Patient does report chronic constipation with hemorrhoids. Heme+ on this admission as well - Hemoglobin baseline appears to be around 10-10.4 and currently stable at 8 - currently no signs of acute coronary syndrome and is asymptomatic from an anemia standpoint - will assess Hgb in AM Acute on Chronic Diastolic CHF/Right Sided HF: - Chronically rather overloaded - surprisingly no respiratory distress but lungs with a lot of crackles - she does desat but waveform is very poor with finger and forehead probe and likely inaccurate - she does have Pulm HTN/CHF/ Emphysema and likely can expect O2 sats to be 88-92% - patient states she doesn' t want to have O2 -on lasix, but not making urine. 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 Garcia - she reports she is due to have a PET scan for ongoing monitoring DVT Prophylaxis: SCDs Disposition: Will monitor kidney function at this time - trying to optimize her kidney function but maintaining stability of her chronic conditions -Patient will likely require dialysis. Continued [facility] stay due to: multiple IV medications needed Discharge planning: home with home health
[2018-06-20] MEDS: LEVOTHYROXINE 100 MCG TAB PO SCH (03:52)
[2018-06-20 06:04] LABS: PTT PATIENT 33.1 SECONDS (21.0-31.0)
[2018-06-20 07:18] VITALS: BP 99/70; PULSE 88; TEMP 36.6; O2SAT 96
[2018-06-20] MEDS: AMIODARONE 200 MG TAB PO SCH (07:35)
[2018-06-20] MEDS: PANTOprazole SOD 40 MG TAB PO SCH (07:35)
[2018-06-20] MEDS: AMOXICILLIN/CLAVULANATE SUSP 400 MG/5 ML PO SCH ×2 (07:35→17:11)
[2018-06-20] MEDS: SENNA 8.6 MG TAB PO SCH (07:40)
[2018-06-20 08:48] LABS: HEMATOCRIT 26.7 % (37-47); HEMOGLOBIN 8.3 g/dL (12.0-16.0); MEAN CELL VOLUME 97.1 fL (80-100); MEAN CORPUSCULAR HEMOGLOBIN 30.2 pg (25-34); MEAN CORPUSCULAR HGB CONC 31.1 g/dl (32-36); MEAN PLATELET VOLUME 9.7 fL (7.4-10.4); PLATELET COUNT 155 K/uL (130-400); RED CELL DISTRIBUTION WIDTH CV 20.4 % (11.5-14.5); RED CELL DISTRIBUTION WIDTH SD 71.2 fL (36.4-46.3)
[2018-06-20 09:15] LABS: CALCIUM 8.3 mg/dl (8.5-10.1); CREATININE 3.59 mg/dl (0.60-1.20); POTASSIUM 4.8 mmol/L (3.5-5.1)
[2018-06-20] MEDS ORDERED: BUMETANIDE IV 10 MG in DEXTROSE 5% 50ML 10 ML IV SCH (09:45)
--- NOTE | 2018-06-20 12:03 | Nephrology Progress Note ---
Nephrology Progress Note Date of Service Jun 20, 2018. Chief Complaint Rising Cr and BUN Subjective Selena reported feeling fine this AM and denied any sob or any other symptoms. She was enjoying the company of her visitor, Kyle. She had 200ml UOP over night with a good BM. She had another 100ml via straight cath yesterday, 06/19. Renal function is stable/unchanged creatinine continues to be 3.5 this morning. Na 132. Potassium normal. Blood pressure low but stable. Of note: pt was NPO after midnight for possible catheter placement for dialysis. Review of Systems all other ROS negative except for as above A complete review of systems was performed. Pertinent positives are noted above. All other systems are negative. Vital Signs Last 8 Hrs Date Time Temp Pulse Resp B/P (MAP) Pulse Ox O2 Delivery O2 Flow Rate FiO2 06/20/18 08:00 Nasal Cannula 2.0 Humidified Oxygen 06/20/18 07:18 36.6 88 16 99/70 (80) 96 Nasal Cannula 2.0 Humidified Oxygen I & O See above Last Recorded Weight Weight (Kilograms): 68.100 Physical Exam GENERAL: Elderly female, AAA x 3, ill and pale appearing, not in any distress. NECK: Supple, no JVD RESPIRATORY: Normal breathing efforts, no accessory muscle use, coarse crackles bilaterally at bases CARDIOVASCULAR: S1, S2 normal, rate rhythm regular. EXTREMITY: 1+ lower extremity edema NEURO: speech fluent PSYCHIATRY: Normal mood and judgment Family History COPD Diabetes mellitus Heart Disease Social History Smoking Status: Current some day smoker Smokeless Tobacco Use: No Alcohol Use: none Drug Use: none Marital Status: Housing Status: lives with family Occupation: retired Laboratory Results Past 24 Hours 06/20/18 08:39 06/19/18 14:07 06/20/18 08:39 Test 06/19/18 14:07 06/20/18 05:20 06/20/18 08:39 Anion Gap 8.0 mmol/L (3-11) 8.0 mmol/L (3-11) Est Creatinine Clear Calc Drug Dose 13.7 ml/min 13.6 ml/min Estimated GFR () 14.0 14.0 Estimated GFR (Non- 12.1 12.1 BUN/Creatinine Ratio 13.9 (10-20) 15.1 (10-20) Calcium Level 8.2 mg/dl (8.5-10.1) 8.3 mg/dl (8.5-10.1) Hepatitis B Surface Antigen NEG (NEG) Hepatitis B Surface Antibody NEG Activated Partial Thromboplast Time 33.1 SECONDS (21.0-31.0) Partial Thromboplastin Ratio 1.3 Red Blood Count 2.75 M/uL (4.2-5.4) Mean Corpuscular Volume 97.1 fL (80-100) Mean Corpuscular Hemoglobin 30.2 pg (25-34) Mean Corpuscular Hemoglobin Concent 31.1 g/dl (32-36) RDW Standard Deviation 71.2 fL (36.4-46.3) RDW Coefficient of Variation 20.4 % (11.5-14.5) Mean Platelet Volume 9.7 fL (7.4-10.4) Allergies Coded Allergies: Rofecoxib (Unverified Allergy, Unknown, CHEST PAIN, 03/05/18) Erythromycin (Verified Adverse Reaction, Unknown, SORE MOUTH, 03/05/18) Medications Current Inpatient Medications Medications (Trade) Dose Ordered Sig/Bryanna Route Start Time Stop Time Status Last Admin Dose Admin Amiodarone HCl (Cordarone Tab) 200 mg DAILY PO 06/13/18 09:00 07/13/18 08:59 06/20/18 07:35 200 MG Levothyroxine Sodium (Synthroid Tab) 100 mcg DAILYBB PO 06/13/18 06:00 07/13/18 06:59 06/19/18 05:26 100 MCG Acetaminophen (Tylenol Tab) 650 mg Q4H PRN PO 06/12/18 19:30 07/12/18 19:29 Ondansetron HCl (Zofran Inj) 4 mg Q6H PRN IV 06/12/18 19:30 07/12/18 19:29 06/17/18 11:16 4 MG Heparin Sodium (Porcine) (Heparin 100 Unit/ml 5ml Flush) 5 ml PRN PRN IV 06/13/18 00:45 07/13/18 00:44 06/20/18 08:43 5 ML Senna (Senokot Tab) 17.2 mg QAM PO 06/15/18 09:00 07/15/18 08:59 06/19/18 07:40 17.2 MG Bisacodyl (Dulcolax Tab) 5 mg DAILY PRN PO 06/14/18 11:00 07/14/18 10:59 06/18/18 19:33 5 MG Polyethylene (Miralax Powder Packet) 17 gm DAILY PRN PO 06/14/18 11:00 07/14/18 10:59 Acetaminophen/ Hydrocodone Bitart ([place] 5/325 Tab) 1 tab for pain level 1-5 2 t... Q4H PRN PO 06/15/18 14:15 06/29/18 14:14 06/15/18 14:42 1 TAB Amoxicillin/ Clavulanate Potassium (Augmentin Susp) 6.25 ml BIDM PO 06/17/18 07:30 06/27/18 07:29 06/20/18 07:35 6.25 ML Impression 73y/oF with hx of progressing B cell lymphoma (parotid neoplasm 2013) s/p CHOP, Afib/flutter s/p unsuccessful cardioversion, Interstitial lung disease with severe pulmonary hypertension, hypothyroidism, and acute anemia admitted for R submental/submandibular abscess s/p I&D. HEMANT with now stable/unchanged renal function (prerenal vs. ATN) given hypotension, concern for sepsis, acute anemia and use of nephrotoxic antibiotic and IV contrast exposure. UA with 3+ protein, >30 WBC, >30 epithelial cells and 1-5 granular casts. Vanc trough level was elevated which could be causing acute tubular interstitial nephritis as well. Pt likely hypovolemic despite crackles appreciated and mild edema in lower extremities given no JVD and hx of interstitial lung disease with severe pulmonary hypertension. ECHO this hospitalization, EF 65-70% with normal LV size/function, moderately dilated RV with decreased function, severe R atrial dilation and tricuspid regurg, and severe pulmonary hypertension RVSP 60mmHg. Crackles likely underlying pulmonary etiology vs. volume overload status. TODAY pt had 200ml UOP with unchanged BUN/Cr since yesterday of 54/3.5. Mild hyponatremia Na of 132. Given pt NPO after midnight likely somewhat dry. Recommendations --hold off on diuretics now as seems to have started to make urien, encourage PO hydration (no fluid restriction) --Will recheck BMP tomorrow AM --No acute indication for renal replacement therapy at this point --patient is agreeable to tunnelled catheter insertion for potential dialysis if needed in next 24 to 48 h --avoid nephrotoxic medications, dose medications for GFR less than 30 will follow Pt was seen and examined with Dr. Anton, agree with above plan.
[2018-06-20 14:14] LABS: COMPLEMENT C4** TC 44982E 19 MG/DL (15-57)
[2018-06-20 15:07] VITALS: BP 88/63; PULSE 89; TEMP 36.6; O2SAT 100
[2018-06-20 15:28] VITALS: BP 96/68
--- NOTE | 2018-06-20 22:36 | Progress Note ---
Subjective Date of Service: Jun 20, 2018. Subjective Pt evaluation today including: conversation w/ patient, physical exam 73 yo female not very communicative today. She states she wants to be under the sheets today because its warm. Problem List Medical Problems: (1) CHF (congestive heart failure) Status: Acute (2) Lymphoma Status: Acute (3) Sublingual infection Status: Acute (4) Tachycardia Status: Acute Review of Systems Constitutional: No fever, No chills ENT: + problem reported (currently no pain at surgical site), No trouble swallowing Respiratory: No cough, No shortness of breath Cardiovascular: No chest pain Abdomen: No pain, No nausea, No vomiting, No diarrhea, No constipation Musculoskeletal: No calf pain Female : No dysuria All Other Systems: Reviewed and Negative Objective Vital Signs Date Time Temp Pulse Resp B/P (MAP) Pulse Ox O2 Delivery O2 Flow Rate FiO2 06/20/18 20:00 Nasal Cannula 2.0 06/20/18 16:00 Nasal Cannula 2.0 Humidified Oxygen 06/20/18 15:28 96/68 (77) 06/20/18 15:07 36.6 89 15 88/63 (71) 100 Nasal Cannula 2.0 Humidified Oxygen 06/20/18 08:00 Nasal Cannula 2.0 Humidified Oxygen 06/20/18 07:18 36.6 88 16 99/70 (80) 96 Nasal Cannula 2.0 Humidified Oxygen 06/20/18 00:05 Nasal Cannula 2.0 06/19/18 23:15 36.3 89 16 119/76 (90) 93 Nasal Cannula 2.0 Physical Exam Comments: General Appearance: no apparent distress Eyes: sclerae normal ENT: hearing grossly normal Neck: supple, trachea midline, + pertinent finding (dressing C/D/I) Respiratory/Chest: no respiratory distress, no accessory muscle use, + crackles Cardiovascular: + JVD, + irregularly irregular Abdomen: normal bowel sounds, non tender, soft Extremities: + swelling (1+ pitting edema b/l lower extremities) Neurologic/Psychiatric: alert, oriented x 3 Skin: normal color, warm/dry, Laboratory Results Last 24 Hours Test 06/20/18 05:20 06/20/18 08:39 Activated Partial Thromboplast Time 33.1 SECONDS Partial Thromboplastin Ratio 1.3 White Blood Count 12.00 K/uL Red Blood Count 2.75 M/uL Hemoglobin 8.3 g/dL Hematocrit 26.7 % Mean Corpuscular Volume 97.1 fL Mean Corpuscular Hemoglobin 30.2 pg Mean Corpuscular Hemoglobin Concent 31.1 g/dl RDW Standard Deviation 71.2 fL RDW Coefficient of Variation 20.4 % Platelet Count 155 K/uL Mean Platelet Volume 9.7 fL Sodium Level 132 mmol/L Potassium Level 4.8 mmol/L Chloride Level 97 mmol/L Carbon Dioxide Level 27 mmol/L Anion Gap 8.0 mmol/L Blood Urea Nitrogen 54 mg/dl Creatinine 3.59 mg/dl Est Creatinine Clear Calc Drug Dose 13.6 ml/min Estimated GFR () 14.0 Estimated GFR (Non- 12.1 BUN/Creatinine Ratio 15.1 Random Glucose 58 mg/dl Calcium Level 8.3 mg/dl Assessment and Plan Ms. Johns was admitted for submandibular abscess R Sublingual/Submandibular Abscess/Phlegmon/Ranula and Necrotic Lymph Node S/P I &D: STABLE - Will convert to Augmentin 500 mg BID for renal dosing - Cx with gram + cocci/ bacilli and gram - bacilli - showing alpha strep so far - There is a small opening to the R of the frenulum which likely correlates to patient's report of drainage into her mouth - Oral Maxillofacial Surgery following - discussed with Dr. Prieto - performed I& D on 06/15 and clear from surgical perspective Acute Kidney Injury - Suspect ATN 2/2 Hypotension Intra/Post-Operatively: - She is chronically volume overloaded but had lower then her normal BPs r -patient today has no urine output. -Likely ATN possibly from vancomycin. - Consult nephrology - discussed with Dr. Gonzalez - agree this is likely ATN -Patient did not respond to diuretic trial. Creatinine appears to have plateaued at 3.5 -Patient has had 150 ml in bladder this am. Will give another trial but today will be with bumex as ordered by residential service technician. But now as patient is making urine, will monitor and will not order more diuretics. Paroxysmal Atrial Fibrillation/Flutter: Rate Controlled - Heme+ stool which was present on last admission too but Hgb remaining stable. Will monitor H&H off AC at this time - Patient underwent successful cardioversion on 05/03 but ultimately went back to A Fib - has been intolerant to digoxin and BB therapy due to toxicity and hypotension - Amiodarone 200 mg daily Anemia: STABLE - Patient does report chronic constipation with hemorrhoids. Heme+ on this admission as well - Hemoglobin baseline appears to be around 10-10.4 and currently stable at 8 - currently no signs of acute coronary syndrome and is asymptomatic from an anemia standpoint - will assess Hgb in AM Acute on Chronic Diastolic CHF/Right Sided HF: - Chronically rather overloaded - surprisingly no respiratory distress but lungs with a lot of crackles - she does desat but waveform is very poor with finger and forehead probe and likely inaccurate - she does have Pulm HTN/CHF/ Emphysema and likely can expect O2 sats to be 88-92% - patient states she doesn' t want to have O2 -on lasix, but not making urine. 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 Garcia - she reports she is due to have a PET scan for ongoing monitoring DVT Prophylaxis: SCDs Disposition: Will monitor kidney function at this time - trying to optimize her kidney function but maintaining stability of her chronic conditions -Patient will likely require dialysis. Continued [facility] stay due to: multiple IV medications needed Discharge planning: home with home health
[2018-06-20 23:49] VITALS: BP 122/64; PULSE 70; TEMP 36.6; O2SAT 94
[2018-06-21 06:04] LABS: HEMATOCRIT 26.1 % (37-47); MEAN CELL VOLUME 97.8 fL (80-100); MEAN CORPUSCULAR HGB CONC 30.7 g/dl (32-36); MEAN PLATELET VOLUME 10.1 fL (7.4-10.4); NUCLEATED RED BLOOD CELL ABS 0.03 K/uL (0-0); PLATELET COUNT 185 K/uL (130-400); RED CELL DISTRIBUTION WIDTH CV 20.3 % (11.5-14.5); RED CELL DISTRIBUTION WIDTH SD 71.9 fL (36.4-46.3); WHITE BLOOD COUNT 13.33 K/uL (4.8-10.8)
[2018-06-21] MEDS: LEVOTHYROXINE 100 MCG TAB PO SCH (06:40)
[2018-06-21 06:48] LABS: CALCIUM 8.4 mg/dl (8.5-10.1); CREATININE 3.22 mg/dl (0.60-1.20); POTASSIUM 4.8 mmol/L (3.5-5.1)
[2018-06-21 08:36] VITALS: BP 123/87; PULSE 92; TEMP 36.4; O2SAT 94
[2018-06-21] MEDS: AMIODARONE 200 MG TAB PO SCH (09:00)
[2018-06-21] MEDS: SENNA 8.6 MG TAB PO SCH (09:00)
[2018-06-21] MEDS: AMOXICILLIN/CLAVULANATE SUSP 400 MG/5 ML PO SCH ×2 (09:22→16:50)
--- NOTE | 2018-06-21 11:22 | Nephrology Progress Note ---
Nephrology Progress Note Date of Service Jun 21, 2018. Chief Complaint HEMANT Subjective Ms. Johns was seen & examined in her hospital room this morning. She complains of weakness but denies dyspnea or uremic symptoms. Review of Systems Constitutional: No fever Cardiovascular: No chest pain Respiratory: No dyspnea at rest Abdomen: No pain, No nausea, No vomiting Extremities: No leg edema A complete review of systems was performed. Pertinent positives are noted above. All other systems are negative. Vital Signs Last 8 Hrs Date Time Temp Pulse Resp B/P (MAP) Pulse Ox O2 Delivery O2 Flow Rate FiO2 06/21/18 08:36 36.4 92 20 123/87 (99) 94 2.0 Last Recorded Weight Weight (Kilograms): 68.100 Physical Exam General Appearance: no apparent distress Head: + pertinent finding (temporal muscle wasting) Eyes: PERRL Respiratory/Chest: lungs clear, no respiratory distress Cardiovascular: + irregularly irregular Abdomen/GI: normal bowel sounds, non tender, soft Extremities/Musculoskelatal: no calf tenderness, no pedal edema Neurologic/Psych: alert, oriented x 3 Family History COPD Diabetes mellitus Heart Disease Social History Smoking Status: Current some day smoker Smokeless Tobacco Use: No Alcohol Use: none Drug Use: none Marital Status: Housing Status: lives with family Occupation: retired Laboratory Results Past 24 Hours 06/21/18 05:27 06/21/18 05:27 Test 06/21/18 05:27 Red Blood Count 2.67 M/uL (4.2-5.4) Mean Corpuscular Volume 97.8 fL (80-100) Mean Corpuscular Hemoglobin 30.0 pg (25-34) Mean Corpuscular Hemoglobin Concent 30.7 g/dl (32-36) RDW Standard Deviation 71.9 fL (36.4-46.3) RDW Coefficient of Variation 20.3 % (11.5-14.5) Mean Platelet Volume 10.1 fL (7.4-10.4) Nucleated RBC Absolute Count (auto) 0.03 K/uL (0-0) Nucleated Red Blood Cells % 0.2 % Anion Gap 7.0 mmol/L (3-11) Est Creatinine Clear Calc Drug Dose 15.2 ml/min Estimated GFR () 16.0 Estimated GFR (Non- 13.8 BUN/Creatinine Ratio 16.6 (10-20) Calcium Level 8.4 mg/dl (8.5-10.1) Allergies Coded Allergies: Rofecoxib (Unverified Allergy, Unknown, CHEST PAIN, 03/05/18) Erythromycin (Verified Adverse Reaction, Unknown, SORE MOUTH, 03/05/18) Medications Current Inpatient Medications Medications (Trade) Dose Ordered Sig/Bryanna Route Start Time Stop Time Status Last Admin Dose Admin Amiodarone HCl (Cordarone Tab) 200 mg DAILY PO 06/13/18 09:00 07/13/18 08:59 06/20/18 07:35 200 MG Levothyroxine Sodium (Synthroid Tab) 100 mcg DAILYBB PO 06/13/18 06:00 07/13/18 06:59 06/21/18 06:40 100 MCG Acetaminophen (Tylenol Tab) 650 mg Q4H PRN PO 06/12/18 19:30 07/12/18 19:29 Ondansetron HCl (Zofran Inj) 4 mg Q6H PRN IV 06/12/18 19:30 07/12/18 19:29 06/17/18 11:16 4 MG Heparin Sodium (Porcine) (Heparin 100 Unit/ml 5ml Flush) 5 ml PRN PRN IV 06/13/18 00:45 07/13/18 00:44 06/21/18 05:25 5 ML Senna (Senokot Tab) 17.2 mg QAM PO 06/15/18 09:00 07/15/18 08:59 06/19/18 07:40 17.2 MG Bisacodyl (Dulcolax Tab) 5 mg DAILY PRN PO 06/14/18 11:00 07/14/18 10:59 06/18/18 19:33 5 MG Polyethylene (Miralax Powder Packet) 17 gm DAILY PRN PO 06/14/18 11:00 07/14/18 10:59 Acetaminophen/ Hydrocodone Bitart ([place] 5/325 Tab) 1 tab for pain level 1-5 2 t... Q4H PRN PO 06/15/18 14:15 06/29/18 14:14 06/15/18 14:42 1 TAB Amoxicillin/ Clavulanate Potassium (Augmentin Susp) 6.25 ml BIDM PO 06/17/18 07:30 06/27/18 07:29 8/3/18 09:22 6.25 ML Impression 73y/oF with hx of progressing B cell lymphoma (parotid neoplasm 2013) s/p CHOP, Afib/flutter s/p unsuccessful cardioversion, Interstitial lung disease with severe pulmonary hypertension, hypothyroidism, and acute anemia admitted for R submental/submandibular abscess s/p I&D. HEMANT (prerenal vs. ATN) given hypotension, concern for sepsis, acute anemia and use of nephrotoxic antibiotic and IV contrast exposure. UA with 3+ protein, >30 WBC, >30 epithelial cells and 1-5 granular casts. Vanc trough level was elevated which could be causing acute tubular interstitial nephritis as well. Pt likely hypovolemic despite crackles appreciated and mild edema in lower extremities given no JVD and hx of interstitial lung disease with severe pulmonary hypertension. ECHO this hospitalization, EF 65-70% with normal LV size /function, moderately dilated RV with decreased function, severe R atrial dilation and tricuspid regurg, and severe pulmonary hypertension RVSP 60mmHg. Crackles likely underlying pulmonary etiology vs. volume overload status. Recommendations ACUTE KIDNEY INJURY: -- Urinalysis w/ granular casts c/w ATN -- Creatinine has improved from 3.6 to 3.2. Patient remains oliguric. Volume status and electrolyte balance remain acceptable. No acute indication for HD at this time. -- Will recheck BMP tomorrow AM -- Await results of immunologic studies ANEMIA: -- Relatively mild & stable. Will monitor -- FOBT positive x 1 ID: -- On empiric Augmentin therapy
[2018-06-21 14:39] VITALS: BP 90/59; PULSE 91; TEMP 36.7; O2SAT 97
[2018-06-21 15:26] VITALS: BP 98/65
[2018-06-21 23:08] VITALS: BP 92/63; PULSE 92; TEMP 36.4; O2SAT 92
--- NOTE | 2018-06-21 23:44 | Progress Note ---
Subjective Date of Service: Jun 21, 2018. Subjective Pt evaluation today including: conversation w/ patient, physical exam Patient reports no new symptoms. Patient states that she is having small urine output. Problem List Medical Problems: (1) CHF (congestive heart failure) Status: Acute (2) Lymphoma Status: Acute (3) Sublingual infection Status: Acute (4) Tachycardia Status: Acute Review of Systems Constitutional: No fever, No chills ENT: + problem reported (currently no pain at surgical site), No trouble swallowing Respiratory: No cough, No shortness of breath Cardiovascular: No chest pain Abdomen: No pain, No nausea, No vomiting, No diarrhea, No constipation Musculoskeletal: No calf pain Female : No dysuria All Other Systems: Reviewed and Negative Objective Vital Signs Date Time Temp Pulse Resp B/P (MAP) Pulse Ox O2 Delivery O2 Flow Rate FiO2 06/21/18 23:08 36.4 92 18 92/63 (73) 92 Nasal Cannula 2.0 06/21/18 16:00 Nasal Cannula 2.0 Humidified Oxygen 06/21/18 15:26 98/65 (76) 06/21/18 14:39 36.7 91 18 90/59 (69) 97 06/21/18 08:36 36.4 92 20 123/87 (99) 94 2.0 06/21/18 08:00 Nasal Cannula 2.0 06/21/18 00:15 Nasal Cannula 2.0 06/20/18 23:49 36.6 70 18 122/64 (83) 94 Physical Exam Comments: General Appearance: no apparent distress Eyes: sclerae normal ENT: hearing grossly normal Neck: supple, trachea midline, + pertinent finding (dressing C/D/I) Respiratory/Chest: no respiratory distress, no accessory muscle use, + crackles Cardiovascular: + JVD, + irregularly irregular Abdomen: normal bowel sounds, non tender, soft Extremities: + swelling (1+ pitting edema b/l lower extremities) Neurologic/Psychiatric: alert, oriented x 3 Skin: normal color, warm/dry, Laboratory Results Last 24 Hours Test 06/21/18 05:27 White Blood Count 13.33 K/uL Red Blood Count 2.67 M/uL Hemoglobin 8.0 g/dL Hematocrit 26.1 % Mean Corpuscular Volume 97.8 fL Mean Corpuscular Hemoglobin 30.0 pg Mean Corpuscular Hemoglobin Concent 30.7 g/dl RDW Standard Deviation 71.9 fL RDW Coefficient of Variation 20.3 % Platelet Count 185 K/uL Mean Platelet Volume 10.1 fL Nucleated RBC Absolute Count (auto) 0.03 K/uL Nucleated Red Blood Cells % 0.2 % Sodium Level 132 mmol/L Potassium Level 4.8 mmol/L Chloride Level 97 mmol/L Carbon Dioxide Level 28 mmol/L Anion Gap 7.0 mmol/L Blood Urea Nitrogen 53 mg/dl Creatinine 3.22 mg/dl Est Creatinine Clear Calc Drug Dose 15.2 ml/min Estimated GFR () 16.0 Estimated GFR (Non- 13.8 BUN/Creatinine Ratio 16.6 Random Glucose 60 mg/dl Calcium Level 8.4 mg/dl Assessment and Plan Ms. Johns was admitted for submandibular abscess R Sublingual/Submandibular Abscess/Phlegmon/Ranula and Necrotic Lymph Node S/P I &D: STABLE - Will convert to Augmentin 500 mg BID for renal dosing - Cx with gram + cocci/ bacilli and gram - bacilli - showing alpha strep so far - There is a small opening to the R of the frenulum which likely correlates to patient's report of drainage into her mouth - Oral Maxillofacial Surgery following - discussed with Dr. Prieto - performed I& D on 06/15 and clear from surgical perspective Acute Kidney Injury - Suspect ATN 2/2 Hypotension Intra/Post-Operatively: - She is chronically volume overloaded but had lower then her normal BPs r -patient today has no urine output. -Likely ATN possibly from vancomycin. - Consult nephrology - discussed with Dr. Gonzalez - agree this is likely ATN -Patient did not respond to diuretic trial. Creatinine appears to has improved to 3.2 after peaking at 3.55 -Patient has had over 100 ml this am A patient is making urine, will monitor and will not order more diuretics. Paroxysmal Atrial Fibrillation/Flutter: Rate Controlled - Heme+ stool which was present on last admission too but Hgb remaining stable. Will monitor H&H off AC at this time - Patient underwent successful cardioversion on 05/03 but ultimately went back to A Fib - has been intolerant to digoxin and BB therapy due to toxicity and hypotension - Amiodarone 200 mg daily Anemia: STABLE - Patient does report chronic constipation with hemorrhoids. Heme+ on this admission as well - Hemoglobin baseline appears to be around 10-10.4 and currently stable at 8.3 - currently no signs of acute coronary syndrome and is asymptomatic from an anemia standpoint - will assess Hgb in AM Acute on Chronic Diastolic CHF/Right Sided HF: - Chronically rather overloaded - surprisingly no respiratory distress but lungs with a lot of crackles - she does desat but waveform is very poor with finger and forehead probe and likely inaccurate - she does have Pulm HTN/CHF/ Emphysema and likely can expect O2 sats to be 88-92% - patient states she doesn' t want to have O2 -on lasix, but not making urine. 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 Garcia - she reports she is due to have a PET scan for ongoing monitoring DVT Prophylaxis: SCDs Disposition: Will monitor kidney function at this time - trying to optimize her kidney function but maintaining stability of her chronic conditions -Patient will likely require dialysis. Continued [facility] stay due to: multiple IV medications needed Discharge planning: home with home health
[2018-06-22] VITALS: O2SAT 92
[2018-06-22] MEDS: LEVOTHYROXINE 100 MCG TAB PO SCH (05:29)
[2018-06-22 07:16] VITALS: BP 95/63; PULSE 86; TEMP 36.4; O2SAT 95
[2018-06-22] MEDS: AMOXICILLIN/CLAVULANATE SUSP 400 MG/5 ML PO SCH ×2 (08:00→16:50)
[2018-06-22] MEDS: ONDANSETRON INJ 2 MG/ML 2 ML VIAL IV PRN ×2 (08:05→16:50)
[2018-06-22] MEDS: AMIODARONE 200 MG TAB PO SCH (08:05)
[2018-06-22] MEDS: SENNA 8.6 MG TAB PO SCH (08:05)
[2018-06-22 10:12] LABS: CALCIUM 8.1 mg/dl (8.5-10.1); CREATININE 2.52 mg/dl (0.60-1.20); POTASSIUM 4.6 mmol/L (3.5-5.1)
--- NOTE | 2018-06-22 11:20 | Nephrology Progress Note ---
Nephrology Progress Note Date of Service Jun 22, 2018. Chief Complaint HEMANT Subjective Mrs. Johns was seen & examined in her hospital room this morning. She complains of weakness but denies fever, angina, dyspnea or uremic symptoms. Review of Systems Constitutional: No fever Cardiovascular: No chest pain Respiratory: No dyspnea at rest Abdomen: No pain, No nausea, No vomiting Extremities: No leg edema A complete review of systems was performed. Pertinent positives are noted above. All other systems are negative. Vital Signs Last 8 Hrs Date Time Temp Pulse Resp B/P (MAP) Pulse Ox O2 Delivery O2 Flow Rate FiO2 06/22/18 08:10 Nasal Cannula 2.0 06/22/18 07:16 36.4 86 18 95/63 (74) 95 Nasal Cannula 2.0 Last Recorded Weight Weight (Kilograms): 68.100 Physical Exam General Appearance: no apparent distress Head: atraumatic Eyes: PERRL, EOMI Neck: no adenopathy Respiratory/Chest: lungs clear, no respiratory distress Cardiovascular: regular rate, rhythm Abdomen/GI: normal bowel sounds, non tender, soft Extremities/Musculoskelatal: no calf tenderness, no pedal edema Neurologic/Psych: alert, oriented x 3 Family History COPD Diabetes mellitus Heart Disease Social History Smoking Status: Current some day smoker Smokeless Tobacco Use: No Alcohol Use: none Drug Use: none Marital Status: Housing Status: lives with family Occupation: retired Laboratory Results Past 24 Hours 06/22/18 09:29 Test 06/22/18 09:29 06/22/18 10:15 Anion Gap 7.0 mmol/L (3-11) Est Creatinine Clear Calc Drug Dose 19.4 ml/min Estimated GFR () 21.5 Estimated GFR (Non- 18.5 BUN/Creatinine Ratio 20.8 (10-20) Calcium Level 8.1 mg/dl (8.5-10.1) Bedside Glucose 62 mg/dl (70-90) Allergies Coded Allergies: Rofecoxib (Unverified Allergy, Unknown, CHEST PAIN, 03/05/18) Erythromycin (Verified Adverse Reaction, Unknown, SORE MOUTH, 03/05/18) Medications Current Inpatient Medications Medications (Trade) Dose Ordered Sig/Bryanna Route Start Time Stop Time Status Last Admin Dose Admin Amiodarone HCl (Cordarone Tab) 200 mg DAILY PO 06/13/18 09:00 07/13/18 08:59 06/22/18 08:05 200 MG Levothyroxine Sodium (Synthroid Tab) 100 mcg DAILYBB PO 06/13/18 06:00 07/13/18 06:59 06/22/18 05:29 100 MCG Acetaminophen (Tylenol Tab) 650 mg Q4H PRN PO 06/12/18 19:30 07/12/18 19:29 Ondansetron HCl (Zofran Inj) 4 mg Q6H PRN IV 06/12/18 19:30 07/12/18 19:29 06/22/18 08:05 4 MG Heparin Sodium (Porcine) (Heparin 100 Unit/ml 5ml Flush) 5 ml PRN PRN IV 06/13/18 00:45 07/13/18 00:44 06/22/18 07:52 5 ML Senna (Senokot Tab) 17.2 mg QAM PO 06/15/18 09:00 07/15/18 08:59 06/22/18 08:05 17.2 MG Bisacodyl (Dulcolax Tab) 5 mg DAILY PRN PO 06/14/18 11:00 07/14/18 10:59 06/18/18 19:33 5 MG Polyethylene (Miralax Powder Packet) 17 gm DAILY PRN PO 06/14/18 11:00 07/14/18 10:59 Acetaminophen/ Hydrocodone Bitart (Rochelle 5/325 Tab) 1 tab for pain level 1-5 2 t... Q4H PRN PO 06/15/18 14:15 06/29/18 14:14 06/15/18 14:42 1 TAB Amoxicillin/ Clavulanate Potassium (Augmentin Susp) 6.25 ml BIDM PO 06/17/18 07:30 06/27/18 07:29 06/21/18 16:50 6.25 ML Impression 73y/oF with hx of progressing B cell lymphoma (parotid neoplasm 2013) s/p CHOP, Afib/flutter s/p unsuccessful cardioversion, Interstitial lung disease with severe pulmonary hypertension, hypothyroidism, and acute anemia admitted for R submental/submandibular abscess s/p I&D. HEMANT (prerenal vs. ATN) given hypotension, concern for sepsis, acute anemia and use of nephrotoxic antibiotic and IV contrast exposure. UA with 3+ protein, >30 WBC, >30 epithelial cells and 1-5 granular casts. Vanc trough level was elevated which could be causing acute tubular interstitial nephritis as well. Pt likely hypovolemic despite crackles appreciated and mild edema in lower extremities given no JVD and hx of interstitial lung disease with severe pulmonary hypertension. ECHO this hospitalization, EF 65-70% with normal LV size /function, moderately dilated RV with decreased function, severe R atrial dilation and tricuspid regurg, and severe pulmonary hypertension RVSP 60mmHg. Crackles likely underlying pulmonary etiology vs. volume overload status. Recommendations ACUTE KIDNEY INJURY: -- Urinalysis w/ granular casts c/w ATN -- Creatinine has improved from 3.6 to 2.5. Patient remains oliguric. Volume status and electrolyte balance remain acceptable. No acute indication for HD at this time. -- Will recheck BMP tomorrow AM -- Await results of immunologic studies ANEMIA: -- Relatively mild & stable. Will monitor -- FOBT positive x 1 ID: -- On empiric Augmentin therapy
[2018-06-22 14:59] VITALS: BP 99/64; PULSE 92; TEMP 36.2; O2SAT 98
[2018-06-22] MEDS ORDERED: DEXTROSE 50% 50 ML SYR IV ONE (16:00)
[2018-06-22] MEDS ORDERED: NURSING VERBAL MED ORDER ONE (16:00)
--- NOTE | 2018-06-22 22:20 | Progress Note ---
Subjective Date of Service: Jun 22, 2018. Subjective Pt evaluation today including: conversation w/ patient, physical exam No new complaints by patient. As per nurse, her blood sugars have been low in the 60s despite diet. Problem List Medical Problems: (1) CHF (congestive heart failure) Status: Acute (2) Lymphoma Status: Acute (3) Sublingual infection Status: Acute (4) Tachycardia Status: Acute Review of Systems Constitutional: No fever, No chills ENT: + problem reported (currently no pain at surgical site), No trouble swallowing Respiratory: No cough, No shortness of breath Cardiovascular: No chest pain Abdomen: No pain, No nausea, No vomiting, No diarrhea, No constipation Musculoskeletal: No calf pain Female : No dysuria All Other Systems: Reviewed and Negative Objective Vital Signs Date Time Temp Pulse Resp B/P (MAP) Pulse Ox O2 Delivery O2 Flow Rate FiO2 06/22/18 16:00 Nasal Cannula 2.0 Humidified Oxygen 06/22/18 14:59 36.2 92 18 99/64 (76) 98 Nasal Cannula 2.0 06/22/18 08:10 Nasal Cannula 2.0 06/22/18 07:16 36.4 86 18 95/63 (74) 95 Nasal Cannula 2.0 06/22/18 00:00 92 Nasal Cannula 2.0 06/21/18 23:08 36.4 92 18 92/63 (73) 92 Nasal Cannula 2.0 Physical Exam Comments: General Appearance: no apparent distress Eyes: sclerae normal ENT: hearing grossly normal Neck: supple, trachea midline, + pertinent finding (dressing C/D/I) Respiratory/Chest: no respiratory distress, no accessory muscle use, + crackles Cardiovascular: + JVD, + irregularly irregular Abdomen: normal bowel sounds, non tender, soft Extremities: + swelling (1+ pitting edema b/l lower extremities) Neurologic/Psychiatric: alert, oriented x 3 Skin: normal color, warm/dry, Laboratory Results Last 24 Hours Test 06/22/18 09:29 06/22/18 10:15 06/22/18 15:40 06/22/18 15:41 Sodium Level 134 mmol/L Potassium Level 4.6 mmol/L Chloride Level 99 mmol/L Carbon Dioxide Level 28 mmol/L Anion Gap 7.0 mmol/L Blood Urea Nitrogen 52 mg/dl Creatinine 2.52 mg/dl Est Creatinine Clear Calc Drug Dose 19.4 ml/min Estimated GFR () 21.5 Estimated GFR (Non- 18.5 BUN/Creatinine Ratio 20.8 Random Glucose 51 mg/dl Calcium Level 8.1 mg/dl Bedside Glucose 62 mg/dl 67 mg/dl 69 mg/dl Test 06/22/18 16:26 06/22/18 20:33 Bedside Glucose 145 mg/dl 79 mg/dl Assessment and Plan Ms. Johns was admitted for submandibular abscess R Sublingual/Submandibular Abscess/Phlegmon/Ranula and Necrotic Lymph Node S/P I &D: STABLE - Will convert to Augmentin 500 mg BID for renal dosing - Cx with gram + cocci/ bacilli and gram - bacilli - showing alpha strep so far - There is a small opening to the R of the frenulum which likely correlates to patient's report of drainage into her mouth - Oral Maxillofacial Surgery following - discussed with Dr. Prieto - performed I& D on 06/15 and clear from surgical perspective Acute Kidney Injury - Suspect ATN 2/2 Hypotension Intra/Post-Operatively: - She is chronically volume overloaded but had lower then her normal BPs r -patient today has no urine output. -Likely ATN possibly from vancomycin. - Consult nephrology - discussed with Dr. Gonzalez - agree this is likely ATN -Patient did not respond to diuretic trial. Creatinine appears to has improved to 2.5 after peaking at 3.55 Has been negative over 200 ml over past 2 days. A patient is making urine, will monitor and will not order more diuretics. Appears patient will not need dialysis if she continues to improve Paroxysmal Atrial Fibrillation/Flutter: Rate Controlled - Heme+ stool which was present on last admission too but Hgb remaining stable. Will monitor H&H off AC at this time - Patient underwent successful cardioversion on 05/03 but ultimately went back to A Fib - has been intolerant to digoxin and BB therapy due to toxicity and hypotension - Amiodarone 200 mg daily Anemia: STABLE - Patient does report chronic constipation with hemorrhoids. Heme+ on this admission as well - Hemoglobin baseline appears to be around 10-10.4 and currently stable at 8.3 - currently no signs of acute coronary syndrome and is asymptomatic from an anemia standpoint - will assess Hgb in AM Acute on Chronic Diastolic CHF/Right Sided HF: - Chronically rather overloaded - surprisingly no respiratory distress but lungs with a lot of crackles - she does desat but waveform is very poor with finger and forehead probe and likely inaccurate - she does have Pulm HTN/CHF/ Emphysema and likely can expect O2 sats to be 88-92% - patient states she doesn' t want to have O2 -on lasix, but not making urine. COPD/Pulmonary HTN without Exacerbation: STABLE - Continue to monitor Hypothyroidism: - Synthroid 100 mcg daily Rheumatoid Arthritis: NOTED/STABLE Hypoglycemia: will monitor. 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 Garcia - she reports she is due to have a PET scan for ongoing monitoring DVT Prophylaxis: SCDs Disposition: Will monitor kidney function at this time - trying to optimize her kidney function but maintaining stability of her chronic conditions -Patient will likely require dialysis. Continued [facility] stay due to: multiple IV medications needed Discharge planning: home with home health
[2018-06-22 23:04] VITALS: BP_SYST 155; BP_SYST 91; BP_DIAS 61; BP_DIAS 92; PULSE 89; TEMP 36.2; TEMP 37.1; O2SAT 95; O2SAT 96
[2018-06-23] VITALS: O2SAT 92
[2018-06-23] MEDS: LEVOTHYROXINE 100 MCG TAB PO SCH (05:42)
[2018-06-23] MEDS ORDERED: MICONAZOLE NITRATE POWDER 43 GM EXT PRN (06:15)
[2018-06-23 06:27] LABS: HEMOGLOBIN 8.2 g/dL (12.0-16.0); MEAN CELL VOLUME 99.3 fL (80-100); MEAN CORPUSCULAR HEMOGLOBIN 30.1 pg (25-34); MEAN CORPUSCULAR HGB CONC 30.4 g/dl (32-36); MEAN PLATELET VOLUME 9.2 fL (7.4-10.4); NUCLEATED RED BLOOD CELL ABS 0.03 K/uL (0-0); PLATELET COUNT 190 K/uL (130-400); RED CELL DISTRIBUTION WIDTH CV 20.2 % (11.5-14.5); RED CELL DISTRIBUTION WIDTH SD 72.7 fL (36.4-46.3); WHITE BLOOD COUNT 10.89 K/uL (4.8-10.8)
[2018-06-23 07:05] VITALS: BP 100/68; PULSE 92; TEMP 36.5; O2SAT 97
[2018-06-23 07:06] LABS: CALCIUM 8.3 mg/dl (8.5-10.1); CREATININE 2.11 mg/dl (0.60-1.20); POTASSIUM 4.7 mmol/L (3.5-5.1)
[2018-06-23] MEDS: AMOXICILLIN/CLAVULANATE SUSP 400 MG/5 ML PO SCH ×2 (08:37→17:09)
[2018-06-23] MEDS: AMIODARONE 200 MG TAB PO SCH (08:37)
[2018-06-23] MEDS: SENNA 8.6 MG TAB PO SCH (08:37)
--- NOTE | 2018-06-23 11:19 | Nephrology Progress Note ---
Nephrology Progress Note Date of Service Jun 23, 2018. Chief Complaint HEMANT Subjective Mrs. Johns was seen & examined in her hospital room this morning. She complains of weakness but notes that it is difficult to rest in the hospital and is anxious to go home. Review of Systems Constitutional: No fever Cardiovascular: No chest pain Respiratory: No dyspnea at rest Abdomen: No pain, No nausea, No vomiting Extremities: No leg edema A complete review of systems was performed. Pertinent positives are noted above. All other systems are negative. Vital Signs Last 8 Hrs Date Time Temp Pulse Resp B/P (MAP) Pulse Ox O2 Delivery O2 Flow Rate FiO2 06/23/18 08:30 Nasal Cannula 2.0 06/23/18 07:05 36.5 92 20 100/68 (79) 97 2.0 Last Recorded Weight Weight (Kilograms): 69.100 Physical Exam General Appearance: no apparent distress Head: atraumatic Eyes: PERRL, EOMI Neck: no adenopathy Respiratory/Chest: lungs clear, no respiratory distress Cardiovascular: regular rate, rhythm Abdomen/GI: normal bowel sounds, non tender, soft Extremities/Musculoskelatal: no calf tenderness, no pedal edema Neurologic/Psych: alert, oriented x 3 Family History COPD Diabetes mellitus Heart Disease Social History Smoking Status: Current some day smoker Smokeless Tobacco Use: No Alcohol Use: none Drug Use: none Marital Status: Housing Status: lives with family Occupation: retired Laboratory Results Past 24 Hours 06/23/18 06:14 06/23/18 06:14 Test 06/22/18 15:40 06/22/18 15:41 06/22/18 16:26 06/22/18 20:33 Bedside Glucose 67 mg/dl (70-90) 69 mg/dl (70-90) 145 mg/dl (70-90) 79 mg/dl (70-90) Test 06/23/18 02:36 06/23/18 06:14 06/23/18 07:01 Bedside Glucose 73 mg/dl (70-90) Red Blood Count 2.72 M/uL (4.2-5.4) Mean Corpuscular Volume 99.3 fL (80-100) Mean Corpuscular Hemoglobin 30.1 pg (25-34) Mean Corpuscular Hemoglobin Concent 30.4 g/dl (32-36) RDW Standard Deviation 72.7 fL (36.4-46.3) RDW Coefficient of Variation 20.2 % (11.5-14.5) Mean Platelet Volume 9.2 fL (7.4-10.4) Nucleated RBC Absolute Count (auto) 0.03 K/uL (0-0) Nucleated Red Blood Cells % 0.2 % Anion Gap 5.0 mmol/L (3-11) Est Creatinine Clear Calc Drug Dose 23.3 ml/min Estimated GFR () 26.6 Estimated GFR (Non- 23.0 BUN/Creatinine Ratio 24.1 (10-20) Calcium Level 8.3 mg/dl (8.5-10.1) Cortisol AM Sample 39.22 mcg/dl (4.30-22.40) Allergies Coded Allergies: Rofecoxib (Unverified Allergy, Unknown, CHEST PAIN, 03/05/18) Erythromycin (Verified Adverse Reaction, Unknown, SORE MOUTH, 03/05/18) Medications Current Inpatient Medications Medications (Trade) Dose Ordered Sig/Bryanna Route Start Time Stop Time Status Last Admin Dose Admin Amiodarone HCl (Cordarone Tab) 200 mg DAILY PO 06/13/18 09:00 07/13/18 08:59 06/23/18 08:37 200 MG Levothyroxine Sodium (Synthroid Tab) 100 mcg DAILYBB PO 06/13/18 06:00 07/13/18 06:59 06/23/18 05:42 100 MCG Acetaminophen (Tylenol Tab) 650 mg Q4H PRN PO 06/12/18 19:30 07/12/18 19:29 Ondansetron HCl (Zofran Inj) 4 mg Q6H PRN IV 06/12/18 19:30 07/12/18 19:29 06/22/18 16:50 4 MG Heparin Sodium (Porcine) (Heparin 100 Unit/ml 5ml Flush) 5 ml PRN PRN IV 06/13/18 00:45 07/13/18 00:44 06/23/18 06:14 5 ML Senna (Senokot Tab) 17.2 mg QAM PO 06/15/18 09:00 07/15/18 08:59 06/23/18 08:37 17.2 MG Bisacodyl (Dulcolax Tab) 5 mg DAILY PRN PO 06/14/18 11:00 07/14/18 10:59 06/18/18 19:33 5 MG Polyethylene (Miralax Powder Packet) 17 gm DAILY PRN PO 06/14/18 11:00 07/14/18 10:59 Acetaminophen/ Hydrocodone Bitart (Dafter 5/325 Tab) 1 tab for pain level 1-5 2 t... Q4H PRN PO 06/15/18 14:15 06/29/18 14:14 06/15/18 14:42 1 TAB Amoxicillin/ Clavulanate Potassium (Augmentin Susp) 6.25 ml BIDM PO 06/17/18 07:30 06/27/18 07:29 06/23/18 08:37 6.25 ML Miconazole Nitrate (Desenex Powder) 1 appln PRN PRN EXT 06/23/18 06:15 07/23/18 06:14 Impression 73y/oF with hx of progressing B cell lymphoma (parotid neoplasm 2013) s/p CHOP, Afib/flutter s/p unsuccessful cardioversion, Interstitial lung disease with severe pulmonary hypertension, hypothyroidism, and acute anemia admitted for R submental/submandibular abscess s/p I&D. HEMANT (prerenal vs. ATN) given hypotension, concern for sepsis, acute anemia and use of nephrotoxic antibiotic and IV contrast exposure. UA with 3+ protein, >30 WBC, >30 epithelial cells and 1-5 granular casts. Vanc trough level was elevated which could be causing acute tubular interstitial nephritis as well. Pt likely hypovolemic despite crackles appreciated and mild edema in lower extremities given no JVD and hx of interstitial lung disease with severe pulmonary hypertension. ECHO this hospitalization, EF 65-70% with normal LV size /function, moderately dilated RV with decreased function, severe R atrial dilation and tricuspid regurg, and severe pulmonary hypertension RVSP 60mmHg. Crackles likely underlying pulmonary etiology vs. volume overload status. Recommendations ACUTE KIDNEY INJURY: -- Urinalysis w/ granular casts c/w ATN -- Creatinine has improved from 3.6 to 2.1. Patient is now nonoliguric. Volume status and electrolyte balance remain acceptable. No acute indication for HD at this time. -- Will recheck BMP tomorrow AM -- Await results of immunologic studies (pending 06/23 am) ANEMIA: -- Relatively mild & stable. Will monitor -- FOBT positive x 1 ID: -- On empiric Augmentin therapy
[2018-06-23 15:42] VITALS: BP 91/60; PULSE 90; TEMP 36.3; O2SAT 96
[2018-06-23 16:32] LABS: ANA SCREEN TC 249X POSITIVE (NEGATIVE)
[2018-06-23] MEDS: ONDANSETRON INJ 2 MG/ML 2 ML VIAL IV PRN (18:17)
--- NOTE | 2018-06-23 18:56 | PROGRESS NOTE ---
DATE: 06/23/2018 Last Sunday, Selena underwent an incision and drainage of a rather extensive orofacial infection. This was done in the operating room under general anesthesia. She tolerated the procedure extremely well, and a drain was placed. I evaluated her the next day on Sunday, which was 06/15/2018, and because the drainage had ceased, I removed the drain and allowed just a gauze pressure dressing on the area. We also evaluated the culture and sensitivity, and it appears that the antibiotics that we have her on is adequate. From an oral and maxillofacial surgical point of view, the patient was not in any further need of followup because we got the infection under good control, and I was going to make arrangements with her home health for a followup to avoid the patient from coming back to the hospital to have me see her. We did make a note in the chart that the home health people would contact me if they had any concerns regarding the facial infection. However, in discussing this with Ms. Velvet Resendiz, it was recommended that the patient continue her stay at [facility] because of decreasing kidney infection. It is now 1 week status post the incision and drainage, and I had the opportunity to evaluate Mrs. Johns in room 252 at the [facility]. Her oral facial area is healing up very well. There is minimal drainage. There is a large opening inside the mouth where I believe a plunging ranula was the cause of this infection or even the possibility of a dermoid cyst that eroded into the mouth. Nevertheless, there is minimal drainage. She has minimal pain. The area is not swollen, and from an oral or maxillofacial surgical point of view, I would recommend perhaps another 7-10 days of oral antibiotics, most likely Augmentin 875 one every 12 hours for the next 7-10 days, and that if there are any further problems, that either she or the home health people should contact Dr. Prieto. At this time, I feel from an oral maxillofacial surgical point of view, I am signing off on her followup unless any complications develop. In summary, Mrs. Johns has done extremely well from the drainage of her infected facial cyst. She will need followup by her general dentist for some basic dental needs such as cleaning and restorations and possibly extractions as needed. If the swelling should reoccur or she should develop any further swelling or discomfort, she should immediately contact Dr. Prieto for a followup.
[2018-06-23 23:03] VITALS: BP 99/61; PULSE 90; TEMP 36.3; O2SAT 94
--- NOTE | 2018-06-23 23:35 | Progress Note ---
Subjective Date of Service: Jun 23, 2018. Subjective Pt evaluation today including: conversation w/ patient, physical exam Patient reports no change in symptoms. Patient reports that she is making more urine today. Problem List Medical Problems: (1) CHF (congestive heart failure) Status: Acute (2) Lymphoma Status: Acute (3) Sublingual infection Status: Acute (4) Tachycardia Status: Acute Review of Systems Constitutional: No fever, No chills ENT: + problem reported (currently no pain at surgical site), No trouble swallowing Respiratory: No cough, No shortness of breath Cardiovascular: No chest pain Abdomen: No pain, No nausea, No vomiting, No diarrhea, No constipation Musculoskeletal: No calf pain Female : No dysuria All Other Systems: Reviewed and Negative Objective Vital Signs Date Time Temp Pulse Resp B/P (MAP) Pulse Ox O2 Delivery O2 Flow Rate FiO2 06/23/18 23:03 36.3 90 22 99/61 (74) 94 Nasal Cannula 2.0 06/23/18 16:00 Nasal Cannula 2.0 Humidified Oxygen 06/23/18 15:42 36.3 90 20 91/60 (70) 96 Nasal Cannula 2.0 06/23/18 08:30 Nasal Cannula 2.0 06/23/18 07:05 36.5 92 20 100/68 (79) 97 2.0 06/23/18 00:00 92 Nasal Cannula 2.0 Physical Exam Comments: General Appearance: no apparent distress Eyes: sclerae normal ENT: hearing grossly normal Neck: supple, trachea midline, + pertinent finding (dressing C/D/I) Respiratory/Chest: no respiratory distress, no accessory muscle use, + crackles Cardiovascular: + JVD, + irregularly irregular Abdomen: normal bowel sounds, non tender, soft Extremities: + swelling (1+ pitting edema b/l lower extremities) Neurologic/Psychiatric: alert, oriented x 3 Skin: normal color, warm/dry, Laboratory Results Last 24 Hours Test 06/23/18 02:36 06/23/18 06:14 06/23/18 07:01 Bedside Glucose 73 mg/dl White Blood Count 10.89 K/uL Red Blood Count 2.72 M/uL Hemoglobin 8.2 g/dL Hematocrit 27.0 % Mean Corpuscular Volume 99.3 fL Mean Corpuscular Hemoglobin 30.1 pg Mean Corpuscular Hemoglobin Concent 30.4 g/dl RDW Standard Deviation 72.7 fL RDW Coefficient of Variation 20.2 % Platelet Count 190 K/uL Mean Platelet Volume 9.2 fL Nucleated RBC Absolute Count (auto) 0.03 K/uL Nucleated Red Blood Cells % 0.2 % Sodium Level 135 mmol/L Potassium Level 4.7 mmol/L Chloride Level 100 mmol/L Carbon Dioxide Level 30 mmol/L Anion Gap 5.0 mmol/L Blood Urea Nitrogen 51 mg/dl Creatinine 2.11 mg/dl Est Creatinine Clear Calc Drug Dose 23.3 ml/min Estimated GFR () 26.6 Estimated GFR (Non- 23.0 BUN/Creatinine Ratio 24.1 Random Glucose 68 mg/dl Calcium Level 8.3 mg/dl Cortisol AM Sample 39.22 mcg/dl Assessment and Plan Ms. Johns was admitted for submandibular abscess R Sublingual/Submandibular Abscess/Phlegmon/Ranula and Necrotic Lymph Node S/P I &D: STABLE - Will convert to Augmentin 500 mg BID for renal dosing - Cx with gram + cocci/ bacilli and gram - bacilli - showing alpha strep so far - There is a small opening to the R of the frenulum which likely correlates to patient's report of drainage into her mouth - Oral Maxillofacial Surgery following - discussed with Dr. Prieto - performed I& D on 06/15 and clear from surgical perspective Acute Kidney Injury - Suspect ATN 2/2 Hypotension Intra/Post-Operatively: - She is chronically volume overloaded but had lower then her normal BPs r\ -Likely ATN possibly from vancomycin. - Consult nephrology - discussed with Dr. Gonzalez - agree this is likely ATN -Patient did not respond to diuretic trial. Creatinine appears to has improved to 2.1 after peaking at 3.55 Has been negative over 800 ml over past 3 days. As patient is making urine, will monitor and will not order more diuretics. Appears patient will not need dialysis if she continues to improve Paroxysmal Atrial Fibrillation/Flutter: Rate Controlled - Heme+ stool which was present on last admission too but Hgb remaining stable. Will monitor H&H off AC at this time - Patient underwent successful cardioversion on 05/03 but ultimately went back to A Fib - has been intolerant to digoxin and BB therapy due to toxicity and hypotension - Amiodarone 200 mg daily Anemia: STABLE - Patient does report chronic constipation with hemorrhoids. Heme+ on this admission as well - Hemoglobin baseline appears to be around 10-10.4 and currently stable at 8.3 - currently no signs of acute coronary syndrome and is asymptomatic from an anemia standpoint - will assess Hgb in AM Acute on Chronic Diastolic CHF/Right Sided HF: - Chronically rather overloaded - surprisingly no respiratory distress but lungs with a lot of crackles - she does desat but waveform is very poor with finger and forehead probe and likely inaccurate - she does have Pulm HTN/CHF/ Emphysema and likely can expect O2 sats to be 88-92% - patient states she doesn' t want to have O2 -on lasix, but not making urine. COPD/Pulmonary HTN without Exacerbation: STABLE - Continue to monitor Hypothyroidism: - Synthroid 100 mcg daily Rheumatoid Arthritis: NOTED/STABLE Hypoglycemia: will monitor. improved cortisol elevated. likely occuring as patient wasn't eating yesterday as she did not have a good appetite. 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 Garcia - she reports she is due to have a PET scan for ongoing monitoring DVT Prophylaxis: SCDs Disposition: Will monitor kidney function at this time - trying to optimize her kidney function but maintaining stability of her chronic conditions At this point, patient will likely no longer need dialysis. Continued [facility] stay due to: multiple IV medications needed Discharge planning: home with home health Continued [facility] stay due to: multiple IV medications needed Discharge planning: home with home health
[2018-06-24 01:16] VITALS: O2SAT 92
[2018-06-24] MEDS: LEVOTHYROXINE 100 MCG TAB PO SCH (06:07)
[2018-06-24 06:34] LABS: CALCIUM 8.4 mg/dl (8.5-10.1); CREATININE 1.66 mg/dl (0.60-1.20); POTASSIUM 4.8 mmol/L (3.5-5.1)
[2018-06-24 07:22] VITALS: BP 93/59; PULSE 95; TEMP 36.5; O2SAT 98
[2018-06-24] MEDS: AMIODARONE 200 MG TAB PO SCH (08:51)
[2018-06-24] MEDS: SENNA 8.6 MG TAB PO SCH (08:51)
[2018-06-24] MEDS: AMOXICILLIN/CLAVULANATE SUSP 400 MG/5 ML PO SCH ×2 (08:56→17:17)
--- NOTE | 2018-06-24 10:23 | Nephrology Progress Note ---
Nephrology Progress Note Date of Service Jun 24, 2018. Chief Complaint HEMANT Subjective Mrs. Johns was seen & examined in her hospital room this morning. She complains of weakness but is anxious to return home. She voices no new medical concerns. Review of Systems Constitutional: No fever Cardiovascular: No chest pain Respiratory: No dyspnea at rest Abdomen: No pain, No nausea, No vomiting Extremities: No leg edema A complete review of systems was performed. Pertinent positives are noted above. All other systems are negative. Vital Signs Last 8 Hrs Date Time Temp Pulse Resp B/P (MAP) Pulse Ox O2 Delivery O2 Flow Rate FiO2 06/24/18 07:45 Nasal Cannula 2.0 06/24/18 07:22 36.5 95 16 93/59 (70) 98 Room Air Last Recorded Weight Weight (Kilograms): 65.600 Physical Exam General Appearance: + thin (frail appearing) Head: + pertinent finding (temporal muscle wasting) Eyes: PERRL, EOMI Neck: no adenopathy Respiratory/Chest: lungs clear, no respiratory distress Cardiovascular: regular rate, rhythm Abdomen/GI: normal bowel sounds, non tender, soft Extremities/Musculoskelatal: no calf tenderness, + pertinent finding (trace pretibial edema) Neurologic/Psych: alert, oriented x 3 Family History COPD Diabetes mellitus Heart Disease Social History Smoking Status: Current some day smoker Smokeless Tobacco Use: No Alcohol Use: none Drug Use: none Marital Status: Housing Status: lives with family Occupation: retired Laboratory Results Past 24 Hours 06/24/18 05:17 Test 06/24/18 05:17 Anion Gap 7.0 mmol/L (3-11) Est Creatinine Clear Calc Drug Dose 26.8 ml/min Estimated GFR () 35.6 Estimated GFR (Non- 30.7 BUN/Creatinine Ratio 27.8 (10-20) Calcium Level 8.4 mg/dl (8.5-10.1) Allergies Coded Allergies: Rofecoxib (Unverified Allergy, Unknown, CHEST PAIN, 03/05/18) Erythromycin (Verified Adverse Reaction, Unknown, SORE MOUTH, 03/05/18) Medications Current Inpatient Medications Medications (Trade) Dose Ordered Sig/Bryanna Route Start Time Stop Time Status Last Admin Dose Admin Amiodarone HCl (Cordarone Tab) 200 mg DAILY PO 06/13/18 09:00 07/13/18 08:59 06/24/18 08:51 200 MG Levothyroxine Sodium (Synthroid Tab) 100 mcg DAILYBB PO 06/13/18 06:00 07/13/18 06:59 06/24/18 06:07 100 MCG Acetaminophen (Tylenol Tab) 650 mg Q4H PRN PO 06/12/18 19:30 07/12/18 19:29 Ondansetron HCl (Zofran Inj) 4 mg Q6H PRN IV 06/12/18 19:30 07/12/18 19:29 06/23/18 18:17 4 MG Heparin Sodium (Porcine) (Heparin 100 Unit/ml 5ml Flush) 5 ml PRN PRN IV 06/13/18 00:45 07/13/18 00:44 06/24/18 05:14 5 ML Senna (Senokot Tab) 17.2 mg QAM PO 06/15/18 09:00 07/15/18 08:59 06/24/18 08:51 17.2 MG Bisacodyl (Dulcolax Tab) 5 mg DAILY PRN PO 06/14/18 11:00 07/14/18 10:59 06/18/18 19:33 5 MG Polyethylene (Miralax Powder Packet) 17 gm DAILY PRN PO 06/14/18 11:00 07/14/18 10:59 Acetaminophen/ Hydrocodone Bitart ([place] 5/325 Tab) 1 tab for pain level 1-5 2 t... Q4H PRN PO 06/15/18 14:15 06/29/18 14:14 06/15/18 14:42 1 TAB Amoxicillin/ Clavulanate Potassium (Augmentin Susp) 6.25 ml BIDM PO 06/17/18 07:30 06/27/18 07:29 06/24/18 08:56 6.25 ML Miconazole Nitrate (Desenex Powder) 1 appln PRN PRN EXT 06/23/18 06:15 07/23/18 06:14 Impression 73y/oF with hx of progressing B cell lymphoma (parotid neoplasm 2013) s/p CHOP, Afib/flutter s/p unsuccessful cardioversion, Interstitial lung disease with severe pulmonary hypertension, hypothyroidism, and acute anemia admitted for R submental/submandibular abscess s/p I&D. HEMANT (prerenal vs. ATN) given hypotension, concern for sepsis, acute anemia and use of nephrotoxic antibiotic and IV contrast exposure. UA with 3+ protein, >30 WBC, >30 epithelial cells and 1-5 granular casts. Vanc trough level was elevated which could be causing acute tubular interstitial nephritis as well. Pt likely hypovolemic despite crackles appreciated and mild edema in lower extremities given no JVD and hx of interstitial lung disease with severe pulmonary hypertension. ECHO this hospitalization, EF 65-70% with normal LV size /function, moderately dilated RV with decreased function, severe R atrial dilation and tricuspid regurg, and severe pulmonary hypertension RVSP 60mmHg. Crackles likely underlying pulmonary etiology vs. volume overload status. Recommendations ACUTE KIDNEY INJURY: -- Urinalysis w/ granular casts c/w ATN -- ELIN is positive w/ low C3 suggestive of alternate complement pathway activation. This is likely related to her bacteremia and advanced RA. -- Patient has proteinuria. She will require quantitation once her acute infection has resolved -- Creatinine has improved from 3.6 to 1.66. Patient is now nonoliguric. UO ~ 1 L overnight. Patient is clearly in the recovery stage of ATN. Clinically doubt active vasculitis as patient is clinically improved w/ antibiotics and conservative management. Volume status and electrolyte balance remain acceptable. No acute indication for HD at this time. -- Patient will require hospital follow up w/ Dr. Gonzalez [facility] [place] following discharge from the hospital ANEMIA: -- Relatively mild & stable. Will monitor -- FOBT positive x 1 ID: -- On empiric Augmentin therapy
[2018-06-24 15:47] VITALS: BP 100/84; PULSE 70; TEMP 36.5; O2SAT 95
--- NOTE | 2018-06-24 16:16 | Hospitalist Progress Note ---
Hospitalist Progress Note Date of Service Jun 24, 2018. Subjective Pt evaluation today including: conversation w/ patient, physical exam, chart review, lab review, review of studies, review of inpatient medication list Patient seen and evaluated. No acute events overnight. Cr continues to improve and at 1.66 now and making urine. Verbalizes no complaints at this time. Is homesick but no other complaints. States she is trying to keep her strength up as she would like to return home. Constitutional: No fever, No chills Respiratory: No cough, No shortness of breath Cardiovascular: No chest pain Abdomen: No pain, No nausea, No vomiting Female : No dysuria Heme: No abnormal bleeding/bruising Skin: No rash Medications Current Inpatient Medications Medications (Trade) Dose Ordered Sig/Bryanna Route Start Time Stop Time Status Last Admin Dose Admin Amiodarone HCl (Cordarone Tab) 200 mg DAILY PO 06/13/18 09:00 07/13/18 08:59 06/24/18 08:51 200 MG Levothyroxine Sodium (Synthroid Tab) 100 mcg DAILYBB PO 06/13/18 06:00 07/13/18 06:59 06/24/18 06:07 100 MCG Acetaminophen (Tylenol Tab) 650 mg Q4H PRN PO 06/12/18 19:30 07/12/18 19:29 Ondansetron HCl (Zofran Inj) 4 mg Q6H PRN IV 06/12/18 19:30 07/12/18 19:29 06/23/18 18:17 4 MG Heparin Sodium (Porcine) (Heparin 100 Unit/ml 5ml Flush) 5 ml PRN PRN IV 06/13/18 00:45 07/13/18 00:44 06/24/18 05:14 5 ML Senna (Senokot Tab) 17.2 mg QAM PO 06/15/18 09:00 07/15/18 08:59 06/24/18 08:51 17.2 MG Bisacodyl (Dulcolax Tab) 5 mg DAILY PRN PO 06/14/18 11:00 07/14/18 10:59 06/18/18 19:33 5 MG Polyethylene (Miralax Powder Packet) 17 gm DAILY PRN PO 06/14/18 11:00 07/14/18 10:59 Acetaminophen/ Hydrocodone Bitart ([place] 5/325 Tab) 1 tab for pain level 1-5 2 t... Q4H PRN PO 06/15/18 14:15 06/29/18 14:14 06/15/18 14:42 1 TAB Amoxicillin/ Clavulanate Potassium (Augmentin Susp) 6.25 ml BIDM PO 06/17/18 07:30 06/27/18 07:29 06/24/18 08:56 6.25 ML Miconazole Nitrate (Desenex Powder) 1 appln PRN PRN EXT 06/23/18 06:15 07/23/18 06:14 Objective Vital Signs Date Time Temp Pulse Resp B/P (MAP) Pulse Ox O2 Delivery O2 Flow Rate FiO2 06/24/18 15:47 36.5 70 15 100/84 (89) 95 Room Air 06/24/18 07:45 Nasal Cannula 2.0 06/24/18 07:22 36.5 95 16 93/59 (70) 98 Room Air 06/24/18 01:16 92 Nasal Cannula 2.0 06/23/18 23:03 36.3 90 22 99/61 (74) 94 Nasal Cannula 2.0 Physical Exam General Appearance: no apparent distress Eyes: sclerae normal ENT: hearing grossly normal, + pertinent finding (healing surgical site at R jaw line; small opening near frenulum without visible drainage) Neck: supple, no JVD, trachea midline Respiratory/Chest: no respiratory distress, no accessory muscle use, + crackles Cardiovascular: regular rate, rhythm Abdomen: normal bowel sounds, non tender, soft Extremities: no pedal edema Neurologic/Psychiatric: alert Skin: normal color, warm/dry Laboratory Results Last 24 Hours Test 06/24/18 05:17 Sodium Level 138 mmol/L Potassium Level 4.8 mmol/L Chloride Level 102 mmol/L Carbon Dioxide Level 30 mmol/L Anion Gap 7.0 mmol/L Blood Urea Nitrogen 46 mg/dl Creatinine 1.66 mg/dl Est Creatinine Clear Calc Drug Dose 26.8 ml/min Estimated GFR () 35.6 Estimated GFR (Non- 30.7 BUN/Creatinine Ratio 27.8 Random Glucose 68 mg/dl Calcium Level 8.4 mg/dl Assessment and Plan Ms. Johns was admitted for submandibular abscess R Sublingual/Submandibular Abscess/Phlegmon/Ranula and Necrotic Lymph Node S/P I &D: IMPROVING - Augmentin BID - oral surg recommendation from 06/23 for 7-10 more days - finish date would be 06/29 - Oral Maxillofacial Surgery followed and signed off - plan for Abx at this and regular dentistry F/U as outpatient Acute Tubular Necrosis: IMPROVING - Cr currently at 1.66 and continues to make urine at this time; no indications for dialysis - Nephrology following - appreciate recommendations - will need outpatient F/U with Dr. Gonzalez and further studies with proteinuria after acute illness resolved Paroxysmal Atrial Fibrillation/Flutter: Rate Controlled - Heme+ stool which was present on last admission too but Hgb remaining stable - Patient underwent successful cardioversion on 05/03 but ultimately went back to A Fib - has been intolerant to digoxin and BB therapy due to toxicity and hypotension - Amiodarone 200 mg daily Anemia: STABLE - Patient does report chronic constipation with hemorrhoids. Heme+ on this admission as well - Hemoglobin baseline appears to be around 10-10.4 and currently stable at in 8s Acute on Chronic Diastolic CHF/Right Sided HF: STABLE - Chronically rather overloaded - surprisingly no respiratory distress and tolerates this rather well- she does desat but waveform is very poor with finger and forehead probe and likely inaccurate - she does have Pulm HTN/CHF/ Emphysema and likely can expect O2 sats to be 88-92% - patient states she doesn' t want to have O2 - Lasix on hold at this time COPD/Pulmonary HTN without Exacerbation: STABLE - Continue to monitor Hypothyroidism: - Synthroid 100 mcg daily Rheumatoid Arthritis: NOTED/STABLE Hypoglycemia: - Eating minimal food - was evaluated today during lunch and didn't consume very much - is improving but will monitor B Cell Lymphoma with Parotid Neoplasm (2013): Completed 6 Cycles CHOP - Follows with Dr. Garcia - she reports she is due to have a PET scan for ongoing monitoring DVT Prophylaxis: SCDs Disposition: Home with home services - possibly in the next 1-2 days as UO improved and Cr continues to improve Continued [facility] stay due to: multiple IV medications needed Discharge planning: home with home health
[2018-06-24] MEDS: ONDANSETRON INJ 2 MG/ML 2 ML VIAL IV PRN (17:44)
[2018-06-24 23:03] VITALS: BP 90/62; PULSE 91; TEMP 36.4; O2SAT 94
[2018-06-24 23:40] VITALS: O2SAT 94
[2018-06-25] MEDS: LEVOTHYROXINE 100 MCG TAB PO SCH (06:00)
[2018-06-25 06:34] LABS: CALCIUM 8.5 mg/dl (8.5-10.1); CREATININE 1.34 mg/dl (0.60-1.20); POTASSIUM 5.1 mmol/L (3.5-5.1)
[2018-06-25 06:59] VITALS: BP 96/64; PULSE 91; TEMP 36.4; O2SAT 94
[2018-06-25] MEDS: ONDANSETRON INJ 2 MG/ML 2 ML VIAL IV PRN (08:16)
--- NOTE | 2018-06-25 09:36 | Nephrology Progress Note ---
Nephrology Progress Note Date of Service Jun 25, 2018. Chief Complaint HEMANT Subjective Ms. Johns was seen & examined in her hospital room this morning. She denies fever or dyspnea. She reports good urine output. She is anxious to return home. Review of Systems Constitutional: No fever Cardiovascular: No chest pain Respiratory: No dyspnea at rest Abdomen: No nausea, No vomiting, No diarrhea Extremities: No leg edema A complete review of systems was performed. Pertinent positives are noted above. All other systems are negative. Vital Signs Last 8 Hrs Date Time Temp Pulse Resp B/P (MAP) Pulse Ox O2 Delivery O2 Flow Rate FiO2 06/25/18 08:00 Nasal Cannula 2.0 Humidified Oxygen 06/25/18 06:59 36.4 91 20 96/64 (75) 94 Nasal Cannula 2.0 Last Recorded Weight Weight (Kilograms): 65.600 Physical Exam General Appearance: no apparent distress Head: + pertinent finding (temporal muscle wasting) Eyes: PERRL, EOMI Respiratory/Chest: + crackles Cardiovascular: regular rate, rhythm Abdomen/GI: normal bowel sounds, non tender, soft Extremities/Musculoskelatal: + pertinent finding (trace LE edema) Neurologic/Psych: alert, oriented x 3 Family History COPD Diabetes mellitus Heart Disease Social History Smoking Status: Current some day smoker Smokeless Tobacco Use: No Alcohol Use: none Drug Use: none Marital Status: Housing Status: lives with family Occupation: retired Laboratory Results Past 24 Hours 06/25/18 05:30 Test 06/25/18 05:30 Anion Gap 4.0 mmol/L (3-11) Est Creatinine Clear Calc Drug Dose 33.3 ml/min Estimated GFR () 46.1 Estimated GFR (Non- 39.8 BUN/Creatinine Ratio 30.1 (10-20) Calcium Level 8.5 mg/dl (8.5-10.1) Allergies Coded Allergies: Rofecoxib (Unverified Allergy, Unknown, CHEST PAIN, 03/05/18) Erythromycin (Verified Adverse Reaction, Unknown, SORE MOUTH, 03/05/18) Medications Current Inpatient Medications Medications (Trade) Dose Ordered Sig/Bryanna Route Start Time Stop Time Status Last Admin Dose Admin Amiodarone HCl (Cordarone Tab) 200 mg DAILY PO 06/13/18 09:00 07/13/18 08:59 06/24/18 08:51 200 MG Levothyroxine Sodium (Synthroid Tab) 100 mcg DAILYBB PO 06/13/18 06:00 07/13/18 06:59 06/25/18 06:00 100 MCG Acetaminophen (Tylenol Tab) 650 mg Q4H PRN PO 06/12/18 19:30 07/12/18 19:29 Ondansetron HCl (Zofran Inj) 4 mg Q6H PRN IV 06/12/18 19:30 07/12/18 19:29 06/25/18 08:16 4 MG Heparin Sodium (Porcine) (Heparin 100 Unit/ml 5ml Flush) 5 ml PRN PRN IV 06/13/18 00:45 07/13/18 00:44 06/25/18 05:29 5 ML Senna (Senokot Tab) 17.2 mg QAM PO 06/15/18 09:00 07/15/18 08:59 06/24/18 08:51 17.2 MG Bisacodyl (Dulcolax Tab) 5 mg DAILY PRN PO 06/14/18 11:00 07/14/18 10:59 06/18/18 19:33 5 MG Polyethylene (Miralax Powder Packet) 17 gm DAILY PRN PO 06/14/18 11:00 07/14/18 10:59 Acetaminophen/ Hydrocodone Bitart ([place] 5/325 Tab) 1 tab for pain level 1-5 2 t... Q4H PRN PO 06/15/18 14:15 06/29/18 14:14 06/15/18 14:42 1 TAB Amoxicillin/ Clavulanate Potassium (Augmentin Susp) 6.25 ml BIDM PO 06/17/18 07:30 06/27/18 07:29 06/24/18 17:17 6.25 ML Miconazole Nitrate (Desenex Powder) 1 appln PRN PRN EXT 06/23/18 06:15 07/23/18 06:14 Impression 73y/oF with hx of progressing B cell lymphoma (parotid neoplasm 2013) s/p CHOP, Afib/flutter s/p unsuccessful cardioversion, Interstitial lung disease with severe pulmonary hypertension, hypothyroidism, and acute anemia admitted for R submental/submandibular abscess s/p I&D. HEMANT (prerenal vs. ATN) given hypotension, concern for sepsis, acute anemia and use of nephrotoxic antibiotic and IV contrast exposure. UA with 3+ protein, >30 WBC, >30 epithelial cells and 1-5 granular casts. Vanc trough level was elevated which could be causing acute tubular interstitial nephritis as well. Pt likely hypovolemic despite crackles appreciated and mild edema in lower extremities given no JVD and hx of interstitial lung disease with severe pulmonary hypertension. ECHO this hospitalization, EF 65-70% with normal LV size /function, moderately dilated RV with decreased function, severe R atrial dilation and tricuspid regurg, and severe pulmonary hypertension RVSP 60mmHg. Crackles likely underlying pulmonary etiology vs. volume overload status. Recommendations ACUTE KIDNEY INJURY: -- Urinalysis w/ granular casts c/w ATN -- ELIN is positive w/ low C3 suggestive of alternate complement pathway activation. This is likely related to her bacteremia and advanced RA. -- Patient has proteinuria. She will require quantitation once her acute infection has resolved -- Creatinine has improved from 3.6 to 1.34. Patient is now nonoliguric. UO ~ 1 L overnight. Patient is clearly in the recovery stage of ATN. Clinically doubt active vasculitis as patient is clinically improved w/ antibiotics and conservative management. Volume status and electrolyte balance remain acceptable. No acute indication for HD at this time. -- Patient will require hospital follow up w/ Dr. Gonzalez [facility] [facility] [place] 1 - 2 weeks following discharge from the hospital ANEMIA: -- Relatively mild & stable. Will monitor -- FOBT positive x 1 ID: -- On empiric Augmentin therapy No further Nephrology evaluation indicated at this time. Will sign off. Please call if further assistance is needed.
[2018-06-25] MEDS: AMOXICILLIN/CLAVULANATE SUSP 400 MG/5 ML PO SCH (09:57)
[2018-06-25] MEDS: SENNA 8.6 MG TAB PO SCH (09:57)
[2018-06-25] MEDS: AMIODARONE 200 MG TAB PO SCH (09:57)
[2018-06-25] MEDS ORDERED: POTA-74 PO ×2 (12:40→14:59)
[2018-06-25] MEDS ORDERED: FRS/40 PO (12:40)
[2018-06-25 12:43] LABS: HEMATOCRIT 28.3 % (37-47); HEMOGLOBIN 8.3 g/dL (12.0-16.0); MEAN CELL VOLUME 101.4 fL (80-100); MEAN CORPUSCULAR HEMOGLOBIN 29.7 pg (25-34); MEAN CORPUSCULAR HGB CONC 29.3 g/dl (32-36); MEAN PLATELET VOLUME 8.7 fL (7.4-10.4); PLATELET COUNT 178 K/uL (130-400); RED CELL DISTRIBUTION WIDTH CV 19.9 % (11.5-14.5); RED CELL DISTRIBUTION WIDTH SD 73.5 fL (36.4-46.3); WHITE BLOOD COUNT 8.21 K/uL (4.8-10.8)
--- NOTE | 2018-06-25 12:47 | Discharge Instructions ---
Discharge Instructions Date of Service Jun 25, 2018. Admission Reason for Admission: Anemia,Periapical Abscess With Facial Involvement Discharge Discharge Diagnosis / Problem: Facial Abscess and Kidney Injury Discharge Goals Goal(s): Decrease discomfort, Improve function, Increase independence Activity Recommendations Activity Limitations: resume your previous activity . Instructions / Follow-Up Instructions / Follow-Up Facial Abscess: - This was surgically drained and repaired. You have completed your course of antibiotics for this. - Please keep your normal follow-ups with your dentist Kidney Injury: - Your kidneys had some injury after surgery but are now back to normal. Will need to keep an eye on your kidneys to make sure they keep doing well. - Will get a follow up appointment in the next week with the kidney doctor to just watch your kidney numbers - Will give you a prescription to have blood work done that will go to the kidney doctor and your family doctor. You can get this done at any place you normally get blood work done Fluid Retention: - Due to your kidneys would recommend to stop your Lasix at this time. If you would gain more than 3 pounds in one day or feel short of breath you can take Lasix 40 mg once daily just when needed. When you follow-up with your kidney doctor and family doctor this can be adjusted. This is to let your kidney rest a little bit longer Please, follow up at [facility] with Dr. Palacio on July 04 at 11:00 am. *If you need to change this appointment, call the office at [phone]. Please, follow up at [facility] with Dr. Gonzalez on July 18 at 8:45 am. *The nurse is going to try and arrange an earlier appointment, they will call you with the details. This office is located in [address] of [facility] - big building next to this hospital. If you need to change this appointment or if you have any questions, call the office at [phone] Call your Primary Care doctor if any of the following symptoms or problems start or get worse: * Shortness of breath or difficulty breathing * Wake up at night short of breath * Chest pain * Cough * Swelling of your hands, feet, or legs * More fatigued or tired with your normal activity * Palpitations - sudden fast heart beats WEIGHT * Weigh yourself every morning after using the bathroom. * Use the same scale. * Wear the same amount of clothing. * Write your weight down on a chart. * Call your Primary Care doctor if you gain more than 2-3 pounds in 1-2 days. MEDICATIONS * Use this discharge instruction sheet for medication instructions. * Take your medications at the time your doctor ordered. * Do not skip a dose of your medicines. * If you miss a dose of medicine, take it as soon as possible, but DO NOT DOUBLE A DOSE. * Read your medicine information when you get home. * Know all of the side effects of your medicine. If in doubt, ask your pharmacist * Call your Primary Care doctor's office if you have any side effects. * Be sure all of your doctors know what medicine and herbs you take (including cold, flu, and herbal medicine). Take the following with you to your follow-up doctor appointments: * Weight Chart * Medication List * List of questions Do not drink excessive alcohol, beer or wine. Current Hospital Diet Patient's current hospital diet: Regular Diet Discharge Diet Recommended Diet: Regular Diet Procedures Procedures Performed: Drainage of facial infection, right side Pending Studies Studies pending at discharge: no Medical Emergencies . Who to Call and When: Call 911 or go to the Emergency Room if: * If at any time you feel your situation is an emergency * You have tightness or pain in your chest that does not go away with rest or Nitroglycerin * You are very short of breath even with rest . Non-Emergent Contact Non-Emergency issues call your: Primary Care Provider Call Non-Emergent contact if: you have a fever, your pain is concerning you, you have any medication questions . . "Provider Documentation" section prepared by Velvet Perez. .
[2018-06-25 12:51] LABS: CALCIUM 8.3 mg/dl (8.5-10.1); CREATININE 1.24 mg/dl (0.60-1.20)
--- NOTE | 2018-06-25 15:41 | Progress Note ---
Progress Note Date of Service Jun 25, 2018. Progress Note Evaluating patient for discharge, discussed that she was still requiring oxygen at rest. She does not have oxygen at home. Removed her oxygen for 5 minutes and observed how she felt. No increased shortness of breath, no cyanosis. Checked her oxygen saturation level, it was 80% on room air. Placed the patient on 2L NC and oxygen saturations came up to 90-94%. Patient needs oxygen on discharge.
[2018-06-25 16:49] VITALS: BP 96/64; PULSE 91; TEMP 36.4; O2SAT 94
--- NOTE | 2018-06-25 17:40 | Discharge Summary ---
Discharge Summary Date of Service Jun 25, 2018. Discharge Summary Admission Date: Jun 12, 2018 at 19:27 Discharge Date: Jun 25, 2018 Discharge Disposition: Home with services Principal Diagnosis: Submandibular Abscess; ATN Problems/Secondary Diagnoses: Medical Problems: (1) Acute diastolic (congestive) heart failure (2) Anemia (3) Anxiety (4) Atrial fibrillation (5) Atrial flutter with rapid ventricular response (6) capcity evaluation (7) COPD (chronic obstructive pulmonary disease) (8) Depressed (9) DJD (degenerative joint disease) (10) Hypothyroid (11) mental health evaluation (12) Periapical abscess with facial involvement Immunizations: Have You Had Influenza Vaccine: Unknown History of Tetanus Vaccine?: utd History of Pneumococcal: Unknown History of Hepatitis B Vaccine: Yes Procedures: SOFT TISSUE NECK WITH FINDINGS: Imaged intracranial structures demonstrate no acute abnormality. The nasopharynx, oral pharynx and hypopharynx are patent. No peritonsillar or retropharyngeal fluid collection. Mildly prominent right paratracheal lymph nodes measure up to 6 mm in short axis. Ill-defined fluid collection without well-defined glass involves the right sublingual and submandibular space, 3.7 x 2.6 x 2.7 cm in AP, transverse and craniocaudal dimension. Moderate associated subcutaneous stranding within this distribution. Just posterior to the ill-defined fluid collection is a 7 x 10 mm centrally hypodense and peripherally enhancing structure suggesting a centrally necrotic lymph node, image 163 series 3. Ill-defined fluid collection appears to extend from several right mandibular periapical lucencies with dental caries. The largest periapical lucency involves the right first bicuspid with associated cortical dehiscence, lucency and irregularity on image 122 series 3. Mastoid air cells on the left are clear. Small right mastoid effusion. Multilevel degenerative changes about the spine. Emphysematous changes about the imaged lung apices with pleural parenchymal scarring. Partially imaged catheter is seen within the right internal jugular vein. IMPRESSION: 1. Ill-defined fluid collection of the right sublingual and submandibular space measures up to 3.7 cm suggesting phlegmon or developing abscess without well-defined glass identified. This fluid collection appears to be associated with periodontal disease of the right mandible including a large periapical cyst of the right mandibular first bicuspid with associated cortical dehiscence and erosion. 2. There is a suggested necrotic lymph node just posterior to the aforementioned fluid collection measuring up to 10 mm. 3. Emphysema. Consultations: 1. Maxillofacial Surgery - Dr. Prieto 2. Psychiatry 3. Nephrology Medication Reconciliation Changed Medications: Furosemide (Lasix) 40 Mg Tab 40 MG PO DAILY PRN for Weight Gain, #30 TAB (Changed from: BID) Potassium Chloride (Potassium Chloride Er) 10 Meq Tab 10 MEQ PO DAILY PRN for with Lasix, #30 TAB (Changed from: TID) Continued Medications: Amiodarone HCl (Amiodarone HCl) 200 Mg Tab 200 MG PO DAILY, TAB Cholecalciferol (Vitamin D3) 2,000 Unit Tab 1761-1335 INTER.UNIT PO DAILY, TAB Docusate Sodium (Stool Softener) 100 Mg Cap 100 MG PO DAILY PRN for Consult Levothyroxine Sodium (Levothyroxine Sodium) 100 Mcg Tab 100 MCG PO DAILY, TAB Lorazepam (Lorazepam) 0.5 Mg Tab 0.5 MG PO BID PRN for Anxiety Rivaroxaban (Xarelto) 20 Mg Tab 20 MG PO DAILY, TAB Discontinued Medications: Naproxen (Aleve) 220 Mg Tab 220 MG PO UD PRN for Pain, TAB TAKE PER PACKAGE DIRECTIONS Discharge Exam REVIEW OF SYSTEMS Constitutional: No fever, No chills Respiratory: No cough, No shortness of breath Cardiovascular: No chest pain Abdomen: No pain, No nausea, No vomiting Female : No dysuria Heme: No abnormal bleeding/bruising Skin: No rash PHYSICAL EXAMINATION: General Appearance: no apparent distress Eyes: sclerae normal ENT: hearing grossly normal, + pertinent finding (healing surgical site at R jaw line; small opening near frenulum without visible drainage) Neck: supple, no JVD, trachea midline Respiratory/Chest: no respiratory distress, no accessory muscle use, + crackles Cardiovascular: regular rate, rhythm Abdomen: normal bowel sounds, non tender, soft Extremities: no pedal edema Neurologic/Psychiatric: alert Skin: normal color, warm/dry Hospital Course ADMISSION: The patient is a 73-year-old female who presents to emergency department after being referred by dental office of Dr. Donaldson due to increased swelling, redness and pain on the right side of her jaw and neck that began several days prior to arrival. The patient reports that the swelling does not appear with her eating and drinking to some extent, though she typically does not have much of an appetite anyway. She has no difficulty with swallowing foods or drink. And she is able to swallow her secretions okay as well. 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 HOSPITAL COURSE: R Sublingual/Submandibular Abscess/Phlegmon/Ranula and Necrotic Lymph Node S/P I &D: - Finished course of antibiotics to include Unasyn and oral conversion to Augmentin prior to D/C - Surgery performed by Dr. Prieto with recommendations to F/U with regular dentist routinely Acute Tubular Necrosis: RESOLVED - This occurred post-operative but thankfully kidney function stabilized an did not need temporary dialysis - Nephrology followed and would like to see patient in F/U with repeat labs in 2 -3 days - Recommend to change Lasix to 40 mg PRN for SOB/Weight Gain due to low BP and kidney injury but wants close follow-up to see if this can be advanced back up - Ms. Johns seems to live in a rather volume overloaded state even when on diuretic therapy and reports feeling asymptomatic Paroxysmal Atrial Fibrillation/Flutter: Rate Controlled - Heme+ stool which was present on last admission too but Hgb remaining stable - may need to consider if ongoing Xarelto is necessary for her? - Patient underwent successful cardioversion on 05/03 but ultimately went back to A Fib - has been intolerant to digoxin and BB therapy due to toxicity and hypotension - Amiodarone 200 mg daily Anemia: STABLE - Patient does report chronic constipation with hemorrhoids. Heme+ on this admission as well - Hemoglobin baseline appears to be around 10-10.4 and currently stable at in 8s Acute on Chronic Diastolic CHF/Right Sided HF: STABLE - Chronically rather overloaded - surprisingly no respiratory distress and tolerates this rather well- she does desat but waveform is very poor with finger and forehead probe and likely inaccurate - she does have Pulm HTN/CHF/ Emphysema and likely can expect O2 sats to be 88-92% - patient states she doesn' t want to have O2 but did agree to go home with supplemental O2 at 2 L continuous - Lasix 40 mg po PRN for SOB/Weight Gain - will be re-evaluated pending updated labs to make sure kidney function is stabilized COPD/Pulmonary HTN without Exacerbation: STABLE - Continue to monitor Hypothyroidism: - Synthroid 100 mcg daily Rheumatoid Arthritis: NOTED/STABLE 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 Garcia - she reports she is due to have a PET scan for ongoing monitoring Disposition: Home with home services Total Time Spent: Greater than 30 minutes This includes examination of the patient, discharge planning, medication reconciliation, and communication with other providers. Discharge Instructions Please refer to the electronic Patient Visit Report (Discharge Instructions) for additional information. Additional Copies To Ebony Palacoi M.D.
== END 2018-06-25 17:46 | disposition home health service (06) | DRG 137 ==
LOC: C.EDB 16:23 → C.2T 19:27 → ENRESERV 19:49 → C.MS2W 06-19 20:33
PROVIDERS: ADMIT Hospitalist; ATTEND Internal Medicine
PROC: 0W920ZZ Drainage of Face, Open Approach (ICD-10-PCS; principal; 2018-06-15 07:30)
DX: K04.6 Periapical abscess with sinus (principal); I50.33 Acute on chronic diastolic (congestive) heart failure; N17.0 Acute kidney failure with tubular necrosis; K12.2 Cellulitis and abscess of mouth; I48.0 Paroxysmal atrial fibrillation; J44.9 Chronic obstructive pulmonary disease, unspecified; E03.9 Hypothyroidism, unspecified; R60.0 Localized edema; I27.20 Pulmonary hypertension, unspecified; D64.9 Anemia, unspecified; I50.813 Acute on chronic right heart failure; M06.9 Rheumatoid arthritis, unspecified; K11.6 Mucocele of salivary gland; L04.0 Acute lymphadenitis of face, head and neck; E16.2 Hypoglycemia, unspecified; Z79.01 Long term (current) use of anticoagulants; Z79.899 Other long term (current) drug therapy; Z88.1 Allergy status to other antibiotic agents